=== PATIENT | male | born 1960 | race Caucasian/White ===

== ENCOUNTER 2017-12-01 17:55 | Emergency (ER) | payer OTHER, SELFPAY ==
[2017-12-01 17:57] VITALS: BP 131/74; PULSE 65; RESP 18; TEMP 36.7; O2SAT 95; BMI 24.5
--- NOTE | 2017-12-01 18:20 | US_ITS ---
STUDY: SCROTUM ULTRASOUND REASON FOR EXAM: Male, 57 years old. RT TESTICLE PAIN TECHNIQUE: Ultrasound evaluation of the scrotum was performed with color Doppler and static wagner-scale imaging. COMPARISON: None. FINDINGS: RIGHT TESTICLE INTRATESTICULAR: There is a normal size of the right testicle. The right testicle measures 4.4 x 2.6 x 2.3 cm cm. There is a homogenous echotexture. There does appear 1 microcalcification of the testis without evidence of soft tissue mass. This has a benign appearance. There is normal arterial and normal venous vascularity. There is no demonstrated right testicular mass or cyst. EXTRATESTICULAR: The epididymis is normal in size. The epididymis head measures 1.4 x 0.8 x 0.7 cm. There is normal vascularity of the epididymis. There is no demonstrated epididymal cystic structure. There is there is a small hydrocele. There are echoes seen within the fluid collection. Potentially there may be spermatocele also in this location.. There is no demonstrated varicocele. There is no demonstrated extratesticular mass or cyst. LEFT TESTICLE INTRATESTICULAR: There is a normal size of the left testicle. The left testicle measures 4.3 x 3.1 x 2.1 cm. There is a homogenous echotexture. There is normal arterial and normal venous vascularity. There is no demonstrated left testicular mass or cyst. EXTRATESTICULAR: The epididymis is normal in size. The epididymis head measures 1.4 x 0.6 x 0.9 cm cm. There is normal vascularity of the epididymis. There is no demonstrated epididymal cystic structure. There is a small hydrocele. There are prominent extratesticular veins consistent with a varicocele. There is no demonstrated extratesticular mass or cyst. US/Testicular with Arterial Flow IMPRESSION: Bilateral hydroceles. On the right there appears echogenicity associated with the hydrocele, perhaps an underlying spermatocele also coexistents. No evidence of testicular torsion. Small left varicocele. See above. Electronically Signed: Rachel Wallace MD at 19:44 EDT Tel , Service support ,
--- NOTE | 2017-12-01 18:40 | ED.VISSUMM ---
- ER Visit Summary Date of Service: 12/01/17 Chief Complaint: Testicular pain History of Present Illness: The patient is a 57 M presents to the emergency department with gradual onset right testicular pain. The patient states that starting yesterday, he began have some gradual increasing pain in his right testicle. He states it is worse when he moves around. Today, the pain was getting worse. He does admit to some mild pain with urination. He denies abdominal pain. He has had no nausea vomiting. He denies any trauma. Patient denies any recent sexual activity. He denies any penile discharge. He has no history of torsion. He has no history of prior surgery on his testicle. Physical Examination: Vital signs reviewed General: Well-nourished, well-developed Head: Normocephalic, atraumatic Eyes: Pupils equal and reactive, extraocular muscles intact Neck, supple, no lymphadenopathy Heart: Regular rate and rhythm Respiratory: No distress, clear bilaterally Abdomen: Soft, nontender, nondistended, no peritoneal signs Back: Nontender : Markedly tender palpation of the right testicle and cord. No torsion visible. Normal cremasteric. Extremities: Nontender, no edema, no cords Skin: Normal color no rash Neuro: Alert and oriented, no focal or lateralizing deficits Test Results: [] Emergency Department Course and Treatment: The patient did have rather significant tenderness to palpation of the right testicle. He was tender over the epididymis. There was no evidence of torsion. I did obtain a UA which is unremarkable. His ultrasound shows hydrocele, but no evidence of torsion or other dangerous process. I do have some concern he may be an early epididymitis even though there is no definitive evidence on his ultrasound. Given his pain, I do feel that the most prudent thing would be to treat him with oral antibiotics. The patient given his first dose of Levaquin here. I am going to given urology follow-up. I did counsellors him that if his symptoms worsen in any way over the next 24-48 hours he needs to return immediately to the emergency department. He is comfortable with this plan of care and will be discharged home. Treatment Plan: [] Disposition: Discharge Impression:. Right hydrocele This note was generated with [employer] dictation software. It may contain incorrect words, spelling, and punctuation that were not noted in review of the chart prior to signing ED Disposition - Plan for ED Patient: Disposition: Home or Assisted Living Chief Complaint: Male Pain/Injury Instructions: ED Epididymitis Prescriptions: Levofloxacin [Levaquin] 750 mg PO DAILY #7 tab Referrals: Song Holley MD [STAFF PHYSICIAN] -
--- NOTE | 2017-12-01 18:44 | ED.DCSUM_ITS ---
- ER Visit Summary Date of Service: 12/01/17 Chief Complaint: Testicular pain History of Present Illness: The patient is a 57 M presents to the emergency department with gradual onset right testicular pain. The patient states that starting yesterday, he began have some gradual increasing pain in his right testicle. He states it is worse when he moves around. Today, the pain was getting worse. He does admit to some mild pain with urination. He denies abdominal pain. He has had no nausea vomiting. He denies any trauma. Patient denies any recent sexual activity. He denies any penile discharge. He has no history of torsion. He has no history of prior surgery on his testicle. Physical Examination: Vital signs reviewed General: Well-nourished, well-developed Head: Normocephalic, atraumatic Eyes: Pupils equal and reactive, extraocular muscles intact Neck, supple, no lymphadenopathy Heart: Regular rate and rhythm Respiratory: No distress, clear bilaterally Abdomen: Soft, nontender, nondistended, no peritoneal signs Back: Nontender : Markedly tender palpation of the right testicle and cord. No torsion visible. Normal cremasteric. Extremities: Nontender, no edema, no cords Skin: Normal color no rash Neuro: Alert and oriented, no focal or lateralizing deficits Test Results: [] Emergency Department Course and Treatment: The patient did have rather significant tenderness to palpation of the right testicle. He was tender over the epididymis. There was no evidence of torsion. I did obtain a UA which is unremarkable. His ultrasound shows hydrocele, but no evidence of torsion or other dangerous process. I do have some concern he may be an early epididymitis even though there is no definitive evidence on his ultrasound. Given his pain, I do feel that the most prudent thing would be to treat him with oral antibiotics. The patient given his first dose of Levaquin here. I am going to given urology follow-up. I did benefits counselor him that if his symptoms worsen in any way over the next 24-48 hours he needs to return immediately to the emergency department. He is comfortable with this plan of care and will be discharged home. Treatment Plan: [] Disposition: Discharge Impression:. Right hydrocele This note was generated with [employer] dictation software. It may contain incorrect words, spelling, and punctuation that were not noted in review of the chart prior to signing ED Disposition - Plan for ED Patient: Disposition: Home or Assisted Living Chief Complaint: Male Pain/Injury Instructions: ED Epididymitis Prescriptions: Levofloxacin [Levaquin] 750 mg PO DAILY #7 tab Referrals: Song Holley MD [STAFF PHYSICIAN] -
[2017-12-01] MEDS: Acetaminophen 500 MG Tablet 1000 MG PO (18:45)
[2017-12-01 18:51] LABS: Bacteria 0 SEEN /hpf (None Seen); Mucous, Urine 0 SEEN /hpf (<or=2+); Red Blood Cells-Urine 0 SEEN /hpf (0-5)
[2017-12-01 19:07] LABS: Color, Urine Yellow (Yellow); Glucose, Dipstick Normal (Normal); Ketone-Dipstick 5 mg/dl (Negative); Leukocyte Esterase-Dipstick Negative /ul (Negative); Nitrite-Dipstick Negative (Negative); Occult Blood-Urine Negative /ul (Negative); Protein-Dipstick Negative (Negative); Specific Gravity, Urine 1.015 (1.002-1.030); Urine Bilirubin Dipstick Negative (Negative); Urine Clarity Clear (Clear); Urine Urobilinogen Normal (Normal)
[2017-12-01 19:21] LABS: Squamous Epithelial Cells - UA 0-5 SEEN /hpf (0-5)
[2017-12-01 19:24] LABS: White Blood Cells 0-5 SEEN /hpf (0-5)
[2017-12-01] MEDS: levoFLOXacin 750 MG Tablet PO (20:30)
[2017-12-01] MEDS: HYDROcodone Bitartrate/Apap 5/325 Tablet PO (20:30)
[2017-12-01 20:32] VITALS: PULSE 68; RESP 14; O2SAT 98
== END 2017-12-01 20:33 | disposition home or self-care (01) ==
LOC: ED 19:19
PROVIDERS: Emergency Provider Emergency Medicine; Family Provider Family Medicine; PCP Family Medicine
DX: N43.3 Hydrocele, unspecified (principal); K21.9 Gastro-esophageal reflux disease without esophagitis; Z72.0 Tobacco use; Z79.899 Other long term (current) drug therapy
CPT/HCPCS: 76870; 81001; 93976; 99283

== ENCOUNTER → 2017-12-26 15:50 | Outpatient (CLI) | payer OTHER, SELFPAY ==
[2017-12-26 17:45] LABS: PSA,Total - Annual Screen 4.68 ng/mL (0.00-4.00)
== END ==
PROVIDERS: Family Provider Family Medicine; PCP Family Medicine; Visit Provider Urology
DX: Z12.5 Encounter for screening for malignant neoplasm of prostate (principal)
CPT/HCPCS: 36415; 84153; G0103

== ENCOUNTER → 2018-02-07 08:00 | Outpatient (CLI) | payer OTHER, SELFPAY ==
[2018-02-07 17:55] LABS: PSA,Total- Diagnostic 5.69 ng/mL (0.0-4.0)
== END ==
PROVIDERS: Family Provider Family Medicine; PCP Family Medicine; Visit Provider Urology
DX: R97.20 Elevated prostate specific antigen [PSA] (principal)
CPT/HCPCS: 36415; 84153

== ENCOUNTER → 2018-03-02 15:53 | Outpatient (CLI) | payer OTHER, SELFPAY ==
[2018-03-02 17:29] LABS: Hematocrit 44.8 % (40-54); Hemoglobin 15.8 g/dl (13.0-16.5); Mean Corp Hgb Conc 35.3 g/gl (32-36); Mean Corpuscular Hgb 30.7 pg (27.0-32.0); Mean Corpuscular Volume 87.2 fL (80-94); Mean Platelet Vol. 11.4 fl (6.2-12.0); Platelet Count 213 K/mm3 (150-450); RBC Distribution Width CV 13.2 % (11.6-14.6); RBC Distribution Width SD 41.9 fl (35.1-43.9); Red Blood Count 5.14 M/mm3 (4.6-6.2); White Blood Count 7.1 K/mm3 (4.4-11.0)
[2018-03-02 17:30] LABS: Scan Indicated on CBC? Y/N NO
[2018-03-02 18:25] LABS: Anion Gap 6 (5-15); BUN 14 mg/dL (7-18); Calcium,Total 8.6 mg/dL (8.5-10.1); Chloride 106 mmol/L (98-107); Creatinine, Serum 1.17 mg/dL (0.70-1.30); EST Glomerular Filtration Rate 69 mL/min (>60); Est Glom Filt Rate - Afr Amer 83 mL/min (>60); Glucose 84 mg/dL (74-106); Potassium 4.1 mmol/L (3.5-5.1); Sodium Level 141 mmol/L (136-145)
== END ==
PROVIDERS: Family Provider Family Medicine; PCP Family Medicine; Visit Provider Urology
DX: Z01.818 Encounter for other preprocedural examination (principal); I51.9 Heart disease, unspecified
CPT/HCPCS: 36415; 80048; 85027

== ENCOUNTER → 2018-03-09 17:28 | Outpatient (CLI) | payer OTHER, SELFPAY ==
--- NOTE | 2018-03-09 08:55 | PROSBIL_PTH ---
PATIENT: KRISHAN JOHNSON Sr. LOC: [facility] U#:[id number] AGE/SX: 64/M ROOM: RE03/09/[address]: Dr. Song Holley MD : 1960 BED: DIS: SPEC #: [id number] RECD: 03/09/18 15:34 STATUS: KRISTY ANUJA #: [id number] OLIVIER: 03/09/18 08:[address]: Song Holley DEPT: SURGICAL PATHOLOGY RECD BY: Florentino Davison ENTERED: 03/12/18 07:49 SP TYPE: PROST BX THOR DR: Dr. Ernesto Faust MD [facility] Tissues: A - PROSTATE RIGHT B - PROSTATE RIGHT C - PROSTATE RIGHT D - PROSTATE LEFT E - PROSTATE LEFT F - PROSTATE LEFT Procedures: PROSTATE BX HEADER OPERATION: Transrectal ultrasound guided prostate biopsy PRE-OP DIAGNOSIS: Elevated prostate TISSUE SUBMITTED: A-Right base, B-Right mid, C-Right apex, D-Left base, E-Left mid, F-Left apex MICROSCOPIC DIAGNOSIS A. Right prostate, base, core biopsy: Prostatic tissue, negative for malignancy. B. Right prostate, mid, core biopsy: Prostatic tissue, negative for malignancy. C. Right prostate, apex, core biopsy: Prostatic tissue, negative for malignancy. D. Left prostate, base, core biopsy: Prostatic tissue, negative for malignancy. E. Left prostate, mid, core biopsy: Prostatic tissue, negative for malignancy. F. Left prostate, apex, core biopsy: Prostatic tissue, negative for malignancy. NANCY:sarah 03/13/18 MICROSCOPIC DESCRIPTION Slides are reviewed. GROSS DESCRIPTION A - Received is one container designated prostate, right base. The specimen consists of two elongated fragments of light shelley-white soft tissue each measuring 0.8 and 1.4 cm in length and 0.1 cm in diameter. The specimen is totally submitted in one cassette. B - Received is one container designated prostate, right mid. The specimen consists of two elongated fragments of light shelley-white soft tissue each measuring 0.7 and 1.8 cm in length and 0.1 cm in diameter. The specimen is totally submitted in one cassette. C - Received is one container designated prostate, right apex. The specimen consists of two elongated fragments of light shelley-white soft tissue each measuring 1.5 cm in length and 0.1 cm in diameter. The specimen is totally submitted in one cassette. D - Received is one container designated prostate, left base. The specimen consists of two elongated fragments of light shelley-white soft tissue each measuring 0.5 cm in length and 0.1 cm in diameter. The specimen is totally submitted in one cassette. E - Received is one container designated prostate, left mid. The specimen consists of three elongated fragments of light shelley-white soft tissue each measuring 0.5 to 1.3 cm in length and 0.1 cm in diameter. The specimen is totally submitted in one cassette. F - Received is one container designated prostate, left apex. The specimen consists of three elongated fragments of light shelley-white soft tissue each measuring 1 to 1.5 cm in length and 0.1 cm in diameter. The specimen is totally submitted in one cassette. / SJ:sp 03/12/18 TC:5 CPT: 82050 x6
== END ==
PROVIDERS: Family Provider Family Medicine; PCP Family Medicine; Visit Provider Urology
DX: R97.20 Elevated prostate specific antigen [PSA] (principal)
CPT/HCPCS: 88305; G0416

== ENCOUNTER → 2018-04-21 07:36 | Outpatient (CLI) | payer OTHER, SELFPAY ==
--- NOTE | 2018-04-21 07:48 | MRI_ITS ---
STUDY: MRI BRAIN WITH AND WITHOUT CONTRAST (ATTENTION INTERNAL AUDITORY CANALS - I.A.C.'s) REASON FOR EXAM: Male, 57 years old. tinnitus bilaterally x 6 mons. TECHNIQUE: Standardized multiplanar fat and water weighted pulse sequences were obtained. 9 ml of Gadavist contrast material was administered intravenously for the contrast portion of the examination. COMPARISON: None. FINDINGS: Normal bilateral temporal bones. Normal bilateral internal auditory canals. There is no demonstrated intracanalicular or cisternal vestibular schwannoma (acoustic neuroma). There is no enhancement of the bilateral VIIth or VIIIth cranial nerves. Normal bilateral cochlea, vestibules and semicircular canals. Normal size of the ventricles and extra-axial spaces for the patient's age. Normal white matter tracts of the supratentorial brain. Normal bilateral basal ganglia. Normal thalami. Normal flow voids within the major intracranial circulation suggesting patency by spin echo criteria. Normal venous enhancement. There is no enhancing intra-axial or extra-axial abnormality. There is no extra-axial fluid accumulation. Normal sella turcica, pituitary gland, infundibular stalk, optic chiasm and hypothalamus. Normal tectal plate and pineal gland. Normal midbrain, isaac and medulla. Normal cerebellum. Normal basal cisterns. No demonstrated orbital abnormality, within the constraints of a routine brain study. Normal visualized paranasal sinuses. Normal calvarium and skull base. Normal visualized soft tissue structures. Normal visualized upper cervical spine. MRI/Brain W/WO Contrast IMPRESSION: Unremarkable unenhanced and enhanced MRI of the bilateral internal auditory canals (I.A.C's). Electronically Signed: Ayana Samano MD at 9:09 EDT Tel , Service support ,
== END ==
PROVIDERS: Family Provider Family Medicine; PCP Family Medicine; Visit Provider Otolaryngology Otolaryngology/Facial Plastic Surgery
DX: R27.0 Ataxia, unspecified (principal)
CPT/HCPCS: 70553; A9585

== ENCOUNTER 2018-08-06 10:37 | Emergency (ER) | payer OTHER, SELFPAY ==
[2018-08-06] VITALS (7 sets, daily range): BP systolic 106–146; BP diastolic 59–82; PULSE 52–70; RESP 13–19; TEMP 36.4; O2SAT 96–100; BMI 27.5
--- NOTE | 2018-08-06 11:02 | EKG12_ITS ---
Test Reason : CHEST PAIN Blood Pressure : / mmHG Vent. Rate : 063 BPM Atrial Rate : 063 BPM P-R Int : 174 ms QRS Dur : 106 ms QT Int : 386 ms P-R-T Axes : 043 086 044 degrees QTc Int : 395 ms Normal sinus rhythm Normal ECG Confirmed by MYCHAL DOUGLAS, JAY ([id number]), deputy editor in chief MARKEL RAY ([id number]) on 08/16/2018 3:16:59 PM Referred By: KALEY Confirmed By:JAY HORTA MD
--- NOTE | 2018-08-06 11:10 | RAD_ITS ---
STUDY: X-RAY CHEST REASON FOR EXAM: Male, 57 years old. One month history of back pain and shoulder pain. TECHNIQUE: Single AP portable view of the chest. COMPARISON: Comparison is made with prior study dated September 18, 2016. FINDINGS: EKG electrodes are seen. The lungs are clear and expanded. There is no demonstrated pleural abnormality. Normal size heart. Normal mediastinum and abundio. Normal visualized pulmonary arteries. Normal visualized aortic arch and descending thoracic aorta. Normal visualized thoracic spine. Normal visualized ribs, clavicles, and shoulders. There is no demonstrated abnormality of the visualized soft tissue structures of the upper abdomen. RAD/Chest 1 View (Portable) IMPRESSION: Normal x-ray examination of the chest. Electronically Signed: Francesco Washington MD at 11:39 EST Tel [phone], Service support ,
[2018-08-06 11:18] LABS: Absolute Lymphocyte Count 2.83 X10^3/ul (0.83-4.51); Absolute Neutrophil Count 6.3 X10^3/uL (2.0-7.7); Basophil# 0.04 X10^3/uL; Basophil% 0.4 % (0-1); Eosinophil# 0.21 X10^3/uL; Eosinophils% 2.1 % (0-5); Hematocrit 43.8 % (40-54); Hemoglobin 15.2 g/dl (13.0-16.5); Lymphocyte # 2.83 X10^3/ul (4.0); Lymphocyte % 28.1 % (19-41); Mean Corp Hgb Conc 34.7 g/gl (32-36); Mean Corpuscular Hgb 29.9 pg (27.0-32.0); Mean Corpuscular Volume 86.2 fL (80-94); Mean Platelet Vol. 10.2 fl (6.2-12.0); Monocyte# 0.67 X10^3/uL; Monocyte% 6.6 % (0-10); Neutrophil # 6.27 X10^3/uL (2.7-7.7); Neutrophil % 62.2 % (47-70); Platelet Count 249 K/mm3 (150-450); RBC Distribution Width CV 12.8 % (11.6-14.6); RBC Distribution Width SD 39.5 fl (35.1-43.9); Red Blood Count 5.08 M/mm3 (4.6-6.2); White Blood Count 10.1 K/mm3 (4.4-11.0)
[2018-08-06 11:19] LABS: POSITIVE COUNT NO; POSITIVE DIFFERENTIAL NO; POSITIVE MORPHOLOGY NO
[2018-08-06 11:29] LABS: Anion Gap 10 (5-15); BUN 14 mg/dL (7-18); BUN/Creat Ratio 12.8 RATIO (10-20); Chloride 107 mmol/L (98-107); Creatinine, Serum 1.09 mg/dL (0.70-1.30); EST Glomerular Filtration Rate 74 mL/min (>60); Est Glom Filt Rate - Afr Amer 90 mL/min (>60); Estimated Creatinine Clearance 81.56 ml/min; Glucose 117 mg/dL (74-106); Potassium 3.8 mmol/L (3.5-5.1); Sodium Level 142 mmol/L (136-145)
[2018-08-06] MEDS: 0.9% Normal Saline 1,000 ML 150 ML IV (11:36)
[2018-08-06] MEDS: Aspirin 81 MG TAB.CHEW 324 MG PO (11:43)
--- NOTE | 2018-08-06 14:57 | ED.VISSUMM ---
- ER Visit Summary Date of Service: 08/06/18 Chief Complaint: Mid chest dull sensation while driving. History of Present Illness: The patient is a 57 M who apparently has history of coronary disease. He has no stents. Last stress test was 3 years ago and normal. He states he had bilateral anterior chest dullness that lasted approximately 1 hour while driving his vehicle. There was no radiation or associated symptoms. He states the pain he experienced when he had a cardiac cath was different. He denies hematemesis, melena hematochezia. He denies leg pain, swelling discoloration. He denies history of PE or DVT nor does he have any risk factors. He is a former smoker. He reports chronic low back pain and 1 month of right scapular pain that is worse with movement and palpation. Physical Examination: Blood pressures is elevated 133/70. HEENT exam is unremarkable. Heart is regular without murmur, gallop or rub. S1 and S2 are normal. Lungs are clear to auscultation with good movement of air bilaterally. Abdomen is soft nontender bowel sounds present normal. There is no palpable pulsatile mass. There is no abdominal bruit. There is no CVA tenderness noted. There is no asymmetry, swelling, discoloration, leg vein distention, palpable cords or tenderness along the distribution of the deep venous system. Neuro exam is nonfocal Test Results: EKG #1 reveals a sinus bradycardia with prolonged QT interval. There is a left axis. QRS duration is slightly prolonged. EKG was performed at 1108. First troponin second troponin less than 0.015. Portable chest x-ray was unremarkable. CBC was unremarkable. Basic metabolic panel reveals slight elevation of glucose of 117. Emergency Department Course and Treatment: Patient is low risk with a heart score of 2. Since EKG normal troponins normal will discharge home to follow-up with primary care physician Dr. Ernesto Galindo Treatment Plan: Outpatient follow-up Disposition: Discharged home in stable condition Impression: Atypical chest pain This note was generated with [employer] dictation software. It may contain incorrect words, spelling, and punctuation that were not noted in review of the chart prior to signing ED Disposition - Plan for ED Patient: Disposition: Home or Assisted Living Chief Complaint: Chest Pain Instructions: ED Chest Pain Atypical Unkn Cause Referrals: Ernesto Faust MD [Primary Care Provider] - 3-5 Days
== END 2018-08-06 15:38 | disposition home or self-care (01) ==
PROVIDERS: Emergency Provider Emergency Medicine; Family Provider Family Medicine; PCP Family Medicine
DX: R07.89 Other chest pain (principal); I25.10 Atherosclerotic heart disease of native coronary artery without angina pectoris; Z87.891 Personal history of nicotine dependence
CPT/HCPCS: 71045; 80048; 84484; 85025; 93005; 96360; 96361; 99285; J7030; A4216

== ENCOUNTER 2018-10-02 09:34 | Observation (INO) | payer OTHER, SELFPAY ==
[2018-08-06 10:38] VITALS: BMI 27.5
[2018-10-02] VITALS (12 sets, daily range): BP systolic 103–141; BP diastolic 72–94; PULSE 74–120; RESP 16–24; TEMP 36.8–37.3; O2SAT 95–96; BMI 28.5; BMI 27.0; BMI 27.6
--- NOTE | 2018-10-02 09:43 | EKG12_ITS ---
Test Reason : CP Blood Pressure : / mmHG Vent. Rate : 084 BPM Atrial Rate : 084 BPM P-R Int : 162 ms QRS Dur : 096 ms QT Int : 340 ms P-R-T Axes : 057 092 043 degrees QTc Int : 401 ms Normal sinus rhythm with sinus arrhythmia Rightward axis Borderline ECG Confirmed by MYCHAL DOUGLAS, JAY ([id number]), acquisitions editor MARKEL RAY ([id number]) on 10/03/2018 1:37:02 PM Referred By: WHITNEY Confirmed By:JAY HORTA MD
--- NOTE | 2018-10-02 09:51 | ED.VISSUMM ---
- ER Visit Summary Date of Service: 10/02/18 Chief Complaint: Chest pain associated with diaphoresis, dyspnea and nausea History of Present Illness: The patient is a 58 M who was a former smoker presents with chest tightness heaviness that radiated to his jaw associated with nausea, dyspnea and diaphoresis. This occurred while hooking a trailer to a hitch. 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 He denies history of PE or DVT. He does have history of acid reflux. He states this pain is different. He presented because 1 hour prior to presentation he became more short of breath. His pain has diminished but is still present. Pain is presently moderate. He has no known history of coronary disease. He denies symptoms of claudication. He does report less hair on his legs and toes. He has reported similar symptoms 15 years ago and had a cardiac cath at [facility]. He does not know or recall specifics. He denies fever, chills night sweats. He denies weight gain or weight loss. He denies ocular, visual or auditory symptoms. He denies vomiting, diarrhea, black or maroon stool. He denies urologic symptoms. He denies myalgias arthralgias. He denies pain radiating through to his back. He denies headache, paresthesia, anesthesia or motor weakness. He is on no anticoagulant and there is no history of bleeding problems. He denies history of hives or angioedema. Physical Examination: Patient appears in no obvious distress. Vital signs noted and remarkable for slight elevation blood pressure 134/94. Head is atraumatic normocephalic. Pupils are equal round reactive. Extraocular muscles are intact. TMs are pearly white with landmarks noted. Nares patent with no drainage. Posterior pharynx without erythema or exudate. Uvula is midline. There is no dysphonia or dysphasia. Trachea is midline. There is no stridor with auscultation of the neck. Heart is regular without murmur, gallop or rub. S1 and S2 are normal. Lungs are clear to auscultation with good movement of air bilaterally. Abdomen soft nontender with no palpable pulsatile mass. There is no abdominal bruit. DP and PT pulses are palpable. He does have absent of hair distal right and left leg and minimal hair on his toes. Neuro exam is nonfocal. Test Results: EKG #1 reveals a sinus rhythm with respiratory variation. [place] is to the right. [place] interval, QRS duration and QT interval are normal. EKG #2 was obtained. Presume patient had a vagal response after first nitro. He became diaphoretic, pale and bradycardic. ST segments on monitor changed significantly. EKG #2 reveals a sinus rhythm rate of 97 with motion artifact. EKG is essentially unchanged from first with the exception of axis. Portal chest x-ray reveals mild chronic changes. First troponin is normal. Hemoglobin is 18.5 with hematocrit of 54.8. Electric panel is unremarkable. Emergency Department Course and Treatment: Workup for chest pain to evaluate cardiac versus pulmonary versus GI. Patient did receive aspirin in route. He received nitroglycerin which resulted in bradycardia, diaphoresis and pallor. Unfortunately unable to obtain blood pressure. Treatment Plan: Tylenol for headache. Imodium for reported diarrhea. Page hospitalist for further testing Disposition: PCU Impression: 1. Exertional chest pain 2. History of tobacco use 3. Vagal response to nitroglycerin This note was generated with [employer] dictation software. It may contain incorrect words, spelling, and punctuation that were not noted in review of the chart prior to signing ED Disposition - Plan for ED Patient: Chief Complaint: Chest Pain Referrals: Ernesto Faust MD [Primary Care Provider] -
[2018-10-02 09:52] LABS: Absolute Lymphocyte Count 0.77 X10^3/ul (0.83-4.51); Absolute Neutrophil Count 12.5 X10^3/uL (2.0-7.7); Basophil# 0.01 X10^3/uL; Basophil% 0.1 % (0-1); Eosinophil# 0.07 X10^3/uL; Eosinophils% 0.5 % (0-5); Hematocrit 54.8 % (40-54); Lymphocyte # 0.77 X10^3/ul (4.0); Lymphocyte % 5.5 % (19-41); Mean Corp Hgb Conc 33.8 g/gl (32-36); Mean Corpuscular Hgb 29.9 pg (27.0-32.0); Mean Corpuscular Volume 88.5 fL (80-94); Mean Platelet Vol. 10.7 fl (6.2-12.0); Monocyte# 0.48 X10^3/uL; Monocyte% 3.5 % (0-10); Neutrophil # 12.52 X10^3/uL (2.7-7.7); Platelet Count 199 K/mm3 (150-450); RBC Distribution Width CV 13.1 % (11.6-14.6); RBC Distribution Width SD 42.2 fl (35.1-43.9); Red Blood Count 6.19 M/mm3 (4.6-6.2); White Blood Count 13.9 K/mm3 (4.4-11.0)
[2018-10-02] MEDS: Ondansetron 4 MG/2 ML Vial IV ×2 (09:55→14:44)
--- NOTE | 2018-10-02 09:55 | ED.DCSUM_ITS ---
- ER Visit Summary Date of Service: 10/02/18 Chief Complaint: Chest pain associated with diaphoresis, dyspnea and nausea History of Present Illness: The patient is a 58 M who was a former smoker presents with chest tightness heaviness that radiated to his jaw associated with nausea, dyspnea and diaphoresis. This occurred while hooking a trailer to a hitch. 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 He denies history of PE or DVT. He does have history of acid reflux. He states this pain is different. He presented because 1 hour prior to presentation he became more short of breath. His pain has diminished but is still present. Pain is presently moderate. He has no known history of coronary disease. He denies symptoms of claudication. He does report less hair on his legs and toes. He has reported similar symptoms 15 years ago and had a cardiac cath at [facility]. He does not know or recall specifics. He denies fever, chills night sweats. He denies weight gain or weight loss. He denies ocular, visual or auditory symptoms. He denies vomiting, diarrhea, black or maroon stool. He denies urologic symptoms. He denies myalgias arthralgias. He denies pain radiating through to his back. He denies headache, paresthesia, anesthesia or motor weakness. He is on no anticoagulant and there is no history of bleeding problems. He denies history of hives or angioedema. Physical Examination: Patient appears in no obvious distress. Vital signs noted and remarkable for slight elevation blood pressure 134/94. Head is atraumatic normocephalic. Pupils are equal round reactive. Extraocular muscles are intact. TMs are pearly white with landmarks noted. Nares patent with no drainage. Posterior pharynx without erythema or exudate. Uvula is midline. There is no dysphonia or dysphasia. Trachea is midline. There is no stridor with auscultation of the neck. Heart is regular without murmur, gallop or rub. S1 and S2 are normal. Lungs are clear to auscultation with good movement of air bilaterally. Abdomen soft nontender with no palpable pulsatile mass. There is no abdominal bruit. DP and PT pulses are palpable. He does have absent of hair distal right and left leg and minimal hair on his toes. Neuro exam is nonfocal. Test Results: EKG #1 reveals a sinus rhythm with respiratory variation. [place] is to the right. [place] interval, QRS duration and QT interval are normal. EKG #2 was obtained. Presume patient had a vagal response after first nitro. He became diaphoretic, pale and bradycardic. ST segments on monitor changed significantly. EKG #2 reveals a sinus rhythm rate of 97 with motion artifact. EKG is essentially unchanged from first with the exception of axis. Portal chest x-ray reveals mild chronic changes. First troponin is normal. Hemoglobin is 18.5 with hematocrit of 54.8. Electric panel is unremarkable. Emergency Department Course and Treatment: Workup for chest pain to evaluate cardiac versus pulmonary versus GI. Patient did receive aspirin in route. He r eceived nitroglycerin which resulted in bradycardia, diaphoresis and pallor. Unfortunately unable to obtain blood pressure. Treatment Plan: Tylenol for headache. Imodium for reported diarrhea. Page hospitalist for further testing Disposition: PCU Impression: 1. Exertional chest pain 2. History of tobacco use 3. Vagal response to nitroglycerin This note was generated with [employer] dictation software. It may contain incorrect words, spelling, and punctuation that were not noted in review of the chart prior to signing ED Disposition - Plan for ED Patient: Chief Complaint: Chest Pain Referrals: Ernesto Faust MD [Primary Care Provider] -
--- NOTE | 2018-10-02 10:01 | ED.RN ---
GIVEN NITRO 0.4MG X1 SL. PT SUDDENLY STS I'M NOT FEELING WELL WITH NAUSEA. HR DROPPED FROM 120 TO 57 BMP. IVF WIDE OPEN. [address] OLSON AT BEDSIDE. PT RESTLESS AND VOMITING. GIVEN ZOFRAN FOR VOMITING. HR THEN ELEVATED BACK UP TO LOW 100'S AFTER SEVERAL SECONDS. SECOND EKG OBTAINED. NO NEW CHANGES. PT NOW STS IS FEELING BETTER.
[2018-10-02 10:02] LABS: Hemoglobin 18.5 g/dl (13.0-16.5); POSITIVE COUNT NO; POSITIVE DIFFERENTIAL NO; POSITIVE MORPHOLOGY NO
[2018-10-02 10:07] LABS: Anion Gap 9 (5-15); BUN 19 mg/dL (7-18); BUN/Creat Ratio 16.1 RATIO (10-20); Calcium,Total 9.4 mg/dL (8.5-10.1); Chloride 108 mmol/L (98-107); Creatinine, Serum 1.18 mg/dL (0.70-1.30); EST Glomerular Filtration Rate 68 mL/min (>60); Est Glom Filt Rate - Afr Amer 82 mL/min (>60); Estimated Creatinine Clearance 74.45 ml/min; Glucose 96 mg/dL (74-106); Potassium 3.9 mmol/L (3.5-5.1); Sodium Level 141 mmol/L (136-145)
--- NOTE | 2018-10-02 10:50 | RAD_ITS ---
STUDY: X-RAY CHEST REASON FOR EXAM: Male, 58 years old. Chest pain. Coronary artery disease. TECHNIQUE: Single AP portable view of the chest. COMPARISON: Comparison is made with prior study August 06, 2018. FINDINGS: EKG electrodes are seen. Mild elevation of the right hemidiaphragm. Scattered calcified granulomas. No acute abnormality is seen. There is no demonstrated pleural abnormality. Normal size heart. Normal mediastinum and abundio. Normal visualized pulmonary arteries. Normal visualized aortic arch and descending thoracic aorta. There are degenerative changes of the visualized thoracic spine. Normal visualized ribs, clavicles, and shoulders. There is no demonstrated abnormality of the visualized soft tissue structures of the upper abdomen. RAD/Chest 1 View (Portable) IMPRESSION: No acute abnormality is seen. Electronically Signed: Francesco Washington MD at 11:08 EST Tel [phone], Service support ,
[2018-10-02] MEDS: Acetaminophen 325 MG Tablet 650 MG PO (10:53)
[2018-10-02] MEDS: Loperamide 2 MG Capsule 4 MG PO (10:54)
[2018-10-02 11:01] LABS: D-Dimer Quantitative (DVT/PE) 0.31 FEU/ug/m (0.27-0.49)
--- NOTE | 2018-10-02 11:17 | EKG12_ITS ---
Test Reason : Blood Pressure : / mmHG Vent. Rate : 097 BPM Atrial Rate : 097 BPM P-R Int : 152 ms QRS Dur : 090 ms QT Int : 336 ms P-R-T Axes : 056 073 048 degrees QTc Int : 426 ms Normal sinus rhythm Normal ECG Confirmed by MYCHAL DOUGLAS, JAY ([id number]), supervising editor trailer MARKEL RAY ([id number]) on 10/03/2018 1:37:19 PM Referred By: Confirmed By:JAY HORTA MD
--- NOTE | 2018-10-02 11:26 | EKG12_ITS ---
Test Reason : CP Blood Pressure : / mmHG Vent. Rate : 072 BPM Atrial Rate : 072 BPM P-R Int : 170 ms QRS Dur : 092 ms QT Int : 356 ms P-R-T Axes : 052 090 062 degrees QTc Int : 389 ms Normal sinus rhythm with sinus arrhythmia Rightward axis Early repolarization Borderline ECG Confirmed by MYCHAL DOUGLAS, JAY ([id number]), art editor MARKEL RAY ([id number]) on 10/05/2018 2:42:47 PM Referred By: DEREK Confirmed By:JAY HORTA MD
--- NOTE | 2018-10-02 11:48 | PCM.HP.STD ---
Problem List (1) Chest pain Status: Acute Qualifiers: Chest pain type: unspecified Qualified Code(s): R07.9 - Chest pain, unspecified History of Present Illness Date of Admission: 10/02/18 Chief Complaint: chest pain The patient is a 58 year old M who was in his normal state of health but experienced chest pain today. 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 Patient was requiring a lot of physical effort in regards to doing this where she had chest pain that was across his chest and up into his neck. With that, he was diaphoretic and nauseated. Additionally, despite the cold, he felt hot and flushed. Patient states that he has had chest pain, but less severe in the past and has undergone left heart catheterization. Patient was told that he had a lesion in the back of his heart but was not amenable to stent and that was in 2009. Patient had these had some other episodes but far less severe in the interim. In the emergency room, patient received nitroglycerin and then had what seem like a vagal episode. Did not receive any additional nitroglycerin. Currently, he is chest pain-free. [] Past Medical History Medical History: Medical History (Last Updated 10/02/18 @ 11:50 by Zane Larson DO) GERD (gastroesophageal reflux disease) K21.9 Allergies morphine Adverse Reaction (Verified 10/02/18 10:09) Other phenobarbital Adverse Reaction (Verified 10/02/18 10:09) Other made me go crazy Home Medications: Ambulatory Orders Medication Instructions Recorded Cholecalciferol (Vitamin D3) 2,000 unit PO QHS 08/24/17 [Vitamin D3] Rabeprazole Sodium [Aciphex] 20 mg PO DAILY 08/24/17 Vitamin B Complex 1 each PO DAILY 08/24/17 Surgical History: cholecystectomy, - - Tenotomy Psychiatric History: No pertinent psych hx Lives: Spouse/ Significant Other Smoking Status: Current every day smoker Tobacco Use: Vapor Alcohol: Rare Drugs: None - *Family History Maternal History Items: Heart Disease - Has a pacemaker Review of Systems Constitutional: Reports: Malaise. Denies: Anorexia, Chills, Fever Eyes: Denies: Blurred vision, Double vision HEENT: Denies: Head Aches, Sinus Congestion, Sinus Drainage Cardiovascular: Reports: Chest Pain. Denies: Edema Respiratory: Denies: Cough, Shortness of breath at rest, Sputum production Gastrointestinal: Reports: Nausea. Denies: Abdominal Pain, Vomiting Genitourinary: Denies: Dysuria Musculoskeletal: Denies: Joint Pain, Joint Tenderness Skin: Denies: Rash, Wounds Neurological: Denies: Numbness, Tingling, Focal weakness Psychiatric: Denies: Anxiety, Depression Endocrine: Denies: Change in Body Habitus, Heat/ Cold Intolerance Hematologic/ Lymphatic: Reports: Easy Bruising, Easy Bleeding, - - States that he gets blood blisters on his arms when he hit them on objects.. Denies: Hx of blood clot Comment: A 10 point review of systems were negative except as mentioned in the history of present illness and the other review of systems. VTE Information - Inpt Only VTE Present on Admission: No VTE Pharm Prophylaxis ordered?: Yes Patient Problems: Active and Suspected Problems Chest pain (Acute) - Physical Exam General: Alert, Cooperative, No apparent distress HEENT: Atraumatic, Normocephalic Oral: Moist Mucosa, No Gingival or Mucosal Lesions/ Ulcerations Neck: No Nodes, Thyroid Normal Size and Texture Lungs: Clear to auscultation, Normal air movement, No rhonchi, No wheeze Cardiovascular: Regular rate, Regular Rhythm, Normal S1, Normal S2, No murmurs Abdomen: Bowel Sounds Present, Soft, Non Tender, Non-Distended, No Hepato-splenomegaly Extremities: No edema, No Calf Tenderness Skin: No rashes, No breakdown Musculoskeletal: No Tenderness to Palpation of Joints or Extremities, - - Positive reproducible chest tenderness, but different quality than what he had experienced earlier Psych/Mental Status: Normal Affect, Appropriate Vital Signs Temp Pulse Resp BP Pulse Ox 36.8 C 80 16 110/72 95 10/02/18 09:35 10/02/18 10:54 10/02/18 10:54 10/02/18 10:54 10/02/18 10:54 Oxygen Flow Rate (L/min) 2 Oxygen Delivery Method Nasal Cannula Weight: 92.986 kg Body Mass Index (BMI) 28.5 Laboratory Tests Past 24 Hrs 10/02/18 10/02/18 10/02/18 09:40 09:40 09:40 WBC 13.9 H RBC 6.19 Hgb 18.5 H* Hct 54.8 H MCV 88.5 MCH 29.9 MCHC 33.8 RDW 13.1 RDW Differential 42.2 Plt Count 199 MPV 10.7 Immature Gran % (Auto) 0.400 Neut % (Auto) 90.0 H Lymph % (Auto) 5.5 L [place] % (Auto) 3.5 Eos % (Auto) 0.5 Baso % (Auto) 0.1 Absolute Neuts (auto) 12.5 H Absolute Lymphs (auto) 0.77 L Total Counted Not Reportable Diff Path Review May foll D-Dimer Quant (PE/DVT) 0.31 Sodium 141 Potassium 3.9 Chloride 108 H Carbon Dioxide 24.0 Anion Gap 9 BUN 19 H Creatinine 1.18 Estim Creat Clear Calc 74.45 Est GFR (MDRD) Af Amer 82 Est GFR (MDRD) Non-Af 68 BUN/Creatinine Ratio 16.1 Glucose 96 Calcium 9.4 Troponin I < 0.015 Clinical Impression(s) from Imaging Studies Chest X-Ray 10/02/18 10:50 IMPRESSION: No acute abnormality is seen. Electronically Signed: Francesco Washington MD at 11:08 EST Tel [phone], Service support , EKG reviewed and showed normal sinus rhythm with no acute changes. Assessment/Plan All Active Problems Chest pain (Acute) 1. Chest pain MIGUEL 1, Heart Score 4 ASA Cycle troponins Stress test 2. Nicotine abuse stopped smoking cigarettes 1 year ago and currently vapes advised that the risks of vaping have not been clear identified given its relative recency 3. DVT proph: LMWH. DW patient's significant other at bedside, with his permission. Code Visit OBSV E&M: 71148 Initial observation care L2
--- NOTE | 2018-10-02 11:52 | HP.PCM_ITS ---
Problem List (1) Chest pain Status: Acute Qualifiers: Chest pain type: unspecified Qualified Code(s): R07.9 - Chest pain, unspecified History of Present Illness Date of Admission: 10/02/18 Chief Complaint: chest pain The patient is a 58 year old M who was in his normal state of health but experienced chest pain today. 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 Patient was requiring a lot of physical effort in regards to doing this where she had chest pain that was across his chest and up into his neck. With that, he was diaphoretic and nauseated. Additionally, despite the cold, he felt hot and flushed. Patient states that he has had chest pain, but less severe in the past and has undergone left heart catheterization. Patient was told that he had a lesion in the back of his heart but was not amenable to stent and that was in 2009. Patient had these had some other episodes but far less severe in the interim. In the emergency room, patient received nitroglycerin and then had what seem like a vagal episode. Did not receive any additional nitroglycerin. Currently, he is chest pain-free. [] Past Medical History Medical History: Medical History (Last Updated 10/02/18 @ 11:50 by Zane Larson DO) GERD (gastroesophageal reflux disease) K21.9 Allergies morphine Adverse Reaction (Verified 10/02/18 10:09) Other phenobarbital Adverse Reaction (Verified 10/02/18 10:09) Other made me go crazy Home Medications: Ambulatory Orders Medication Instructions Recorded Cholecalciferol (Vitamin D3) 2,000 unit PO QHS 08/24/17 [Vitamin D3] Rabeprazole Sodium [Aciphex] 20 mg PO DAILY 08/24/17 Vitamin B Complex 1 each PO DAILY 08/24/17 Surgical History: cholecystectomy, - - Tenotomy Psychiatric History: No pertinent psych hx Lives: Spouse/ Significant Other Smoking Status: Current every day smoker Tobacco Use: Vapor Alcohol: Rare Drugs: None - *Family History Maternal History Items: Heart Disease - Has a pacemaker Review of Systems Constitutional: Reports: Malaise. Denies: Anorexia, Chills, Fever Eyes: Denies: Blurred vision, Double vision HEENT: Denies: Head Aches, Sinus Congestion, Sinus Drainage Cardiovascular: Reports: Chest Pain. Denies: Edema Respiratory: Denies: Cough, Shortness of breath at rest, Sputum production Gastrointestinal: Reports: Nausea. Denies: Abdominal Pain, Vomiting Genitourinary: Denies: Dysuria Musculoskeletal: Denies: Joint Pain, Joint Tenderness Skin: Denies: Rash, Wounds Neurological: Denies: Numbness, Tingling, Focal weakness Psychiatric: Denies: Anxiety, Depression Endocrine: Denies: Change in Body Habitus, Heat/ Cold Intolerance Hematologic/ Lymphatic: Reports: Easy Bruising, Easy Bleeding, - - States that he gets blood blisters on his arms when he hit them on objects.. Denies: Hx of blood clot Comment: A 10 point review of systems were negative except as mentioned in the history of present illness and the other review of systems. VTE Information - Inpt Only VTE Present on Admission: No VTE Pharm Prophylaxis ordered?: Yes Patient Problems: Active and Suspected Problems Chest pain (Acute) - Physical Exam General: Alert, Cooperative, No apparent distress HEENT: Atraumatic, Normocephalic Oral: Moist Mucosa, No Gingival or Mucosal Lesions/ Ulcerations Neck: No Nodes, Thyroid Normal Size and Texture Lungs: Clear to auscultation, Normal air movement, No rhonchi, No wheeze Cardiovascular: Regular rate, Regular Rhythm, Normal S1, Normal S2, No murmurs Abdomen: Bowel Sounds Present, Soft, Non Tender, Non-Distended, No Hepato- splenomegaly Extremities: No edema, No Calf Tenderness Skin: No rashes, No breakdown Musculoskeletal: No Tenderness to Palpation of Joints or Extremities, - - Positive reproducible chest tenderness, but different quality than what he had experienced earlier Psych/Mental Status: Normal Affect, Appropriate Vital Signs Temp Pulse Resp BP Pulse Ox 36.8 C 80 16 110/72 95 10/02/18 09:35 10/02/18 10:54 10/02/18 10:54 10/02/18 10:54 10/02/18 10:54 Oxygen Flow Rate (L/min) 2 Oxygen Delivery Method Nasal Cannula Weight: 92.986 kg Body Mass Index (BMI) 28.5 Laboratory Tests Past 24 Hrs 10/02/18 10/02/18 10/02/18 09:40 09:40 09:40 WBC 13.9 H RBC 6.19 Hgb 18.5 H* Hct 54.8 H MCV 88.5 MCH 29.9 MCHC 33.8 RDW 13.1 RDW Differential 42.2 Plt Count 199 MPV 10.7 Immature Gran % (Auto) 0.400 Neut % (Auto) 90.0 H Lymph % (Auto) 5.5 L [place] % (Auto) 3.5 Eos % (Auto) 0.5 Baso % (Auto) 0.1 Absolute Neuts (auto) 12.5 H Absolute Lymphs (auto) 0.77 L Total Counted Not Reportable Diff Path Review May foll D-Dimer Quant (PE/DVT) 0.31 Sodium 141 Potassium 3.9 Chloride 108 H Carbon Dioxide 24.0 Anion Gap 9 BUN 19 H Creatinine 1.18 Estim Creat Clear Calc 74.45 Est GFR (MDRD) Af Amer 82 Est GFR (MDRD) Non-Af 68 BUN/Creatinine Ratio 16.1 Glucose 96 Calcium 9.4 Troponin I < 0.015 Clinical Impression(s) from Imaging Studies Chest X-Ray 10/02/18 10:50 IMPRESSION: No acute abnormality is seen. Electronically Signed: Francesco Washington MD at 11:08 EST Tel [phone], Service support , EKG reviewed and showed normal sinus rhythm with no acute changes. Assessment/Plan All Active Problems Chest pain (Acute) 1. Chest pain MIGUEL 1, Heart Score 4 ASA Cycle troponins Stress test 2. Nicotine abuse stopped smoking cigarettes 1 year ago and currently vapes advised that the risks of vaping have not been clear identified given its relative recency 3. DVT proph: LMWH. DW patient's significant other at bedside, with his permission. Code Visit OBSV E&M: 78194 Initial observation care L2
[2018-10-02] MEDS: oxyCODONE 5 MG Tablet PO (12:13)
[2018-10-02] MEDS: 0.9% NaCl Peripheral Flush Adult/Peds IV ×4 (14:44→21:58)
[2018-10-02] MEDS: Pantoprazole Sodium 20 MG Tablet PO (17:29)
[2018-10-02] MEDS: proMETHazine 25 MG/ML Syringe 6.25 MG IV (18:12)
--- NOTE | 2018-10-02 18:20 | RAD_ITS ---
STUDY: X-RAY - ABDOMEN/PELVIS REASON FOR EXAM: Male, 58 years old. Abdominal pain TECHNIQUE: Two AP supine views of the abdomen and pelvis. COMPARISON: 11/25/2016 FINDINGS: Normal visualized lung bases. There is an unremarkable bowel gas pattern. There is no demonstrated free abdominal air. The visualized liver, spleen and kidneys are grossly normal in size and morphology. Normal soft tissue structures. Normal visualized osseous structures. Abdominal clips. RAD/Abdomen Single View IMPRESSION: Normal bowel gas pattern. Electronically Signed: Jarret Cristina MD at 5:26 EST Tel , Service support ,
[2018-10-03 03:00] VITALS: PULSE 89
[2018-10-03 03:45] VITALS: BP 124/76; PULSE 86; RESP 16; TEMP 37.1; O2SAT 97
[2018-10-03 03:51] VITALS: O2SAT 97
[2018-10-03 04:59] LABS: Absolute Lymphocyte Count 0.97 X10^3/ul (0.83-4.51); Basophil# 0.01 X10^3/uL; Basophil% 0.1 % (0-1); Eosinophil# 0.03 X10^3/uL; Eosinophils% 0.4 % (0-5); Hematocrit 49.7 % (40-54); Hemoglobin 16.6 g/dl (13.0-16.5); Lymphocyte # 0.97 X10^3/ul (4.0); Mean Corp Hgb Conc 33.4 g/gl (32-36); Mean Corpuscular Hgb 29.3 pg (27.0-32.0); Mean Corpuscular Volume 87.7 fL (80-94); Mean Platelet Vol. 10.5 fl (6.2-12.0); Monocyte# 0.45 X10^3/uL; Neutrophil % 80.4 % (47-70); Platelet Count 171 K/mm3 (150-450); RBC Distribution Width CV 13.5 % (11.6-14.6); Red Blood Count 5.67 M/mm3 (4.6-6.2); White Blood Count 7.5 K/mm3 (4.4-11.0)
[2018-10-03 05:06] LABS: POSITIVE COUNT NO; POSITIVE DIFFERENTIAL NO; POSITIVE MORPHOLOGY NO
[2018-10-03 05:23] LABS: Anion Gap 9 (5-15); BUN 19 mg/dL (7-18); BUN/Creat Ratio 18.8 RATIO (10-20); Calcium,Total 8.4 mg/dL (8.5-10.1); Chloride 108 mmol/L (98-107); Cholesterol 112 mg/dL (200); Creatinine, Serum 1.01 mg/dL (0.70-1.30); EST Glomerular Filtration Rate 81 mL/min (>60); Est Glom Filt Rate - Afr Amer 98 mL/min (>60); Estimated Creatinine Clearance 86.98 ml/min; Glucose 97 mg/dL (74-106); High Density Lipoprotein 40 mg/dL; Potassium 4.1 mmol/L (3.5-5.1); Sodium Level 139 mmol/L (136-145); Triglycerides 72 mg/dL; Very Low Density Lipoprotein 14 mg/dL (5-40)
[2018-10-03 05:26] LABS: International Normalized Ratio 1.1; Prothrombin Time (Protime)PT. 14.4 SECONDS (11.7-14.9)
[2018-10-03 05:27] LABS: Partial Thromboplast Time 29.2 Seconds (24.1-36.2)
--- NOTE | 2018-10-03 05:55 | EKG12_ITS ---
Test Reason : AM EKG Blood Pressure : / mmHG Vent. Rate : 078 BPM Atrial Rate : 078 BPM P-R Int : 164 ms QRS Dur : 100 ms QT Int : 356 ms P-R-T Axes : 054 092 050 degrees QTc Int : 405 ms Normal sinus rhythm Rightward axis Borderline ECG Confirmed by MYCHAL DOUGLAS, JAY ([id number]), editor house organ MARKEL RAY ([id number]) on 10/05/2018 2:40:27 PM Referred By: TERESA Confirmed By:JAY HORTA MD
[2018-10-03 07:16] VITALS: PULSE 79
[2018-10-03 10:48] VITALS: BP 134/83; PULSE 75; RESP 16; TEMP 37; O2SAT 97
[2018-10-03 11:06] VITALS: PULSE 69
--- NOTE | 2018-10-03 11:27 | DCINST_ITS ---
- Discharge Diagnoses Current Active Problems: Current Active and Chronic Problems (Last Updated 10/02/18 @ 11:50 by Zane Larson DO) Chest pain (Acute) You will use the following diet at home:: No restrictions - bland, advance as tolerated Your food should be the consistency of: Regular Discharge Activity: Return to Normal Activity Instructions: ED Chest Pain NonCardiac Allergies/Adverse Reactions: Allergies morphine Adverse Reaction (Verified 10/02/18 10:09) Other phenobarbital Adverse Reaction (Verified 10/02/18 10:09) Other made me go crazy Medications to take at Discharge Cholecalciferol (Vitamin D3) [Vitamin D3] 2,000 unit PO QHS 08/24/17 Vitamin B Complex 1 each PO DAILY 08/24/17 Ondansetron HCl [Zofran] 8 mg PO TID PRN #20 tablet 10/03/18 Rabeprazole Sodium [Aciphex] 20 mg PO BID #0 10/03/18 The following prescriptions were given: Ondansetron HCl [Zofran] 8 mg PO TID PRN #20 tablet PRN Reason: Nausea Primary Care Physician: Ernesto Faust MD [Primary Care Provider] - Within 2 Weeks Test Results: Test results from this visit will be discussed in further detail at your follow- up appointment, if applicable. Please Follow Up With: gastroenterology - if recurrent chest pain and reflux When: 4-6 weeks Proposed Discharge Date: 10/03/18
--- NOTE | 2018-10-03 11:27 | PCM.DC.SUM ---
Discharge Date and Diagnosis - Problem List Patient Problems: Active and Suspected Problems (Last Updated 10/02/18 @ 11:50 by Zane Larson DO) Chest pain (Acute) Date of Admission: 10/02/18 Date of Discharge: 10/03/18 - Primary Discharge Diagnosis Active and Suspected Problems (Last Updated 10/02/18 @ 11:50 by Zane Larson DO) Chest pain (Acute) Hospital Course and Treatment Imaging Results: 10/03/18 05:55 Nuclear Stress Test - Treadmil [NM] Routine Clinical Impression(s) from Imaging Studies Chest X-Ray 10/02/18 10:50 IMPRESSION: No acute abnormality is seen. Electronically Signed: Francesco Washington MD at 11:08 EST Tel [phone], Service support , KUB X-Ray 10/02/18 18:20 IMPRESSION: Normal bowel gas pattern. Electronically Signed: Jarret Cristina MD at 5:26 EST Tel , Service support , Operations: None Procedures: Stress test Summary of Care Provided: The patient is a 58 year old M presents with chest pain while putting a trailer onto his truck. He stated that he felt flushed with this episode. Patient presented to the emergency room and was evaluated. Workup was unremarkable, including troponin series, EKG stress test. After the patient was admitted, patient did have some abdominal pain. Patient states that his reflux is worse. 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 I advised patient to increase his AcipHex to twice daily for 2 weeks and then to resume daily thereafter. 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 It is possible patient may be having a viral syndrome as well that may be contributing to some of the symptoms and patient will receive a prescription for Zofran for nausea. [] Patient Problems: Active and Suspected Problems (Last Updated 10/02/18 @ 11:50 by Zane Larson DO) Chest pain (Acute) - Physical Exam General: Alert, Cooperative, No apparent distress HEENT: Atraumatic, Normocephalic Abdomen: Bowel Sounds Present, Soft, Non Tender, Non-Distended Vital Signs Temp Pulse Resp BP Pulse Ox 37.0 C 69 16 134/83 H 97 10/03/18 10:48 10/03/18 11:06 10/03/18 10:48 10/03/18 10:48 10/03/18 10:48 Oxygen Flow Rate (L/min) 2 Oxygen Delivery Method Room Air Weight: 90.038 kg Body Mass Index (BMI) 27.6 Intake and Output for Last 24 Hours 10/01/18 10/02/18 10/03/18 23:59 23:59 23:59 Intake Total 820 / 820 500 / 500 Output Total 800 / 800 Balance 500 / 500 Laboratory Tests Past 24 Hrs 10/02/18 10/02/18 10/03/18 12:15 15:15 04:48 WBC 7.5 RBC 5.67 Hgb 16.6 H Hct 49.7 MCV 87.7 MCH 29.3 MCHC 33.4 RDW 13.5 RDW Differential 43.0 Plt Count 171 MPV 10.5 Immature Gran % (Auto) 0.100 Neut % (Auto) 80.4 H Lymph % (Auto) 13.0 L [place] % (Auto) 6.0 Eos % (Auto) 0.4 Baso % (Auto) 0.1 Absolute Neuts (auto) 6.0 Absolute Lymphs (auto) 0.97 Total Counted Not Reportable PT INR APTT Sodium Potassium Chloride Carbon Dioxide Anion Gap BUN Creatinine Estim Creat Clear Calc Est GFR (MDRD) Af Amer Est GFR (MDRD) Non-Af BUN/Creatinine Ratio Glucose Calcium Troponin I < 0.015 < 0.015 Triglycerides Cholesterol LDL Cholesterol VLDL Cholesterol HDL Cholesterol 10/03/18 10/03/18 04:48 04:48 WBC RBC Hgb Hct MCV MCH MCHC RDW RDW Differential Plt Count MPV Immature Gran % (Auto) Neut % (Auto) Lymph % (Auto) [place] % (Auto) Eos % (Auto) Baso % (Auto) Absolute Neuts (auto) Absolute Lymphs (auto) Total Counted PT 14.4 INR 1.1 APTT 29.2 Sodium 139 Potassium 4.1 Chloride 108 H Carbon Dioxide 22.0 Anion Gap 9 BUN 19 H Creatinine 1.01 Estim Creat Clear Calc 86.98 Est GFR (MDRD) Af Amer 98 Est GFR (MDRD) Non-Af 81 BUN/Creatinine Ratio 18.8 Glucose 97 Calcium 8.4 L Troponin I Triglycerides 72 Cholesterol 112 LDL Cholesterol 58 VLDL Cholesterol 14 HDL Cholesterol 40 Discharge Diet: - - bland, advance as tolerated. Discharge Activity: Return to Normal Activity Home Medications: Medications to take at Discharge Cholecalciferol (Vitamin D3) [Vitamin D3] 2,000 unit PO QHS 08/24/17 Vitamin B Complex 1 each PO DAILY 08/24/17 Ondansetron HCl [Zofran] 8 mg PO TID PRN #20 tablet 10/03/18 Rabeprazole Sodium [Aciphex] 20 mg PO BID #0 10/03/18 Following Prescrptions Were Given to Patient: Ondansetron HCl [Zofran] 8 mg PO TID PRN #20 tablet PRN Reason: Nausea Primary Care Physician: Ernesto aFust MD [Primary Care Provider] - Within 2 Weeks Please Follow Up With: gastroenterology - if recurrent chest pain and reflux When: 4-6 weeks Patient Instructions: ED Chest Pain NonCardiac Disposition: Home Minutes spent on discharge:: 28 Patient Condition:: Good Medical Necessity - Tobacco Use Smoking Status: Current every day smoker Tobacco Use: Vapor Meaningful Use Info Meaningful Use Diagnoses (Choose all that apply): None applicable Code Visit OBSV E&M: 66189 Observation care discharge
--- NOTE | 2018-10-03 11:30 | DS.PCM_ITS ---
Discharge Date and Diagnosis - Problem List Patient Problems: Active and Suspected Problems (Last Updated 10/02/18 @ 11:50 by Zane Larson DO) Chest pain (Acute) Date of Admission: 10/02/18 Date of Discharge: 10/03/18 - Primary Discharge Diagnosis Active and Suspected Problems (Last Updated 10/02/18 @ 11:50 by Zane Larson DO) Chest pain (Acute) Hospital Course and Treatment Imaging Results: 10/03/18 05:55 Nuclear Stress Test - Treadmil [NM] Routine Clinical Impression(s) from Imaging Studies Chest X-Ray 10/02/18 10:50 IMPRESSION: No acute abnormality is seen. Electronically Signed: Francesco Washington MD at 11:08 EST Tel [phone], Service support , KUB X-Ray 10/02/18 18:20 IMPRESSION: Normal bowel gas pattern. Electronically Signed: Jarret Cristina MD at 5:26 EST Tel , Service support , Operations: None Procedures: Stress test Summary of Care Provided: The patient is a 58 year old M presents with chest pain while putting a trailer onto his truck. He stated that he felt flushed with this episode. Patient presented to the emergency room and was evaluated. Workup was unremarkable, including troponin series, EKG stress test. After the patient was admitted, patient did have some abdominal pain. Patient states that his reflux is worse. 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 I advised patient to increase his AcipHex to twice daily for 2 weeks and then to resume daily thereafter. 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 It is possible patient may be having a viral syndrome as well that may be contributing to some of the symptoms and patient will receive a prescription for Zofran for nausea. [] Patient Problems: Active and Suspected Problems (Last Updated 10/02/18 @ 11:50 by Zane Larson DO) Chest pain (Acute) - Physical Exam General: Alert, Cooperative, No apparent distress HEENT: Atraumatic, Normocephalic Abdomen: Bowel Sounds Present, Soft, Non Tender, Non-Distended Vital Signs Temp Pulse Resp BP Pulse Ox 37.0 C 69 16 134/83 H 97 10/03/18 10:48 10/03/18 11:06 10/03/18 10:48 10/03/18 10:48 10/03/18 10:48 Oxygen Flow Rate (L/min) 2 Oxygen Delivery Method Room Air Weight: 90.038 kg Body Mass Index (BMI) 27.6 Intake and Output for Last 24 Hours 10/01/18 10/02/18 10/03/18 23:59 23:59 23:59 Intake Total 820 / 820 500 / 500 Output Total 800 / 800 Balance 500 / 500 Laboratory Tests Past 24 Hrs 10/02/18 10/02/18 10/03/18 12:15 15:15 04:48 WBC 7.5 RBC 5.67 Hgb 16.6 H Hct 49.7 MCV 87.7 MCH 29.3 MCHC 33.4 RDW 13.5 RDW Differential 43.0 Plt Count 171 MPV 10.5 Immature Gran % (Auto) 0.100 Neut % (Auto) 80.4 H Lymph % (Auto) 13.0 L [place]on % (Auto) 6.0 Eos % (Auto) 0.4 Baso % (Auto) 0.1 Absolute Neuts (auto) 6.0 Absolute Lymphs (auto) 0.97 Total Counted Not Reportable PT INR APTT Sodium Potassium Chloride Carbon Dioxide Anion Gap BUN Creatinine Estim Creat Clear Calc Est GFR (MDRD) Af Amer Est GFR (MDRD) Non-Af BUN/Creatinine Ratio Glucose Calcium Troponin I < 0.015 < 0.015 Triglycerides Cholesterol LDL Cholesterol VLDL Cholesterol HDL Cholesterol 10/03/18 10/03/18 04:48 04:48 WBC RBC Hgb Hct MCV MCH MCHC RDW RDW Differential Plt Count MPV Immature Gran % (Auto) Neut % (Auto) Lymph % (Auto) [place]on % (Auto) Eos % (Auto) Baso % (Auto) Absolute Neuts (auto) Absolute Lymphs (auto) Total Counted PT 14.4 INR 1.1 APTT 29.2 Sodium 139 Potassium 4.1 Chloride 108 H Carbon Dioxide 22.0 Anion Gap 9 BUN 19 H Creatinine 1.01 Estim Creat Clear Calc 86.98 Est GFR (MDRD) Af Amer 98 Est GFR (MDRD) Non-Af 81 BUN/Creatinine Ratio 18.8 Glucose 97 Calcium 8.4 L Troponin I Triglycerides 72 Cholesterol 112 LDL Cholesterol 58 VLDL Cholesterol 14 HDL Cholesterol 40 Discharge Diet: - - bland, advance as tolerated. Discharge Activity: Return to Normal Activity Home Medications: Medications to take at Discharge Cholecalciferol (Vitamin D3) [Vitamin D3] 2,000 unit PO QHS 08/24/17 Vitamin B Complex 1 each PO DAILY 08/24/17 Ondansetron HCl [Zofran] 8 mg PO TID PRN #20 tablet 10/03/18 Rabeprazole Sodium [Aciphex] 20 mg PO BID #0 10/03/18 Following Prescrptions Were Given to Patient: Ondansetron HCl [Zofran] 8 mg PO TID PRN #20 tablet PRN Reason: Nausea Primary Care Physician: Ernesto Faust MD [Primary Care Provider] - Within 2 Weeks Please Follow Up With: gastroenterology - if recurrent chest pain and reflux When: 4-6 weeks Patient Instructions: ED Chest Pain NonCardiac Disposition: Home Minutes spent on discharge:: 28 Patient Condition:: Good Medical Necessity - Tobacco Use Smoking Status: Current every day smoker Tobacco Use: Vapor Meaningful Use Info Meaningful Use Diagnoses (Choose all that apply): None applicable Code Visit OBSV E&M: 91922 Observation care discharge
--- NOTE | 2018-10-03 12:05 | STRESSREP ---
Stress Test Report Exercise myocardial perfusion stress test. 58-year-old man with a history of chest pain. Medications: Aspirin Protonix. Stress protocol: Resting EKG demonstrates normal sinus rhythm with a rate of 71 bpm normal intervals noted resting blood pressure 120/82 mmHg. The patient exercised according to regular Conrado protocol for total duration of 6 minutes the maximum heart rate attained was 150 bpm which was 91% of maximum predicted heart rate the maximum workload was 7 metabolic equivalents. At rest there were no ST or T wave changes noted suggest ischemia at peak exercise upsloping ST changes only were noted with normally the criteria for ischemia. The resting blood pressure 120/82 with a peak blood pressure of 160/62. Rate pressure product was 24,000. Myocardial perfusion protocol. 12.0 mCi of technetium 99m sestamibi was injected at rest. The patient exercised according to regular Conrado protocol for total duration of 6 minutes the maximum heart rate attained was 91% of maximum predicted heart rate and a workload of 7 metabolic equivalents at peak exercise 34.5 mCi of technetium 99m sestamibi was injected stress images were obtained stress and rest images were reconstructed and compared in the short axis vertical and horizontal long axis. Gated images were also obtained Perfusion SPECT analysis: Review of the stress images demonstrate normal uptake of tracer noted in all areas of the myocardium. The resting images similarly demonstrate normal uptake of tracer noted in all areas of the myocardium. No areas of reversibility are noted suggest ischemia no previous infarct is noted. Gated SPECT analysis: The gated ejection fraction is noted to be 72%. Conclusion: Normal exercise myocardial perfusion stress test at a moderate workload. Preserved ejection fraction
[2018-10-03 14:26] LABS: Pathologist Review Reviewed
--- OUTSIDE RECORDS SUMMARY | 2018-12-04 13:29 | XMS RPT_ITS ---
:1960 Author Organization OHIP Support Name Relationship Address Phone YANCI JEFF Unavailable [address] + [place] [address] D S Unavailable [address] + [address] [place] [address] D S Unavailable [address] + [address] [place] [address] YANCI JEFF Unavailable [address] + [place] [address] D S Unavailable [address] + [address] [place] [address] D S Unavailable [address] + [address] [place] [address] D S Unavailable [address] + [address] [place] [address] D S Unavailable [address] + [address] [place] [address] D S Unavailable [address] + [address] [place] [address] LORIE LEON Unavailable Unavailable + [place] [address] D S Unavailable [address] + [address] [place] [address] LORIE LEON Unavailable Unavailable + [place] [address] D S Unavailable [address] + [address] [place] [address] LORIE LEON Unavailable Unavailable + [place] [address] D S Unavailable [address] + [address] [place] [address] D S Unavailable [address] + [address] [place] [address] D S Unavailable [address] + [address] [place] [address] GERBOBY THORNTONIN Unavailable Unavailable + [place] [address] D S Unavailable [address] + [address] [place] [address] GERBOBY THORNTONIN Unavailable . + [place] [address] Care Team Providers Name Role Phone [facility] Primary [facility] Unavailable Jopperi, Zane Admitting Unavailable Jopperi Zane Attending Unavailable Jopperi, Zane Admitting Unavailable Josandieri, Zane Attending Unavailable [facility] [place] [facility] Unavailable Jopperi, Zane Consulting Unavailable Jopperi, Zane Admitting Unavailable Jonadja Zane Attending Unavailable [facility] [place] Primary Care Unavailable Jopperi, Zane Consulting Unavailable [facility] Primary Care Unavailable Huy Gutierrez Attending Unavailable Michel Cheatham Attending Unavailable Michel Cheatham Referring Unavailable [facility] [place] Primary [facility] Unavailable Duane Jiang Attending Unavailable LeydiSong Referring Unavailable Leydi, Song Gonzalez Attending Unavailable [facility] Primary Care Unavailable Leydi, Song Gonzalez Referring Unavailable Leydi, Song Gonzalez Attending Unavailable [facility] [place] Primary Care Unavailable Leydi, Song Gonzalez Referring Unavailable Leydi, Song Gonzalez Attending Unavailable Leydi, Song Gonzalez Referring Unavailable [facility] [place] Primary Care Unavailable [facility] [place] Primary Care Unavailable Abdias Grubbs Attending Unavailable Nehemias Horta Attending Unavailable Sylvain Parker Referring Unavailable LeydiSong Attending Unavailable [facility] Primary Care Unavailable Leydi, Song Gonzalez Referring Unavailable PROBLEMS PROBLEMS DATE TYPE CONDITION / CODE ATTENDING STATUS SOURCE 08/24/2018 Unknown R07.89 - Other chest Nehemias Horta Active [place] pain / R07.89(ICD-10) [facility] 08/24/2018 Unknown I25.10 - Nehemias Horta Active [place] 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 / I25.10(ICD-10) 06/12/2018 Unknown R27.0 - Ataxia, [place], Michel Active [place] unspecified / Community R27.0(ICD-10) Hospital Repository 03/22/2018 Unknown R00.1 - Bradycardia, Apolinar, Duane Active [place] unspecified / Community R00.1(ICD-10) Hospital Repository PROCEDURES PROCEDURES No Procedure Records FoundRESULTS RESULTS 12 LEAD ELECTROCARDIOGRAM Observed: 10/03/2018 Status: F Source: [place] 1:37 PM [facility] HOSPITAL REPOSITORY [facility] Cardiovascular Services [address] [place] [address] 12 Lead EKG 10/02/18 0934 MR#: [id number] Acct: [id number] Name: KRISHAN LEON Sr. Rep #: [id number] : 1960 58 From: Nehemias Horta MD Attending Dr: Zane Larson DO Status: DIS ISABELLA Ordering Dr: Huy Gutierrez MD Date: 10/02/18 Location: [facility] Sex: M C Admitted: 10/02/18 Test Reason : CP Blood Pressure : / mmHG Vent. Rate : 084 BPM Atrial Rate : 084 BPM P-R Int : 162 ms QRS Dur : 096 ms QT Int : 340 ms P-R-T Axes : 057 092 043 degrees QTc Int : 401 ms Normal sinus rhythm with sinus arrhythmia Rightward axis Borderline ECG Confirmed by MYCHAL DOUGLAS, NEHEMIAS ([id number]), lawn and garden technician MARKEL RAY ([id number]) on 10/03/2018 1:37:02 PM Referred By: WHITNEY Confirmed By:NEHEMIAS HORTA MD 10/03/18 1337 Date Nehemias Horta MD CC: Zane Larson DO; Ernesto Faust MD; Huy Gutierrez MD Signed 12 LEAD ELECTROCARDIOGRAM Observed: 10/03/2018 Status: F Source: [place] 1:37 PM [facility] HOSPITAL REPOSITORY [facility] Cardiovascular Services [address] [place] [address] 12 Lead EKG 10/02/18 0957 MR#: [id number] Acct: [id number] Name: KRISHAN LEON Sr. Rep #: [id number] : 1960 58 From: Nehemias Horta MD Attending Dr: Zane Larson DO Status: DIS ISABELLA Ordering Dr: Zane Larson DO Date: 10/02/18 Location: [facility] Sex: M C Admitted: 10/02/18 Test Reason : Blood Pressure : / mmHG Vent. Rate : 097 BPM Atrial Rate : 097 BPM P-R Int : 152 ms QRS Dur : 090 ms QT Int : 336 ms P-R-T Axes : 056 073 048 degrees QTc Int : 426 ms Normal sinus rhythm Normal ECG Confirmed by MYCHAL DOUGLAS, NEHEMIAS ([id number]), lawn and garden technician MARKEL RAY ([id number]) on 10/03/2018 1:37:19 PM Referred By: Confirmed By:NEHEMIAS HORTA MD 10/03/18 1337 Date Nehemias Horta MD CC: Zane Larson DO; Ernesto Faust MD Signed STRESS REPORT Observed: 10/03/2018 Status: F Source: [place] 12:11 PM [facility] REPOSITORY [facility] Cardiovascular Services [address] [place] [address] MR#: [id number] Acct: [id number] Name: KRISHAN LEON Sr. Rep #: [id number] : 1960 58 From: Duane Jiang MD Primary Care: Ernesto Faust MD Status: ADM ISABELLA Ordering Dr: Sex: M C Stress Test Report Exercise myocardial perfusion stress test. 58-year-old man with a history of chest pain. Medications: Aspirin Protonix. Stress protocol: Resting EKG demonstrates normal sinus rhythm with a rate of 71 bpm normal intervals noted resting blood pressure 120/82 mmHg. The patient exercised according to regular Conrado protocol for total duration of 6 minutes the maximum heart rate attained was 150 bpm which was 91% of maximum predicted heart rate the maximum workload was 7 metabolic equivalents. At rest there were no ST or T wave changes noted suggest ischemia at peak exercise upsloping ST changes only were noted with normally the criteria for ischemia. The resting blood pressure 120/82 with a peak blood pressure of 160/62. Rate pressure product was 24,000. Myocardial perfusion protocol. 12.0 mCi of technetium 99m sestamibi was injected at rest. The patient exercised according to regular Conrado protocol for total duration of 6 minutes the maximum heart rate attained was 91% of maximum predicted heart rate and a workload of 7 metabolic equivalents at peak exercise 34.5 mCi of technetium 99m sestamibi was injected stress images were obtained stress and rest images were reconstructed and compared in the short axis vertical and horizontal long axis. Gated images were also obtained Perfusion SPECT analysis: Review of the stress images demonstrate normal uptake of tracer noted in all areas of the myocardium. The resting images similarly demonstrate normal uptake of tracer noted in all areas of the myocardium. No areas of reversibility are noted suggest ischemia no previous infarct is noted. Gated SPECT analysis: The gated ejection fraction is noted to be 72%. Conclusion: Normal exercise myocardial perfusion stress test at a moderate workload. Preserved ejection fraction 10/03/18 1211 <Electronically signed by Duane Jiang MD> Date Duane Jiang MD CC: Zane Larson DO; Ernesto Faust MD Date Dictated: 10/03/181204 Date Transcribed: 10/03/181204 Eastern Philosophy Professor: [place] Signed DISCHARGE SUMMARY Observed: 10/03/2018 Status: F Source: [place] 11:30 AM [facility] REPOSITORY [facility] Medical Records Department [address] [place] [address] Discharge Summary 10/03/18 1127 MR#: [id number] Acct: [id number] Name: KRISHAN LEON Sr. Rep #: [id number] : 1960 58 From: Zane Larson DO PCP: Ernesto Faust MD Status: ADM ISABELLA Y Location: [place] [address] Discharge Date and Diagnosis - Problem List Patient Problems: Active and Suspected Problems (Last Updated 10/02/18 @ 11:50 by Zane Larson DO) Chest pain (Acute) Date of Admission: 10/02/18 Date of Discharge: 10/03/18 - Primary Discharge Diagnosis Active and Suspected Problems (Last Updated 10/02/18 @ 11:50 by Zane Larson DO) Chest pain (Acute) Hospital Course and Treatment Imaging Results: 10/03/18 05:55 Nuclear Stress Test - Treadmil [NM] Routine Clinical Impression(s) from Imaging Studies Chest X-Ray 10/02/18 10:50 IMPRESSION: No acute abnormality is seen. Electronically Signed: Francesco Washington MD at 11:08 EST Tel [phone], Service support , KUB X-Ray 10/02/18 18:20 IMPRESSION: Normal bowel gas pattern. Electronically Signed: Jarret Cristina MD at 5:26 EST Tel , Service support , Operations: None Procedures: Stress test Summary of Care Provided: The patient is a 58 year old M presents with chest pain while putting a trailer onto his truck. He stated that he felt flushed with this episode. Patient presented to the emergency room and was evaluated. Workup was unremarkable, including troponin series, EKG stress test. After the patient was admitted, patient did have some abdominal pain. Patient states that his reflux is worse. 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 I advised patient to increase his AcipHex to twice daily for 2 weeks and then to resume daily thereafter. Advised him to follow-up with his com writer if he continues to have recurrent symptoms in regards to chest pain or reflux. It is possible patient may be having a viral syndrome as well that may be contributing to some of the symptoms and patient will receive a prescription for Zofran for nausea. [] Patient Problems: Active and Suspected Problems (Last Updated 10/02/18 @ 11:50 by Zane Larson DO) Chest pain (Acute) - Physical Exam General: Alert, Cooperative, No apparent distress HEENT: Atraumatic, Normocephalic Abdomen: Bowel Sounds Present, Soft, Non Tender, Non-Distended Vital Signs Temp Pulse Resp BP Pulse Ox 37.0 C 69 16 134/83 H 97 10/03/18 10:48 10/03/18 11:06 10/03/18 10:48 10/03/18 10:48 10/03/18 10:48 Oxygen Flow Rate (L/min) 2 Oxygen Delivery Method Room Air Weight: 90.038 kg Body Mass Index (BMI) 27.6 Intake and Output for Last 24 Hours Intake Total 820 / 820 500 / 500 Output Total 800 / 800 Balance 500 / 500 Laboratory Tests Past 24 Hrs WBC 7.5 RBC 5.67 WBC RBC Hgb Hct MCV MCH MCHC RDW RDW Differential Plt Count MPV Immature Gran % (Auto) Neut % (Auto) Discharge Diet: - - bland, advance as tolerated. Discharge Activity: Return to Normal Activity Home Medications: Medications to take at Discharge Cholecalciferol (Vitamin D3) [Vitamin D3] 2,000 unit PO QHS 08/24/17 Vitamin B Complex 1 each PO DAILY 08/24/17 Ondansetron HCl [Zofran] 8 mg PO TID PRN #20 tablet 10/03/18 Rabeprazole Sodium [Aciphex] 20 mg PO BID #0 10/03/18 Following Prescrptions Were Given to Patient: Ondansetron HCl [Zofran] 8 mg PO TID PRN #20 tablet PRN Reason: Nausea Primary Care Physician: Ernesto Faust MD [Primary Care Provider] - Within 2 Weeks Please Follow Up With: gastroenterology - if recurrent chest pain and reflux When: 4-6 weeks Patient Instructions: ED Chest Pain NonCardiac Disposition: Home Minutes spent on discharge:: 28 Patient Condition:: Good Medical Necessity - Tobacco Use Smoking Status: Current every day smoker Tobacco Use: Vapor Meaningful Use Info Meaningful Use Diagnoses (Choose all that apply): None applicable Code Visit OBSV E AND M: 45382 Observation care discharge 10/03/18 1130 <Electronically signed by Zane Larson DO> Date Zane Larson DO Cosigner Signature (if applicable): Date CC: Zane Larson DO; Ernesto Faust MD Signed DISCHARGE INSTRUCTION Observed: 10/03/2018 Status: F Source: [place] 11:27 AM [facility] REPOSITORY [facility] Medical Records Department [address] [place] [address] Instructions for Home/Discharge Instructions 10/03/18 1125 MR#: [id number] Acct: [id number] Name: KRISHAN LEON Sr. Rep #: [id number] : 1960 58 From: Zane Larson DO PCP: Ernesto Faust MD Status: ADM ISABELLA - Discharge Diagnoses Current Active Problems: Current Active and Chronic Problems (Last Updated 10/02/18 @ 11:50 by Zane Larson DO) Chest pain (Acute) You will use the following diet at home:: No restrictions - bland, advance as tolerated Your food should be the consistency of: Regular Discharge Activity: Return to Normal Activity Instructions: ED Chest Pain NonCardiac Allergies/Adverse Reactions: Allergies morphine Adverse Reaction (Verified 10/02/18 10:09) Other phenobarbital Adverse Reaction (Verified 10/02/18 10:09) Other made me go crazy Medications to take at Discharge Cholecalciferol (Vitamin D3) [Vitamin D3] 2,000 unit PO QHS 08/24/17 Vitamin B Complex 1 each PO DAILY 08/24/17 Ondansetron HCl [Zofran] 8 mg PO TID PRN #20 tablet 10/03/18 Rabeprazole Sodium [Aciphex] 20 mg PO BID #0 10/03/18 The following prescriptions were given: Ondansetron HCl [Zofran] 8 mg PO TID PRN #20 tablet PRN Reason: Nausea Primary Care Physician: Ernesto Faust MD [Primary Care Provider] - Within 2 Weeks Test Results: Test results from this visit will be discussed in further detail at your follow-up appointment, if applicable. Please Follow Up With: gastroenterology - if recurrent chest pain and reflux When: 4-6 weeks Proposed Discharge Date: 10/03/18 10/03/18 1127 <Electronically signed by Zane Larson DO> Date Zane Larson DO CC: Ernesto Faust MD Signed CBC W/DIFF, AUTOMATED Collected: 10/03/2018 Status: F Source: [place] 4:48 AM [facility] REPOSITORY TYPE CODE TESTS RESULT OUT OF RANGE REFERENCE UNITS LAB L100.1000 4.4-11.0 K/mm3 Normal WBC 7.5 LAB L100.1200 4.6-6.2 M/mm3 Normal RBC 5.67 LAB L100.1300 13.0-16.5 g/dl High HGB 16.6 LAB L100.1400 40-54 % Normal HCT 49.7 LAB L100.1500 80-94 fL Normal MCV 87.7 LAB L100.1600 27.0-32.0 pg Normal MCH 29.3 LAB L100.1700 32-36 g/gl Normal MCHC 33.4 LAB L100.1810 11.6-14.6 % Normal RDW CV 13.5 LAB L100.1820 35.1-43.9 fl Normal RDW SD 43.0 LAB L100.1900 150-450 K/mm3 Normal PLT 171 LAB L100.2000 6.2-12.0 fl Normal MPV 10.5 LAB L100.2100 47-70 % High NEUT% 80.4 LAB L100.2200 19-41 % Low LY% 13.0 LAB L100.2300 0-10 % Normal MONO% 6.0 LAB L100.2400 0-5 % Normal EO% 0.4 LAB L100.2500 0-1 % Normal BASO% 0.1 LAB L100.2550 0.0-0.9 % Normal IM GRAN % 0.100 Result Comment: IG% - Immature Granulocytes (promyelocytes, myelocytes and metamyelocytes) > 1% indicates that a LEFT SHIFT is Present. LAB L100.2620 2.0-7.7 X10 3/uL Normal Absolute Neut 6.0 LAB L100.2720 0.83-4.51 X10 3/ul Normal Absolute Lymph 0.97 Performed By: #### L100.0100 #### [facility] [place], [address] BASIC METABOLIC Collected: 10/03/2018 Status: F Source: [place] PROFILE ([facility]) 4:48 AM [facility] REPOSITORY TYPE CODE TESTS RESULT OUT OF RANGE REFERENCE UNITS LAB L501.0100 74-106 mg/dL Normal GLU 97 Result Comment: Please note revised GLUCOSE reference range effective 2017. LAB L501.1000 7-18 mg/dL High BUN 19 LAB L501.1100 0.70-1.30 mg/dL Normal CREAT,SERUM 1.01 Result Comment: The validity of the calculated GFR AND GFRAA in patients over 70 years has not been determined. Clinical correlation is essential. LAB L501.1110 >60 mL/min Normal EST GFR 81 Result Comment: Non- GFR Calc LAB L501.1115 >60 mL/min Normal EST GFR - AA 98 Result Comment: GFR Calc LAB L501.1255 ml/min Normal Estimated CRCL 86.98 LAB L501.1300 10-20 RATIO Normal BUN/CRE 18.8 LAB L501.2200 8.5-10 mg/dL Low .1 CA 8.4 LAB L501.5300 136-14 mmol/L Normal 5 NA 139 LAB L501.5600 3.5-5. mmol/L Normal 1 K 4.1 LAB L501.5900 98-107 mmol/L High CL 108 LAB L501.6100 21.0-3 mmol/L Normal 2.0 CO2 22.0 LAB L501.6200 5-15 Normal GAP 9 Performed By: #### L500.2500, L500.4100, L300.3900, L300.4310 #### [facility] [address] [place], [address] LIPID PROFILE Collected: 10/03/2018 Status: F Source: [place] 4:48 AM [facility] REPOSITORY TYPE CODE TESTS RESULT OUT OF RANGE REFERENCE UNITS LAB L501.4900 200 mg/dL Normal CHOL 112 Result Comment: <200 mg/dL Desirable 200-240 mg/dL Borderline >240 mg/dL High Risk LAB L501.5000 mg/dL Normal TRIG 72 Result Comment: The drugs N-Acetylcysteine and Metamizole may falsely depress this assay. Serum Triglycerides Reference Interval Normal <150 mg/dL Borderline high 150 - 199 mg/dL High 200 - 499 mg/dL Very High > or = 500 mg/dL LAB L501.6400 mg/dL Normal HDL 40 Result Comment: The drugs N-Acetylcysteine and Metamizole may falsely depress this assay. Reference Range HDL <40 mg/dL Low HDL Cholesterol HDL >or= 60 mg/dL High HDL Cholesterol LAB L501.6500 0-130 mg/dL Normal LDL 58 LAB L501.6600 5-40 mg/dL Normal VLDL 14 Performed By: #### L500.2500, L500.4100, L300.3900, L300.4310 #### [facility] [address] [place], [address] PROTHROMBIN TIME W/INR Collected: 10/03/2018 Status: F Source: [place] 4:48 AM [facility] REPOSITORY TYPE CODE TESTS RESULT OUT OF RANGE REFERENCE UNITS LAB L300.4150 11.7-14.9 SECONDS Normal PROTIME 14.4 LAB L300.4200 Normal INR 1.1 Performed By: #### L500.2500, L500.4100, L300.3900, L300.4310 #### [facility] [address] [facility] [place], [address] PARTIAL THROMBOPLAST Collected: 10/03/2018 Status: F Source: [place] TIME 4:48 AM [facility] REPOSITORY TYPE CODE TESTS RESULT OUT OF RANGE REFERENCE UNITS LAB L300.4310 24.1-36.2 Seconds Normal PTT 29.2 Performed By: #### L500.2500, L500.4100, L300.3900, L300.4310 #### [facility] [address] [place], [address] ABDOMEN SINGLE VIEW Observed: 10/02/2018 Status: F Source: [place] 6:02 PM [facility] REPOSITORY [facility] Imaging Services [address] [place] [address] Abdomen Single View MR#: [id number] Acct: [id number] Name: KRISHAN LEON Sr. Rep #: [id number] : 1960 M 58 From: Jarret Cristina MD PCP: Ernesto Faust MD Status: ADM ISABELLA Study: Abdomen Single View Date of Exam: 10/02/18 Exam# [id number] Ordering Dr: Zane Larson DO STUDY: X-RAY - ABDOMEN/PELVIS REASON FOR EXAM: Male, 58 years old. Abdominal pain TECHNIQUE: Two AP supine views of the abdomen and pelvis. COMPARISON: 11/25/2016 FINDINGS: Normal visualized lung bases. There is an unremarkable bowel gas pattern. There is no demonstrated free abdominal air. The visualized liver, spleen and kidneys are grossly normal in size and morphology. Normal soft tissue structures. Normal visualized osseous structures. Abdominal clips. RAD/Abdomen Single View IMPRESSION: Normal bowel gas pattern. Electronically Signed: Jarret Cristina MD at 5:26 EST Tel , Service support , CC: Zane Larson DO; Ernesto Faust MD Eastern Philosophy Professor: Signed TROPONIN-I Collected: 10/02/2018 Status: F Source: [place] 3:15 PM [facility] REPOSITORY Order Comment: 'TROP' Serial specimen #1, #2 or #3: 3 TYPE CODE TESTS RESULT OUT OF RANGE REFERENCE UNITS LAB L501.4010 <0.045 ng/mL Normal < 0.015 TROPONIN-I Result Comment: TROPONIN-I EXPECTED VALUES <0.045 Negative 0.045 - 0.590 Consistent with Cardiac Damage > OR = 0.600 Critical Value Not every elevated troponin is indicative of WI. These values should be used with clinical judgement in examining the patient's clinical picture for diagnosis. To establish a diagnosis of WI versus myocardial injury, there must be a demonstrated rise and/or fall in the troponin values, in addition to ischemic symptoms, EKG changes, new regional wall motion abnormality, and/or angiographical evidence. PLEASE NOTE: REFERENCE RANGES EDITED 18 Performed By: #### L501.4010 #### [facility] [address] [place], [address] TROPONIN-I Collected: 10/02/2018 Status: F Source: [place] 12:15 PM [facility] REPOSITORY Order Comment: 'TROP' Serial specimen #1, #2 or #3: 2 TYPE CODE TESTS RESULT OUT OF RANGE REFERENCE UNITS LAB L501.4010 <0.045 ng/mL Normal < 0.015 TROPONIN-I Result Comment: TROPONIN-I EXPECTED VALUES <0.045 Negative 0.045 - 0.590 Consistent with Cardiac Damage > OR = 0.600 Critical Value Not every elevated troponin is indicative of WI. These values should be used with clinical judgement in examining the patient's clinical picture for diagnosis. To establish a diagnosis of WI versus myocardial injury, there must be a demonstrated rise and/or fall in the troponin values, in addition to ischemic symptoms, EKG changes, new regional wall motion abnormality, and/or angiographical evidence. PLEASE NOTE: REFERENCE RANGES EDITED 18 Performed By: #### L501.4010 #### [facility] [address] [facility] [place], [address] HISTORY AND PHYSICAL Observed: 10/02/2018 Status: F Source: [place] EXAM 11:56 AM [facility] REPOSITORY [facility] Medical Records Department [address] [facility] [place] [address] History and Physical 10/02/18 1148 MR#: [id number] Acct: [id number] Name: KRISHAN LEON Sr. Rep #: [id number] : 1960 58 From: Zane Larson DO PCP: Ernesto Faust MD Status: ADM ISABELLA Y Location: [place] [address] Problem List (1) Chest pain Status: Acute Qualifiers: Chest pain type: unspecified Qualified Code(s): R07.9 - Chest pain, unspecified History of Present Illness Date of Admission: 10/02/18 Chief Complaint: chest pain The patient is a 58 year old M who was in his normal state of health but experienced chest pain today. 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 Patient was requiring a lot of physical effort in regards to doing this where she had chest pain that was across his chest and up into his neck. With that, he was diaphoretic and nauseated. Additionally, despite the cold, he felt hot and flushed. Patient states that he has had chest pain, but less severe in the past and has undergone left heart catheterization. Patient was told that he had a lesion in the back of his heart but was not amenable to stent and that was in 2009. Patient had these had some other episodes but far less severe in the interim. In the emergency room, patient received nitroglycerin and then had what seem like a vagal episode. Did not receive any additional nitroglycerin. Currently, he is chest pain-free. [] Past Medical History Medical History: Medical History (Last Updated 10/02/18 @ 11:50 by Zane Larson DO) GERD (gastroesophageal reflux disease) K21.9 Allergies morphine Adverse Reaction (Verified 10/02/18 10:09) Other phenobarbital Adverse Reaction (Verified 10/02/18 10:09) Other made me go crazy Home Medications: Ambulatory Orders Medication Instructions Recorded Surgical History: cholecystectomy, - - Tenotomy Psychiatric History: No pertinent psych hx Lives: Spouse/ Significant Other Smoking Status: Current every day smoker Tobacco Use: Vapor Alcohol: Rare Drugs: None - *Family History Maternal History Items: Heart Disease - Has a pacemaker Review of Systems Constitutional: Reports: Malaise. Denies: Anorexia, Chills, Fever Eyes: Denies: Blurred vision, Double vision HEENT: Denies: Head Aches, Sinus Congestion, Sinus Drainage Cardiovascular: Reports: Chest Pain. Denies: Edema Respiratory: Denies: Cough, Shortness of breath at rest, Sputum production Gastrointestinal: Reports: Nausea. Denies: Abdominal Pain, Vomiting Genitourinary: Denies: Dysuria Musculoskeletal: Denies: Joint Pain, Joint Tenderness Skin: Denies: Rash, Wounds Neurological: Denies: Numbness, Tingling, Focal weakness Psychiatric: Denies: Anxiety, Depression Endocrine: Denies: Change in Body Habitus, Heat/ Cold Intolerance Hematologic/ Lymphatic: Reports: Easy Bruising, Easy Bleeding, - - States that he gets blood blisters on his arms when he hit them on objects.. Denies: Hx of blood clot Comment: A 10 point review of systems were negative except as mentioned in the history of present illness and the other review of systems. VTE Information - Inpt Only VTE Present on Admission: No VTE Pharm Prophylaxis ordered?: Yes Patient Problems: Active and Suspected Problems Chest pain (Acute) - Physical Exam General: Alert, Cooperative, No apparent distress HEENT: Atraumatic, Normocephalic Oral: Moist Mucosa, No Gingival or Mucosal Lesions/ Ulcerations Neck: No Nodes, Thyroid Normal Size and Texture Lungs: Clear to auscultation, Normal air movement, No rhonchi, No wheeze Cardiovascular: Regular rate, Regular Rhythm, Normal S1, Normal S2, No murmurs Abdomen: Bowel Sounds Present, Soft, Non Tender, Non-Distended, No Hepato-splenomegaly Extremities: No edema, No Calf Tenderness Skin: No rashes, No breakdown Musculoskeletal: No Tenderness to Palpation of Joints or Extremities, - - Positive reproducible chest tenderness, but different quality than what he had experienced earlier Psych/Mental Status: Normal Affect, Appropriate Vital Signs Temp Pulse Resp BP Pulse Ox 36.8 C 80 16 110/72 95 10/02/18 09:35 10/02/18 10:54 10/02/18 10:54 10/02/18 10:54 10/02/18 10:54 Oxygen Flow Rate (L/min) 2 Oxygen Delivery Method Nasal Cannula Weight: 92.986 kg Body Mass Index (BMI) 28.5 Laboratory Tests Past 24 Hrs WBC 13.9 H Clinical Impression(s) from Imaging Studies Chest X-Ray 10/02/18 10:50 IMPRESSION: No acute abnormality is seen. Electronically Signed: Francesco Washington MD at 11:08 EST Tel [phone], Service support , EKG reviewed and showed normal sinus rhythm with no acute changes. Assessment/Plan All Active Problems Chest pain (Acute) 1. Chest pain MIGUEL 1, Heart Score 4 ASA Cycle troponins Stress test 2. Nicotine abuse stopped smoking cigarettes 1 year ago and currently vapes advised that the risks of vaping have not been clear identified given its relative recency 3. DVT proph: LMWH. DW patient's significant other at bedside, with his permission. Code Visit OBSV E AND M: [id number] Initial observation care L2 10/02/18 1156 <Electronically signed by Zane Jopperi DO> Date Zane Larson Cosigner Signature: Date (if applicable) CC: Zane Larson DO; Ernesto Faust MD Signed EMERGENCY DEPARTMENT Observed: 10/02/2018 Status: F Source: [place] SUMMARY 10:25 AM [facility] RE[facility]IT[facility] Medical Records Department [address] [place] [address] Emergency Department Summary 10/02/18 0951 MR#: [id number] Acct: [id number] Name: KRISHAN LEON Sr. Rep #: [id number] : 1960 58 From: Huy Gutierrez MD PCP: Ernesto Faust MD Status: PRE ER - ER Visit Summary Date of Service: 10/02/18 Chief Complaint: Chest pain associated with diaphoresis, dyspnea and nausea History of Present Illness: The patient is a 58 M who was a former smoker presents with chest tightness heaviness that radiated to his jaw associated with nausea, dyspnea and diaphoresis. This occurred while hooking a trailer to a hitch. 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 He denies history of PE or DVT. He does have history of acid reflux. He states this pain is different. He presented because 1 hour prior to presentation he became more short of breath. His pain has diminished but is still present. Pain is presently moderate. He has no known history of coronary disease. He denies symptoms of claudication. He does report less hair on his legs and toes. He has reported similar symptoms 15 years ago and had a cardiac cath at [facility]. He does not know or recall specifics. He denies fever, chills night sweats. He denies weight gain or weight loss. He denies ocular, visual or auditory symptoms. He denies vomiting, diarrhea, black or maroon stool. He denies urologic symptoms. He denies myalgias arthralgias. He denies pain radiating through to his back. He denies headache, paresthesia, anesthesia or motor weakness. He is on no anticoagulant and there is no history of bleeding problems. He denies history of hives or angioedema. Physical Examination: Patient appears in no obvious distress. Vital signs noted and remarkable for slight elevation blood pressure 134/94. Head is atraumatic normocephalic. Pupils are equal round reactive. Extraocular muscles are intact. TMs are pearly white with landmarks noted. Nares patent with no drainage. Posterior pharynx without erythema or exudate. Uvula is midline. There is no dysphonia or dysphasia. Trachea is midline. There is no stridor with auscultation of the neck. Heart is regular without murmur, gallop or rub. S1 and S2 are normal. Lungs are clear to auscultation with good movement of air bilaterally. Abdomen soft nontender with no palpable pulsatile mass. There is no abdominal bruit. DP and PT pulses are palpable. He does have absent of hair distal right and left leg and minimal hair on his toes. Neuro exam is nonfocal. Test Results: EKG #1 reveals a sinus rhythm with respiratory variation. [place] is to the right. [place] interval, QRS duration and QT interval are normal. EKG #2 was obtained. Presume patient had a vagal response after first nitro. He became diaphoretic, pale and bradycardic. ST segments on monitor changed significantly. EKG #2 reveals a sinus rhythm rate of 97 with motion artifact. EKG is essentially unchanged from first with the exception of axis. Portal chest x-ray reveals mild chronic changes. First troponin is normal. Hemoglobin is 18.5 with hematocrit of 54.8. Electric panel is unremarkable. Emergency Department Course and Treatment: Workup for chest pain to evaluate cardiac versus pulmonary versus GI. Patient did receive aspirin in route. He received nitroglycerin which resulted in bradycardia, diaphoresis and pallor. Unfortunately unable to obtain blood pressure. Treatment Plan: Tylenol for headache. Imodium for reported diarrhea. Page hospitalist for further testing Disposition: PCU Impression: 1. Exertional chest pain 2. History of tobacco use 3. Vagal response to nitroglycerin This note was generated with LiveRSVP dictation software. It may contain incorrect words, spelling, and punctuation that were not noted in review of the chart prior to signing ED Disposition - Plan for ED Patient: Chief Complaint: Chest Pain Referrals: Ernesto Faust MD [Primary Care Provider] - What to do if you have Problems For any increased pain, shortness of breath, bleeding, nausea or vomiting, chest pain, or any unexpected problems, contact your Primary Care Provider. Call [facility] ([phone]) or report to the closest Emergency Room. Call 911 if necessary. 10/02/18 1025 <Electronically signed by Huy Gutierrez MD> Date Huy Gutierrez MD Cosigner Signature (If Indicated): Date CC: Ernesto Faust MD CHEST 1 VIEW Observed: 10/02/2018 Status: F Source: [facility] (PORTABLE) 9:44 AM [facility]POSIT[facility] Imaging Services [address] [place] [address] Chest 1 View (Portable) MR#: [id number] Acct: [id number] Name: KRISHAN LEON Sr. Rep #: [id number] : 1960 M 58 From: Francesco Washington MD PCP: Ernesto Faust MD Status: ADM ISABELLA Study: Chest 1 View (Portable) Date of Exam: 10/02/18 Exam# [id number] Ordering Dr: Huy Gutierrez MD STUDY: X-RAY CHEST REASON FOR EXAM: Male, 58 years old. Chest pain. Coronary artery disease. TECHNIQUE: Single AP portable view of the chest. COMPARISON: Comparison is made with prior study August 06, 2018. FINDINGS: EKG electrodes are seen. Mild elevation of the right hemidiaphragm. Scattered calcified granulomas. No acute abnormality is seen. There is no demonstrated pleural abnormality. Normal size heart. Normal mediastinum and abundio. Normal visualized pulmonary arteries. Normal visualized aortic arch and descending thoracic aorta. There are degenerative changes of the visualized thoracic spine. Normal visualized ribs, clavicles, and shoulders. There is no demonstrated abnormality of the visualized soft tissue structures of the upper abdomen. RAD/Chest 1 View (Portable) IMPRESSION: No acute abnormality is seen. Electronically Signed: Francesco Washington MD at 11:08 EST Tel [phone], Service support , CC: Ernesto Faust MD; Huy Gutierrez MD [employer] Professor: Signed CBC W/DIFF, AUTOMATED Collected: 10/02/2018 Status: C Source: [place] 9:40 AM [facility] REPOSIT[facility] TYPE CODE TESTS RESULT OUT OF RANGE REFERENCE UNITS LAB L100.1000 4.4-11.0 K/mm3 High WBC 13.9 LAB L100.1200 4.6-6.2 M/mm3 Normal RBC 6.19 LAB L100.1300 13.0-16.5 g/dl High alert HGB 18.5 Result Comment: CRITICAL VALUE VERIFIED. CALLED TO JESSICA GIORDANO 10/02/18 1002 Margoth Conway. RESULTS READ BACK BY SAME . LAB L100.1400 40-54 % High HCT 54.8 LAB L100.1500 80-94 fL Normal MCV 88.5 LAB L100.1600 27.0-32.0 pg Normal MCH 29.9 LAB L100.1700 32-36 g/gl Normal MCHC 33.8 LAB L100.1810 11.6-14.6 % Normal RDW CV 13.1 LAB L100.1820 35.1-43.9 fl Normal RDW SD 42.2 LAB L100.1900 150-450 K/mm3 Normal PLT 199 LAB L100.2000 6.2-12.0 fl Normal MPV 10.7 LAB L100.2100 47-70 % High NEUT% 90.0 LAB L100.2200 19-41 % Low LY% 5.5 LAB L100.2300 0-10 % Normal MONO% 3.5 LAB L100.2400 0-5 % Normal EO% 0.5 LAB L100.2500 0-1 % Normal BASO% 0.1 LAB L100.2550 0.0-0.9 % Normal IM GRAN % 0.400 Result Comment: IG% - Immature Granulocytes (promyelocytes, myelocytes and metamyelocytes) > 1% indicates that a LEFT SHIFT is Present. LAB L100.2620 2.0-7.7 X10 3/uL High Absolute Neut 12.5 LAB L100.2720 0.83-4.51 X10 3/ul Low Absolute Lymph 0.77 LAB L100.9900 Normal PATH REV Reviewed Result Comment: Neutrophilic leukocytosis. Increased hemoglobin level. Clinical correlation necessary. Michel Christianson D.O. 10/03/18 AMENDED REPORT 10/03/18 1425 PATH REV previously reported as: Jessica salinas Performed By: #### L100.0100 #### [facility] [address] [place], [place], [address] BASIC METABOLIC Collected: 10/02/2018 Status: F Source: [place] PROFILE (BMP) 9:40 AM [facility] REPOS[facility] TYPE CODE TESTS RESULT OUT OF RANGE REFERENCE UNITS LAB L501.0100 74-106 mg/dL Normal GLU 96 Result Comment: Please note revised GLUCOSE reference range effective 2017. LAB L501.1000 7-18 mg/dL High BUN 19 LAB L501.1100 0.70-1.30 mg/dL Normal CREAT,SERUM 1.18 Result Comment: The validity of the calculated GFR AND GFRAA in patients over 70 years has not been determined. Clinical correlation is essential. LAB L501.1110 >60 mL/min Normal EST GFR 68 Result Comment: Non- GFR Calc LAB L501.1115 >60 mL/min Normal EST GFR - AA 82 Result Comment: GFR Calc LAB L501.1255 ml/min Normal Estimated CRCL 74.45 LAB L501.1300 10-20 RATIO Normal BUN/CRE 16.1 LAB L501.2200 8.5-10 mg/dL Normal .1 CA 9.4 LAB L501.5300 136-14 mmol/L Normal 5 NA 141 LAB L501.5600 3.5-5. mmol/L Normal 1 K 3.9 LAB L501.5900 98-107 mmol/L High CL 108 LAB L501.6100 21.0-3 mmol/L Normal 2.0 CO2 24.0 LAB L501.6200 5-15 Normal GAP 9 Performed By: #### L500.2500, L501.4010 #### [facility] [address] [place], [address] TROPONIN-I Collected: 10/02/2018 Status: F Source: [place] 9:40 AM [facility] REPOS[facility] TYPE CODE TESTS RESULT OUT OF RANGE REFERENCE UNITS LAB L501.4010 <0.045 ng/mL Normal < 0.015 TROPONIN-I Result Comment: TROPONIN-I EXPECTED VALUES <0.045 Negative 0.045 - 0.590 Consistent with Cardiac Damage > OR = 0.600 Critical Value Not every elevated troponin is indicative of WI. These values should be used with clinical judgement in examining the patient's clinical picture for diagnosis. To establish a diagnosis of WI versus myocardial injury, there must be a demonstrated rise and/or fall in the troponin values, in addition to ischemic symptoms, EKG changes, new regional wall motion abnormality, and/or angiographical evidence. PLEASE NOTE: REFERENCE RANGES EDITED 18 Performed By: #### L500.2500, L501.4010 #### [facility] [address] [place], [address] D-DIMER QUANTITATIVE Collected: 10/02/2018 Status: F Source: [place] (DVT/PE) 9:40 AM [facility] REPOS[facility] TYPE CODE TESTS RESULT OUT OF RANGE REFERENCE UNITS LAB L300.8000 0.27-0.49 FEU/ug/m Normal D-DIMER 0.31 QUANT Result Comment: NORMAL D-Dimer level (<0.50) indicates no DVT or PE. Performed By: #### L300.8000 #### [facility] [address] [place], [address] 12 LEAD ELECTROCARDIOGRAM Observed: 08/16/2018 Status: F Source: [place] 3:17 PM [facility] REPOSITORY [facility] Cardiovascular Services [address] [place] [address] 12 Lead EKG 08/06/18 1050 MR#: [id number] Acct: [id number] Name: KRISHAN LEON Sr. Rep #: [id number] : 1960 57 From: Nehemias Horta MD Attending Dr: Status: DEP ER Ordering Dr: Huy Gutierrez MD Date: 08/06/18 Location: ED Sex: M C Admitted: Test Reason : CHEST PAIN Blood Pressure : / mmHG Vent. Rate : 063 BPM Atrial Rate : 063 BPM P-R Int : 174 ms QRS Dur : 106 ms QT Int : 386 ms P-R-T Axes : 043 086 044 degrees QTc Int : 395 ms Normal sinus rhythm Normal ECG Confirmed by MYCHAL DOUGLAS, NEHEMIAS ([id number]), lawn and garden technician MARKEL RAY ([id number]) on 08/16/2018 3:16:59 PM Referred By: Confirmed By:NEHEMIAS HORTA MD 08/16/18 1517 Date Nehemias Horta MD CC: Ernesto Faust MD; Huy Gutierrez MD Signed EMERGENCY DEPARTMENT Observed: 08/06/2018 Status: F Source: [place] SUMMARY 3:05 PM [facility] REPOSIT[facility] Medical Records Department [address] [place] [address] Emergency Department Summary 08/06/18 1457 MR#: [id number] Acct: [id number] Name: KRISHAN LEON Sr. Rep #: [id number] : 1960 57 From: Huy Gutierrez MD PCP: Ernesto Faust MD Status: REG ER - ER Visit Summary Date of Service: 08/06/18 Chief Complaint: Mid chest dull sensation while driving. History of Present Illness: The patient is a 57 M who apparently has history of coronary disease. He has no stents. Last stress test was 3 years ago and normal. He states he had bilateral anterior chest dullness that lasted approximately 1 hour while driving his vehicle. There was no radiation or associated symptoms. He states the pain he experienced when he had a cardiac cath was different. He denies hematemesis, melena hematochezia. He denies leg pain, swelling discoloration. He denies history of PE or DVT nor does he have any risk factors. He is a former smoker. He reports chronic low back pain and 1 month of right scapular pain that is worse with movement and palpation. Physical Examination: Blood pressures is elevated 133/70. HEENT exam is unremarkable. Heart is regular without murmur, gallop or rub. S1 and S2 are normal. Lungs are clear to auscultation with good movement of air bilaterally. Abdomen is soft nontender bowel sounds present normal. There is no palpable pulsatile mass. There is no abdominal bruit. There is no CVA tenderness noted. There is no asymmetry, swelling, discoloration, leg vein distention, palpable cords or tenderness along the distribution of the deep venous system. Neuro exam is nonfocal Test Results: EKG #1 reveals a sinus bradycardia with prolonged QT interval. There is a left axis. QRS duration is slightly prolonged. EKG was performed at 1108. First troponin second troponin less than 0.015. Portable chest x-ray was unremarkable. CBC was unremarkable. Basic metabolic panel reveals slight elevation of glucose of 117. Emergency Department Course and Treatment: Patient is low risk with a heart score of 2. Since EKG normal troponins normal will discharge home to follow- up with primary care physician Dr. Ernesto Galindo Treatment Plan: Outpatient follow-up Disposition: Discharged home in stable condition Impression: Atypical chest pain This note was generated with LiveRSVP dictation software. It may contain incorrect words, spelling, and punctuation that were not noted in review of the chart prior to signing ED Disposition - Plan for ED Patient: Disposition: Home or Assisted Living Chief Complaint: Chest Pain Instructions: ED Chest Pain Atypical Unkn Cause Referrals: Ernesto Faust MD [Primary Care Provider] - 3-5 Days What to do if you have Problems For any increased pain, shortness of breath, bleeding, nausea or vomiting, chest pain, or any unexpected problems, contact your Primary Care Provider. Call [facility] ([phone]) or report to the closest Emergency Room. Call 911 if necessary. 08/06/18 2729 <Electronically signed by Huy Gutierrez MD> Date Huy Gutierrez MD Cosigner Signature (If Indicated): Date CC: Ernesto Faust MD TROPONIN-I Collected: 08/06/2018 Status: F Source: [place] 2:05 PM [facility] REPOSIT[facility] Order Comment: 'TROP' Serial specimen #1, #2 or #3: 2 TYPE CODE TESTS RESULT OUT OF RANGE REFERENCE UNITS LAB L501.4010 <0.045 ng/mL Normal < 0.015 TROPONIN-I Result Comment: TROPONIN-I EXPECTED VALUES <0.045 Negative 0.045 - 0.590 Consistent with Cardiac Damage > OR = 0.600 Critical Value Not every elevated troponin is indicative of WI. These values should be used with clinical judgement in examining the patient's clinical picture for diagnosis. To establish a diagnosis of WI versus myocardial injury, there must be a demonstrated rise and/or fall in the troponin values, in addition to ischemic symptoms, EKG changes, new regional wall motion abnormality, and/or angiographical evidence. PLEASE NOTE: REFERENCE RANGES EDITED 18 Performed By: #### L501.4010 #### [facility] [address] [place], [address] CHEST 1 VIEW Observed: 08/06/2018 Status: F Source: [place] (PORTABLE) 11:03 AM [facility] REPOSIT[facility] Imaging Services [address] [place] [address] Chest 1 View (Portable) MR#: [id number] Acct: [id number] Name: ALEXKRISHAN Sr. Rep #: [id number] : 1960 M 57 From: Francesco Washington MD PCP: Ernesto Faust MD Status: REG ER Study: Chest 1 View (Portable) Date of Exam: 08/06/18 Exam# [id number] Ordering Dr: Huy Gutierrez MD STUDY: X-RAY CHEST REASON FOR EXAM: Male, 57 years old. One month history of back pain and shoulder pain. TECHNIQUE: Single AP portable view of the chest. COMPARISON: Comparison is made with prior study dated September 18, 2016. FINDINGS: EKG electrodes are seen. The lungs are clear and expanded. There is no demonstrated pleural abnormality. Normal size heart. Normal mediastinum and abundio. Normal visualized pulmonary arteries. Normal visualized aortic arch and descending thoracic aorta. Normal visualized thoracic spine. Normal visualized ribs, clavicles, and shoulders. There is no demonstrated abnormality of the visualized soft tissue structures of the upper abdomen. RAD/Chest 1 View (Portable) IMPRESSION: Normal x-ray examination of the chest. Electronically Signed: Francesco Washington MD at 11:39 EST Tel [phone], Service support , CC: Ernesto Faust MD; Huy Gutierrez MD [employer] Professor: Signed CBC W/DIFF, AUTOMATED Collected: 08/06/2018 Status: F Source: [place] 10:40 AM [facility] REPOSIT[facility] TYPE CODE TESTS RESULT OUT OF RANGE REFERENCE UNITS LAB L100.1000 4.4-11.0 K/mm3 Normal WBC 10.1 LAB L100.1200 4.6-6.2 M/mm3 Normal RBC 5.08 LAB L100.1300 13.0-16.5 g/dl Normal HGB 15.2 LAB L100.1400 40-54 % Normal HCT 43.8 LAB L100.1500 80-94 fL Normal MCV 86.2 LAB L100.1600 27.0-32.0 pg Normal MCH 29.9 LAB L100.1700 32-36 g/gl Normal MCHC 34.7 LAB L100.1810 11.6-14.6 % Normal RDW CV 12.8 LAB L100.1820 35.1-43.9 fl Normal RDW SD 39.5 LAB L100.1900 150-450 K/mm3 Normal PLT 249 LAB L100.2000 6.2-12.0 fl Normal MPV 10.2 LAB L100.2100 47-70 % Normal NEUT% 62.2 LAB L100.2200 19-41 % Normal LY% 28.1 LAB L100.2300 0-10 % Normal MONO% 6.6 LAB L100.2400 0-5 % Normal EO% 2.1 LAB L100.2500 0-1 % Normal BASO% 0.4 LAB L100.2550 0.0-0.9 % Normal IM GRAN % 0.600 Result Comment: IG% - Immature Granulocytes (promyelocytes, myelocytes and metamyelocytes) > 1% indicates that a LEFT SHIFT is Present. LAB L100.2620 2.0-7.7 X10 3/uL Normal Absolute Neut 6.3 LAB L100.2720 0.83-4.51 X10 3/ul Normal Absolute Lymph 2.83 Performed By: #### L100.0100 #### [facility] [address] [place], [address] BASIC METABOLIC Collected: 08/06/2018 Status: F Source: [place] PROFILE ([facility]) 10:40 AM [facility] TYPE CODE TESTS RESULT OUT OF RANGE REFERENCE UNITS LAB L501.0100 74-106 mg/dL High GLU 117 Result Comment: Fasting Glucose result from 100 to 125 mg/dL suggests IMPAIRED HOMEOSTASIS per A.D.A. criteria. Please note revised GLUCOSE reference range effective 2017. LAB L501.1000 7-18 mg/dL Normal BUN 14 LAB L501.1100 0.70-1.30 mg/dL Normal CREAT,SERUM 1.09 Result Comment: The validity of the calculated GFR AND GFRAA in patients over 70 years has not been determined. Clinical correlation is essential. LAB L501.1110 >60 mL/min Normal EST GFR 74 Result Comment: Non- GFR Calc LAB L501.1115 >60 mL/min Normal EST GFR - AA 90 Result Comment: GFR Calc LAB L501.1255 ml/min Normal Estimated CRCL 81.56 LAB L501.1300 10-20 RATIO Normal BUN/CRE 12.8 LAB L501.2200 8.5-10 mg/dL Normal .1 CA 9.0 LAB L501.5300 136-14 mmol/L Normal 5 NA 142 LAB L501.5600 3.5-5. mmol/L Normal 1 K 3.8 LAB L501.5900 98-107 mmol/L Normal CL 107 LAB L501.6100 21.0-3 mmol/L Normal 2.0 CO2 25.0 LAB L501.6200 5-15 Normal GAP 10 Performed By: #### L500.2500, L501.4010 #### [facility] [address] [place], [address] TROPONIN-I Collected: 08/06/2018 Status: F Source: [place] 10:40 AM [facility] REPOSIT[facility] TYPE CODE TESTS RESULT OUT OF RANGE REFERENCE UNITS LAB L501.4010 <0.045 ng/mL Normal < 0.015 TROPONIN-I Result Comment: TROPONIN-I EXPECTED VALUES <0.045 Negative 0.045 - 0.590 Consistent with Cardiac Damage > OR = 0.600 Critical Value Not every elevated troponin is indicative of WI. These values should be used with clinical judgement in examining the patient's clinical picture for diagnosis. To establish a diagnosis of WI versus myocardial injury, there must be a demonstrated rise and/or fall in the troponin values, in addition to ischemic symptoms, EKG changes, new regional wall motion abnormality, and/or angiographical evidence. PLEASE NOTE: REFERENCE RANGES EDITED 18 Performed By: #### L500.2500, L501.4010 #### [facility] [address] [facility] [place], [address] BRAIN W/WO CONTRAST Observed: 04/21/2018 Status: F Source: [place] 7:48 AM [facility] REPOSIT[facility] Imaging Services [address] [place], [place] [address] [address] Brain W/WO Contrast MR#: [id number] Acct: [id number] Name: KRISHAN LEON Rep #: [id number] : 1960 M 57 From: Ayana Samano PCP: Ernesto Faust MD Status: REG CLI Study: Brain W/WO Contrast Date of Exam: 04/21/18 Exam# [id number] Ordering Dr: Michel Cheatham MD STUDY: MRI BRAIN WITH AND WITHOUT CONTRAST (ATTENTION INTERNAL AUDITORY CANALS - I.A.C.'s) REASON FOR EXAM: Male, 57 years old. tinnitus bilaterally x 6 mons. TECHNIQUE: Standardized multiplanar fat and water weighted pulse sequences were obtained. 9 ml of Gadavist contrast material was administered intravenously for the contrast portion of the examination. COMPARISON: None. FINDINGS: Normal bilateral temporal bones. Normal bilateral internal auditory canals. There is no demonstrated intracanalicular or cisternal vestibular schwannoma (acoustic neuroma). There is no enhancement of the bilateral VIIth or VIIIth cranial nerves. Normal bilateral cochlea, vestibules and semicircular canals. Normal size of the ventricles and extra-axial spaces for the patient's age. Normal white matter tracts of the supratentorial brain. Normal bilateral basal ganglia. Normal thalami. Normal flow voids within the major intracranial circulation suggesting patency by spin echo criteria. Normal venous enhancement. There is no enhancing intra-axial or extra-axial abnormality. There is no extra-axial fluid accumulation. Normal sella turcica, pituitary gland, infundibular stalk, optic chiasm and hypothalamus. Normal tectal plate and pineal gland. Normal midbrain, isaac and medulla. Normal cerebellum. Normal basal cisterns. No demonstrated orbital abnormality, within the constraints of a routine brain study. Normal visualized paranasal sinuses. Normal calvarium and skull base. Normal visualized soft tissue structures. Normal visualized upper cervical spine. MRI/Brain W/WO Contrast IMPRESSION: Unremarkable unenhanced and enhanced MRI of the bilateral internal auditory canals (I.A.C's). Electronically Signed: Ayana Samano MD at 9:09 EDT Tel , Service support , CC: Michel Cheatham MD; Ernesto Faust MD Eastern Philosophy Professor: Signed ED NOTE Observed: 03/18/2018 Status: COMPLETED Source: [place] 9:25 PM [facility] [place] REPOSITORY HNO ID: [id number] Author: Shena SchaeferRn) JESSICA Engel Service: Emergency Medicine Author Type: Registered Nurse Type: ED Notes Filed: 03/18/2018 10:00 PM Note Text: Patient informed: the name of medication, why we are giving it, possible side effects, what they may expect to feel, and was offered a chance to ask questions, prior to the administration of levaquin. ED PROV NOTE Observed: 03/18/2018 Status: COMPLETED Source: [place] 8:45 PM [facility] REPOSITORY O ID: [id number] Author: Margoth Hunt DO Service: Emergency Medicine Author Type: Physician Type: ED Provider Notes Filed: 03/18/2018 9:47 PM Note Text: ED Provider Note Patient Name: Krishan Leon SERVICE DATE: 03/18/18 History Patient presents with: Testicular Pain Krishan Leon is a 57 year old male with history of multiple chronic medical problems who presents with Testicular Pain. Patient took OTC medications prior to arrival. - Symptoms began 1 days prior to arrival. - Severity: moderate - Timing: constant - Quality: sore - Testicular Pain is exacerbated by movement palpation. - Testicular Pain is not exacerbated by rest. - Symptoms are associated with right groin pain. - Symptoms are not associated with chills, fever, rash and vomiting. - Improved by nothing. - Not improved by rest. Patient had prostate biopsy by Dr. Holley on March 09, has been doing ok until yesterday he started having right testicular pain and swelling and pain up into his right groin. He has some dysuria. No hematuria. No pain with bowel movements. No trouble having bowel movements. PAST MEDICAL HISTORY Diagnosis Date - Judge's esophagus - CAD (coronary artery disease) - Mixed hyperlipidemia Hyperlipidemia - Unspecified essential hypertension Essential hypertension PAST SURGICAL HISTORY Procedure Laterality Date - COLONOSCOP W/ OR W/O BRSH SPEC 11/24/2016 Colonoscopy - EGD W/O OR W/BRUSH/WASH 11/24/2016 EGD - PAST SURGICAL HISTORY OF eye muscle surgery age 4 and 2001 - PAST SURGICAL HISTORY OF lumps removed left arm - PROSTATE BIOPSY HX 03/09/2018 - REMOVAL GALLBLADDER 2005 Cholecystectomy FAMILY HISTORY Problem Relation Age of Onset - Lipids Father - Lipids Brother - Heart Maternal Grandmother CAD - Heart Maternal Grandfather CAD - Heart Maternal Uncle CAD Social History Social History Main Topics - Smoking status: Former Smoker Packs/day: 0.50 Types: Cigarettes Quit date: 01/09/2018 - Smokeless tobacco: Never Used Comment: Trying to quit - down to half a pack from 3-4 packs - Alcohol use No - Drug use: No - Sexual activity: Not on file ALLERGIES Allergen Reactions - Morphine drops my heart rate - Phenobarbital Mental Status Change Review of Systems Constitutional: Negative for chills and fever. Respiratory: Negative for shortness of breath. Cardiovascular: Negative for chest pain. Gastrointestinal: Positive for abdominal pain. Negative for diarrhea, nausea and vomiting. Genitourinary: Positive for dysuria, scrotal swelling and testicular pain. Negative for discharge, flank pain, genital sores, hematuria, penile pain and penile swelling. Musculoskeletal: Negative for back pain. Skin: Negative for rash and wound. Allergic/Immunologic: Negative for immunocompromised state. Neurological: Negative for weakness and numbness. Psychiatric/Behavioral: Negative for agitation and confusion. Physical Exam BP 125/78 Pulse 70 Temp (Src) 98.6 (Temporal Artery) Resp 16 Ht 5' 11 (1.80m) Wt 175 lb (79.4kg) SpO2 97% BMI 24.42 kg/(m2). Physical Exam Constitutional: He is oriented to person, place, and time. He appears well-developed and well-nourished. No distress. HENT: Head: Normocephalic and atraumatic. Eyes: Conjunctivae are normal. Neck: No JVD present. Cardiovascular: Normal rate, regular rhythm and intact distal pulses. Pulmonary/Chest: Effort normal and breath sounds normal. No stridor. No respiratory distress. Abdominal: Soft. Normal appearance and bowel sounds are normal. He exhibits no distension. There is tenderness in the suprapubic area. There is no rigidity, no rebound, no guarding, no CVA tenderness, no tenderness at McBurney's point and negative Morgan's sign. No hernia. Hernia confirmed negative in the right inguinal area and confirmed negative in the left inguinal area. Genitourinary: Penis normal. Right testis shows swelling and tenderness. Left testis shows no swelling and no tenderness. Cremasteric reflex is not absent on the left side. Circumcised. No penile erythema. No discharge found. Genitourinary Comments: Framing Inspector present. Hard to see if right testicle is elevating on examining for cremasteric reflex - ? Absent reflex? He is exquisitely tender palpating the right testicle and the right inguinal canal. Neurological: He is alert and oriented to person, place, and time. Skin: Skin is warm and dry. Capillary refill takes less than 2 seconds. No rash noted. No pallor. Psychiatric: He has a normal mood and affect. His behavior is normal. Nursing note and vitals reviewed. Diagnostic Testing ED Labs Ordered and Reviewed - No data to display Procedures Medical Decision Making MDM Labs ordered. + hematuria without evidence for urinary infection. I discussed with the patient my concerns and need for transferring for an ultrasound to rule out torsion. He also is at risk for epididymitis with his recent procedure, but need to rule out torsion first. Patient is refusing transfer and wants to go home and will go tomorrow to have one done. I discussed risks of not having the ultrasound/further testing and he still wants to go home and not have the ultrasound tonight. I will go ahead and put him on antibiotics to cover for epididymitis with his recent procedure and symptoms. Instructed to immediately return to the ED for new/worsening symptoms. Instructed to follow up with urologist. Patient signed out AMA. He ambulated out of the ED without difficulty. ED Course / Clinical Impression Clinical Impressions as of Mar 18 2045 Right testicular pain Plan The patient was Patient left against medical advice. Condition at time of disposition: stable SIGNATURE: Margoth Hunt, DO Margoth Hunt, 03/18/187 ED NOTE Observed: 03/18/2018 Status: COMPLETED Source: [place] 8:40 PM [facility] REPOSITORY HNO ID: [id number] Author: Shena Johansen) Toro RN Service: Emergency Medicine Author Type: Registered Nurse Type: ED Notes Filed: 03/18/2018 8:54 PM Note Text: Scrotal exam per Dr Henny grant/ ti nurse as call or contact centre team leader. ED NOTE Observed: 03/18/2018 Status: COMPLETED Source: [place] 8:36 PM [facility] REPOSITORY HNO ID: [id number] Author: Shena Johansen) Toro RN Service: Emergency Medicine Author Type: Registered Nurse Type: ED Notes Filed: 03/18/2018 8:36 PM Note Text: Clean catch urine specimen obtained and sent. Cloudy, melanie urine. ED NOTE Observed: 03/18/2018 Status: COMPLETED Source: [place] 8:28 PM [facility] RE[facility] HNO ID: [id number] Author: Nichol SchaeferRn) JESSICA Goins Service: Emergency Medicine Author Type: Registered Nurse Type: ED Notes Filed: 03/18/2018 8:29 PM Note Text: Dr. Holley, urologist in [place] ED NOTE Observed: 03/18/2018 Status: COMPLETED Source: [place] 8:27 PM [facility] REPOSITORY HNO ID: [id number] Author: Nichol SchaeferRn) JESSICA Goins Service: Emergency Medicine Author Type: Registered Nurse Type: ED Notes Filed: 03/18/2018 8:28 PM Note Text: Prostate biopsy 10 days ago. c/o swelling, pain in right testicle x 2 days. PROSTATE BIOPSY Observed: 03/09/2018 Status: F Source: [facility] 8:55 AM [facility] REPOSITORY Patient: KRISHAN LEON : 1960 (57/M) Acct Num: [id number] Phys: Leydi DOUGLAS,Segundo Unit Num: [id number] Loc: [facility]SPEC Specimen: [id number] Received: 03/09/18 - 1534 Spec Type: PROST BX TISSUES TISSUES: A. PROSTATE RIGHT B. PROSTATE RIGHT C. PROSTATE RIGHT D. PROSTATE LEFT E. PROSTATE LEFT F. PROSTATE LEFT GROSS DESCRIPTION A - Received is one container designated prostate, right base. The specimen consists of two elongated fragments of light shelley-white soft tissue each measuring 0.8 and 1.4 cm in length and 0.1 cm in diameter. The specimen is totally submitted in one cassette. B - Received is one container designated prostate, right mid. The specimen consists of two elongated fragments of light shelley-white soft tissue each measuring 0.7 and 1.8 cm in length and 0.1 cm in diameter. The specimen is totally submitted in one cassette. C - Received is one container designated prostate, right apex. The specimen consists of two elongated fragments of light shelley-white soft tissue each measuring 1.5 cm in length and 0.1 cm in diameter. The specimen is totally submitted in one cassette. D - Received is one container designated prostate, left base. The specimen consists of two elongated fragments of light shelley-white soft tissue each measuring 0.5 cm in length and 0.1 cm in diameter. The specimen is totally submitted in one cassette. E - Received is one container designated prostate, left mid. The specimen consists of three elongated fragments of light shelley-white soft tissue each measuring 0.5 to 1.3 cm in length and 0.1 cm in diameter. The specimen is totally submitted in one cassette. F - Received is one container designated prostate, left apex. The specimen consists of three elongated fragments of light shelley-white soft tissue each measuring 1 to 1.5 cm in length and 0.1 cm in diameter. The specimen is totally submitted in one cassette. / NANCY:sarah 03/12/18 TC:5 CPT: 33220 x6 HEADER OPERATION: Transrectal ultrasound guided prostate biopsy PRE-OP DIAGNOSIS: Elevated prostate TISSUE SUBMITTED: A-Right base, B-Right mid, C-Right apex, D-Left base, E-Left mid, F-Left apex MICROSCOPIC DESCRIPTION Slides are reviewed. MICROSCOPIC DIAGNOSIS A. Right prostate, base, core biopsy: Prostatic tissue, negative for malignancy. B. Right prostate, mid, core biopsy: Prostatic tissue, negative for malignancy. C. Right prostate, apex, core biopsy: Prostatic tissue, negative for malignancy. D. Left prostate, base, core biopsy: Prostatic tissue, negative for malignancy. E. Left prostate, mid, core biopsy: Prostatic tissue, negative for malignancy. F. Left prostate, apex, core biopsy: Prostatic tissue, negative for malignancy. SJ:sarah 03/13/18 PSA RESULTS Date Time Test Result Flag (u) Normal Range 12/26/17 1607 PSA,TOT SCREEN 4.68 H 0.00-4.00 ng/mL This test was performed using the TPSA assay method for the [employer] chemistry system. Values obtained with different assay methods cannot be used interchangably. When changing PSA assays in the course of monitoring a patient, additional sequential testing should be carried out to confirm baseline values. Date Time Test Result Flag (u) Normal Range 02/07/18 1710 PSA, DIAGNOSTIC 5.69 H 0.0-4.0 ng/mL This test was performed using the TPSA assay method for the [employer] chemistry system. Values obtained with different assay methods cannot be used interchangably. When changing PSA assays in the course of monitoring a patient, additional sequential testing should be carried out to confirm baseline values. Signed Jeferson Echols 03/13/18 <signature on file> Performed By: #### PPROSBIL #### [facility] [address] [place], [place], [address] CBC-COMPLETE BLOOD CNT Collected: 03/02/2018 Status: F Source: [place] NO DIFF 4:06 PM [facility] REPOSITORY TYPE CODE TESTS RESULT OUT OF RANGE REFERENCE UNITS LAB L100.1000 4.4-11.0 K/mm3 Normal WBC 7.1 LAB L100.1200 4.6-6.2 M/mm3 Normal RBC 5.14 LAB L100.1300 13.0-16.5 g/dl Normal HGB 15.8 LAB L100.1400 40-54 % Normal HCT 44.8 LAB L100.1500 80-94 fL Normal MCV 87.2 LAB L100.1600 27.0-32.0 pg Normal MCH 30.7 LAB L100.1700 32-36 g/gl Normal MCHC 35.3 LAB L100.1810 11.6-14.6 % Normal RDW CV 13.2 LAB L100.1820 35.1-43.9 fl Normal RDW SD 41.9 LAB L100.1900 150-450 K/mm3 Normal PLT 213 LAB L100.2000 6.2-12.0 fl Normal MPV 11.4 Performed By: #### L100.0500 #### [facility] [address] [place], [address] BASIC METABOLIC Collected: 03/02/2018 Status: F Source: [place] PROFILE (BMP) 4:06 PM [facility] REPOSITORY TYPE CODE TESTS RESULT OUT OF RANGE REFERENCE UNITS LAB L501.0100 74-106 mg/dL Normal GLU 84 Result Comment: Please note revised GLUCOSE reference range effective 2017. LAB L501.1000 7-18 mg/dL Normal BUN 14 LAB L501.1100 0.70-1.30 mg/dL Normal CREAT,SERUM 1.17 Result Comment: The validity of the calculated GFR AND GFRAA in patients over 70 years has not been determined. Clinical correlation is essential. LAB L501.1110 >60 mL/min Normal EST GFR 69 Result Comment: Non- GFR Calc LAB L501.1115 >60 mL/min Normal EST GFR - AA 83 Result Comment: GFR Calc LAB L501.1300 10-20 RATIO Normal BUN/CRE 12.0 LAB L501.2200 8.5-10.1 mg/dL CA Normal 8.6 LAB L501.5300 136-145 mmol/L NA Normal 141 LAB L501.5600 3.5-5.1 mmol/L K Normal 4.1 Result Comment: Moderate Hemolysis, Result may be falsely increased. LAB L501.5900 98-107 mmol/L Normal CL 106 LAB L501.6100 21.0-32.0 mmol/L Normal CO2 29.0 LAB L501.6200 5-15 Normal 6 GAP Performed By: #### L500.2500 #### [facility] [address], [address] PSA,TOTAL- DIAGNOSTIC Collected: 02/07/2018 Status: F Source: [place] 5:10 PM [facility] REPOSITORY TYPE CODE TESTS RESULT OUT OF REFERENCE UNITS RANGE LAB L501.9940 0.0-4.0 ng/mL PSA, High DIAGNOSTIC 5.69 Result Comment: This test was performed using the TPSA assay method for the [employer] chemistry system. Values obtained with different assay methods cannot be used interchangably. When changing PSA assays in the course of monitoring a patient, additional sequential testing should be carried out to confirm baseline values. Performed By: #### L501.9940 #### [facility] [address] [place], [address] PSA,TOTAL - ANNUAL Collected: 12/26/2017 Status: F Source: [place] SCREEN 4:07 PM [facility] REPOSITORY TYPE CODE TESTS RESULT OUT OF REFERENCE UNITS RANGE LAB L501.9910 0.00-4.00 ng/mL High PSA,TOT 4.68 SCREEN Result Comment: This test was performed using the TPSA assay method for the [employer] chemistry system. Values obtained with different assay methods cannot be used interchangably. When changing PSA assays in the course of monitoring a patient, additional sequential testing should be carried out to confirm baseline values. Performed By: #### L501.9910 #### [facility] [address] [place], [address] EMERGENCY DEPARTMENT Observed: 12/01/2017 Status: F Source: [place] SUMMARY 11:11 PM [facility] REPOSITORY [facility] Medical Records Department [address] [place] [address] Emergency Department Summary 12/01/17 1840 MR#: [id number] Acct: [id number] Name: KRISHAN LEON Rep #: [id number] : 1960 57 From: Abdias Grubbs MD PCP: Ernesto Faust Status: DEP ER - ER Visit Summary Date of Service: 12/01/17 Chief Complaint: Testicular pain History of Present Illness: The patient is a 57 M presents to the emergency department with gradual onset right testicular pain. The patient states that starting yesterday, he began have some gradual increasing pain in his right testicle. He states it is worse when he moves around. Today, the pain was getting worse. He does admit to some mild pain with urination. He denies abdominal pain. He has had no nausea vomiting. He denies any trauma. Patient denies any recent sexual activity. He denies any penile discharge. He has no history of torsion. He has no history of prior surgery on his testicle. Physical Examination: Vital signs reviewed General: Well-nourished, well-developed Head: Normocephalic, atraumatic Eyes: Pupils equal and reactive, extraocular muscles intact Neck, supple, no lymphadenopathy Heart: Regular rate and rhythm Respiratory: No distress, clear bilaterally Abdomen: Soft, nontender, nondistended, no peritoneal signs Back: Nontender : Markedly tender palpation of the right testicle and cord. No torsion visible. Normal cremasteric. Extremities: Nontender, no edema, no cords Skin: Normal color no rash Neuro: Alert and oriented, no focal or lateralizing deficits Test Results: [] Emergency Department Course and Treatment: The patient did have rather significant tenderness to palpation of the right testicle. He was tender over the epididymis. There was no evidence of torsion. I did obtain a UA which is unremarkable. His ultrasound shows hydrocele, but no evidence of torsion or other dangerous process. I do have some concern he may be an early epididymitis even though there is no definitive evidence on his ultrasound. Given his pain, I do feel that the most prudent thing would be to treat him with oral antibiotics. The patient given his first dose of Levaquin here. I am going to given urology follow-up. I did scholarship counselor him that if his symptoms worsen in any way over the next 24- 48 hours he needs to return immediately to the emergency department. He is comfortable with this plan of care and will be discharged home. Treatment Plan: [] Disposition: Discharge Impression:. Right hydrocele This note was generated with Live[employer] dictation software. It may contain incorrect words, spelling, and punctuation that were not noted in review of the chart prior to signing ED Disposition - Plan for ED Patient: Disposition: Home or Assisted Living Chief Complaint: Male Pain/Injury Instructions: ED Epididymitis Prescriptions: Levofloxacin [Levaquin] 750 mg PO DAILY #7 tab Referrals: Song Holley MD [STAFF PHYSICIAN] - What to do if you have Problems For any increased pain, shortness of breath, bleeding, nausea or vomiting, chest pain, or any unexpected problems, contact your Primary Care Provider. Call [facility] ([phone]) or report to the closest Emergency Room. Call 911 if necessary. 12/01/17 2311 <Electronically signed by Abdias Grubbs MD> Date Abdias Grubbs MD Cosigner Signature (If Indicated): Date CC: Ernesto Faust URINALYSIS, COMPLETE Collected: 12/01/2017 Status: F Source: [place] 6:45 PM [facility] REPOSITORY Order Comment: Order Date: 12/01/17 How was Urine Obtained? CONTAINER MAKER TO SPECIFY TYPE CODE TESTS RESULT OUT OF RANGE REFERENCE UNITS LAB L400.3000 Yellow COLOR Normal Yellow LAB L400.3050 Clear Normal CLARITY Clear LAB L400.3200 Normal mg/dl Normal GLUCOSE, UR Normal LAB L400.3300 Negative mg/dL Normal BILIRUBIN URINE Negative LAB L400.3400 Negative mg/dl High 5 KETONE UR LAB L400.3465 1.002-1.030 Normal SP.GR. DIPSTX 1.015 LAB L400.3550 5.0 - 8.0 pH UR Normal 6.0 LAB L400.3600 Negative mg/dl PROT Normal DIPSTX Negative LAB L400.3700 Normal mg/dl Normal UROBILI Normal LAB L400.3750 Negative Normal NITRITE UR Negative LAB L400.3780 Negative /ul Normal OCCULT BLOOD-UR Negative LAB L400.3800 Negative /ul LEUK Normal ESTERASE Negative LAB L400.4050 0-5 /hpf WBC Normal 0-5 SEEN LAB L400.4100 0-5 /hpf 0 Normal RBC-UA SEEN LAB L400.4150 0-5 /hpf SQUAM Normal EPI 0-5 SEEN LAB L400.4300 None Seen /hpf 0 Normal BACTERIA SEEN LAB L400.4350 <or=2+ /hpf 0 Normal MUCUS, URINE SEEN Performed By: #### L400.0001 #### [facility] [address] [place], [address] TESTICULAR WITH Observed: 12/01/2017 Status: F Source: [place] ARTERIAL FLOW 6:21 PM [facility] REPOSITORY [facility] Imaging Services [address] [place] [address] Testicular with Arterial Flow MR#: [id number] Acct: [id number] Name: KRISHAN LEON Rep #: [id number] : 1960 M 57 From: Rachel Wallace MD PCP: Ernesto Faust Status: REG ER Study: Testicular with Arterial Flow Date of Exam: 12/01/17 Exam# [id number] Ordering Dr: Abdias Grubbs MD STUDY: SCROTUM ULTRASOUND REASON FOR EXAM: Male, 57 years old. RT TESTICLE PAIN TECHNIQUE: Ultrasound evaluation of the scrotum was performed with color Doppler and static wagner-scale imaging. COMPARISON: None. FINDINGS: RIGHT TESTICLE INTRATESTICULAR: There is a normal size of the right testicle. The right testicle measures 4.4 x 2.6 x 2.3 cm cm. There is a homogenous echotexture. There does appear 1 microcalcification of the testis without evidence of soft tissue mass. This has a benign appearance. There is normal arterial and normal venous vascularity. There is no demonstrated right testicular mass or cyst. EXTRATESTICULAR: The epididymis is normal in size. The epididymis head measures 1.4 x 0.8 x 0.7 cm. There is normal vascularity of the epididymis. There is no demonstrated epididymal cystic structure. There is there is a small hydrocele. There are echoes seen within the fluid collection. Potentially there may be spermatocele also in this location.. There is no demonstrated varicocele. There is no demonstrated extratesticular mass or cyst. LEFT TESTICLE INTRATESTICULAR: There is a normal size of the left testicle. The left testicle measures 4.3 x 3.1 x 2.1 cm. There is a homogenous echotexture. There is normal arterial and normal venous vascularity. There is no demonstrated left testicular mass or cyst. EXTRATESTICULAR: The epididymis is normal in size. The epididymis head measures 1.4 x 0.6 x 0.9 cm cm. There is normal vascularity of the epididymis. There is no demonstrated epididymal cystic structure. There is a small hydrocele. There are prominent extratesticular veins consistent with a varicocele. There is no demonstrated extratesticular mass or cyst. US/Testicular with Arterial Flow IMPRESSION: Bilateral hydroceles. On the right there appears echogenicity associated with the hydrocele, perhaps an underlying spermatocele also coexistents. No evidence of testicular torsion. Small left varicocele. See above. Electronically Signed: Rachel Wallace MD at 19:44 EDT Tel , Service support , CC: Abdias Grubbs MD; Ernesto Faust Eastern Philosophy Professor: Signed ALLERGIES ALLERGIES DATE TYPE / CODE NAME / CODE REACTION SEVERITY SOURCE 10/02/2018 Drug phenobarbita Other Unknown [facility] Allergy/4160 l/[id number] [facility] 65679(SNOMED (RXNORM) Repository CT) 10/02/2018 Drug morphine/F00 Other Unknown [facility] Allergy/4160 1000576([facility] 92290(SNOMED RM) Repository CT) ENCOUNTERS ENCOUNTERS ADMIT/DISCHARGE ACCOUNT ADMITTING ENCOUNTER LOCATION SOURCE NUMBER CLASS 10/02/2018/ [id number] [facility] [place] [facility] 2 [facility] ing:PCURoom: Repository [id number]: 1 10/02/2018 [id number] [facility] [place] [facility] [place] Repository 10/02/2018 [id number] [facility] [place] [facility] [place] Repository 08/06/2018/ [id number] [facility] [place] 8 0 [facility] ing:ED Repository 08/06/2018 [id number] Ambulatory B[facility]Building:[facility] [place] 9 [facility] Repository 04/21/2018 [id number] [facility] [place] 8 [facility] ing:MRI Repository 03/09/2018 [id number] [facility] [place] 1 [facility] ing:LABSPEC Repository 03/02/2018 [id number] Ambulatory BMSBuilding:[place] 7 [facility] Repository 03/02/2018 [id number] [place] [facility] ing:LAB.FUTUR Repository E 02/07/2018 [id number] Ambulatory [place] 5 [facility] ing:LAB.FUTUR Repository E 12/26/2017 [id number] [place] 5 [facility] ing:LAB Repository 12/01/2017/ [id number] Emergency [place] 8 1 [facility] ing:ED Repository PAYERS PAYERS ENCOUNTER GUARANTOR PAYER SUBSCRIBER SOURCE 10/02/2018 KRISHAN LEON Primary KRISHAN LEON [place] [address] Insurance:[facility] Sr.: [facility] [id number] [id number] Hospital [address]Pwy: (567) Number: Repository [phone] () [id number] Date:8181-62-20AW [address], [place] [address]NF: 10/02/2018 Secondary NOT GIVENUNK [place] Insurance:SELF PAY [facility] Number: Effective Repository Date:2018-10-02 10/02/2018 KRISHAN Lupe LEON Primary KRISHAN LEON [place] [address] Insurance:[facility] [id number] [id number] Hospital [address]Gzw: (567) Number: Repository [phone] () [id number] Date:0142-17-13NL [address] [place] [address]DC: 10/02/2018 Secondary NOT GIVENUNK [place] Insurance:SELF PAY [facility] Number: Effective Repository Date:2018-10-02 10/02/2018 [facility]AN Lupe [facility] Lupe LEON [place] [address] Insurance:[facility] [id number] [id number] Hospital [address]Swc: (567) Number: Repository [phone] () [id number] Date:5586-25-56LI [id number] [place] [address]LE: 10/02/2018 Secondary NOT GIVENUNK [place] Insurance:SELF PAY [facility] Number: Effective Repository Date:2018-10-02 08/06/2018 KRISHAN Lupe [facility] Primary KRISHAN Lupe LEON [place] [address] Insurance:[facility].: [facility] [address]Pyokon [id number] Hospital [address]Eum: [phone]) Number: Repository [phone] () [id number] Date:1753-16-94AJ [address], [place] [address]WL: 08/06/2018 Secondary NOT GIVENUNK [place] Insurance:SELF PAY [facility] Number: Effective Repository Date:2018-08-06 08/06/2018 KRISHAN LEON Primary KRISHAN LEON [place] [address] Insurance:[facility] Sr.: [facility] [address]Namzay [id number] Hospital [address]Rmj: [phone]) Number: Repository [phone] () [id number] Date:3085-04-79GY [address], [place] [address]RW: 08/06/2018 Secondary NOT GIVENUNK [place] Insurance:SELF PAY [facility] Number: Effective Repository Date:2018-08-06 04/21/2018 KRISHAN LEON Primary KRISHAN LEON [place] [address] Insurance:[facility] [id number] Hospital [address]Uey: (567) Number: Repository [phone] ) [id number] Date:1789-91-88WY [address] [place], [place] [address]WP: 04/21/2018 Secondary NOT GIVENUNK [place] Insurance:SELF PAY [facility] Number: Effective Repository Date:2018-04-04 03/09/2018 KRISHAN A Primary KRISHAN Dominguezoster [id number] Insurance:MEDICAL GERWIGDOB: [address]01-21[facility] [address]Jfa: Number: Repository [id number] () Date:9625-59-59VX [address] [place] [address]AB: 03/09/2018 Secondary NOT GIVENUNK [place] Insurance:SELF PAY [facility] Number: Effective Repository Date:2018-03-09 03/02/2018 KRISHAN A Primary KRISHAN Andrade [place] [id number] Insurance:MEDICAL GERWIGDOB: [place] [address]-01-21[facility] [address]Xxg: Number: Repository [id number] () Date:5831-96-44JC [address] [address]UC: 03/02/2018 Secondary NOT GIVENUNK [place] Insurance:SELF PAY [facility] Number: Effective Repository Date:2018-03-02 03/02/2018 KRISHAN A Primary KRISHAN Andrade [place] [id number] Insurance:MEDICAL GERWIGDOB: [facility] [id number] [address]Ubx: Number: Repository [id number] () Date:6249-96-41AP [address] [address]UZ: 03/02/2018 Secondary NOT GIVENUNK [place] Insurance:SELF PAY [facility] Number: Effective Repository Date:2018-02-27 02/07/2018 KRISHAN A Primary KRISHAN Andrade [place] [id number] Insurance:MEDICAL GERWIGDOB: [facility] [id number] [facility] [address]Uif: (567) Number: Repository [phone] () [id number] Date:7807-84-12DR [address] [address]LG: 02/07/2018 Secondary NOT GIVENUNK [place] Insurance:SELF PAY [facility] Number: Effective Repository Date:2017-12-28 12/26/2017 KRISHAN A Primary KRISHAN Andrade [place] [id number] Insurance:MEDICAL GERWIGDOB: [facility] [id number] [address]Hzs: Number: Repository [id number] () Date:7630-99-56YN [address] [address]TI: 12/26/2017 Secondary NOT GIVENUNK [place] Insurance:SELF PAY [facility] Number: Effective Repository Date:2017-12-26 12/01/2017 KRISHAN A Primary KRISHAN A [place] [id number] Insurance:MEDICAL GERWIGDOB: [facility] 1721-08-11[facility] [address]Fal: Number: Repository [id number] (HP) Date:6487-73-45HR [address], [place] [address]QX: 12/01/2017 Secondary NOT GIVENUNK [place] Insurance:SELF PAY [facility] Number: Effective Repository Date:2017-12-01
== END 2018-10-03 11:26 | disposition home or self-care (01) ==
LOC: ED 10:37 → PCU 11:06
PROVIDERS: Emergency Provider Emergency Medicine; Family Provider Family Medicine; PCP Family Medicine
DX: R07.89 Other chest pain (principal); K21.9 Gastro-esophageal reflux disease without esophagitis; F17.290 Nicotine dependence, other tobacco product, uncomplicated
CPT/HCPCS: 36415; 71045; 74018; 78452; 80048; 80061; 84484; 85025; 85379; 85610; 85730; 93005; 93017; 96374; 96375; 96376; 99218; 99284; A9500; J7030; A4216; G0378; J2405

== ENCOUNTER 2018-11-23 05:33 | Day surgery (SDC) | payer OTHER, SELFPAY ==
[2018-10-15 14:13] VITALS: BMI 27.6
[2018-11-23] VITALS (8 sets, daily range): BP systolic 109–153; BP diastolic 74–102; PULSE 55–68; RESP 16; TEMP 36.3–36.6; O2SAT 92–100; BMI 27.6
--- NOTE | 2018-11-23 06:30 | IMM_PTH ---
PATIENT: KRISHAN JOHNSON SrCortney LOC: EN U#:[id number] AGE/SX: 58/M ROOM: RE11/23/[address]: Dr. Mitchell Austin MD : 1960 BED: DIS: 11/23/2018 SPEC #: [id number] RECD: 11/23/18 15:17 STATUS: KRISTY ANUJA #: [id number] OLIVIER: 11/23/18 06:[address]: Mitchell Austin DEPT: IMMUNOHISTOCHEMISTRY RECD BY: Val Szymanski ENTERED: 11/23/18 15:17 SP TYPE: IMMUNO OTHR DR: Dr. Ernesto Faust MD Tissues: A - Stomach, NOS Procedures: H Pylori (initial) P53 (initial) BROOKS-2 (add) KI-67 (add) PHYSICIAN & INSTITUTION [place] [id number] SPECIMEN INFORMATION: Tissue Source: A - Antral biopsy, B - Distal esophagus biopsy Clinical Info: GERD Specimen Number: #[id number] A & B CPT code: 05860 x2, 23996 x2 METHODOLOGY: Deparaffinized sections of prefer/formalin-fixed tissue or PAP/DQ stained slides are incubated with monoclonal/polyclonal antibodies/oligonucleotide probes. Localization is made via biotin free immunoperoxidase method. Appropriate controls are performed and reacted as expected. Results on target cell population are indicated in the following table: RESULTS: ANTIBODY / CLONE RESULT Block A H Pylori (polyclonal) negative Block B P53 (DO-7) positive Ki-67 (30-9) positive BROOKS-2 (SP21) positive These tests were developed and their performance characteristics determined by [facility]. They may not have been cleared or approved by the [place]. Food and Drug Administration. The FDA has determined that such clearance or approval is not necessary. INTERPRETATION: A. Antral biopsy: Negative for Helicobacter pylori organisms. B. Distal esophagus, biopsy: Consistent with focal area suspicious for low grade dysplasia. AM:kun 11/27/18
--- NOTE | 2018-11-23 06:30 | EGD_PTH ---
PATIENT: KRISHAN JOHNSON Cortney LOC: EN U#:[id number] AGE/SX: 58/M ROOM: RE11/23/[address]: Dr. Mitchell Austin MD : 1960 BED: DIS: 11/23/2018 SPEC #: [id number] RECD: 11/23/18 13:29 STATUS: KRISTY ANUJA #: [id number] OLIVIER: 11/23/18 06:[address]: Mitchell Austin DEPT: SURGICAL PATHOLOGY RECD BY: Abdias Arredondo ENTERED: 11/23/18 14:05 SP TYPE: EGD BIOPSY OT DR: Dr. Ernesto Faust MD Tissues: A - Gastric mucous membrane B - Esophageal mucous membrane Procedures: Special Stain Group II Surgery Specimen Level IV Alcian Blue/PAS (control) HEADER OPERATION: EGD (MOD) PRE-OP DIAGNOSIS: GERD TISSUE SUBMITTED: A - Antral biopsy for histo and H. pylori, B - Distal esophagus biopsy MICROSCOPIC DIAGNOSIS A. Gastric antrum, biopsy: Minimal chronic gastritis with focal acute gastritis. See comment. B. Distal esophagus, biopsy: Focal changes of reflux. Gastroesophageal junctional mucosa with mild chronic inflammation. Intestinal metaplasia with focal area indefinite for low grade dysplasia. See comment. AM:kun 11/26/18 COMMENT A. The results of immunohistochemistry for Helicobacter pylori will be reported separately ([id number]). B. Immunohistochemistry supports the diagnosis. Alcian blue/PAS stain with matched highlights intestinal metaplasia. Case has been reviewed in consultation with Dr. Echols who concurs with the above diagnosis. IDC:[email or web address] MICROSCOPIC DESCRIPTION Slides are reviewed. GROSS DESCRIPTION A - Received in fixative is one container labeled with the patient's name and designated antral biopsy. The specimen consists of one irregular fragment of light shelley soft tissue that measures 0.3 x 0.3 x 0.1 cm. The specimen is totally submitted in one cassette. B - Received in fixative is one container labeled with the patient's name and designated distal esophagus biopsy. The specimen consists of multiple irregular fragments of light shelley soft tissue that in aggregate measure 1.5 x 0.5 x 0.1 cm. The specimen is totally submitted in one cassette. / NANCY:kun 11/23/18 TC:2 CPT: 62149 x2, 61948
--- NOTE | 2018-11-23 06:48 | OP.ENDO_ITS ---
11/23/2018 Ernesto Faust Re : Upper GI endoscopy procedure for Bernard Chiangr Govind This procedure was performed on Friday, November 23, 2018. My impressions and recommendations are as follows: Impressions : - Esophageal mucosal changes consistent with short-segment Judge's esophagus. Biopsied. - Small hiatal hernia. - Erythematous mucosa in the antrum. Biopsied. - Normal examined duodenum. Recommendations : - Discharge patient to home. - Resume previous diet. - Continue present medications. - Return to my office in 1 week. We will discuss surgical reflux procedures My findings are described in the full procedure note, which is enclosed. If I can be of further assistance, please feel free to contact me at Doctor phone number(s): Work: . Sincerely, Mitchell Austin MD 11/23/2018 6:48:37 AM This report has been signed electronically.
== END 2018-11-23 08:10 | disposition home or self-care (01) ==
LOC: EN 05:34 → AC 05:35
PROVIDERS: Family Provider Family Medicine; PCP Family Medicine; Referring Provider Surgery; Visit Provider Surgery
PROC: (CPT 43239; principal; 2018-11-23 06:25)
DX: K22.710 Barrett's esophagus with low grade dysplasia (principal); K44.9 Diaphragmatic hernia without obstruction or gangrene; K29.00 Acute gastritis without bleeding; K29.50 Unspecified chronic gastritis without bleeding; K21.9 Gastro-esophageal reflux disease without esophagitis; E66.3 Overweight; Z68.27 Body mass index [BMI] 27.0-27.9, adult; Z79.899 Other long term (current) drug therapy; Z87.891 Personal history of nicotine dependence
CPT/HCPCS: 43239; 88305; 88313; 88341; 88342; 99152; 99153; J7120

== ENCOUNTER 2019-01-28 16:03 | Inpatient (IN) | payer OTHER, SELFPAY ==
[2018-11-30 11:10] VITALS: BMI 27.6
[2019-01-28] VITALS (9 sets, daily range): BP systolic 119–148; BP diastolic 59–90; PULSE 54–71; RESP 10–24; TEMP 36.5–36.8; O2SAT 95–98; BMI 29.0; BMI 28.4; BMI 28.5
--- NOTE | 2019-01-28 16:22 | EKG12_ITS ---
Test Reason : CHEST OTHER Blood Pressure : / mmHG Vent. Rate : 061 BPM Atrial Rate : 061 BPM P-R Int : 176 ms QRS Dur : 104 ms QT Int : 410 ms P-R-T Axes : 036 071 063 degrees QTc Int : 412 ms Normal sinus rhythm Low voltage QRS (Limb Leads) Confirmed by MYCHAL DOUGLAS, JAY ([id number]), magazine editor TAVO MORALES ([id number]) on 01/31/2019 1:18:52 PM Referred By: ARABELLA Confirmed By:JAY HORTA MD
--- NOTE | 2019-01-28 16:28 | ED.VISSUMM ---
- ER Visit Summary Date of Service: 01/28/19 Chief Complaint: Chest wall pain History of Present Illness: The patient is a 58 M is changing the blades on a lawnmower city was really working hard to pull them off and he thinks he strained muscles in his chest wall. Said it hurts now with movement of his arms. Currently symptom-free. Says been intermittent for the last week. No shortness of breath. Does not break a sweat. No nausea. Has had prior cardiac work-up she had negative cardiac caths several years ago done at [facility]. He did negative normal nuclear stress test here in September. There is some family history of bypass surgery and grandparents. He quit smoking. Denies any history of DVT or PE. No recent travel surgery or immobilization. No calf pain or swelling. Pain is not pleuritic. He has no hemoptysis. He denies any shortness of breath. He also has had recent exertional chest pain with walking up steps. That is resolved with laying down. And resting. Physical Examination: Middle-aged male no acute distress. Initial blood pressure 136/77. Pulse ox 95% on room air no signs of hypoxia. HEENT exam unremarkable. Neck nontender no lymphadenopathy. Lungs clear to auscultation bilaterally. Heart regular rate and rhythm no murmur. Chest wall is no signs of trauma or reproducible tenderness. Abdomen is soft and nontender. Normal bowel sounds no peritoneal signs. Extremities moves all 4. Calves are nontender without edema or cords. Equal symmetrical radial pulses were normal 5 out of 5 boarder steam strength. Back exam nontender. Neurologically is awake alert with no focal motor deficits. Test Results: Portal chest x-ray 1 view shows no acute abnormality read both by myself and the radiologist. EKG sinus rhythm rate is 61 read as normal by the machine but appears to have Wellens syndrome with changes in V1 V2 and V3 from a prior EKG from September of this year. CBC normal hemoglobin of 15 chemistries normal normal creatinine troponin slightly elevated at 0.077. Emergency Department Course and Treatment: Concern is a patient is having exertional chest pain with walking up steps. It is not reproducible on his chest wall. EKG is concerning and also a abnormal troponin. I think he needs admitted and further evaluation possibly heart cath. Most recent nuclear stress medicine may have been a false negative.. Treatment Plan: I already spoke to the hospitalist Dr. Aleksandra Wang who will admit the patient. She wants me to talk to Dr. Jiang of cardiology also. Disposition: PCU admission Impression: Chest pain uncertain etiology Abnormal troponin with Wellen syndrome on EKG This note was generated with [employer] dictation software. It may contain incorrect words, spelling, and punctuation that were not noted in review of the chart prior to signing ED Disposition - Plan for ED Patient: Disposition: Home or Assisted Living Instructions: ED Strain Chest Wall Referrals: Ernesto Faust MD [Primary Care Provider] - 3-5 Days if not improving Additional Instructions: Ice to chest wall. Tylenol Motrin for pain. Follow-up with not improving.
--- NOTE | 2019-01-28 16:30 | RAD_ITS ---
STUDY: X-RAY CHEST REASON FOR EXAM: Male, 58 years old. Chest pain. TECHNIQUE: Single AP portable view of the chest. COMPARISON: 10/02/2018. FINDINGS: The lungs are clear and expanded. There is no demonstrated pleural abnormality. Normal size heart. Normal mediastinum and abundio. Normal visualized pulmonary arteries. Normal visualized aortic arch and descending thoracic aorta. Normal visualized thoracic spine. Normal visualized ribs, clavicles, and shoulders. There is no demonstrated abnormality of the visualized soft tissue structures of the upper abdomen. RAD/Chest 1 View (Portable) IMPRESSION: Normal x-ray examination of the chest. Electronically Signed: Alban Davis MD at 16:47 EDT , Service support ,
--- NOTE | 2019-01-28 16:31 | ED.DCSUM_ITS ---
- ER Visit Summary Date of Service: 01/28/19 Chief Complaint: Chest wall pain History of Present Illness: The patient is a 58 M is changing the blades on a lawnmower city was really working hard to pull them off and he thinks he strained muscles in his chest wall. Said it hurts now with movement of his arm s. Currently symptom-free. Says been intermittent for the last week. No shortness of breath. Does not break a sweat. No nausea. Has had prior cardiac work-up she had negative cardiac caths several years ago done at [facility]. He did negative normal nuclear stress test here in September. There is some family history of bypass surgery and grandparents. He quit smoking. Denies any history of DVT or PE. No recent travel surgery or immobilization. No calf pain or swelling. Pain is not pleuritic. He has no hemoptysis. He denies any shortness of breath. He also has had recent exertional chest pain with walking up steps. That is resolved with laying down. And resting. Physical Examination: Middle-aged male no acute distress. Initial blood pressure 136/77. Pulse ox 95% on room air no signs of hypoxia. HEENT exam unremarkable. Neck nontender no lymphadenopathy. Lungs clear to auscultation bilaterally. Heart regular rate and rhythm no murmur. Chest wall is no signs of trauma or reproducible tenderness. Abdomen is soft and nontender. Normal bowel sounds no peritoneal signs. Extremities moves all 4. Calves are nontender without edema or cords. 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 Back exam nontender. Neurologically is awake alert with no focal motor deficits. Test Results: Portal chest x-ray 1 view shows no acute abnormality read both by myself and the radiologist. EKG sinus rhythm rate is 61 read as normal by the machine but appears to have Wellens syndrome with changes in V1 V2 and V3 from a prior EKG from September of this year. CBC normal hemoglobin of 15 chemistries normal normal creatinine troponin slightly elevated at 0.077. Emergency Department Course and Treatment: Concern is a patient is having exertional chest pain with walking up steps. It is not reproducible on his chest wall. EKG is concerning and also a abnormal troponin. I think he needs admitted and further evaluation possibly heart cath. Most recent nuclear stress medicine may have been a false negative.. Treatment Plan: I already spoke to the hospitalist Dr. Aleksandra Wang who will admit the patient. She wants me to talk to Dr. Jiang of cardiology also. Disposition: PCU admission Impression: Chest pain uncertain etiology Abnormal troponin with Wellen syndrome on EKG This note was generated with [employer] dictation software. It may contain incorrect words, spelling, and punctuation that were not noted in review of the chart prior to signing ED Disposition - Plan for ED Patient: Disposition: Home or Assisted Living Instructions: ED Strain Chest Wall Referrals: Ernesto Faust MD [Primary Care Provider] - 3-5 Days if not improving Additional Instructions: Ice to chest wall. Tylenol Motrin for pain. Follow-up with not improving.
[2019-01-28 17:27] LABS: Hematocrit 45.8 % (40-54); Hemoglobin 15.8 g/dl (13.0-16.5); Mean Corp Hgb Conc 34.5 g/gl (32-36); Mean Platelet Vol. 10.4 fl (6.2-12.0); Platelet Count 227 K/mm3 (150-450); Red Blood Count 5.45 M/mm3 (4.6-6.2); White Blood Count 8.3 K/mm3 (4.4-11.0)
[2019-01-28 17:30] LABS: Scan Indicated on CBC? Y/N NO
--- NOTE | 2019-01-28 17:40 | PCM.HP.STD ---
Problem List (1) Chest pain Status: Acute Qualifiers: (2) CAD (coronary artery disease) Status: Chronic (3) Hiatal hernia Status: Chronic (4) Nicotine abuse Status: Chronic (5) Gastritis Status: Chronic Qualifiers: (6) GERD with esophagitis Status: Chronic (7) Barretts esophagus Status: Chronic Qualifiers: History of Present Illness Date of Admission: 01/28/19 Chief Complaint: chest pain The patient is a 58 year old M with pmhx of nonobstructive CAD, hiatal hernia, barretts esophagus, nicotine abuse. who presented to the ER with chest pain. He has intermittent chest pain for the past week described as burning pain across the whole chest. 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 It continues to occur with exertion and is better at rest sitting or laying down. No SOB. It is associated with some sweating, no nausea or vomiting. He was recently here in September 2018 and had a negative stress. He had a heart cath in 2009 and states that he has nonobstructive coronary disease, no interventions. EKG now shows Wellens sign. Troponin is pending. He smoked wince the age of [age] 2-3 pack per day until 1.5 yrs ago, however he continues to Vape, states no COPD. Mother had a hx of CAD. 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 [] Past Medical History Past Medical History (Chronic Problems): Chronic Problems (Last Reviewed 11/30/18 @ 14:55 by Andreina Meeks) CAD (coronary artery disease) (Chronic) Hiatal hernia (Chronic) Nicotine abuse (Chronic) Gastritis (Chronic) GERD with esophagitis (Chronic) Barretts esophagus (Chronic) Medical History: Medical History (Last Reviewed 11/30/18 @ 14:55 by Andreina Meeks) Gastritis (Acute) K29.70 GERD with esophagitis (Acute) K21.0 Barretts esophagus (Acute) K22.70 GERD (gastroesophageal reflux disease) K21.9 Allergies morphine Adverse Reaction (Verified 11/30/18 14:55) Other phenobarbital Adverse Reaction (Verified 11/30/18 14:55) Other made me go crazy Home Medications: Ambulatory Orders Medication Instructions Recorded Cholecalciferol (Vitamin D3) 2,000 unit PO QHS 08/24/17 [Vitamin D3] Vitamin B Complex 1 ea PO DAILY 08/24/17 Rabeprazole Sodium [Aciphex] 20 mg PO BID #0 10/03/18 Surgical History: Surgical History (Last Reviewed 11/30/18 @ 14:55 by Andreina Meeks) S/P laparoscopic cholecystectomy Z90.49 Status post total bilateral knee replacement Z96.653 Surgical History: cholecystectomy, - - [place] Psychiatric History: No pertinent psych hx Lives: Spouse/ Significant Other Smoking Status: Current every day smoker Tobacco Use: Non-smoker Alcohol: None Drugs: None - *Family History Maternal History Items: Heart Disease - Has a pacemaker Paternal History Items: Cancer - prostate Review of Systems Constitutional: Denies: Chills, Fever, Weight Change HEENT: Denies: Head Aches, Sinus Congestion, Sinus Drainage Cardiovascular: Reports: Chest Pain. Denies: Heaviness, Light Headedness, Orthopnea, Palpitations Respiratory: Denies: Cough, Shortness of Breath, Shortness of breath at rest, Sputum production Gastrointestinal: Denies: Abdominal Pain, Nausea, Vomiting Genitourinary: Denies: Dysuria Musculoskeletal: Denies: Joint Pain, Joint Tenderness Skin: Denies: Rash, Wounds Neurological: Denies: Numbness, Tingling, Focal weakness Psychiatric: Denies: Anxiety, Depression, Homicidal Ideations, Suicidal Ideations Hematologic/ Lymphatic: Denies: Easy Bruising, Easy Bleeding VTE Information - Inpt Only VTE Present on Admission: No VTE Mechan Device Prophylaxis: None VTE Pharm Prophylaxis ordered?: Yes - Physical Exam General: Alert, Oriented x3, Cooperative HEENT: Atraumatic, PERRLA, EOMI, Normocephalic Neck: Supple, No JVD, Negative Carotid Bruits Lungs: Clear to auscultation, Diminished Cardiovascular: Regular rate, No murmurs Abdomen: Bowel Sounds Present, Soft, Non Tender Extremities: No edema, Capillary Refill Less than 3 Seconds Skin: No rashes, No breakdown Musculoskeletal: No Tenderness to Palpation of Joints or Extremities Neurological: Cranial nerves II-XII grossly intact Psych/Mental Status: Normal Affect, Appropriate, Alert and oriented to time, place, person, mood and affect Vital Signs Temp Pulse Resp BP Pulse Ox 97.7 F L 71 16 136/77 H 95 01/28/19 16:04 01/28/19 16:04 01/28/19 16:04 01/28/19 16:04 01/28/19 16:04 Oxygen Delivery Method Room Air Weight: 208 lb 5.389 oz Body Mass Index (BMI) 29.0 Laboratory Tests Past 24 Hrs 01/28/19 01/28/19 17:14 17:14 WBC 8.3 RBC 5.45 Hgb 15.8 Hct 45.8 MCV 84.0 MCH 29.0 MCHC 34.5 RDW 13.0 RDW Differential 40.0 Plt Count 227 MPV 10.4 Sodium Pending Potassium Pending Chloride Pending Carbon Dioxide Pending Anion Gap Pending BUN Pending Creatinine Pending Est GFR (MDRD) Af Amer Pending Est GFR (MDRD) Non-Af Pending BUN/Creatinine Ratio Pending Glucose Pending Calcium Pending Troponin I Pending Assessment/Plan All Active Problems (Last Reviewed 11/30/18 @ 14:55 by Andreina Meeks) Chest pain (Acute) 1. Unstable Angina - hx nonobstructive CAD per cath 2009. EKG with Wellens sign. Trop slightly elevated. Recent negative stress. Cycle enzymes. Serial EKGs. Tele. Cardiology consult. No nitroglycerin - pt resports severe hypotension. Start aspirin. Check FLP, mag, tsh. Also heavy smoking hx, and + family hx (mother CAD). -despite hx of above he does not take asa/statin/bb/rosalinda etc. Obtain records of old cath if possible. 2. Nicotine abuse -was 2-3 ppd smoker. Now continues to Vape. Advise cessation. Patch if desired. 3. Hiatal hernia/GERD/Barretts esophagus - continue PPI - plans for hiatal hernia surgery in 2 months time. Likely to confound his symptoms. DVT ppx: lovenox This patient was seen by Colten Cardoza PA-C under the supervision of Dr. Wang.
[2019-01-28 17:49] LABS: Anion Gap 7 (5-15); BUN 14 mg/dL (7-18); BUN/Creat Ratio 13.1 RATIO (10-20); Calcium,Total 8.6 mg/dL (8.5-10.1); Chloride 111 mmol/L (98-107); Creatinine, Serum 1.07 mg/dL (0.70-1.30); EST Glomerular Filtration Rate 76 mL/min (>60); Est Glom Filt Rate - Afr Amer 92 mL/min (>60); Glucose 122 mg/dL (74-106); Potassium 3.9 mmol/L (3.5-5.1); Sodium Level 141 mmol/L (136-145)
--- NOTE | 2019-01-28 17:54 | NURSING ---
PCU CP WHITE
--- NOTE | 2019-01-28 18:50 | EKG12_ITS ---
Test Reason : POST PCI Blood Pressure : / mmHG Vent. Rate : 059 BPM Atrial Rate : 059 BPM P-R Int : 172 ms QRS Dur : 104 ms QT Int : 404 ms P-R-T Axes : 048 080 073 degrees QTc Int : 399 ms Sinus bradycardia Nonspecific T-Wave Abnormality Confirmed by MYCHAL DOUGLAS, JAY ([id number]), senior technical editor TAVO MORALES ([id number]) on 01/31/2019 1:39:15 PM Referred By: ANGEL Confirmed By:JAY HORTA MD
[2019-01-28 20:06] LABS: Prothrombin Time (Protime)PT. 12.6 SECONDS (11.7-14.9)
[2019-01-28 20:07] LABS: Partial Thromboplast Time 30.9 Seconds (24.1-36.2)
[2019-01-28] MEDS: 0.9% Normal Saline 1,000 ML 100 ML IV (20:08)
[2019-01-28] MEDS: Clopidogrel Bisulfate 300 MG Tablet PO (20:12)
[2019-01-28] MEDS: Enoxaparin 100 MG/ML Syringe 90 MG SC (20:13)
[2019-01-28 20:16] LABS: Magnesium 2.4 mg/dL (1.6-2.6)
[2019-01-28] MEDS: Pantoprazole Sodium 40 MG Tablet PO (23:06)
[2019-01-28] MEDS: Atorvastatin Calcium 80 MG Tablet PO (23:06)
[2019-01-28] MEDS: Aspirin 325 MG Tablet PO (23:07)
[2019-01-28] MEDS: LORazepam 0.5 MG Tablet PO (23:07)
[2019-01-29] VITALS (45 sets, daily range): BP systolic 105–148; BP diastolic 59–91; PULSE 52–76; RESP 11–21; TEMP 36.6–36.9; O2SAT 93–99
[2019-01-29 05:40] LABS: Hematocrit 44.6 % (40-54); Hemoglobin 15.5 g/dl (13.0-16.5); International Normalized Ratio 1.1; Mean Corp Hgb Conc 34.8 g/gl (32-36); Mean Corpuscular Hgb 29.3 pg (27.0-32.0); Mean Corpuscular Volume 84.3 fL (80-94); Mean Platelet Vol. 10.5 fl (6.2-12.0); Platelet Count 217 K/mm3 (150-450); Prothrombin Time (Protime)PT. 13.5 SECONDS (11.7-14.9); RBC Distribution Width CV 13.1 % (11.6-14.6); RBC Distribution Width SD 40.3 fl (35.1-43.9); Red Blood Count 5.29 M/mm3 (4.6-6.2); White Blood Count 7.1 K/mm3 (4.4-11.0)
[2019-01-29 05:42] LABS: Scan Indicated on CBC? Y/N NO
[2019-01-29 05:49] LABS: ALB/GLOB Ratio 1.1 RATIO (0.9-2.4); AST(SGOT) 20 U/L (15-37); Alanine Aminotransfer ALT/SGPT 28 U/L (16-61); Albumin, Serum 3.3 g/dL (3.2-5.0); Alkaline Phosphatase 64 U/L (45-117); Anion Gap 6 (5-15); BUN 13 mg/dL (7-18); BUN/Creat Ratio 12.3 RATIO (10-20); Calcium,Total 8.3 mg/dL (8.5-10.1); Chloride 112 mmol/L (98-107); Cholesterol 140 mg/dL (200); Creatinine, Serum 1.06 mg/dL (0.70-1.30); EST Glomerular Filtration Rate 77 mL/min (>60); Est Glom Filt Rate - Afr Amer 93 mL/min (>60); Estimated Creatinine Clearance 82.88 ml/min; Glucose 92 mg/dL (74-106); High Density Lipoprotein 27 mg/dL; Protein, Total 6.3 g/dL (6.4-8.2); Sodium Level 143 mmol/L (136-145); Triglycerides 203 mg/dL; Very Low Density Lipoprotein 41 mg/dL (5-40)
--- NOTE | 2019-01-29 05:55 | EKG12_ITS ---
Test Reason : AM EKG Blood Pressure : / mmHG Vent. Rate : 057 BPM Atrial Rate : 057 BPM P-R Int : 176 ms QRS Dur : 106 ms QT Int : 406 ms P-R-T Axes : 046 084 070 degrees QTc Int : 395 ms Sinus bradycardia Confirmed by MYCHAL DOUGLAS, JAY ([id number]), writer editor TAVO MORALES ([id number]) on 01/31/2019 1:34:24 PM Referred By: DR NUNEZ Confirmed By:JAY HORTA MD
[2019-01-29] MEDS: 0.9% Normal Saline 1,000 ML 100 ML IV (06:01)
[2019-01-29 06:19] LABS: Bacteria 0 SEEN /hpf (None Seen); Mucous, Urine 0 SEEN /hpf (<or=2+); Red Blood Cells-Urine 0 SEEN /hpf (0-5); Squamous Epithelial Cells - UA 0 SEEN /hpf (0-5); White Blood Cells 0 SEEN /hpf (0-5)
[2019-01-29 06:56] LABS: Color, Urine Yellow (Yellow); Glucose, Dipstick Normal (Normal); Ketone-Dipstick Negative (Negative); Leukocyte Esterase-Dipstick Negative /ul (Negative); Nitrite-Dipstick Negative (Negative); Occult Blood-Urine Negative /ul (Negative); Protein-Dipstick Negative (Negative); Specific Gravity, Urine 1.015 (1.002-1.030); Urine Bilirubin Dipstick Negative (Negative); Urine Clarity Clear (Clear); Urine Urobilinogen Normal (Normal)
[2019-01-29] MEDS: Pantoprazole Sodium 40 MG Tablet PO ×2 (07:04→21:09)
[2019-01-29] MEDS: Aspirin E.C. 81 MG Tablet PO ×2 (07:04→07:05)
--- NOTE | 2019-01-29 07:08 | PCM.CONS.C ---
Reason for Consult Date of Consultation: 01/29/19 Reason for Consultation: Chest pain History of Present Illness: The patient is a 58 year old M with no previous cardiac history who presented to the emergency room yesterday with a couple of weeks with of chest discomfort which he describes as a pressure-like sensation and burning sensation. It appears to be worse with activity and better with rest. He had undergone a stress test in September of this year which did not demonstrate any evidence of ischemia. He however says that he has been having this chest pain more often was concerned about it came to the emergency room was evaluated and felt that it was cardiac in etiology and cardiology was consulted. He has had some stress issues within his family. He denies any dizziness or diaphoresis no near syncope or syncope. [] Past Medical History Allergies/Adverse Reactions: Allergies morphine Adverse Reaction (Verified 01/28/19 18:54) I flat lined because they pushed it too fast nitroglycerin Adverse Reaction (Verified 01/28/19 18:54) severe hypotension phenobarbital Adverse Reaction (Verified 01/28/19 18:53) made me go crazy made me go crazy Home Medications: Ambulatory Orders Medication Instructions Recorded Cholecalciferol (Vitamin D3) 2,000 unit PO QHS 08/24/17 [Vitamin D3] Aspirin [Aspirin, Baby] 81 mg PO DAILY@0800 01/28/19 Rabeprazole Sodium [Aciphex] 20 mg PO QHS 01/28/19 Past Medical History (Chronic Problems): Chronic Problems (Last Reviewed 11/30/18 @ 14:55 by Andreina Meeks) CAD (coronary artery disease) (Chronic) Hiatal hernia (Chronic) Nicotine abuse (Chronic) Gastritis (Chronic) GERD with esophagitis (Chronic) Barretts esophagus (Chronic) Surgical History: cholecystectomy, - - Tenotomy Psychiatric History: No pertinent psych hx - *Family History Maternal History Items: Heart Disease - Has a pacemaker Paternal History Items: Cancer - prostate Lives: Spouse/ Significant Other Smoking Status: Current every day smoker Tobacco Use: Vapor Alcohol: None Drugs: None Review of Systems - Review of Systems General: Denies: Fever, Night Sweats, Fatigue HEENT: Denies: Vision Change Cardiovascular: Reports: Chest Discomfort, Chest Discomfort at Rest, Chest Discomfort with Exertion, Chest Pressure. Denies: Shortness of Breath, Orthopnea, PND, Peripheral Edema, Palpitations, Lightheadedness, Dizziness, Near Syncope, Syncope Respiratory: Denies: Cough, Sputum Production, Hemoptysis Gastrointestinal: Denies: Hematemesis, Hematochezia, Melena Genitourinary: Denies: Dysuria, Hematuria Muscoloskeletal: Denies: Myalgias Skin: Denies: Rash Neurological: Denies: Dizziness Psychiatric: Denies: Anxiety Endocrine: Denies: Unexplained Weight Loss Subjectve: Pleasant man rather anxious Objective: Vital Signs Temp Pulse Resp BP Pulse Ox 98.1 F 62 18 127/82 H 95 01/29/19 06:10 01/29/19 06:10 01/29/19 06:10 01/29/19 06:10 01/29/19 06:10 Oxygen Delivery Method Room Air Weight: 204 lb Body Mass Index (BMI) 28.4 Intake and Output for Last 24 Hours 01/27/19 01/28/19 01/29/19 23:59 23:59 23:59 Intake Total 794 / 794 666 / 666 Balance 794 / 794 666 / 666 General: Awake, Alert, Oriented x 3 HEENT: PERRL, EOMI, Sclera Non Icteric Neck: Supple, Good ROM, No Lymph Node Enlargement Lungs: Clear to auscultation Cardiovascular: Regular Rhythm, Normal S1, Normal S2, No Murmurs, No Rubs, No Gallops Vascular: No Carotid Bruits, Normal Femoral Pulses, Normal Radial Pulses, Normal Dorsalis Pedal Pulse, Normal Posterior Tibial Pulses Abdomen: Bowel Sounds Present, Soft, Non Tender, No HSM, No Organomegaly Extremities: No Cyanosis, No Clubbing, No edema Musculoskeletal: No Erythema Skin: No Rashes Lymphatic: No Lymph Node Enlargement Neurological: No Focal Motor or Sensory Deficit Psych/Mental Status: Appropriate 01/28/19 17:14: WBC 8.3, RBC 5.45, Hgb 15.8, Hct 45.8, MCV 84.0, MCH 29.0, MCHC 34.5, RDW 13.0, RDW Differential 40.0, Plt Count 227, MPV 10.4 01/28/19 17:14: Sodium 141, Potassium 3.9, Chloride 111 H, Carbon Dioxide 23.0, Anion Gap 7, BUN 14, Creatinine 1.07, Est GFR (MDRD) Af Amer 92, Est GFR (MDRD) Non-Af 76, BUN/Creatinine Ratio 13.1, Glucose 122 H, Calcium 8.6, Troponin I 0.077 H 01/28/19 19:30: Magnesium 2.4, Troponin I 0.059 H 01/28/19 19:30: PT 12.6, INR 1.0, APTT 30.9 01/29/19 00:25: Troponin I 0.044 01/29/19 05:00: WBC 7.1, RBC 5.29, Hgb 15.5, Hct 44.6, MCV 84.3, MCH 29.3, MCHC 34.8, RDW 13.1, RDW Differential 40.3, Plt Count 217, MPV 10.5 01/29/19 05:00: Sodium 143, Potassium 4.0, Chloride 112 H, Carbon Dioxide 25.0, Anion Gap 6, BUN 13, Creatinine 1.06, Est GFR (MDRD) Af Amer 93, Est GFR (MDRD) Non-Af 77, BUN/Creatinine Ratio 12.3, Glucose 92, Calcium 8.3 L, Total Bilirubin 0.60, Triglycerides 203 H, Cholesterol 140, LDL Cholesterol 72, VLDL Cholesterol 41 H, HDL Cholesterol 27 L 01/29/19 05:00: PT 13.5, INR 1.1, APTT 36.0 01/29/19 06:00: Urine Color Yellow, Urine Clarity Clear, Urine pH 6.0, Ur Specific [place] 1.015, Urine Protein Negative, Urine Glucose (UA) Normal, Urine Ketones Negative, Urine Occult Blood Negative, Urine Nitrite Negative, Urine Bilirubin Negative, Urine Urobilinogen Normal, Ur Leukocyte Esterase Negative, Urine RBC 0 SEEN, Urine WBC 0 SEEN Rhythm: EKG:Sinus bradycardia with t wave inversion ECHO: Stress Test: Cardiac Cath: PCI: CT Surgery: Holter monitor: EPS: PPM: CXR: Chest CT Scan: Assessment/Plan 1. Chest pain Above discomfort is compatible with new onset unstable angina. My recommendation at this time after discussing with the ER physician yesterday was to administer clopidogrel 300 mg Aspirin 81 mg a day High intensity statin based on his low HDL Will recommend cardiac catheterization this morning. The risk benefits and alternatives have been explained to him he understands and agrees to proceed. Depending on the findings further recommendations will be made. Thank you for allowing me to participate in the care of your patient. Please don't hesitate to call if any issues arise Addendum. Cardiac catheterization demonstrated the following: Short left main coronary artery with no high-grade stenosis. Proximal left anterior descending artery with eccentric 90% stenosis, mid 70% stenosis and mid to distal 60% stenosis. Left circumflex artery with mild disease. Dominant small right coronary artery with proximal 50% stenosis. Preserved left ventricular ejection fraction. Based on the above angiographic findings the patient will be considered for angioplasty.
--- NOTE | 2019-01-29 07:13 | CON.PCM_ITS ---
Reason for Consult Date of Consultation: 01/29/19 Reason for Consultation: Chest pain History of Present Illness: The patient is a 58 year old M with no previous cardiac history who presented to the emergency room yesterday with a couple of weeks with of chest discomfort which he describes as a pressure-like sensation and burning sensation. It appears to be worse with activity and better with rest. He had undergone a stress test in September of this year which did not demonstrate any evidence of ischemia. He however says that he has been having this chest pain more often was concerned about it came to the emergency room was evaluated and felt that it was cardiac in etiology and cardiology was consulted. He has had some stress issues within his family. He denies any dizziness or diaphoresis no near syncope or syncope. [] Past Medical History Allergies/Adverse Reactions: Allergies morphine Adverse Reaction (Verified 01/28/19 18:54) I flat lined because they pushed it too fast nitroglycerin Adverse Reaction (Verified 01/28/19 18:54) severe hypotension phenobarbital Adverse Reaction (Verified 01/28/19 18:53) made me go crazy made me go crazy Home Medications: Ambulatory Orders Medication Instructions Recorded Cholecalciferol (Vitamin D3) 2,000 unit PO QHS 08/24/17 [Vitamin D3] Aspirin [Aspirin, Baby] 81 mg PO DAILY@0800 01/28/19 Rabeprazole Sodium [Aciphex] 20 mg PO QHS 01/28/19 Past Medical History (Chronic Problems): Chronic Problems (Last Reviewed 11/30/18 @ 14:55 by Andreina Meeks) CAD (coronary artery disease) (Chronic) Hiatal hernia (Chronic) Nicotine abuse (Chronic) Gastritis (Chronic) GERD with esophagitis (Chronic) Barretts esophagus (Chronic) Surgical History: cholecystectomy, - - Tenotomy Psychiatric History: No pertinent psych hx - *Family History Maternal History Items: Heart Disease - Has a pacemaker Paternal History Items: Cancer - prostate Lives: Spouse/ Significant Other Smoking Status: Current every day smoker Tobacco Use: Vapor Alcohol: None Drugs: None Review of Systems - Review of Systems General: Denies: Fever, Night Sweats, Fatigue HEENT: Denies: Vision Change Cardiovascular: Reports: Chest Discomfort, Chest Discomfort at Rest, Chest Discomfort with Exertion, Chest Pressure. Denies: Shortness of Breath, Orthopnea, PND, Peripheral Edema, Palpitations, Lightheadedness, Dizziness, Near Syncope, Syncope Respiratory: Denies: Cough, Sputum Production, Hemoptysis Gastrointestinal: Denies: Hematemesis, Hematochezia, Melena Genitourinary: Denies: Dysuria, Hematuria Muscoloskeletal: Denies: Myalgias Skin: Denies: Rash Neurological: Denies: Dizziness Psychiatric: Denies: Anxiety Endocrine: Denies: Unexplained Weight Loss Subjectve: Pleasant man rather anxious Objective: Vital Signs Temp Pulse Resp BP Pulse Ox 98.1 F 62 18 127/82 H 95 01/29/19 06:10 01/29/19 06:10 01/29/19 06:10 01/29/19 06:10 01/29/19 06:10 Oxygen Delivery Method Room Air Weight: 204 lb Body Mass Index (BMI) 28.4 Intake and Output for Last 24 Hours 01/27/19 01/28/19 01/29/19 23:59 23:59 23:59 Intake Total 794 / 794 666 / 666 Balance 794 / 794 666 / 666 General: Awake, Alert, Oriented x 3 HEENT: PERRL, EOMI, Sclera Non Icteric Neck: Supple, Good ROM, No Lymph Node Enlargement Lungs: Clear to auscultation Cardiovascular: Regular Rhythm, Normal S1, Normal S2, No Murmurs, No Rubs, No Gallops Vascular: No Carotid Bruits, Normal Femoral Pulses, Normal Radial Pulses, Normal Dorsalis Pedal Pulse, Normal Posterior Tibial Pulses Abdomen: Bowel Sounds Present, Soft, Non Tender, No HSM, No Organomegaly Extremities: No Cyanosis, No Clubbing, No edema Musculoskeletal: No Erythema Skin: No Rashes Lymphatic: No Lymph Node Enlargement Neurological: No Focal Motor or Sensory Deficit Psych/Mental Status: Appropriate 01/28/19 17:14: WBC 8.3, RBC 5.45, Hgb 15.8, Hct 45.8, MCV 84.0, MCH 29.0, MCHC 34.5, RDW 13.0, RDW Differential 40.0, Plt Count 227, MPV 10.4 01/28/19 17:14: Sodium 141, Potassium 3.9, Chloride 111 H, Carbon Dioxide 23.0, Anion Gap 7, BUN 14, Creatinine 1.07, Est GFR (MDRD) Af Amer 92, Est GFR (MDRD) Non-Af 76, BUN/Creatinine Ratio 13.1, Glucose 122 H, Calcium 8.6, Troponin I 0.077 H 01/28/19 19:30: Magnesium 2.4, Troponin I 0.059 H 01/28/19 19:30: PT 12.6, INR 1.0, APTT 30.9 01/29/19 00:25: Troponin I 0.044 01/29/19 05:00: WBC 7.1, RBC 5.29, Hgb 15.5, Hct 44.6, MCV 84.3, MCH 29.3, MCHC 34.8, RDW 13.1, RDW Differential 40.3, Plt Count 217, MPV 10.5 01/29/19 05:00: Sodium 143, Potassium 4.0, Chloride 112 H, Carbon Dioxide 25.0, Anion Gap 6, BUN 13, Creatinine 1.06, Est GFR (MDRD) Af Amer 93, Est GFR (MDRD) Non-Af 77, BUN/Creatinine Ratio 12.3, Glucose 92, Calcium 8.3 L, Total Bilirubin 0.60, Triglycerides 203 H, Cholesterol 140, LDL Cholesterol 72, VLDL Cholesterol 41 H, HDL Cholesterol 27 L 01/29/19 05:00: PT 13.5, INR 1.1, APTT 36.0 01/29/19 06:00: Urine Color Yellow, Urine Clarity Clear, Urine pH 6.0, Ur Specific [place] 1.015, Urine Protein Negative, Urine Glucose (UA) Normal, Urine Ketones Negative, Urine Occult Blood Negative, Urine Nitrite Negative, Urine Bilirubin Negative, Urine Urobilinogen Normal, Ur Leukocyte Esterase Negative, Urine RBC 0 SEEN, Urine WBC 0 SEEN Rhythm: EKG:Sinus bradycardia with t wave inversion ECHO: Stress Test: Cardiac Cath: PCI: CT Surgery: Holter monitor: EPS: PPM: CXR: Chest CT Scan: Assessment/Plan 1. Chest pain * Above discomfort is compatible with new onset unstable angina. My recommendation at this time after discussing with the ER physician yesterday was to administer clopidogrel 300 mg * Aspirin 81 mg a day * High intensity statin based on his low HDL * Will recommend cardiac catheterization this morning. The risk benefits and alternatives have been explained to him he understands and agrees to proceed. Depending on the findings further recommendations will be made. * * Thank you for allowing me to participate in the care of your patient. Please don't hesitate to call if any issues arise * * Addendum. Cardiac catheterization demonstrated the following: Short left main coronary artery with no high-grade stenosis. Proximal left anterior descending artery with eccentric 90% stenosis, mid 70% stenosis and mid to distal 60% stenosis. Left circumflex artery with mild disease. Dominant small right coronary artery with proximal 50% stenosis. Preserved left ventricular ejection fraction. Based on the above angiographic findings the patient will be considered for angioplasty.
--- NOTE | 2019-01-29 08:18 | CL.D_ITS ---
Patient Name: KRISHAN JOHNSON Study Date: 01/29/2019 Performing: Duane Jiang MD Ht: 70.86 inches 180 cm : 1960 Wt: 205.03 lbs 93 kg Age: 58 Gender: male BSA: 2.13 PROCEDURE(S) PERFORMED [id number] W OR WO PTCA, SINGLE CORONARY ARTERY [id number] W OR WO PTCA, EACH ADD'L ARTERY, SAME MAJOR CLINICAL PROFILE AND INDICATIONS Indications: Worsening Angina Heart Failure: None Stress/Imaging Stress/Image Study Performed: No CAD Presentations: Unstable angina. CONCLUSIONS Severe proximal left anterior descending artery stenosis, moderately severe mid left anterior descend ing artery stenosis and moderate distal left anterior descending artery stenosis. Moderate proximal right coronary artery stenosis noted. RECOMMENDATIONS Referred for immediate PCI DESCRIPTION OF PROCEDURE The patient arrived to the procedure lab. The risks and benefits of the procedure as well as a full d escription of our services here and current unavailability of surgical backup were fully explained to the patient and/or their significant other prior to the catheterization. The Timeout was completed, verifying the correct patient and procedure. The patient's procedural site was prepped and draped in the usual fashion. Local anesthetic was given subcutaneously to right groin region with Lidocaine 2%. Using a modified Seldinger technique, arterial access was obtained via the right femoral artery, a 5 Fr sheath was inserted. Left Coronary Artery selective angiography was performed in multiple views u sing a 5 Fr. JL4 catheter. Right Coronary Artery selective angiography was then performed in multiple views using a 5 Fr. 3DRC (Mariano) catheter. Left Ventriculography was performed in KHAN projection using a 5 Fr. Pigtail catheter. LV to AO pullback pressures were then recorded. CORONARY ANGIOGRAPHY DOMINANCE: Right Dominant LEFT HEART ASSESSMENT Left Ventricular Ejection Fraction: by LV Gram 55 % Normal Left Ventricular systolic function LEFT MAIN: Angiographically normal LEFT ANTERIOR DESCENDING ARTERY: PROX LAD: Eccentric 90% stenosis MID LAD: 70 % Stenosis DISTAL LAD: 50 % Stenosis CIRCUMFLEX ARTERY: Mild luminal irregularities less than 30% RIGHT CORONARY ARTERY: Proximal 50% stenosis COMPLICATIONS PROCEDURE MEDICATIONS Versed 1 mg IV Versed 1 mg IV Versed 1 mg IV Versed 1 mg IV Fentanyl 25 mcg IV Oxygen: 2 L/min via nasal cannula Baby Aspirin (81mg) 1 Tabs PO @ 01/29/2019 07:37:43 Heparin 6000 unit(s) IV 01/29/2019 08:05:26 Nitro 200 mcg IC 01/29/2019 08:15:16 Plavix 75 mg PO 01/29/2019 07:37:48 SUMMARY OF HEMODYNAMIC DATA Time AIR REST ECG 07:35:51 AO 130/85 (105) SA 07:52:51 LV 123/2, 9 07:58:51 LV 122/3, 8 07:58:57 LV 124/-5, 15 07:59:44 LVp 127/-7, 18 07:59:47 AOp 133/73 (99) 07:59:53 Signed By Duane Jiang MD On 01/29/2019 08:17:17 Duane Jiang MD
--- NOTE | 2019-01-29 08:43 | CASEMGMT ---
According to the [facility] website, the following are in-network tertiary facilities: [facility], [facility], [facility], [facility], [facility], [facility], [facility], [employer] [facility], [facility], and . August LOPEZ CM
--- NOTE | 2019-01-29 09:04 | CL.I_ITS ---
Patient Name: KRISHAN JOHNSON Study Date: 01/29/2019 Performing: Jarvis Vega MD Ht: 70.87 inches 180 cm : 1960 Wt: 205.03 lbs 93 kg Age: 58 Gender: male BSA: 2.13 PROCEDURE(S) PERFORMED [id number] W OR WO PTCA, SINGLE CORONARY ARTERY CLINICAL PROFILE AND CO-MORBIDITIES Indications: Worsening Angina, ACS > 24 hrs, New Onset Angina <= 2 months, Worsening Angina, Susp ected CAD Heart Failure: None Stress/Imaging Stress/Image Study Performed: No Stress/Image Study Performed: No Angina Classification Anginal Classification w/in 2 Weeks: CCS III CAD Presentations: Unstable angina. Unstable angina. Non-STEMI. Symptom onset Date/Time: 9 Time Not Available Comorbidities/Risk Factors: Current/Recent Smoker (< 1year) Hypertension Dyslipidemia Family History of Premature CAD CONCLUSIONS Successful PTCA/EDGARDO proximal LAD with a 2.5 x 32 Promus Synergy, post dilated in proximal 1/2 witha 2 .75 x 8 NC Balloon; 85%-->0%, no dissection. Successful PTCA/EDGARDO mid LAD with a 2.5 x 32 Promus Synergy; 75%-->0%, no dissection. RECOMMENDATIONS Highly recommend quitting all tobacco products Follow up with primary whiskey regauger Risk factor modification ASA Indefinitley Plavix for at least 12 months Routine post interventional care Refer for Outpatient Cardiac Rehab Manual sheath removal per protocol Follow up with Dr. Vega Stress test in 2 weeks to eval proximal RCA. If negative will proceed with cardiac rehab. Manual sheath removal. DESCRIPTION OF PROCEDURE The patient arrived to the procedure lab. The risks and benefits of the procedure as well as a full d escription of our services here and current unavailability of surgical backup were fully explained to the patient and/or their significant other prior to the catheterization. The Timeout was completed, verifying the correct patient and procedure. The patient's procedural site was prepped and draped in the usual fashion. Local anesthetic was given subcutaneously to right groin region with Lidocaine 2% Using a modified Seldinger technique,arterial access was obtained via the right femoral artery, a 5Fr sheath was inserted. Left Coronary Artery selective angiography was performed in multiple views usin g a 5 Fr. JL4 catheter. Right Coronary Artery selective angiography was then performed in multiple vi ews using a 5 Fr. 3DRC (Mariano) catheter. Left Ventriculography was performed in KHAN projection usi ng a 5 Fr. Pigtail catheter. LV to AO pullback pressures were then recorded.The images were reviewed and options discussed. A decision was then made to proceed with an Intervention, IVUS o r other adjunct procedure. Arterial sheath was exchanged for a 6 Fr Sheath. EBU 3.75 Guide catheter was inserted and engaged into the LCA. BMW Guide wire was advanced to the LAD. 2x12 Emerge Balloon catheter was inserted. Bal loon catheter was advanced across lesion in the LAD, proximal. PTCA balloon inflated at 8 atms for 13 secs. Balloon catheter was repositioned to additional lesion in the LAD, mid. PTCA balloon inflated at 6 atms for 8 secs. PTCA balloon inflated at 6 atms for 8 secs. PTCA balloon inflated at 8 atms for 6 secs. Angiogram performed post balloon dilatation. BMW Guide wire was inserted as a mesha wire Jose de wire was advanced to the Circumflex. 2.5x32 Synergy Drug Eluting stent was inserted. Drug Eluting stent was advanced across the lesion in the LAD, mid. Angiogram performed post stent deployment. 2.5x 32 Synergy Drug Eluting stent was inserted. Drug Eluting stent was advanced across the lesion in the LAD, proximal. Angiogram performed post stent deployment. 2.75x8 NC Emerge Balloon catheter was inserted. Balloon catheter was inserted post stent. Balloon catheter was advanced across lesion in the LAD, proximal. Angiogram performed post balloon dilatation. The arterial sheath was sutured in place and capped INTERVENTION INFORMATION LESION SITE: LAD (Proximal) Lesion Complexity: High/C, lesion at bifurcation: No, thrombus present: No, lesion length: 32 mm, cul prit lesion: Yes Pre Stenosis: 85 % Pre intervention MIGUEL flow: 3 PROCEDURE: Drug Eluting Stent with pre and post dilatation Post Stenosis: 0 % Post intervention MIGUEL flow: 3 Lesion Devices: [place] .014 BMW [place] Straight 190cm Medtronic 6 Fr EBU3.75 100cm Guide Catheter Hernandez Sci EMERGE MR 2.00x12 BALLOON Hernandez Sci Synergy MR EDGARDO 2.50x32 Hernandez Sci NC EMERGE MR 2.75x08 BALLOON LESION SITE: LAD (Mid) Lesion Complexity: High/C, lesion at bifurcation: No, thrombus present: No, lesion length: 32 mm, cul prit lesion: No Pre Stenosis: 75 % Pre intervention MIGUEL flow: 3 PROCEDURE: Drug Eluting Stent with pre dilatation. Post Stenosis: 0 % Post intervention MIGUEL flow: 3 Lesion Devices: [place] .014 BMW [place] Straight 190cm Medtronic 6 Fr EBU3.75 100cm Guide Catheter Hernandez Sci EMERGE MR 2.00x12 BALLOON Hernandez Sci Synergy MR EDGARDO 2.50x32 COMPLICATIONS No Complications PROCEDURE MEDICATIONS Versed 1 mg IV Versed 1 mg IV Versed 1 mg IV Versed 1 mg IV Fentanyl 25 mcg IV Versed 1 mg IV Oxygen: 2 L/min via nasal cannula Baby Aspirin (81mg) 1 Tabs PO @ 01/29/2019 07:37:43 Heparin 6000 unit(s) IV 01/29/2019 08:05:26 Nitro 200 mcg IC 01/29/2019 08:15:16 Nitro 200 mcg IC 01/29/2019 08:15:16 Plavix 75 mg PO 01/29/2019 07:37:48 SUMMARY OF HEMODYNAMIC DATA Time AIR REST ECG 07:35:51 AO 130/85 (105) SA 07:52:51 LV 123/2, 9 07:58:51 LV 122/3, 8 07:58:57 LV 124/-5, 15 07:59:44 LVp 127/-7, 18 07:59:47 AOp 133/73 (99) 07:59:53 Signed By Jarvis Vega MD On 01/29/2019 09:04:07 Jarvis Vega MD
[2019-01-29] MEDS: 0.9% Normal Saline 1,000 ML 150 ML IV (09:15)
[2019-01-29] MEDS: Clopidogrel Bisulfate 75 MG Tablet PO (09:15)
--- NOTE | 2019-01-29 09:31 | EKG12_ITS ---
Test Reason : CP ADMIT Blood Pressure : / mmHG Vent. Rate : 049 BPM Atrial Rate : 049 BPM P-R Int : 160 ms QRS Dur : 104 ms QT Int : 432 ms P-R-T Axes : 042 078 071 degrees QTc Int : 390 ms Sinus bradycardia Nonspecific T-Wave Abnormality Confirmed by MYCHAL DOUGLAS, JAY ([id number]), editor map TAVO MORALES ([id number]) on 01/31/2019 1:35:03 PM Referred By: DR NUNEZ Confirmed By:JAY HORTA MD
[2019-01-29] MEDS: Losartan Potassium 25 MG Tablet PO (10:17)
[2019-01-29] MEDS: Acetaminophen 325 MG Tablet 650 MG PO (10:17)
[2019-01-29] MEDS: diazePAM 5 MG Tablet PO ×2 (10:17→21:09)
--- NOTE | 2019-01-29 10:43 | CRPHASE1 ---
Patient Communication PHII Cardiac Rehab Discussed with Patient:: Yes Guide to Cardiac Rehab Given to Patient:: Yes Cardiac Rehab Facility Choice List Given to Patient:: Yes Choice Program [facility] CR PHII:: Communication Given to CR, Refer to [facility] Ophthalmic Assistant:: Jarvis Vega Phase II Cardiac Rehab:: Yes Sessions:: 36 sessions - 3 days/wk, 12 weeks Risk Factors/Lifestyle Smoking Status: Current every day smoker Hx Hypertension: No Hx Diabetes Mellitus Type 1: No Hx Diabetes Mellitus Type 2: No Hx Metabolic Disorders: No Hx Dyslipidemia: Yes Hx Obesity: No Height: 5 ft 11 in - BMI 28.5 Stress: Home/Family Risk Factor for Sedentary Lifestyle: Moderate Risk Laboratory Values: Cardiac Rehab Phase I Labs Triglycerides 203 mg/dL (-199) H 01/29/19 05:00 Cholesterol 140 mg/dL (200) 01/29/19 05:00 LDL Cholesterol 72 mg/dL (0-130) 01/29/19 05:00 HDL Cholesterol 27 mg/dL (40-) L 01/29/19 05:00 Phase I Education Given On:: [place], Nutrition, Antiplatelet medication, Smoking cessation Issues Affecting Care:: None Knowledge of Condition:: Yes Learning Preferences: Verbal, Written - [facility] Hospital Course Presenting Symptoms:: CHEST PRESSURE Medical/Surgical History CT:: No CAD:: Yes COPD:: No Diabetes:: No Hypertension:: No Dyslipidemia:: Yes GERD:: Yes Discharge/Home/Social Eval Discharge Disposition: Home Marital Status: Single Cardiac Rehabilitation Info Cardiac Rehabilitation Program Information: Cardiac Rehabilitation is important for patients like you who are recovering from a heart problem. Cardiac rehabilitation programs are recognized as integral to the continued care of the patient with coronary heart disease. The cardiac rehabilitation program is designed to optimize a patient's physical, psychological, and social functioning. Health health care social worker work in cardiac rehabilitation programs and assist you with getting the treatments you need to get stronger and healthier - like exercise, healthy eating habits, and medications. Cardiac rehabilitation has been show to help people with heart problems live longer and have better life enjoyment than people who do not go to cardiac rehabilitation. Please contact the Cardiac Rehabilitation Program at [facility] at in two weeks if you have not heard from them.
--- NOTE | 2019-01-29 10:47 | CRPH1.INST_ITS ---
General Education CAD and cardiac anatomy and function:: Patient communicates acknowledgment, Family communicates acknowledgment Explanation of diagnoses and procedures:: Patient communicates acknowledgment, Family communicates acknowledgment Sign/Symptoms of GA:: Patient communicates acknowledgment, Family communicates acknowledgment Antiplatelet therapy: Patient communicates acknowledgment, Family communicates acknowledgment Proper use of NTG-SL: Not instructed Emergency procedures and activation of EMS: Patient communicates acknowledgment, Family communicates acknowledgment Compliance of all prescribed medications: Patient communicates acknowledgment, Family communicates acknowledgment - [facility] Smoking Patient Nicotine/Smoking Risk Factors Are:: Cigarettes Recommendations Include:: Smoking cessation strategies/Smoking packet, Second- hand smoke recommendation, Participation in a smoking cessation program, Previous smoker; encourage continued cessation Nicotine/Smoking Response Code:: Patient communicates acknowledgment, Family communicates acknowledgment Dyslipidemia Patient Dyslipidemia Risk Factors Are:: Total Cholesterol, Triglycerides, HDL, LDL Recommendations Include:: Lipid profile provided, Reviewed NCEP/ATP guidelines, Therapeutic Lifestyle Change dietary guidelines Dyslipidemia Response Code:: Patient communicates acknowledgment, Family communicates acknowledgment Overweight/Obesity Patient Overweight/Obesity Risk Factors Are:: Overweight = 26-29 Recommendations Include:: Weight loss of 5-10%, Reduced calorie diet, Exercise 5-7 times/week Overweight/Obesity:: Patient communicates acknowledgment, Family communicates acknowledgment Hypertension Patient Hypertension Risk Factors Are:: No documented hx of HTN Heart Disease Heart Disease Response Code:: Patient communicates acknowledgment, Family co mmunicates acknowledgment Diabetes Patient Diabetes Risk Factors Are:: No documented hx of diabetes Metabolic Syndrome Recommendations Include:: Does not meet criteria Sedentary Patient Sedentary Risk Factors Are:: Lack of regular exercise Recommendations Include:: Aerobic exercise 5-7 times/week for 20-30 minutes continuously, Benefits of regular exercise, Discussed home walking program, Monitored Outpatient Cardiac Rehab Sedentary Response Code:: Patient communicates acknowledgment, Family communicates acknowledgment Stress Recommendations Include:: Identification of stressors, and assessment of coping skills, Stress management techniques Stress Response Code:: Patient communicates acknowledgment, Family communicates acknowledgment
[2019-01-29 11:20] LABS: ACT Activated Clotting Time 131 sec (74-137)
[2019-01-29] MEDS: Morphine 2 MG/ML Syringe IV (12:10)
[2019-01-29] MEDS: Ondansetron 4 MG/2 ML Vial IV ×2 (12:10→20:08)
[2019-01-29 12:31] LABS: ACT Activated Clotting Time 191 sec (74-137)
--- NOTE | 2019-01-29 15:28 | PN_ITS ---
Subjective: Patient underwent successful stenting this morning of the proximal and mid LAD. Did have some issues with hemostasis afterwards, however he does have control of the bleeding now, he has no more chest pain, no shortness of breath, no palpitations, no lightheadedness or dizziness, no nausea or vomiting. He is resting comfortably in bed no acute distress. - Physical Exam General: Alert, Oriented x3, Cooperative HEENT: Atraumatic, PERRLA, EOMI, Normocephalic Neck: Supple, No JVD, Negative Carotid Bruits Lungs: Clear to auscultation, Normal air movement Cardiovascular: Regular rate, No murmurs Abdomen: Bowel Sounds Present, Soft, Non Tender Extremities: No edema, Capillary Refill Less than 3 Seconds Skin: No rashes, No breakdown Musculoskeletal: No Tenderness to Palpation of Joints or Extremities Neurological: Cranial nerves II-XII grossly intact Psych/Mental Status: Normal Affect, Appropriate, Alert and oriented to time, place, person, mood and affect Vital Signs Temp Pulse Resp BP Pulse Ox 98 F 57 L 16 136/81 H 98 01/29/19 12:30 01/29/19 14:30 01/29/19 14:30 01/29/19 14:30 01/29/19 14:30 Oxygen Delivery Method Room Air Weight: 204 lb Body Mass Index (BMI) 28.4 Intake and Output for Last 24 Hours 01/27/19 01/28/19 01/29/19 23:59 23:59 23:59 Intake Total 794 / 794 1216 / 1216 Output Total 600 / 600 Balance 794 / 794 616 / 616 Laboratory Tests Past 24 Hrs 01/28/19 01/28/19 01/28/19 17:14 17:14 19:30 WBC 8.3 RBC 5.45 Hgb 15.8 Hct 45.8 MCV 84.0 MCH 29.0 MCHC 34.5 RDW 13.0 RDW Differential 40.0 Plt Count 227 MPV 10.4 PT INR APTT Activated Clotting Time Sodium 141 Potassium 3.9 Chloride 111 H Carbon Dioxide 23.0 Anion Gap 7 BUN 14 Creatinine 1.07 Estim Creat Clear Calc 82.10 Est GFR (MDRD) Af Amer 92 Est GFR (MDRD) Non-Af 76 BUN/Creatinine Ratio 13.1 Glucose 122 H Calcium 8.6 Magnesium 2.4 Total Bilirubin AST ALT Alkaline Phosphatase Troponin I 0.077 H 0.059 H Total Protein Albumin Globulin Albumin/Globulin Ratio Triglycerides Cholesterol LDL Cholesterol VLDL Cholesterol HDL Cholesterol Urine Color Urine Clarity Urine pH Ur Specific [place] Urine Protein Urine Glucose (UA) Urine Ketones Urine Occult Blood Urine Nitrite Urine Bilirubin Urine Urobilinogen Ur Leukocyte Esterase Urine RBC Urine WBC Ur Squamous Epith Cells Urine Bacteria Urine Mucus 01/28/19 01/29/19 01/29/19 19:30 00:25 05:00 WBC 7.1 RBC 5.29 Hgb 15.5 Hct 44.6 MCV 84.3 MCH 29.3 MCHC 34.8 RDW 13.1 RDW Differential 40.3 Plt Count 217 MPV 10.5 PT 12.6 INR 1.0 APTT 30.9 Activated Clotting Time Sodium Potassium Chloride Carbon Dioxide Anion Gap BUN Creatinine Estim Creat Clear Calc Est GFR (MDRD) Af Amer Est GFR (MDRD) Non-Af BUN/Creatinine Ratio Glucose Calcium Magnesium Total Bilirubin AST ALT Alkaline Phosphatase Troponin I 0.044 Total Protein Albumin Globulin Albumin/Globulin Ratio Triglycerides Cholesterol LDL Cholesterol VLDL Cholesterol HDL Cholesterol Urine Color Urine Clarity Urine pH Ur Specific [place] Urine Protein Urine Glucose (UA) Urine Ketones Urine Occult Blood Urine Nitrite Urine Bilirubin Urine Urobilinogen Ur Leukocyte Esterase Urine RBC Urine WBC Ur Squamous Epith Cells Urine Bacteria Urine Mucus 01/29/19 01/29/19 01/29/19 05:00 05:00 06:00 WBC RBC Hgb Hct MCV MCH MCHC RDW RDW Differential Plt Count MPV PT 13.5 INR 1.1 APTT 36.0 Activated Clotting Time Sodium 143 Potassium 4.0 Chloride 112 H Carbon Dioxide 25.0 Anion Gap 6 BUN 13 Creatinine 1.06 Estim Creat Clear Calc 82.88 Est GFR (MDRD) Af Amer 93 Est GFR (MDRD) Non-Af 77 BUN/Creatinine Ratio 12.3 Glucose 92 Calcium 8.3 L Magnesium Total Bilirubin 0.60 AST 20 ALT 28 Alkaline Phosphatase 64 Troponin I Total Protein 6.3 L Albumin 3.3 Globulin 3.0 Albumin/Globulin Ratio 1.1 Triglycerides 203 H Cholesterol 140 LDL Cholesterol 72 VLDL Cholesterol 41 H HDL Cholesterol 27 L Urine Color Yellow Urine Clarity Clear Urine pH 6.0 Ur Specific [place] 1.015 Urine Protein Negative Urine Glucose (UA) Normal Urine Ketones Negative Urine Occult Blood Negative Urine Nitrite Negative Urine Bilirubin Negative Urine Urobilinogen Normal Ur Leukocyte Esterase Negative Urine RBC 0 SEEN Urine WBC 0 SEEN Ur Squamous Epith Cells 0 SEEN Urine Bacteria 0 SEEN Urine Mucus 0 SEEN 01/29/19 01/29/19 08:39 10:46 WBC RBC Hgb Hct MCV MCH MCHC RDW RDW Differential Plt Count MPV PT INR APTT Activated Clotting Time 191 H 131 Sodium Potassium Chloride Carbon Dioxide Anion Gap BUN Creatinine Estim Creat Clear Calc Est GFR (MDRD) Af Amer Est GFR (MDRD) Non-Af BUN/Creatinine Ratio Glucose Calcium Magnesium Total Bilirubin AST ALT Alkaline Phosphatase Troponin I Total Protein Albumin Globulin Albumin/Globulin Ratio Triglycerides Cholesterol LDL Cholesterol VLDL Cholesterol HDL Cholesterol Urine Color Urine Clarity Urine pH Ur Specific [place] Urine Protein Urine Glucose (UA) Urine Ketones Urine Occult Blood Urine Nitrite Urine Bilirubin Urine Urobilinogen Ur Leukocyte Esterase Urine RBC Urine WBC Ur Squamous Epith Cells Urine Bacteria Urine Mucus Medical Necessity - Tobacco Use Smoking Status: Current every day smoker Tobacco Use: Vapor Assessment/Plan All Active Problems (Last Reviewed 11/30/18 @ 14:55 by Andreina Meeks) Chest pain (Acute) 1. CAD, chest pain, status post 2 stents to the LAD, proximal and mid-continue aspirin, statin, losartan, metoprolol 2. Nicotine abuse -was 2-3 ppd smoker. Now continues to Vape. Advise cessation. Patch if desired. 3. Hiatal hernia/GERD/Barretts esophagus - continue PPI - plans for hiatal hernia surgery in 2 months time. Likely to confound his symptoms. DVT ppx: Held for bleeding. This patient was seen by Colten Cardoza PA-C under the supervision of Dr. Wang.
[2019-01-29] MEDS: HYDROcodone Bitartrate/Apap 5/325 Tablet PO (16:00)
[2019-01-29] MEDS: 0.9% NaCl Peripheral Flush Adult/Peds IV (20:08)
[2019-01-29] MEDS: Atorvastatin Calcium 80 MG Tablet PO (21:09)
[2019-01-29] MEDS: Metoprolol Tartrate 25 MG Tablet PO (21:09)
[2019-01-30] VITALS (13 sets, daily range): BP systolic 86–136; BP diastolic 48–77; PULSE 49–60; RESP 15–20; TEMP 36.6–37.1; O2SAT 95–99
[2019-01-30 04:40] LABS: Hematocrit 42.7 % (40-54); Hemoglobin 14.6 g/dl (13.0-16.5); Mean Corp Hgb Conc 34.2 g/gl (32-36); Mean Corpuscular Hgb 29.3 pg (27.0-32.0); Mean Corpuscular Volume 85.6 fL (80-94); Mean Platelet Vol. 10.4 fl (6.2-12.0); Platelet Count 197 K/mm3 (150-450); RBC Distribution Width CV 13.1 % (11.6-14.6); RBC Distribution Width SD 40.1 fl (35.1-43.9); Red Blood Count 4.99 M/mm3 (4.6-6.2); White Blood Count 7.3 K/mm3 (4.4-11.0)
[2019-01-30 04:43] LABS: Scan Indicated on CBC? Y/N NO
[2019-01-30 04:52] LABS: Anion Gap 5 (5-15); BUN 11 mg/dL (7-18); BUN/Creat Ratio 11.7 RATIO (10-20); Calcium,Total 8.5 mg/dL (8.5-10.1); Chloride 112 mmol/L (98-107); Creatinine, Serum 0.94 mg/dL (0.70-1.30); EST Glomerular Filtration Rate 88 mL/min (>60); Est Glom Filt Rate - Afr Amer 107 mL/min (>60); Estimated Creatinine Clearance 93.46 ml/min; Glucose 83 mg/dL (74-106); Potassium 3.9 mmol/L (3.5-5.1); Sodium Level 143 mmol/L (136-145)
--- NOTE | 2019-01-30 07:21 | PCM.DC.SUM ---
Discharge Date and Diagnosis Date of Admission: 01/28/19 Date of Discharge: 01/30/19 - Primary Discharge Diagnosis (1) Unstable Angina with EKG Changes, Indeterminate cardiac enzyme w/ Proximal LAD w/ angiographically significant stenosis, CAD (2) Hypertension (3) Hyperlipidemia (4) Tobacco use (5) GERD w/ Hx Judge's esophagus with history of hiatal hernia - Secondary Discharge Diagnosis Chronic Problems (Last Reviewed 11/30/18 @ 14:55 by Andreina Meeks) CAD (coronary artery disease) (Chronic) Hiatal hernia (Chronic) Nicotine abuse (Chronic) Gastritis (Chronic) GERD with esophagitis (Chronic) Barretts esophagus (Chronic) Hospital Course and Treatment Imaging Results: 01/30/19 08:17 Echo Complete [ECHO] Routine Dr. Jiang Cardiology Operations: None Procedures: 2-D Echocardiogram, Cardiac catheterization, EKG Summary of Care Provided: The patient is a 58 y/o M w/ PMHx: Heavy Prior Tobacco use history, GERD w/ Hx Judge's esophagus with history of hiatal hernia, Reported 2010 Cardiac catheterization with coronary disease with no PCI needs who presented to the [facility] ED on 01/28/19 w/ history of onset midsternal chest discomfort described as burning and dull with radiation radiation across bilateral chest regions, radiated 10/10 when occuring with no associated dyspnea, nausea or emesis but noted diaphoresis primarily when exerting himself with improvement with rest x 1 week. Work-up in the ED included T 97.7, heart rate 71, BP 136/77, respiratory rate 16, 95% on room air, CBC with W BC 8.3, hemoglobin 15.8, platelet 227 without any shift performed, BMP with chloride 111, glucose 122, troponin 0.077-->0.059-->0.044, EKG changed from prior 09/2018 with Wellen's with V1-V3 biphasic T waves, CXR w/ no acute cardiopulmonary findings. Admitted to the PCU initially, placed on a monitored bed, serial cardiac enzymes and EKGs obtained. Given plavix and ASA load 01/28/19, therapeutic lovenox x 1. 01/29/19 Cardiac catheterization w/ short left main coronary artery with no high-grade stenosis, proximal left anterior descending artery with eccentric 90% stenosis, mid 70% stenosis and mid to distal 60% stenosis, left circumflex artery with mild disease, dominant small right coronary artery with proximal 50% stenosis, preserved left ventricular ejection fraction w/ successful PTCA/EDGARDO proximal LAD and mid LAD. Transitioned following to ICU for close monitoring following PCI. Continued medical therapy with aspirin, high-dose statin (FLP w/ TG 203, T Chol 140, VLDL 41, HDL 27), BB, ARB, Plavix. Patient did have post-catheterization bleeding but hemostasis achieved with pressure. ECHO was obtained and results pending upon discharge with cardiology noting that they would review these in the office upon patient's follow-up. DAY OF DISCHARGE PROGRESS NOTE: Subjective: Patient without acute event overnight per self and nursing report. Patient has been up and walking and states he has had no further chest discomfort and eager for discharge. Discussed again importance of medication compliance upon discharge. Patient denies fever, chills, nausea, emesis, abdominal pain, chest pain or dyspnea. Patient agreeable to discharge to home. Patient will be discharged with follow-up with primary care physician within 3-5 days in addition to Cardiology per their discretion. Objective: T 97.8, heart rate 60, BP 133/72, respiratory rate 15, 96% on room air. Physical Examination: General: awake, alert, oriented x 3 and cooperative, seated upright in the ICU bed, NAD. Skin: normal color, turgor, no icterus, cyanosis, R groin w/ no bleeding, dressing dry. HEENT: AT/NC, EOMI, PERRLA, MMM. Lungs: CTA bilaterally, moderate effort, mild decrease BL bases, no rales, ronchi or wheezing; Heart: Regular rate and rhythm; no gallop, rub audible. Abdomen: soft, NTTP, ND, normal BS. Extremities: no cyanosis, clubbing, or edema, R groin w/ no bleeding, dressing dry. Neurological: patient awake, alert, oriented x 3; cognitive function appears intact upon questioning,; pupils equally reactive to light and accomodation; cranial nerves II-XII grossly normal, moving all 4 extremities, strength appropriate. Psychiatric: affect appears normal, no acute evidence of depressive or anxiety feelings. Assessment and Plan: Please see hospital summary above. - Physical Exam Vital Signs Temp Pulse Resp BP Pulse Ox 97.8 F 60 15 133/72 H 96 01/30/19 04:00 01/30/19 07:00 01/30/19 07:00 01/30/19 07:00 01/30/19 07:00 Oxygen Delivery Method Room Air Weight: 206 lb 5.643 oz Body Mass Index (BMI) 28.4 Intake and Output for Last 24 Hours 01/28/19 01/29/19 01/30/19 23:59 23:59 23:59 Intake Total 794 / 794 2166 / 2166 250 / 250 Output Total 1800 / 1800 Balance 794 / 794 366 / 366 250 / 250 Laboratory Tests Past 24 Hrs 01/29/19 01/29/19 01/30/19 08:39 10:46 04:20 WBC 7.3 RBC 4.99 Hgb 14.6 Hct 42.7 MCV 85.6 MCH 29.3 MCHC 34.2 RDW 13.1 RDW Differential 40.1 Plt Count 197 MPV 10.4 Activated Clotting Time 191 H 131 Sodium Potassium Chloride Carbon Dioxide Anion Gap BUN Creatinine Estim Creat Clear Calc Est GFR (MDRD) Af Amer Est GFR (MDRD) Non-Af BUN/Creatinine Ratio Glucose Calcium 01/30/19 04:20 WBC RBC Hgb Hct MCV MCH MCHC RDW RDW Differential Plt Count MPV Activated Clotting Time Sodium 143 Potassium 3.9 Chloride 112 H Carbon Dioxide 26.0 Anion Gap 5 BUN 11 Creatinine 0.94 Estim Creat Clear Calc 93.46 Est GFR (MDRD) Af Amer 107 Est GFR (MDRD) Non-Af 88 BUN/Creatinine Ratio 11.7 Glucose 83 Calcium 8.5 Discharge Activity: - - See activity parameters per additional instructions. Call your doctor if your incision/area has: Continuous Slow Oozing, Sudden Increased Bleeding, Increased Pain/ Swelling, Increased Redness, Foul Smelling Discharge, Swelling at the incision site Call your doctor if you observe: Fever of 101 or Higher, Inability to urinate, Inability to have a bowel movement, Shortness of breath, Dizziness, Fainting spells, Chest pain, Uncontrolled pain Home Medications: Medications to take at Discharge Cholecalciferol (Vitamin D3) [Vitamin D3] 2,000 unit PO QHS 08/24/17 Aspirin [Aspirin, Baby] 81 mg PO DAILY@0800 01/28/19 Rabeprazole Sodium [Aciphex] 20 mg PO QHS 01/28/19 Atorvastatin Calcium [Lipitor] 80 mg PO QHS #30 tablet 01/30/19 Clopidogrel Bisulfate [Plavix] 75 mg PO DAILY #30 tablet 01/30/19 Losartan Potassium [Cozaar] 25 mg PO DAILY #30 tablet 01/30/19 Metoprolol Tartrate [Lopressor (beta alfonso)] 25 mg PO BID #60 tablet 01/30/19 Nicotine [Nicoderm Cq] 21 mg TRANSDERM. DAILY #14 patch 01/30/19 Following Prescrptions Were Given to Patient: Atorvastatin Calcium [Lipitor] 80 mg PO QHS #30 tablet Clopidogrel Bisulfate [Plavix] 75 mg PO DAILY #30 tablet Losartan Potassium [Cozaar] 25 mg PO DAILY #30 tablet Nicotine [Nicoderm Cq] 21 mg TRANSDERM. DAILY #14 patch Metoprolol Tartrate [Lopressor (beta alfonso)] 25 mg PO BID #60 tablet Primary Care Physician: Ernesto Faust MD [Primary Care Provider] - 3-5 Days if not improving Please follow up with your Primary Care Physician in: Follow-up within 3-5 days. Please Follow Up With: Duane Jiang MD When: Cardiology office will call you to set up follow-up visit. Patient Instructions: Tips for Quitting Smoking (Cardiovascular), Eating Heart-Healthy Food: Using the DASH Plan, Why Do You Smoke?, Planning to Quit Smoking, Getting Support for Quitting Smoking, Understanding Coronary Artery Disease (CAD), ED Strain Chest Wall, ED Hypertension New Begin Tx Disposition: Home Minutes spent on discharge:: 35 Patient Condition:: Fair Medical Necessity - Tobacco Use Smoking Status: Current every day smoker Tobacco Use: Vapor Meaningful Use Info Meaningful Use Diagnoses (Choose all that apply): None applicable Code Visit Inpatient E&M: 91281 Disch Hosp
--- NOTE | 2019-01-30 07:22 | DCINST_ITS ---
- Discharge Diagnoses Current Active Problems: Current Active and Chronic Problems (Last Reviewed 11/30/18 @ 14:55 by Andreina Meeks) (1) Unstable Angina with EKG Changes, Indeterminate cardiac enzyme w/ Proximal LAD w/ angiographically significant stenosis, CAD (2) Hypertension (3) Hyperlipidemia (4) Tobacco use (5) GERD w/ Hx Judge's esophagus with history of hiatal hernia You will use the following diet at home:: Cardiac Your food should be the consistency of: Regular Your liquids should be the consistency of: Regular/Thin Discharge Activity: - - See activity parameters per additional instructions. Call your doctor if your incision/area has: Continuous Slow Oozing, Sudden Increased Bleeding, Increased Pain/ Swelling, Increased Redness, Foul Smelling Discharge, Swelling at the incision site Call your doctor if you observe: Fever of 101 or Higher, Inability to urinate, Inability to have a bowel movement, Shortness of breath, Dizziness, Fainting spells, Chest pain, Uncontrolled pain Instructions: ED Strain Chest Wall, Understanding Coronary Artery Disease (CAD), ED Hypertension New Begin Tx, Eating Heart-Healthy Food: Using the DASH Plan, Tips for Quitting Smoking (Cardiovascular), Why Do You Smoke?, Planning to Quit Smoking, Getting Support for Quitting Smoking Additional Instructions: CARDIOLOGY PCI CATH INSTRUCTIONS. Lifting: Must be less than 5 lbs for 5 days, No restrictions after 14 days. Shower: Yes. Climb stairs: Yes. Bathing in tub or submerged water: No, until cleared per Cardiology at follow-up (call office if any concerns [phone] and may leave voicemail if after hours). Walkin minutes 3 times daily, increase as tolerated. Driving: Resume in 7 days. Sexual activity: Resume in 14 days. Regular activity: Resume 14 days. ADDITIONAL INSTRUCTIONS: Given recent blood pressure medication initiation please have repeat basic metabolic panel at follow-up with your primary care. Allergies/Adverse Reactions: Allergies morphine Adverse Reaction (Verified 01/28/19 18:54) I flat lined because they pushed it too fast nitroglycerin Adverse Reaction (Verified 01/28/19 18:54) severe hypotension phenobarbital Adverse Reaction (Verified 01/28/19 18:53) made me go crazy made me go crazy Medications to take at Discharge Cholecalciferol (Vitamin D3) [Vitamin D3] 2,000 unit PO QHS 08/24/17 Aspirin [Aspirin, Baby] 81 mg PO DAILY@0800 01/28/19 Rabeprazole Sodium [Aciphex] 20 mg PO QHS 01/28/19 Atorvastatin Calcium [Lipitor] 80 mg PO QHS #30 tablet 01/30/19 Clopidogrel Bisulfate [Plavix] 75 mg PO DAILY #30 tablet 01/30/19 Losartan Potassium [Cozaar] 25 mg PO DAILY #30 tablet 01/30/19 Metoprolol Tartrate [Lopressor (beta alfonso)] 25 mg PO BID #60 tablet 01/30/19 Nicotine [Nicoderm Cq] 21 mg TRANSDERM. DAILY #14 patch 01/30/19 The following prescriptions were given: Atorvastatin Calcium [Lipitor] 80 mg PO QHS #30 tablet Clopidogrel Bisulfate [Plavix] 75 mg PO DAILY #30 tablet Losartan Potassium [Cozaar] 25 mg PO DAILY #30 tablet Nicotine [Nicoderm Cq] 21 mg TRANSDERM. DAILY #14 patch Metoprolol Tartrate [Lopressor (beta alfonso)] 25 mg PO BID #60 tablet Primary Care Physician: Ernesto Faust MD [Primary Care Provider] - 3-5 Days if not improving Please follow up with your Primary Care Physician in: Follow-up within 3-5 days. Test Results: Test results from this visit will be discussed in further detail at your follow- up appointment, if applicable. Please Follow Up With: Duane Jiang MD When: Cardiology office will call you to set up follow-up visit. Proposed Discharge Date: 01/30/19
--- NOTE | 2019-01-30 08:14 | PN.CARD_ITS ---
Subjectve: Patient seen and evaluated. Appears to be doing well this morning. No significant groin hematoma. Objective: Vital Signs Temp Pulse Resp BP Pulse Ox 98.7 F 57 L 20 H 107/77 99 01/30/19 08:00 01/30/19 08:00 01/30/19 08:00 01/30/19 08:00 01/30/19 08:00 Oxygen Delivery Method Room Air Weight: 206 lb 5.643 oz Body Mass Index (BMI) 28.4 Intake and Output for Last 24 Hours 01/28/19 01/29/19 01/30/19 23:59 23:59 23:59 Intake Total 794 / 794 2166 / 2166 250 / 250 Output Total 1800 / 1800 Balance 794 / 794 366 / 366 250 / 250 General: Awake, Alert, Oriented x 3 HEENT: PERRL, EOMI, Sclera Non Icteric Neck: Supple, Good ROM, No Lymph Node Enlargement Lungs: Clear to auscultation Cardiovascular: Regular Rhythm, Normal S1, Normal S2, No Murmurs, No Rubs, No Gallops Vascular: No Carotid Bruits, Normal Femoral Pulses, Normal Radial Pulses, Normal Dorsalis Pedal Pulse, Normal Posterior Tibial Pulses Abdomen: Bowel Sounds Present, Soft, Non Tender, No HSM, No Organomegaly Extremities: No Cyanosis, No Clubbing, No edema Neurological: No Focal Motor or Sensory Deficit 01/30/19 04:20: WBC 7.3, RBC 4.99, Hgb 14.6, Hct 42.7, MCV 85.6, MCH 29.3, MCHC 34.2, RDW 13.1, RDW Differential 40.1, Plt Count 197, MPV 10.4 01/30/19 04:20: Sodium 143, Potassium 3.9, Chloride 112 H, Carbon Dioxide 26.0, Anion Gap 5, BUN 11, Creatinine 0.94, Est GFR (MDRD) Af Amer 107, Est GFR (MDRD) Non-Af 88, BUN/Creatinine Ratio 11.7, Glucose 83, Calcium 8.5 Rhythm: EKG: ECHO: Stress Test: Cardiac Cath: PCI: CT Surgery: Holter monitor: EPS: PPM: CXR: Chest CT Scan: Medical Necessity - Tobacco Use Smoking Status: Current every day smoker Tobacco Use: Vapor Assessment/Plan 1. Chest pain * Cardiac catheterization demonstrated the following: Short left main coronary artery with no high-grade stenosis. Proximal left anterior descending artery with eccentric 90% stenosis, mid 70% stenosis and mid to distal 60% stenosis. Left circumflex artery with mild disease. Dominant small right coronary artery with proximal 50% stenosis. Preserved left ventricular ejection fraction. Based on the above angiographic findings the patient the above underwent angioplasty and stenting of the left anterior descending artery proximal and mid. Appears to be doing well and management would continue with medical therapy. Above discussed with patient, nurse, and hospitalist. Patient can be discharged for outpatient follow-up.
--- NOTE | 2019-01-30 08:17 | ECHOD_ITS ---
Reason For Study: CAD/ASHD Procedure This was a 2D Doppler, Color Flow transthoracic echocardiogram. Exam performed portable in patient room. Left Ventricle Normal LV size. Left ventricular systolic function is normal. The estimated ejection fraction is 70 %. No evidence for diastolic dysfunction. No regional wall motion abnormalities noted. Right Ventricle Normal RV size. Normal systolic function. Atria Normal left atrium. Normal right atrium. Mitral Valve Normal mitral valve. Tricuspid Valve Normal tricuspid valve. Aortic Valve Normal aortic valve. Trisinus/trileaflet aortic valve. Pulmonic Valve Normal pulmonic valve. Great Vessels Normal aortic root. The pulmonary artery is normal size. Normal inferior vena cava. Pericardium/Pleural No pericardial effusion. MMode/2D Measurements & Calculations LVIDd: 4.9 cm IVSd: 0.96 cm Ao root diam: 3.7 cm LVIDs: 3.1 cm LVPWd: 1.0 cm RVDd: 3.5 cm FS: 36.5 % LAV(MOD-bp): 48.1 ml LA A4 area: 15.5 cm2 LA dimension(2D): 3.6 cm LAV(MOD-bp) Indexed: 22.7 ml/m2 LAV(MOD-sp2): 46.4 ml LAV(MOD-sp4): 44.2 ml RA A4 area: 10.5 cm2 Time Measurements MV dec time: 0.26 sec Doppler Measurements & Calculations MV E max brendan: 78.8 cm/sec Lat Peak E' Brendan: 10.3 cm/sec Med Peak E' Brendan: 9.3 cm/sec MV A max brendan: 59.8 cm/sec E/E' lat: 7.6 E/E' med: 8.5 MV E/A: 1.3 Ao V2 max: 108.8 cm/sec LV V1 max: 94.8 cm/sec PA V2 max: 87.3 cm/sec Ao max P.7 mmHg LV V1 max P.6 mmHg Interpretation Summary Normal LV size. Left ventricular systolic function is normal. The estimated ejection fraction is 70 %. No evidence for diastolic dysfunction. Structurally normal valves. Ordering Physician: Duane Jiang Referring Physician: Ernesto Faust Performed By: Minnie Hill, AVELINOCS, RVT
--- NOTE | 2019-01-30 09:31 | EKG12_ITS ---
Test Reason : AM EKG Blood Pressure : / mmHG Vent. Rate : 050 BPM Atrial Rate : 050 BPM P-R Int : 188 ms QRS Dur : 102 ms QT Int : 416 ms P-R-T Axes : 041 077 063 degrees QTc Int : 379 ms Sinus bradycardia Otherwise normal ECG When compared with ECG of 29-JAN-2019 09:12, MANUAL COMPARISON REQUIRED, DATA IS UNCONFIRMED Confirmed by CLIVE HERCULES ([id number]), film editor supervisor MARKEL RAY ([id number]) on 02/06/2019 1:00:37 PM Referred By: MAYRA Confirmed By:JADA HERCULES
[2019-01-30] MEDS: Losartan Potassium 25 MG Tablet PO (10:22)
[2019-01-30] MEDS: Clopidogrel Bisulfate 75 MG Tablet PO (10:23)
[2019-01-30] MEDS: Metoprolol Tartrate 25 MG Tablet PO (10:25)
[2019-01-30] MEDS: Pantoprazole Sodium 40 MG Tablet PO (10:26)
--- NOTE | 2019-01-31 14:53 | CASEMGMT ---
JESSICA MELLO Discharge Follow-Up Phone Call. Elaine: Nina Strata: 3 Discharge Date: 01/30/19 Adm Dx: ACS, CAD Call to pt to inquire about how he has been doing since being discharged from the hospital. Pt states he is doing okay. Pt states he was able to get all of the prescriptions except that the Nicoderm patch was not covered by insurance and he stated, I'll just have to take care of that myself. He states he has no questions about the follow-up appts. Pt inquired about how long he should keep the dressing in place to post cath site. Pt informed dressing could be removed but to keep the area clean and dry. Reinforced with pt that he can shower, but that he is not to soak/immerse in water until cleared by cardiology. Pt voices understanding. He denies having any further questions. JESSICA MELLO thanked pt for choosing [facility]. Shannan SMITH RN, CM
== END 2019-01-30 11:30 | disposition home or self-care (01) | DRG 247 ==
LOC: ED 17:37 → PCU 18:21 → ICU 01-30 05:23
PROVIDERS: Emergency Medicine; Internal Medicine Cardiovascular Disease; Admitting Provider Family Medicine; Emergency Provider Emergency Medicine; Family Provider Family Medicine; PCP Family Medicine; Visit Provider Family Medicine
DX: I25.110 Atherosclerotic heart disease of native coronary artery with unstable angina pectoris (principal); I10 Essential (primary) hypertension; E78.5 Hyperlipidemia, unspecified; K22.70 Barrett's esophagus without dysplasia; K21.0 Gastro-esophageal reflux disease with esophagitis; F17.290 Nicotine dependence, other tobacco product, uncomplicated; K44.9 Diaphragmatic hernia without obstruction or gangrene
CPT/HCPCS: 36415; 71045; 80048; 80053; 80061; 81001; 83735; 84484; 85027; 85347; 85610; 85730; 92928; 93005; 93306; 93458; 99152; 99153; 99285; J7030; A4216; C1725; C1769; C1874; C1887; C9600; J2405; Q9967

== ENCOUNTER → 2019-02-05 | Outpatient (CLI) | payer OTHER, SELFPAY ==
[2019-02-05 12:55] VITALS: BMI 28.4
--- NOTE | 2019-02-05 15:52 | ADUL_ITS ---
Reason For Study: R/O pseudo Right Velocities Left Velocities Common Femoral Artery, mid = 116.2 cm./sec. Common Femoral Artery, mid = 57.5 cm./sec. RESET MERCHANDISER measures .82 x .93 cm. RESET MERCHANDISER measures .84 x .8 cm. CFV is compressible with normal venous flow CFV is compressible with normal venous flow patterns. patterns. Procedure The exam was diagnostic. Exam performed in department. Prelim called to Ute LOPEZ voicemail. Interpretation Summary Bilateral femoral arteries appear to be of normal diameter. Bilateral common femoral veins with normal flow patterns No evidence for pseudoaneurysm or fistula bilaterally Ordering Physician: Duane Jiang Performed By: Mark Diego RVT
== END | disposition home or self-care (01) ==
LOC: CVS 15:51
PROVIDERS: Family Provider Family Medicine; PCP Family Medicine; Referring Provider Internal Medicine Cardiovascular Disease; Visit Provider Internal Medicine Cardiovascular Disease
DX: S75.009A Unspecified injury of femoral artery, unspecified leg, initial encounter (principal); E78.1 Pure hyperglyceridemia; E78.6 Lipoprotein deficiency; F17.200 Nicotine dependence, unspecified, uncomplicated; I25.10 Atherosclerotic heart disease of native coronary artery without angina pectoris
CPT/HCPCS: 93926

== ENCOUNTER → 2019-05-08 | Outpatient (CLI) | payer OTHER, SELFPAY ==
[2019-02-05 12:55] VITALS: BMI 28.4
[2019-05-08 07:45] LABS: AST(SGOT) 28 U/L (15-37); Alanine Aminotransfer ALT/SGPT 35 U/L (16-61); Albumin, Serum 4.1 g/dL (3.2-5.0); Alkaline Phosphatase 79 U/L (45-117); Cholesterol 125 mg/dL (200); Globulin 3.4 g/dL (2.2-4.2); High Density Lipoprotein 35 mg/dL; Protein, Total 7.5 g/dL (6.4-8.2); Triglycerides 165 mg/dL; Very Low Density Lipoprotein 33 mg/dL (5-40)
== END | disposition home or self-care (01) ==
LOC: LAB 06:13
PROVIDERS: Family Provider Family Medicine; PCP Family Medicine; Referring Provider Internal Medicine Cardiovascular Disease; Visit Provider Internal Medicine Cardiovascular Disease
DX: E78.1 Pure hyperglyceridemia (principal); E78.6 Lipoprotein deficiency
CPT/HCPCS: 36415; 80061; 80076

== ENCOUNTER → 2019-06-03 | Outpatient (CLI) | payer OTHER, SELFPAY ==
[2019-05-24 12:04] VITALS: BMI 27.3
[2019-06-03 17:48] LABS: Vitamin D,25 Hydroxy 33.5 ng/mL (29.95-100.01)
[2019-06-03 17:55] LABS: Thyroid Stim Hormone (TSH) 3.08 uIU/mL (0.358-3.74)
== END | disposition home or self-care (01) ==
LOC: LAB.FUTURE 15:38
PROVIDERS: Family Provider Family Medicine; PCP Family Medicine; Visit Provider Family Medicine
DX: E55.9 Vitamin D deficiency, unspecified (principal); E78.5 Hyperlipidemia, unspecified
CPT/HCPCS: 36415; 82306; 84443

== ENCOUNTER → 2019-06-21 | Outpatient (CLI) | payer OTHER, SELFPAY ==
[2019-05-24 12:04] VITALS: BMI 27.3
[2019-06-21 17:30] LABS: Absolute Lymphocyte Count 2.57 X10^3/uL (0.83-4.51); Absolute Neutrophil Count 4.4 X10^3/uL (2.0-7.7); Basophil# 0.04 X10^3/uL; Basophil% 0.5 % (0-1); Eosinophil# 0.17 X10^3/uL; Eosinophils% 2.2 % (0-5); Hematocrit 45.7 % (40-54); Hemoglobin 15.3 g/dL (13.0-16.5); Lymphocyte # 2.57 X10^3/ul (4.0); Lymphocyte % 33.5 % (19-41); Mean Corp Hgb Conc 33.5 g/dL (32-36); Mean Corpuscular Hgb 29.5 pg (27.0-32.0); Mean Corpuscular Volume 88.1 fL (80-94); Mean Platelet Vol. 10.8 fl (6.2-12.0); Monocyte# 0.51 X10^3/uL; Monocyte% 6.6 % (0-10); NRBC Flagged by Analyzer 0 % (0-5); Neutrophil # 4.37 X10^3/uL (2.7-7.7); Neutrophil % 57.1 % (47-70); Platelet Count 223 K/mm3 (150-450); RBC Distribution Width CV 12.8 % (11.6-14.6); RBC Distribution Width SD 41.1 fl (35.1-43.9); Red Blood Count 5.19 M/mm3 (4.6-6.2); White Blood Count 7.7 K/mm3 (4.4-11.0)
[2019-06-21 18:11] LABS: Hemoglobin A1c 5.1 % (4.2-6.3)
[2019-06-21 18:12] LABS: ALB/GLOB Ratio 1.3 RATIO (0.9-2.4); AST(SGOT) 22 U/L (15-37); Alanine Aminotransfer ALT/SGPT 33 U/L (16-61); Alkaline Phosphatase 71 U/L (45-117); Anion Gap 6 (5-15); BUN 15 mg/dL (7-18); BUN/Creat Ratio 13.4 RATIO (10-20); Calcium,Total 8.8 mg/dL (8.5-10.1); Chloride 111 mmol/L (98-107); Creatinine, Serum 1.12 mg/dL (0.70-1.30); EST Glomerular Filtration Rate 72 mL/min (>60); Est Glom Filt Rate - Afr Amer 87 mL/min (>60); Glucose 99 mg/dL (74-106); Lipase 203 U/L (73-393); PSA,Total - Annual Screen 4.11 ng/mL (0.00-4.00); Potassium 4.2 mmol/L (3.5-5.1); Sodium Level 144 mmol/L (136-145); T4 Free Direct 1.02 ng/dL (0.76-1.46); Thyroid Stim Hormone (TSH) 1.69 uIU/mL (0.358-3.74)
[2019-06-21 18:13] LABS: Vitamin D,25 Hydroxy 26.6 ng/mL (29.95-100.01)
== END | disposition home or self-care (01) ==
PROVIDERS: Family Provider Family Medicine; PCP Family Medicine; Visit Provider Family Medicine
DX: K22.70 Barrett's esophagus without dysplasia (principal); E78.5 Hyperlipidemia, unspecified; E55.9 Vitamin D deficiency, unspecified; R11.0 Nausea; R97.20 Elevated prostate specific antigen [PSA]
CPT/HCPCS: 36415; 80053; 82306; 83036; 83690; 84153; 84439; 84443; 85025; G0103

== ENCOUNTER → 2019-10-08 | Outpatient (CLI) | payer OTHER, SELFPAY ==
[2019-09-30 15:00] VITALS: BMI 27.3
[2019-10-08 07:29] LABS: Absolute Lymphocyte Count 2.24 X10^3/uL (0.83-4.51); Absolute Neutrophil Count 3.2 X10^3/uL (2.0-7.7); Basophil# 0.04 X10^3/uL; Basophil% 0.6 % (0-1); Eosinophil# 0.18 X10^3/uL; Eosinophils% 2.9 % (0-5); Hemoglobin 15.7 g/dL (13.0-16.5); Lymphocyte # 2.24 X10^3/ul (4.0); Mean Corp Hgb Conc 33.4 g/dL (32-36); Mean Corpuscular Hgb 29.8 pg (27.0-32.0); Mean Corpuscular Volume 89.4 fL (80-94); Mean Platelet Vol. 10.5 fl (6.2-12.0); Monocyte# 0.55 X10^3/uL; Monocyte% 8.8 % (0-10); NRBC Flagged by Analyzer 0 % (0-5); Neutrophil # 3.19 X10^3/uL (2.7-7.7); Neutrophil % 51.2 % (47-70); Platelet Count 200 K/mm3 (150-450); RBC Distribution Width CV 11.9 % (11.6-14.6); Red Blood Count 5.26 M/mm3 (4.6-6.2); White Blood Count 6.2 K/mm3 (4.4-11.0)
[2019-10-08 08:09] LABS: AST(SGOT) 16 U/L (15-37); Alanine Aminotransfer ALT/SGPT 27 U/L (16-61); Albumin, Serum 3.7 g/dL (3.2-5.0); Alkaline Phosphatase 63 U/L (45-117); Anion Gap 7 (5-15); BUN 15 mg/dL (7-18); BUN/Creat Ratio 14.3 RATIO (10-20); Bilirubin, Direct 0.12 mg/dL (0.00-0.30); Calcium,Total 8.9 mg/dL (8.5-10.1); Chloride 112 mmol/L (98-107); Cholesterol 106 mg/dL (200); Creatinine, Serum 1.05 mg/dL (0.70-1.30); EST Glomerular Filtration Rate 77 mL/min (>60); Est Glom Filt Rate - Afr Amer 94 mL/min (>60); Globulin 3.1 g/dL (2.2-4.2); Glucose 86 mg/dL (74-106); High Density Lipoprotein 31 mg/dL; Potassium 4.2 mmol/L (3.5-5.1); Protein, Total 6.8 g/dL (6.4-8.2); Sodium Level 143 mmol/L (136-145); T4 Free Direct 1.03 ng/dL (0.76-1.46); Thyroid Stim Hormone (TSH) 2.92 uIU/mL (0.358-3.74); Triglycerides 132 mg/dL; Very Low Density Lipoprotein 26 mg/dL (5-40)
[2019-10-08 09:17] LABS: Vitamin D,25 Hydroxy 25.2 ng/mL (29.95-100.01)
== END | disposition home or self-care (01) ==
LOC: LAB.FUTURE 06:26 → LAB 06:28
PROVIDERS: PCP Family Medicine; Referring Provider Internal Medicine Cardiovascular Disease; Visit Provider Internal Medicine Cardiovascular Disease
DX: E78.1 Pure hyperglyceridemia (principal); E78.6 Lipoprotein deficiency; I25.10 Atherosclerotic heart disease of native coronary artery without angina pectoris; R53.83 Other fatigue; E78.5 Hyperlipidemia, unspecified; E55.9 Vitamin D deficiency, unspecified
CPT/HCPCS: 36415; 80048; 80061; 80076; 82306; 84439; 84443; 85025

== ENCOUNTER → 2020-06-04 | Outpatient (CLI) | payer OTHER, SELFPAY ==
[2019-09-30 15:00] VITALS: BMI 27.3
[2020-06-04 08:02] LABS: AST(SGOT) 20 U/L (15-37); Alanine Aminotransfer ALT/SGPT 30 U/L (16-61); Albumin, Serum 3.9 g/dL (3.2-5.0); Alkaline Phosphatase 81 U/L (45-117); Anion Gap 5 (5-15); BUN 14 mg/dL (7-18); BUN/Creat Ratio 12.5 RATIO (10-20); Bilirubin, Direct 0.16 mg/dL (0.00-0.30); Calcium,Total 9.6 mg/dL (8.5-10.1); Chloride 107 mmol/L (98-107); Cholesterol 126 mg/dL (200); Creatinine, Serum 1.12 mg/dL (0.70-1.30); EST Glomerular Filtration Rate 72 mL/min (>60); Est Glom Filt Rate - Afr Amer 87 mL/min (>60); Globulin 3.4 g/dL (2.2-4.2); Glucose 88 mg/dL (74-106); High Density Lipoprotein 30 mg/dL; Potassium 3.9 mmol/L (3.5-5.1); Protein, Total 7.3 g/dL (6.4-8.2); Sodium Level 140 mmol/L (136-145); Triglycerides 208 mg/dL; Very Low Density Lipoprotein 42 mg/dL (5-40)
[2020-06-04 08:34] LABS: Vitamin D,25 Hydroxy 38.2 ng/mL
== END | disposition home or self-care (01) ==
LOC: LAB 06:04
PROVIDERS: PCP Family Medicine; Referring Provider Internal Medicine Cardiovascular Disease; Visit Provider Internal Medicine Cardiovascular Disease
DX: E55.9 Vitamin D deficiency, unspecified (principal); I10 Essential (primary) hypertension; E78.00 Pure hypercholesterolemia, unspecified; E78.1 Pure hyperglyceridemia; E78.6 Lipoprotein deficiency; I25.10 Atherosclerotic heart disease of native coronary artery without angina pectoris
CPT/HCPCS: 36415; 80048; 80061; 80076; 82306

== ENCOUNTER → 2020-07-24 14:57 | Outpatient (CLI) | payer OTHER, SELFPAY ==
[2020-06-09 10:11] VITALS: BMI 29.0
[2020-07-24 17:16] LABS: Absolute Lymphocyte Count 2.57 X10^3/uL (0.83-4.51); Absolute Neutrophil Count 3.3 X10^3/uL (2.0-7.7); Basophil# 0.04 X10^3/uL; Basophil% 0.6 % (0-1); Eosinophil# 0.25 X10^3/uL; Eosinophils% 3.7 % (0-5); Hematocrit 45.3 % (40-54); Hemoglobin 15.1 g/dL (13.0-16.5); Lymphocyte # 2.57 X10^3/ul (4.0); Lymphocyte % 37.7 % (19-41); Mean Corp Hgb Conc 33.3 g/dL (32-36); Mean Corpuscular Hgb 29.5 pg (27.0-32.0); Mean Corpuscular Volume 88.6 fL (80-94); Mean Platelet Vol. 10.8 fl (6.2-12.0); Monocyte# 0.62 X10^3/uL; Monocyte% 9.1 % (0-10); NRBC Flagged by Analyzer 0 % (0-5); Neutrophil # 3.32 X10^3/uL (2.7-7.7); Neutrophil % 48.6 % (47-70); Platelet Count 252 K/mm3 (150-450); RBC Distribution Width CV 12.4 % (11.6-14.6); RBC Distribution Width SD 40.5 fl (35.1-43.9); Red Blood Count 5.11 M/mm3 (4.6-6.2); White Blood Count 6.8 K/mm3 (4.4-11.0)
[2020-07-24 17:43] LABS: PSA,Total- Diagnostic 5.03 ng/mL (0.0-4.0); T4 Free Direct 1.11 ng/dL (0.76-1.46); Thyroid Stim Hormone (TSH) 2.03 uIU/mL (0.358-3.74)
== END ==
PROVIDERS: PCP Family Medicine; Visit Provider Family Medicine
DX: I10 Essential (primary) hypertension (principal); R53.83 Other fatigue; R97.20 Elevated prostate specific antigen [PSA]
CPT/HCPCS: 36415; 84153; 84439; 84443; 85025

== ENCOUNTER 2020-10-20 08:32 | Emergency (ER) | payer OTHER, SELFPAY ==
[2020-10-01 06:41] VITALS: BMI 29.5
[2020-10-20 08:32] VITALS: BP 133/60; PULSE 66; RESP 18; TEMP 36.6; O2SAT 98; BMI 28.5
--- NOTE | 2020-10-20 09:08 | ED.VISSUMM ---
- ER Visit Summary Date of Service: 10/20/20 Chief Complaint: [Head injury and scalp laceration] History of Present Illness: The patient is a 60 M presents to the emergency department after sustaining a head injury when a piece of ice fell off of a semitruck and struck him on top of the head. No loss of consciousness. Patient complains of a headache. Patient is on Plavix for history of coronary artery disease. He denies any neck pain. He denies other injuries. He is up-to-date on tetanus. This is a workman comp injury. [] Physical Examination: [HEENT-PERRLA, EOMI. Cranial nerves II through XII grossly intact. TMs clear. Mucous membranes moist. No adenopathy. Patient has a 3.5 cm laceration to the left parietal scalp without any bony depressions noted. There is no active bleeding at this time. No C-spine tenderness on palpation. He has normal active range of motion is painless. Cardiovascular-regular rate and rhythm without murmur or ectopy Lungs-clear to auscultation, chest wall stable without crepitus or subcu emphysema Abdomen-normoactive bowel sounds, soft, nontender, no rebound or rigidity, no peritoneal signs. Extremities-intact ?4, normal range of motion, normal pulses, atraumatic] Test Results: [CT scan of the brain without contrast obtained was read by radiology as normal.] Emergency Department Course and Treatment: [Laceration repair-wound sterilely draped and prepped. Wound cleansed with Shur-Clens and irrigated with copious saline. Using 1% lidocaine total of 6 cc used anesthetize the area locally. Using 4-0 nylon a total of 3 single ruptured sutures placed with good wound edge approximation. Patient tolerate procedure well.] Treatment Plan: [Patient to follow-up with corporate care in 10 days for suture removal.] Disposition: [Discharged home in stable condition] Impression: [Closed head injury Scalp laceration 3.5 cm-simple repair] This note was generated with [employer] software. It may contain incorrect words, spelling, and punctuation that were not noted in review of the chart prior to signing ED Disposition - Plan for ED Patient: Referrals: Ernesto Faust MD [Primary Care Provider] -
--- NOTE | 2020-10-20 09:17 | CT_ITS ---
STUDY: CT BRAIN WITHOUT CONTRAST REASON FOR EXAM: Male, 60 years old. Trauma, struck by piece of ice at work, laceration to left parietal area, no LOC. Complains of headache, on blood thinners, hx hypertension. RADIATION DOSAGE (If Supplied By Facility): CTDIvol = ( 44.99 ) mGy, DLP = ( 796.11 ) mGycm TECHNIQUE: Transaxial CT imaging of the brain was performed without administration of intravenous contrast material. Individualized dose optimization techniques were used for this CT. COMPARISON: No relevant priors. FINDINGS: Normal soft tissue structures. Normal calvarium. Normal size ventricles and extra-axial spaces for the patient''s age. Normal white matter tracts of the cerebral hemispheres. Normal basal ganglia and thalami. Normal brainstem. Normal cerebellum. There is no intracranial hemorrhage. There are no findings of an acute ischemic infarction. Normal visualized paranasal sinuses. CT/Brain/Head without Contrast IMPRESSION: Normal unenhanced CT scan of the brain. Electronically Signed: Francesco Washington MD at 10:04 EST , Service support ,
--- NOTE | 2020-10-20 10:18 | ED.DEP ---
ED Disposition - Plan for ED Patient: Instructions: ED Laceration: All Closures, ED Head Injury (Adult) Referrals: Ernesto Faust MD [Primary Care Provider[facility], [place] [GROUP OF PHYSICIANS] - 10 Day for suture removal
[2020-10-20] MEDS: Acetaminophen 325 MG Tablet 650 MG PO (10:34)
[2020-10-20] MEDS: Lidocaine 1% (20 ml mdv) 20 ML Vial 8 ML INFILT (10:35)
== END 2020-10-20 10:39 | disposition home or self-care (01) ==
LOC: ED 09:35
PROVIDERS: Emergency Provider Emergency Medicine; PCP Family Medicine
DX: S01.01XA Laceration without foreign body of scalp, initial encounter (principal); K21.9 Gastro-esophageal reflux disease without esophagitis; I25.10 Atherosclerotic heart disease of native coronary artery without angina pectoris; F17.290 Nicotine dependence, other tobacco product, uncomplicated; W26.8XXA Contact with other sharp object(s), not elsewhere classified, initial encounter; Y93.89 Activity, other specified; Y92.89 Other specified places as the place of occurrence of the external cause; Y99.0 Civilian activity done for income or pay
CPT/HCPCS: 12002; 70450; 99283

== ENCOUNTER → 2020-10-23 12:36 | Outpatient (CLI) | payer OTHER, SELFPAY ==
[2020-10-01 06:41] VITALS: BMI 29.5
[2020-10-20 10:55] VITALS: BMI 28.5
--- NOTE | 2020-10-25 06:34 | PFT ---
INTRODUCTION: The patient is a 60-year-old male that presents for pulmonary function studies secondary to a diagnosis of nicotine dependency. Respiratory therapy reports good patient effort. Bronchodilators were used during testing. INTERPRETATION: Forced expiration spirometry demonstrates no evidence of a large airways obstructive ventilatory defect. There was no significant response to aerosolized bronchodilators. Spirograms are of good quality and plateau normally. Body plethysmography was performed and reveals lung volumes to be within normal limits. Diffusing capacity by single breath CO is also within normal limits. IMPRESSION: Grossly normal pulmonary function studies.
== END ==
PROVIDERS: PCP Family Medicine; Referring Provider Internal Medicine Critical Care Medicine; Visit Provider Internal Medicine Critical Care Medicine
DX: F17.211 Nicotine dependence, cigarettes, in remission (principal)
CPT/HCPCS: 94060; 94726; 94729

== ENCOUNTER → 2020-11-03 16:02 | Outpatient (CLI) | payer OTHER, SELFPAY ==
[2020-10-01 06:41] VITALS: BMI 29.5
[2020-10-20 10:55] VITALS: BMI 28.5
--- NOTE | 2020-11-03 16:04 | CT_ITS ---
STUDY: LOW DOSE CT LUNG CANCER SCREENING REASON FOR EXAM: Male, 60 years old. 90 pack-year history. 5 years ago. RADIATION DOSAGE (If Supplied By Facility): CTDIvol = ( 4.02 ) mGy, DLP = ( 129.38 ) mGycm TECHNIQUE: No contrast was administered. Low dose technique was utilized (average mAS-38 and kVp 120). 1.25 mm axial source images with a slice interval of 1.25-mm were reconstructed in lung windows. 2.5 mm axial source images with a slice interval of 2.5-mm were reconstructed in lung windows. 5.0 mm axial source images with a slice interval of 5.0-mm were reconstructed in soft tissue windows. Nodule measured using lung windows on PACS and/or independent workstation with automated measurement of minimum and maximum diameter. Nodule measurement reported as average diameter rounded to the nearest whole number. Growth is defined as an increase ins size of greater than 1.5 mm. COMPARISON: Chest, 01/28/2019. NODULES: Nodule #: 1 Density: Solid Lung location: Left lower lobe: Along the upper oblique fissure. Location in series: Series Number: 2 Image: 60 Size - D1 x D2 mm: 8 x 4 mm: 6 mm average diameter Margin: Irregular Shape: Triangular Calcification: Yes Fat: No Temporal comparison: None Total lung nodules (excluding granulomas): 0 Emphysema: There are minimal emphysematous changes of the lungs. Endobronchial lesion: None Aorta: Normal Coronary arteries: There are coronary artery calcifications. Heart: Normal Pulmonary artery: Normal Mediastinal nodes: There is a 1.3 x 0.7 x 1.0 cm precarinal lymph node. No other significant lymphadenopathy is seen. Other chest and abdominal findings: There are minimal degenerative changes of the thoracic spine. CT/Low Dose CT Lung Screening IMPRESSION: Lung-RADS category 1 - Continue annual screening with LDCT in 12 months. IMPORTANT NOTES FOR USE: ACR Lung-RADS Version 1.0 Assessment Categories Release Date: January 06, 2014 Category: Coded 0-4 bases on nodule(s) with highest degree of suspicion. Negative screen is defined as categories 1 and 2; a positive screen is defined as categories 3 and 4. Category 3 and 4A nodules that are unchanged on interval CT should be coded as category 2, and individuals returned to screening in 12 months. Category 4X: Category 3 or 4 nodules with additional imaging findings that increase the suspicion of lung cancer, such as spiculation, GGN that doubles in size in 1 year, enlarged lymph notes, etc. Category Modifiers: S (significant finding unrelated to lung cancer) and C (prior history of treated lung cancer) may be added to the 0-4 Lung-RADS Electronically Signed: Ruiz Michaels DO at 23:21 EST Tel [phone], Service support ,
== END ==
PROVIDERS: PCP Family Medicine; Referring Provider Internal Medicine Critical Care Medicine; Visit Provider Internal Medicine Critical Care Medicine
DX: F17.211 Nicotine dependence, cigarettes, in remission (principal); Z12.2 Encounter for screening for malignant neoplasm of respiratory organs
CPT/HCPCS: 71271

== ENCOUNTER → 2020-11-13 16:09 | Outpatient (CLI) | payer OTHER, SELFPAY ==
[2020-10-01 06:41] VITALS: BMI 29.5
== END ==
PROVIDERS: PCP Family Medicine; Visit Provider Internal Medicine Critical Care Medicine
DX: G47.33 Obstructive sleep apnea (adult) (pediatric) (principal)
CPT/HCPCS: 95806

== ENCOUNTER → 2021-01-22 07:16 | Outpatient (CLI) | payer OTHER, SELFPAY ==
[2020-12-18 14:08] VITALS: BMI 32.3
[2021-01-22 08:37] LABS: AST(SGOT) 18 U/L (15-37); Alanine Aminotransfer ALT/SGPT 28 U/L (16-61); Alkaline Phosphatase 83 U/L (45-117); Bilirubin, Direct 0.13 mg/dL (0.00-0.30); Cholesterol 114 mg/dL (200); Globulin 3.3 g/dL (2.2-4.2); High Density Lipoprotein 31 mg/dL; Protein, Total 7.3 g/dL (6.4-8.2); Triglycerides 179 mg/dL; Very Low Density Lipoprotein 36 mg/dL (5-40)
== END ==
PROVIDERS: PCP Family Medicine; Referring Provider Internal Medicine Cardiovascular Disease; Visit Provider Internal Medicine Cardiovascular Disease
DX: E78.00 Pure hypercholesterolemia, unspecified (principal); I25.10 Atherosclerotic heart disease of native coronary artery without angina pectoris; Z95.5 Presence of coronary angioplasty implant and graft
CPT/HCPCS: 36415; 80061; 80076

== ENCOUNTER → 2021-02-01 15:24 | Outpatient (CLI) | payer OTHER, SELFPAY ==
[2020-12-18 14:08] VITALS: BMI 32.3
[2021-02-01 18:56] LABS: Anion Gap 5 (5-15); BUN 13 mg/dL (7-18); BUN/Creat Ratio 12.5 RATIO (10-20); Calcium,Total 9.1 mg/dL (8.5-10.1); Chloride 110 mmol/L (98-107); Creatinine, Serum 1.04 mg/dL (0.70-1.30); EST Glomerular Filtration Rate 78 mL/min (>60); Est Glom Filt Rate - Afr Amer 94 mL/min (>60); Glucose 103 mg/dL (74-106); PSA,Total- Diagnostic 4.67 ng/mL (0.0-4.0); Potassium 3.8 mmol/L (3.5-5.1); Sodium Level 140 mmol/L (136-145); Thyroid Stim Hormone (TSH) 2.67 uIU/mL (0.358-3.74)
== END ==
PROVIDERS: PCP Family Medicine; Referring Provider Family Medicine; Visit Provider Family Medicine
DX: E55.9 Vitamin D deficiency, unspecified (principal); I10 Essential (primary) hypertension; R68.82 Decreased libido; R97.20 Elevated prostate specific antigen [PSA]
CPT/HCPCS: 36415; 80048; 82306; 84153; 84403; 84443

== ENCOUNTER → 2021-05-18 15:53 | Outpatient (CLI) | payer BC, SELFPAY ==
--- NOTE | 2021-05-18 15:56 | CT_ITS ---
STUDY: CT CHEST WITH CONTRAST REASON FOR EXAM: Male, 60 years old. follow up on mediastinal lymphadenopathy RADIATION DOSAGE (If Supplied By Facility): CTDIvol = ( 16.79 ) mGy, DLP = ( 567.61 ) mGycm TECHNIQUE: Transaxial imaging was performed following intravenous administration of IV 100mL Isovue-370. Multiplanar coronal and sagittal images were reformatted. Individualized dose optimization techniques were used for this CT. COMPARISON: 11/03/2020 FINDINGS: The lungs are normal. There is no demonstrated pleural abnormality. Normal heart and pericardium. 1.3 x 0.8 x 1.2 cm precarinal lymph node is unchanged compared to 11/03/2020 when measured in a similar fashion. Normal hilar regions. Normal enhanced pulmonary arteries. Normal aorta arch and descending thoracic aorta. There are multi-level degenerative changes of the thoracic spine. Unchanged small left liver hyperattenuating lesion, probably hemangioma. CT/Chest WITH Contrast IMPRESSION: Unchanged precarinal lymph node. No new abnormal finding. Electronically Signed: Nehemias Chino MD at 8:06 EDT Tel , Service support ,
[2021-05-18 16:11] LABS: CREATININE FINGERSTICK 1.1 mg/dL (0.70-1.30); EGFR FINGERSTICK > 60.0000 mL/min (>60)
== END ==
PROVIDERS: PCP Family Medicine; Referring Provider Nurse Practitioner Acute Care; Visit Provider Nurse Practitioner Acute Care
DX: R59.0 Localized enlarged lymph nodes (principal)
CPT/HCPCS: 71260; Q9967

== ENCOUNTER → 2021-06-18 08:06 | Outpatient (CLI) | payer BC, SELFPAY ==
[2021-06-18 09:48] LABS: AST(SGOT) 25 U/L (15-37); Alanine Aminotransfer ALT/SGPT 32 U/L (16-61); Albumin, Serum 3.7 g/dL (3.2-5.0); Alkaline Phosphatase 80 U/L (45-117); Bilirubin, Direct 0.16 mg/dL (0.00-0.30); Cholesterol 114 mg/dL (200); Globulin 3.2 g/dL (2.2-4.2); High Density Lipoprotein 37 mg/dL; Protein, Total 6.9 g/dL (6.4-8.2); Triglycerides 94 mg/dL; Very Low Density Lipoprotein 19 mg/dL (5-40)
== END ==
PROVIDERS: PCP Family Medicine; Referring Provider Internal Medicine Cardiovascular Disease; Visit Provider Internal Medicine Cardiovascular Disease
DX: E78.00 Pure hypercholesterolemia, unspecified (principal); E78.1 Pure hyperglyceridemia; E78.6 Lipoprotein deficiency
CPT/HCPCS: 36415; 80061; 80076

== ENCOUNTER → 2022-03-15 | Outpatient (CLI) | payer BC, SELFPAY ==
--- NOTE | 2022-03-15 15:20 | RAD_ITS ---
STUDY: X-RAY - PELVIS AND LEFT HIP REASON FOR EXAM: Male, 61 years old. HIP PAIN TECHNIQUE: XR Hip Unilateral with Pelvis when performed; 2-3 Views COMPARISON: None. FINDINGS: There is a non-specific bowel gas pattern. Normal visualized soft tissue structures. Normal bilateral iliac wings, sacroiliac joints and visualized sacrum. Normal bilateral superior and inferior pubic rami. Normal pubic symphysis. Normal bilateral ischial tuberosities. Normal visualized femoral head. Normal acetabulum. Normal hip joint. RAD/HIP, UNI W/ Pelvis 2-3 Views IMPRESSION: No acute findings. Electronically Signed: Ismael Barry MD at 17:23 EDT ,
--- NOTE | 2022-03-15 15:22 | RAD_ITS ---
STUDY: X-RAY - LUMBAR SPINE REASON FOR EXAM: Male, 61 years old. BACK PAIN TECHNIQUE: XR Spine Lumbar Min 4 Views COMPARISON: None FINDINGS: There is mild straightening of the normal lumbar lordosis. This can suggest back strain. There is no substantial scoliosis. There is a normal alignment of the vertebrae. There is multilevel endplate spondylosis of the lumbar vertebrae. There is multi-level degenerative disc disease with multi-level disc space narrowing. There are atherosclerotic vascular calcifications. The soft tissue structures are unremarkable. RAD/L/S Spine Min 4 Views IMPRESSION: Degenerative changes of the spine, as detailed above. There is mild straightening of the normal lumbar lordosis. This can suggest back strain. Electronically Signed: Ismael Barry MD at 17:23 EDT ,
== END | disposition home or self-care (01) ==
LOC: MTRAD 15:18
PROVIDERS: PCP Family Medicine; Referring Provider Family Medicine; Visit Provider Family Medicine
DX: M25.552 Pain in left hip (principal); M54.50 Low back pain, unspecified
CPT/HCPCS: 72110; 73502

== ENCOUNTER → 2022-03-28 | Outpatient (CLI) | payer BC, SELFPAY ==
--- NOTE | 2022-03-28 10:36 | STRESSREP ---
Stress Test Report Exercise myocardial perfusion stress test. 61-year-old man with a history of chest pain. Stress protocol: Resting EKG demonstrates sinus bradycardia with a rate of 50 bpm premature junctional complexes noted resting blood pressure is 122/76 mmHg. The patient exercised according to the regular Conrado protocol for a total duration of 8 minutes. Patient completed 2 minutes into stage III of the Conrado protocol. The maximum heart rate attained was 150 bpm which was 93% of max impacted heart rate the maximum workload was 10.1 metabolic equivalents. The patient maintained sinus rhythm throughout the recording. At rest nonspecific ST changes were noted and at peak exercise upsloping ST changes were noted less than 1 mm which did not meet the criteria for ischemia. No clinical angina was noted the test was terminated due to target heart rate being achieved. The peak blood pressure was 152/64 mmHg. Myocardial perfusion protocol. 14.7 mCi of technetium 99m sestamibi was injected. 0.4 mg of regadenoson was infused per usual protocol. At peak infusion 44.3 mCi of technetium 99m sestamibi was injected. Stress images were obtained stress and rest images were reconstructed and compared in the short axis vertical long and horizontal long axis. Gated images were also obtained. Perfusion SPECT analysis: Review of the stress images demonstrate normal uptake of tracer noted in all areas of the myocardium. The resting images similar demonstrate normal uptake of tracer noted in all areas of the myocardium. No areas of reversibility are noted suggest ischemia no previous infarct is noted. Gated SPECT analysis: The gated ejection fraction is 70%. Conclusion: Normal exercise myocardial perfusion stress test at a high workload. Preserved ejection fraction.
== END | disposition home or self-care (01) ==
PROVIDERS: PCP Family Medicine; Referring Provider Internal Medicine Cardiovascular Disease; Visit Provider Internal Medicine Cardiovascular Disease
DX: Z02.4 Encounter for examination for driving license (principal); I25.10 Atherosclerotic heart disease of native coronary artery without angina pectoris; Z95.5 Presence of coronary angioplasty implant and graft
CPT/HCPCS: 78452; 93017; A9500; A4216

== ENCOUNTER → 2022-05-11 | Outpatient (CLI) | payer BC, SELFPAY ==
--- NOTE | 2022-05-11 07:09 | US_ITS ---
STUDY: ABDOMINAL ULTRASOUND - RIGHT UPPER QUADRANT REASON FOR VISIT: Male, 61 years old LESION -LIVER- SEEN ON CT TECHNIQUE: Ultrasound evaluation of the right upper quadrant was performed with real-time and static wagner-scale imaging. TECHNICAL QUALITY: Adequate. COMPARISON: None. FINDINGS: Liver: The liver measures 15.9 cm. There is increased echogenicity consistent with fatty infiltration. The bile ducts are within normal limits. There is hepatic color flow. The direction of portal flow is hepatopetal. There is a 1.9 cm x 2.4 cm x 1.4 cm cyst in the left lobe. Gallbladder: The patient is status post cholecystectomy. Common Bile Duct (C.B.D.): The common bile duct measures 3.9 mm. Pancreas: Normal size of the head, body and tail of the pancreas. There is normal echogenicity of the pancreas. There is no demonstrated pancreatic mass or cyst. Right Kidney: Normal size of the right kidney. The right kidney measures 9.9 cm x 4.8 cm x 5.5 cm. Normal renal cortex. The right cortex measures 2.0 cm. There is no demonstrated renal mass or cyst. There is no right hydronephrosis. US/Abdomen Limited IMPRESSION: Fatty infiltration of the liver. 1.9 cm x 2.4 cm x 1.4 cm cyst in the left lobe. Electronically Signed: Francesco Washington MD at 9:12 EDT ,
[2022-05-11 08:15] LABS: ALB/GLOB Ratio 1.3 RATIO (0.9-2.4); AST(SGOT) 18 U/L (15-37); Alanine Aminotransfer ALT/SGPT 25 U/L (16-61); Albumin, Serum 3.9 g/dL (3.2-5.0); Alkaline Phosphatase 76 U/L (45-117); Anion Gap 4 (5-15); BUN 14 mg/dL (7-18); BUN/Creat Ratio 12.6 RATIO (10-20); Calcium,Total 9.2 mg/dL (8.5-10.1); Chloride 111 mmol/L (98-107); Cholesterol 149 mg/dL (200); Creatinine, Serum 1.11 mg/dL (0.70-1.30); EST Glomerular Filtration Rate 72 mL/min (>60); Est Glom Filt Rate - Afr Amer 87 mL/min (>60); Glucose 98 mg/dL (74-106); High Density Lipoprotein 33 mg/dL; PSA,Total - Annual Screen 4.29 ng/mL (0.00-4.00); Potassium 4.1 mmol/L (3.5-5.1); Protein, Total 6.9 g/dL (6.4-8.2); Sodium Level 141 mmol/L (136-145); Triglycerides 159 mg/dL; Very Low Density Lipoprotein 32 mg/dL (5-40)
[2022-05-11 09:38] LABS: Vitamin D,25 Hydroxy 25.8 ng/mL
== END | disposition home or self-care (01) ==
LOC: US 07:00
PROVIDERS: Internal Medicine Cardiovascular Disease; PCP Family Medicine; Referring Provider Family Medicine; Visit Provider Family Medicine
DX: K76.9 Liver disease, unspecified (principal); F17.211 Nicotine dependence, cigarettes, in remission; R40.0 Somnolence; I25.10 Atherosclerotic heart disease of native coronary artery without angina pectoris; Z95.5 Presence of coronary angioplasty implant and graft; F17.299 Nicotine dependence, other tobacco product, with unspecified nicotine-induced disorders; E78.6 Lipoprotein deficiency; E78.1 Pure hyperglyceridemia; R59.0 Localized enlarged lymph nodes; Z12.5 Encounter for screening for malignant neoplasm of prostate
CPT/HCPCS: 36415; 76705; 80053; 80061; 82306; 84153; G0103

== ENCOUNTER → 2022-05-13 | Outpatient (CLI) | payer BC, SELFPAY ==
--- NOTE | 2022-05-13 12:45 | CT_ITS ---
STUDY: LOW DOSE CT LUNG CANCER SCREENING REASON FOR EXAM: Male, 61 years old. H/o tobacco dependency RADIATION DOSAGE (If Supplied By Facility): CTDIvol = ( 2.01 ) mGy, DLP = ( 63.18 ) mGycm TECHNIQUE: No contrast was administered. Low dose technique was utilized (average mAS-38 and kVp 120). 1.25 mm axial source images with a slice interval of 1.25-mm were reconstructed in lung windows. 2.5 mm axial source images with a slice interval of 2.5-mm were reconstructed in lung windows. 5.0 mm axial source images with a slice interval of 5.0-mm were reconstructed in soft tissue windows. COMPARISON: Comparison is made with prior study to 05/18/2021. NODULES: No suspicious nodules are seen. Emphysema: Mild scarring at the lung apices. Endobronchial lesion: None Aorta: Unremarkable CORONARY ARTERIES: Coronary artery calcification is seen. Heart: Unremarkable Pulmonary artery: Unremarkable Mediastinal nodes: Stable small benign-appearing mediastinal lymph nodes. Other chest and abdominal findings: CT/Low Dose CT Lung Screening IMPRESSION: Lung-RADS category 2 - Continue annual screening with LDCT in 12 months. IMPORTANT NOTES FOR USE: ACR Lung-RADS Version 1.1 Assessment Categories Release Date: 2018 Category: Coded 0-4 bases on nodule(s) with highest degree of suspicion. Negative screen is defined as categories 1 and 2; a positive screen is defined as categories 3 and 4. Category 3 and 4A nodules that are unchanged on interval CT should be coded as category 2, and individuals returned to screening in 12 months. Category 4X: Category 3 or 4 nodules with additional imaging findings that increase the suspicion of lung cancer, such as spiculation, GGN that doubles in size in 1 year, enlarged lymph notes, etc. Category Modifiers: S (significant finding unrelated to lung cancer) Electronically Signed: Francesco Washington MD at 14:03 EDT ,
== END | disposition home or self-care (01) ==
LOC: CT 12:43
PROVIDERS: PCP Family Medicine; Referring Provider Internal Medicine Critical Care Medicine; Visit Provider Internal Medicine Critical Care Medicine
DX: Z87.891 Personal history of nicotine dependence (principal)
CPT/HCPCS: 71271

== ENCOUNTER → 2022-11-01 | Outpatient (CLI) | payer BC, SELFPAY ==
--- NOTE | 2022-11-01 15:58 | RAD_ITS ---
STUDY: X-RAY - RIGHT KNEE REASON FOR EXAM: Male, 62 years old. pain TECHNIQUE: 4 view(s) of the knee. COMPARISON: None. FINDINGS: Normal visualized distal femur. Normal visualized proximal tibia and fibula. Normal proximal tibiofibular articulation. Mildly narrowed medial femorotibial compartment. Normal lateral femorotibial compartment. Normal patellofemoral articulation. There is soft tissue calcification cephalad to the upper pole of the patella likely representing calcific tendinitis RAD/Knee 4 or More Views IMPRESSION: Degenerative change. No acute fracture or other significant bony pathology. Electronically Signed: Sylvain Joshua MD at 22:12 EST ,
--- NOTE | 2022-11-01 16:00 | RAD_ITS ---
STUDY: X-RAY - LEFT KNEE REASON FOR EXAM: Male, 62 years old. chronic knee pain TECHNIQUE: 4 view(s) of the knee. COMPARISON: None. FINDINGS: Normal visualized distal femur. Normal visualized proximal tibia and fibula. Normal proximal tibiofibular articulation. Narrowed medial femorotibial compartment. Normal lateral femorotibial compartment. Normal patellofemoral articulation. Mild chondrocalcinosis.. Soft tissue calcification cephalad to the upper pole of the patella possibly calcific tendinitis RAD/Knee 4 or More Views IMPRESSION: Degenerative change. No acute fracture or other significant bony pathology Electronically Signed: Sylvain Joshua MD at 22:13 EST Reading Location ID and State: [address] [place] [address] , Service support ,
== END | disposition home or self-care (01) ==
LOC: MTRAD 15:55
PROVIDERS: PCP Internal Medicine; Referring Provider Internal Medicine; Visit Provider Internal Medicine
DX: M25.561 Pain in right knee (principal); M25.562 Pain in left knee
CPT/HCPCS: 73564

== ENCOUNTER 2022-12-23 08:35 | Day surgery (SDC) | payer BC, SELFPAY ==
--- NOTE | 2022-12-23 08:54 | HP.PCM_ITS ---
History and Physical Date of Admission: 12/23/22 Visit Reasons:?Herina Chief Complaint: hernia Is patient in pain?: No Allergies metoprolol Adverse Reaction (Verified 11/15/22 15:03) dyspneamorphine Adverse Reaction (Verified 11/15/22 15:03) I flat lined because they pushed it too fastnitroglycerin Adverse Reaction (Verified 11/15/22 15:03) severe hypotensionphenobarbital Adverse Reaction (Verified 11/15/22 15:03) made me go crazy Medications cholecalciferol (vitamin D3) 50 mcg (2,000 unit) capsule 4,000 unit PO QHS supplement 08/24/17 [History Confirmed 11/15/22] aspirin 81 mg chewable tablet 81 mg PO DAILY@0800 heart health 01/28/19 [History Confirmed 11/15/22] cyanocobalamin (vitamin B-12) 2,500 mcg tablet 2,500 mcg PO DAILY 10/20/20 [History Confirmed 11/15/22] vitamin B complex 1 ea PO DAILY 10/20/20 [History Confirmed 11/15/22] clopidogrel 75 mg tablet 75 mg PO DAILY #90 tabs 03/03/22 [Rx Confirmed 11/15/22] losartan 25 mg tablet 25 mg PO DAILY #90 tabs 03/03/22 [Rx Confirmed 11/15/22] atorvastatin 40 mg tablet 40 mg PO .EVERY OTHER DAY 10/31/22 [History Confirmed 11/15/22] rabeprazole 20 mg tablet,delayed release 20 mg PO QHS gerd #90 tabs 10/31/22 [Rx Confirmed 11/15/22] PFSH Medical History?(Updated 10/31/22 @ 15:[address] 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 History of cardiac catheterization History of coronary artery stent placement (01/29/19) Hx of arthroscopy of left knee Hx of arthroscopy of right knee S/P laparoscopic cholecystectomy Family History? Mother Heart disease ?? ? PPMFather Cancer ?? ? Prostate Social History?(Updated 10/31/22 @ 15:[address] Della Velazquez MD) household members:? spouse current occupational status:? 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 Current every day smoker tobacco type: e-cigarettes Smokeless tobacco user:? other Electronic Cigarette Use:? with nicotine second hand exposure:? No alcohol intake:? current alcohol intake frequency: holidays/special occasions only substance use type:? does not use do you feel safe at home:? Yes HPI HPI HPI: 62-year-old gentleman is referred by Dr. Kiley Velazquez for surgical c onsultation regarding gastroesophageal reflux disease and a previous history of Judge's esophagus.? Written compromise surgical consult recommendations will return to her.? Her recent notes reflect the following The patient has a long history of GERD, gastritis, Judge's esophagus and a hiatal hernia.? He reports he has had problems with it for around 20 years.? He has been on the rabeprazole for at least 15 years.? He states it does help his symptoms and will notice if he doesn't take it.? He last had an EGD in [address] Fletcher.? He has never seen a interventional radiology technologist.? He did see Dr. Austin previously who recommended a hiatal hernia repair.? He reports he never had it done, but is still interested.? He would like to get re-established with him to discuss it further. Looking back through his medical records on March 08, 2021 patient had an office visit.? This recanted that Dr. Abdiaziz Casillas November 2016 and performed upper endoscopy demonstrating Judge's esophagus without dysplasia.? I had previously assisted him November 2018 with an upper endoscopy suggesting intestinal metaplasia with focal area of indefinite for low-grade dysplasia.? H. pylori was negative.? His history is notable that he has had a previous cholecystectomy. He does have a history of tobacco use.? He has had a history of coronary artery stenting and is on clopidogrel therapy. In addition to his other medications he is on low-dose aspirin therapy and clopidogrel and atorvastatin and losartan and rabeprazole (aciphex). There are records suggesting that on May 14, 2021 the patient had a combined upper and lower endoscopy by Dr. Rochelle Fletcher at the [facility] suggest May 11, 2022 he had a right upper quadrant ultrasound showing fatty infiltration of the liver and a 1.9 x 2.4 x 1.4 cm cyst in the left lobe of the liver On today's visit the patient is complaining mostly that he thinks his reflux symptoms are worsening.? He describes in particular that food is intermittently becoming stuck and he has to try to cough it out.? He states that there is no particular food per se that causes increased trouble.? The patient interestingly has not had a weight loss perhaps some weight gain.? He remains only on the Aciphex.? He complains of some pain in the epigastric area and a burning sensation.? No bright red blood per rectum or melena.? Although he has stopped cigarettes he now is vaping using nicotine. States his most recent upper and lower scope exam was done by Dr. Rochelle Fletcher on June 2021.? He states that he got COVID soon thereafter and did not seek follow-up.? He is unsure as to what was seen at that time. He does have coronary stents.? He is on anticoagulant in the form of clopidogrel.? 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 States he was told that he cleared that.? 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 He can go up a flight of stairs but gets mildly short of breath. When he walks straight line he sometimes complains that he has left posterior thigh tightness.? He states that he has absolutely no calf tightness. ROS General General: Yes fatigue; No weight change, appetite, colon cancer, breast cancer or weakness HEENT HEENT: Yes difficulty swallowing; No eye injury, eye surgery, swollen glands or hoarseness Endo Endocrine: No thyroid disease, diabetes mellitus, thyroid cancer, Hair loss, heat intolerance or cold intolerance Musc Musculoskeletal: Yes arthritis and rheumatoid arthritis; No back problems, gout or joint pain Cardio Cardiovascular: Yes heart disease, heart attack and heart stent; No murmur, pacemaker, atrial fibrillation, high blood pressure, palpitations, shortness of breat with exertion or chest pain Psych Psychiatric: No depression, anxiety or hearing voices Resp Respiratory: No shortness of breath, No sleep apnea, No cough, No COPD, No asthma, No emphysema and No wheezing Gastro Gastrointestinal: Yes abdominal pain, Yes nausea or vomiting, Yes diarrhea, No constipation, No blood in stool, Yes acid reflux, No hemorrhoids, No ulcers, No gallbladder problem and No black,tarry stools Patricio Hematologic: Yes blood thinners, No blood disorders, No bleeding, No anemia and No blood clots Neuro Neurologic: No system reviewed and no additional complaints, except as documented, No as per HPI, No abnormal gait, No abnormal hearing, No abnormal movements, No abnormal speech, No behavioral changes, No burning sensations, No confusion, No convulsions, No disequilibrium, No dizziness, No localized weakness, No frequent falls, No headache(s), No lack of coordination, No loss of vision, No memory loss, No numbness, No other visual disturbances, No radicular pain, No restless legs, No sensory deficit, No syncope, No tingling, No tremor(s), No weakness and No other Exam Const General: cooperative, comfortable and no acute distress Nutritional Appearance: obese [facility] Head: normal to inspection Eyes General: appearance normal, both eyes and all related structures Neck Neck: normal visual inspection Other: Carotids are 3+, no bruits Chest Other: Increased anterior posterior diameter Resp Effort & Inspection: normal respiratory effort Auscultation: clear to auscultation bilaterally Cardio Rate: regular rate Rhythm: regular rhythm GI Other: Soft, nontender, overweight, cannot detect any internal organs, bowel sounds present unremarkable Musc Cervical Spine: normal cervical lordosis Skin General: no rashes or lesions noted Neuro General: patient alert and patient awake Extrem General: no calf tenderness Psych Appearance: grossly normal Assessment and Plan Assessment and Plan (1) Hiatal hernia with GERD and esophagitis: ?Status:?Acute ?Plan: I do recommend to the patient a esophagogastroduodenoscopy with possible biopsy and if esophageal stricturing or Schatzki ring countered then I did describe to the patient hydrostatic dilatation.? We will have him hold his clopidogrel 2 days preprocedure.? He is aware of technique, benefit, risk, alternatives. Pending the outcomes of this investigation then can decide whether we want to pursue esophageal manometry ostensibly to see if the patient would be a candidate for surgical reflux procedure.? The patient is very much aware that we have discussed this in the past with him and he then did not pursue additional follow-up. He has had an opportunity to ask and have questions answered.? We will schedule procedure at his discretion.? I appreciate the opportunity of assisting with the surgical care. Copy: Dr. Kiley Austin M.D., F.A.C.S I have examined the patient and the H&P has been reviewed. There are no clinical changes since date of exam. Mitchell Austin M.D., F.A.C.S.
[2022-12-23] MEDS: Lactated Ringers 1,000 ML 15 ML IV (08:58)
[2022-12-23 08:59] VITALS: BP 141/77; PULSE 56; RESP 18; TEMP 36.6; O2SAT 98; BMI 30.2
--- NOTE | 2022-12-23 09:45 | EGD_PTH ---
PATIENT: KRISHAN JOHNSON Cortney LOC: EN U#:[id number] AGE/SX: 62/M ROOM: RE12/23/[address]: Dr. Mitchell Austin MD : 1960 BED: DIS: 12/23/2022 SPEC #: [id number] RECD: 12/23/22 11:51 STATUS: KRISTY REHubert #: [id number] OLIVIER: 12/23/22 09:[address]: Mitchell Austin DEPT: SURGICAL PATHOLOGY RECD BY: Minnie Foss ENTERED: 12/23/22 13:41 SP TYPE: EGD BIOPSY OT DR: Dr. Della Velazquez MD Tissues: A - Gastric mucous membrane B - Stomach, NOS C - Esophagus, NOS D - Esophagus, NOS Procedures: Special Stain Group II Surgery Specimen Level IV Alcian Blue/PAS (control) HEADER OPERATION: EGD, polypectomy and biopsy ([facility]) PRE-OP DIAGNOSIS: Hiatal hernia with GERD and esophagitis TISSUE SUBMITTED: A ? Antrum for H. pylori and path biopsy, B ? Greater curvature polyp biopsy C ? Distal esophagus biopsy, D ? Mid esophagus biopsy MICROSCOPIC DIAGNOSIS A. Gastric antrum, biopsy: Mild chronic inflammation. See comment. B. Gastric, greater curvature polyp, biopsy: Fundic gland polyp. C. Distal esophagus, biopsy: Gastroesophageal junctional mucosa with mild chronic inflammation. No evidence of goblet cell metaplasia. See comment. D. Mid esophagus, biopsy: No pathologic change. AM:kun 12/26/2022 COMMENT A. The results of immunohistochemistry for Helicobacter pylori will be reported separately ([id number]). C. Alcian blue/PAS stain with matched control supports the above diagnosis. MICROSCOPIC DESCRIPTION Slides are reviewed. GROSS DESCRIPTION A - Received in fixative is one container labeled with the patient's name and designated antrum biopsy. The specimen consists of one irregular fragment of light shelley soft tissue that measures 0.5 x 0.3 x 0.1 cm. The specimen is totally submitted in one cassette. B - Received in fixative is one container labeled with the patient's name and designated greater curvature polyp biopsy. The specimen consists of one irregular fragment of light shelley soft tissue that measures 0.5 x 0.3 x 0.1 cm. The specimen is totally submitted in one cassette. C - Received in fixative is one container labeled with the patient's name and designated distal esophagus biopsy. The specimen consists of multiple irregular fragments of light shelley soft tissue that in aggregate measure 2.0 x 0.5 x 0.1 cm. The specimen is totally submitted in one cassette. D - Received in fixative is one container labeled with the patient's name and designated mid esophagus biopsy. The specimen consists of one irregular fragment of light shelley soft tissue that measures 0.4 x 0.3 x 0.1 cm. The specimen is totally submitted in one cassette. / NANCY:kun 12/23/2022 TC:3 CPT: 11011 x4, 48130
--- NOTE | 2022-12-23 09:45 | IMM_PTH ---
PATIENT: KRISHAN JOHNSON Sr. LOC: EN U#:[id number] AGE/SX: 62/M ROOM: RE12/23/[address]: Dr. Mitchell Austin MD : 1960 BED: DIS: 12/23/2022 SPEC #: [id number] RECD: 12/23/22 14:23 STATUS: KRISTY REQ #: [id number] OLIVIER: 12/23/22 09:[address]: Mitchell Austin DEPT: IMMUNOHISTOCHEMISTRY RECD BY: Val Szymanski ENTERED: 12/23/22 14:25 SP TYPE: IMMUNO OTHR DR: Dr. Della Velazquez MD Tissues: A - Stomach, NOS Procedures: H Pylori (initial) [facility]YSICIAN [facility]STIT[facility] [address] [address] SPECIMEN INFORMATION: Tissue Source: A - Antrum Clinical Info: Hiatal hernia, GERD, esophagitis Specimen Number: [id number] CPT code: 65394 METHODOLOGY: Deparaffinized sections of prefer/formalin-fixed tissue or PAP/DQ stained slides are incubated with monoclonal/polyclonal antibodies/oligonucleotide probes. Localization is made via biotin free immunoperoxidase method. Appropriate controls are performed and reacted as expected. Results on target cell population are indicated in the following table: RESULTS: ANTIBODY / CLONE RESULT Block A H Pylori (polyclonal) negative These tests were developed and their performance characteristics determined by [facility]. They may not have been cleared or approved by the U.S. Food and Drug Administration. The FDA has determined that such clearance or approval is not necessary. The above immunohistochemical/dualISH markers are ordered and reviewed by the Pathologist. INTERPRETATION: A. Antrum, biopsy: Negative for Helicobacter pylori organisms. AM:kun 12/26/2022
--- NOTE | 2022-12-23 10:44 | OP.EGD_ITS ---
Patient Name: Bernard Leon Procedure Date: 12/23/2022 10:19 AM Date of : 1960 Age: 62 Procedure: Upper GI endoscopy Indications: Dysphagia Providers: Mitchell Austin MD Medicines: See the Anesthesia note for documentation of the administered medications Complications: No immediate complications. Procedure: Pre-Anesthesia Assessment: - Prior to the procedure, a History and Physical was performed, and patient medications and allergies were reviewed. The patient's tolerance of previous anesthesia was also reviewed. The risks and benefits of the procedure and the sedation options and risks were discussed with the patient. All questions were answered, and informed consent was obtained. Prior Anticoagulants: The patient has taken no previous anticoagulant or antiplatelet agents. ASA Grade Assessment: II - A patient with mild systemic disease. After reviewing the risks and benefits, the patient was deemed in satisfactory condition to undergo the procedure. After obtaining informed consent, the endoscope was passed under direct vision. Throughout the procedure, the patient's blood pressure, pulse, and oxygen saturations were monitored continuously. The Endoscope was introduced through the mouth, and advanced to the second part of duodenum. The upper GI endoscopy was accomplished without difficulty. The patient tolerated the procedure well. Scope In: 10:27:40 AM Scope Out: 10:37:48 AM Total Procedure Duration Time 0 hours 10 minutes 8 seconds Findings: Esophagitis with no bleeding was found 38 cm from the incisors. Biopsies were taken with a cold forceps for histology. The mid esophagus was normal. Biopsies were taken with a cold forceps for histology. A small hiatal hernia was present. A few sessile polyps with no bleeding and no stigmata of recent bleeding were found on the greater curvature of the stomach. The polyp was removed with a cold biopsy forceps. Resection and retrieval were complete. Diffuse mildly erythematous mucosa without bleeding was found in the gastric antrum. Biopsies were taken with a cold forceps for histology. The examined duodenum was normal. Impression: - Reflux and reflux esophagitis. Rule out Judge's esophagus. Biopsied. - Normal mid esophagus. Biopsied. - Small hiatal hernia. - A few gastric polyps. Resected and retrieved. - Erythematous mucosa in the antrum. Biopsied. - Normal examined duodenum. Recommendation: - Discharge patient to home. - Resume previous diet. - Continue present medications. - Telephone my office for pathology results in 1 week. I did not detect an source for the patient's esophageal dysphagia. Pathology pending. Procedure Code(s): --- Professional --- 06731, Esophagogastroduodenoscopy, flexible, transoral; with biopsy, single or multiple Diagnosis Code(s): --- Professional --- K21.0, Gastro-esophageal reflux disease with esophagitis K44.9, Diaphragmatic hernia without obstruction or gangrene K31.7, Polyp of stomach and duodenum K31.89, Other diseases of stomach and duodenum R13.10, Dysphagia, unspecified CPT copyright 2017 [employer]. All rights reserved. The codes documented in this report are preliminary and upon telephone operator receptionist review may be revised to meet current compliance requirements. Mitchell Austin MD 12/23/2022 10:44:14 AM This report has been signed electronically. Number of Addenda: 0 Note Initiated On: 12/23/2022 10:19 AM
--- NOTE | 2022-12-23 10:44 | OP.CCLET_ITS ---
12/23/2022 Della Velazquez Md Re : Upper GI endoscopy procedure for Bernard Leon Dear Caroline This procedure was performed on Friday, December 23, 2022. My impressions and recommendations are as follows: Impressions : - Reflux and reflux esophagitis. Rule out Judge's esophagus. Biopsied. - Normal mid esophagus. Biopsied. - Small hiatal hernia. - A few gastric polyps. Resected and retrieved. - Erythematous mucosa in the antrum. Biopsied. - Normal examined duodenum. Recommendations : - Discharge patient to home. - Resume previous diet. - Continue present medications. - Telephone my office for pathology results in 1 week. I did not detect an source for the patient's esophageal dysphagia. Pathology pending. My findings are described in the full procedure note, which is enclosed. If I can be of further assistance, please feel free to contact me at Doctor phone number(s): Work: . Sincerely, Mitchell Austin MD 12/23/2022 10:44:14 AM This report has been signed electronically.
[2022-12-23 10:45] VITALS: BP 112/70; BP 141/77; PULSE 55; RESP 16; TEMP 36.2; O2SAT 94
[2022-12-23 10:50] VITALS: BP 118/72; BP 141/77; PULSE 55; RESP 16; O2SAT 94
[2022-12-23 10:55] VITALS: BP 126/67; BP 141/77; PULSE 62; RESP 16; O2SAT 95
[2022-12-23 11:00] VITALS: BP 127/83; BP 141/77; PULSE 60; RESP 16; TEMP 36.7; O2SAT 95
[2022-12-23 11:11] VITALS: BP 141/77
== END 2022-12-23 11:27 | disposition home or self-care (01) ==
LOC: EN 08:36 → AC 08:38
PROVIDERS: PCP Internal Medicine; Referring Provider Internal Medicine; Visit Provider Surgery
PROC: 0DJ08ZZ Inspection of Upper Intestinal Tract, Via Natural or Artificial Opening Endoscopic (ICD-10-PCS; CPT 43235; principal; 2022-12-23 09:40)
DX: K29.50 Unspecified chronic gastritis without bleeding (principal); K44.9 Diaphragmatic hernia without obstruction or gangrene; Z95.5 Presence of coronary angioplasty implant and graft; K31.7 Polyp of stomach and duodenum; K21.00 Gastro-esophageal reflux disease with esophagitis, without bleeding; I25.10 Atherosclerotic heart disease of native coronary artery without angina pectoris; E78.00 Pure hypercholesterolemia, unspecified; Z87.19 Personal history of other diseases of the digestive system; F17.290 Nicotine dependence, other tobacco product, uncomplicated; I10 Essential (primary) hypertension; Z79.899 Other long term (current) drug therapy
CPT/HCPCS: 43239; 88305; 88313; 88342; J7120

== ENCOUNTER → 2023-06-07 | Outpatient (CLI) | payer BC, SELFPAY ==
--- NOTE | 2023-06-07 06:28 | CT_ITS ---
STUDY: LOW DOSE CT LUNG CANCER SCREENING REASON FOR EXAM: Male, 62 years old. 40 pack year smoking history quit 2017 RADIATION DOSAGE (If Supplied By Facility): CTDIvol = ( 4.02 ) mGy, DLP = ( 123.35 ) mGycm TECHNIQUE: No contrast was administered. Low dose technique was utilized (average mAS-38 and kVp 120). 1.25 mm axial source images with a slice interval of 1.25-mm were reconstructed in lung windows with coronal and sagittal reformats. COMPARISON: May 13, 2022, November 03, 2020 NODULES: No suspicious nodules. Parenchyma: Chronic bilateral apical scarring. Calcified granulomas in the left upper lobe and anterior superior segment left lower lobe. Endobronchial lesion: None Aorta: No aortic ectasia CORONARY ARTERIES: Coronary artery calcification Heart: No cardiomegaly or pericardial effusion. Coronary artery disease with multiple left anterior descending stent. Pulmonary artery: No main pulmonary arterial enlargement. Mediastinal nodes: Subcentimeter scattered mediastinal and bilateral hilar lymph nodes with calcified left hilar lymph nodes, not significantly changed from November 03, 2020. Other chest and abdominal findings: Unremarkable thyroid. Unremarkable esophagus. No hiatal hernia. Left hepatic cyst is unchanged. Splenic calcified sequela of prior granulomatous disease. Cholecystectomy. CT/Low Dose CT Lung Screening IMPRESSION: No suspicious pulmonary nodules. Pulmonary and splenic sequela of prior granulomatous disease. Lung-RADS category 2 - Continue annual screening with LDCT in 12 months. IMPORTANT NOTES FOR USE: ACR Lung-RADS Version 1.1 Assessment Categories Release Date: 2018 Category: Coded 0-4 bases on nodule(s) with highest degree of suspicion. Negative screen is defined as categories 1 and 2; a positive screen is defined as categories 3 and 4. Category 3 and 4A nodules that are unchanged on interval CT should be coded as category 2, and individuals returned to screening in 12 months. Category 4X: Category 3 or 4 nodules with additional imaging findings that increase the suspicion of lung cancer, such as spiculation, GGN that doubles in size in 1 year, enlarged lymph notes, etc. Category Modifiers: S (significant finding unrelated to lung cancer) Electronically Signed: Alber Ellison MD at 7:33 EDT ,
[2023-06-07 07:28] LABS: AST(SGOT) 19 U/L (15-37); Alanine Aminotransfer ALT/SGPT 35 U/L (16-61); Albumin, Serum 3.9 g/dL (3.2-5.0); Alkaline Phosphatase 83 U/L (45-117); Bilirubin, Direct 0.15 mg/dL (0.00-0.30); Cholesterol 109 mg/dL (200); Globulin 3.4 g/dL (2.2-4.2); High Density Lipoprotein 33 mg/dL; Protein, Total 7.3 g/dL (6.4-8.2); Triglycerides 160 mg/dL; Very Low Density Lipoprotein 32 mg/dL (5-40)
== END | disposition home or self-care (01) ==
LOC: CT 06:21
PROVIDERS: Nurse Practitioner Gerontology; PCP Internal Medicine; Referring Provider Nurse Practitioner Acute Care; Visit Provider Nurse Practitioner Acute Care
DX: E78.6 Lipoprotein deficiency (principal); E78.1 Pure hyperglyceridemia; I25.10 Atherosclerotic heart disease of native coronary artery without angina pectoris; Z87.891 Personal history of nicotine dependence
CPT/HCPCS: 36415; 71271; 80061; 80076

== ENCOUNTER → 2023-06-27 | Outpatient (CLI) | payer BC, SELFPAY ==
[2023-06-27 17:36] LABS: Absolute Lymphocyte Count 2.87 X10^3/uL (0.83-4.51); Absolute Neutrophil Count 3.5 X10^3/uL (2.0-7.7); Basophil# 0.06 X10^3/uL; Basophil% 0.8 % (0-1); Eosinophils% 4.2 % (0-5); Hematocrit 46.8 % (40-54); Hemoglobin 15.7 g/dL (13.0-16.5); Lymphocyte # 2.87 X10^3/ul (0.83-4.51); Lymphocyte % 39.8 % (19-41); Mean Corp Hgb Conc 33.5 g/dL (32-36); Mean Corpuscular Hgb 29.1 pg (27.0-32.0); Mean Corpuscular Volume 86.8 fL (80-94); Mean Platelet Vol. 10.7 fl (6.2-12.0); Monocyte# 0.46 X10^3/uL; Monocyte% 6.4 % (0-10); NRBC Flagged by Analyzer 0 % (0-5); Neutrophil # 3.52 X10^3/uL (2.7-7.7); Neutrophil % 48.7 % (47-70); Platelet Count 226 K/mm3 (150-450); RBC Distribution Width CV 12.5 % (11.6-14.6); RBC Distribution Width SD 39.5 fl (35.1-43.9); Red Blood Count 5.39 M/mm3 (4.6-6.2); White Blood Count 7.2 K/mm3 (4.4-11.0)
[2023-06-27 18:04] LABS: Vitamin B12 435 pg/mL (211-911); Vitamin D,25 Hydroxy 32.6 ng/mL
[2023-06-27 18:24] LABS: ALB/GLOB Ratio 1.2 RATIO (0.9-2.4); AST(SGOT) 22 U/L (15-37); Alanine Aminotransfer ALT/SGPT 37 U/L (16-61); Albumin, Serum 3.8 g/dL (3.2-5.0); Alkaline Phosphatase 82 U/L (45-117); Anion Gap 7 (5-15); BUN 13 mg/dL (7-18); BUN/Creat Ratio 13.2 RATIO (10-20); Calcium,Total 8.8 mg/dL (8.5-10.1); Chloride 111 mmol/L (98-107); Creatinine, Serum 0.98 mg/dL (0.70-1.30); EST Glomerular Filtration Rate 83 mL/min (>60); Est Glom Filt Rate - Afr Amer 100 mL/min (>60); Ferritin 203 ng/mL (26-388); Globulin 3.3 g/dL (2.2-4.2); Glucose 114 mg/dL (74-106); Iron 97 ug/dL (65-175); PSA,Total - Annual Screen 4.49 ng/mL (0.00-4.00); Potassium 3.6 mmol/L (3.5-5.1); Protein, Total 7.1 g/dL (6.4-8.2); Sodium Level 140 mmol/L (136-145)
== END | disposition home or self-care (01) ==
LOC: BFHLAB 15:20
PROVIDERS: PCP Nurse Practitioner Family; Visit Provider Nurse Practitioner Family
DX: R53.83 Other fatigue (principal); E55.9 Vitamin D deficiency, unspecified; E53.8 Deficiency of other specified B group vitamins; R97.20 Elevated prostate specific antigen [PSA]
CPT/HCPCS: 36415; 80053; 82306; 82607; 82728; 83540; 84153; 84443; 85025; G0103

== ENCOUNTER → 2023-07-21 | Outpatient (CLI) | payer BC, SELFPAY | END | disposition home or self-care (01) | LOC: SL 20:25 | PROVIDERS: PCP Nurse Practitioner Family; Referring Provider Internal Medicine Critical Care Medicine; Visit Provider Internal Medicine Critical Care Medicine | DX: G47.10 Hypersomnia, unspecified (principal) | CPT/HCPCS: 95810 ==

== ENCOUNTER → 2024-05-15 | Outpatient (CLI) | payer BC, SELFPAY ==
[2024-05-15 07:47] LABS: Vitamin D,25 Hydroxy 27.3 ng/mL
[2024-05-15 08:23] LABS: AST(SGOT) 23 U/L (15-37); Alanine Aminotransfer ALT/SGPT 33 U/L (16-61); Albumin, Serum 3.8 g/dL (3.2-5.0); Alkaline Phosphatase 74 U/L (45-117); Anion Gap 6 (5-15); BUN 13 mg/dL (7-18); BUN/Creat Ratio 11.9 RATIO (10-20); Bilirubin, Direct 0.12 mg/dL (0.00-0.30); Calcium,Total 9.2 mg/dL (8.5-10.1); Chloride 107 mmol/L (98-107); Cholesterol 140 mg/dL (200); Creatinine, Serum 1.09 mg/dL (0.70-1.30); EST Glomerular Filtration Rate 73 mL/min (>60); Est Glom Filt Rate - Afr Amer 88 mL/min (>60); Globulin 3.6 g/dL (2.2-4.2); Glucose 104 mg/dL (74-106); High Density Lipoprotein 31 mg/dL; Potassium 4.4 mmol/L (3.5-5.1); Protein, Total 7.4 g/dL (6.4-8.2); Sodium Level 139 mmol/L (136-145); T4 Free Direct 0.94 ng/dL (0.76-1.46); Triglycerides 249 mg/dL; Very Low Density Lipoprotein 50 mg/dL (5-40)
== END | disposition home or self-care (01) ==
PROVIDERS: Internal Medicine Cardiovascular Disease; PCP Nurse Practitioner Family; Referring Provider Nurse Practitioner Family; Visit Provider Nurse Practitioner Family
DX: Z12.5 Encounter for screening for malignant neoplasm of prostate (principal); R53.83 Other fatigue; E55.9 Vitamin D deficiency, unspecified; E78.2 Mixed hyperlipidemia; G47.10 Hypersomnia, unspecified; R40.0 Somnolence; I25.10 Atherosclerotic heart disease of native coronary artery without angina pectoris; E78.6 Lipoprotein deficiency; E78.1 Pure hyperglyceridemia
CPT/HCPCS: 36415; 80048; 80061; 80076; 82306; 84439; 84443

== ENCOUNTER → 2024-06-25 | Outpatient (CLI) | payer BC, SELFPAY ==
--- NOTE | 2024-06-25 13:43 | CT_ITS ---
HISTORY: Lung cancer screening -- and gt;20 pk yr hx;former smoker; asymptomatic. TECHNIQUE: Helically acquired images were obtained of the chest without contrast. A radiation dose optimization technique was used for this scan. 553 images. COMPARISON: 06/07/2023, 05/13/2022. FINDINGS: LARGE AIRWAYS: Patent. LUNGS: Very mild emphysema and chronic biapical scarring. Calcified granuloma along the left upper fissure again seen. No new suspicious pulmonary nodule. PLEURA: No pneumothorax or significant pleural effusion. HEART/PERICARDIUM: Heart within normal limits in size with coronary artery calcification. No pericardial effusion. VESSELS: Thoracic aorta nondilated. MEDIASTINUM/MAKSIM: Small calcified left hilar lymph nodes. UPPER ABDOMEN: Chronic left hepatic cyst. BONES: Mild degenerative change. CT/Low Dose CT Lung Screening IMPRESSION: Lung-RADS category 2: Continue annual screening with low dose CT. Electronically Signed: Deana Dodson MD at 15:15 EDT ,
== END | disposition home or self-care (01) ==
LOC: CT 13:42
PROVIDERS: PCP Nurse Practitioner Family; Referring Provider Nurse Practitioner Family; Visit Provider Nurse Practitioner Family
DX: Z12.2 Encounter for screening for malignant neoplasm of respiratory organs (principal); Z87.891 Personal history of nicotine dependence
CPT/HCPCS: 71271

== ENCOUNTER 2025-04-18 06:58 | Day surgery (SDC) | payer BC, SELFPAY ==
--- NOTE | 2025-04-15 16:39 | PAT.ANESEVAL ---
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 When Was Last Pacemaker Check QUESTION #4 FULL TEXT: You/Your Family Experience fever (hyperthermia) with Anesthesia Last Oral Intake Last Oral intake: Last Oral Intake NPO since Meds taken in AM with sips of water? Meds patient instructed to take am of surgery PONV PONV - communications marketing intern: PONV - communications marketing intern Female No 04/15/25 15:36 HX of Motion Sickness No 04/15/25 15:36 HX of N/V After Surgery No 04/15/25 15:36 Non-Smoker No 04/15/25 15:36 Duration of Surgery greater No 04/15/25 15:36 than 60 minutes Number of Risk Factors PONV Score Height & Weight Height & Weight: Anesthesia: Height & Weight Height 5 ft 11 in 03/25/25 14:56 Respiratory Assessment Respiratory Assessment - communications marketing intern: Respiratory Tract Infection Hx - communications marketing intern Hx Respiratory Tract Infection No 04/15/25 15:36 STOP Sleep Apnea STOP Sleep Apnea - communications marketing intern: STOP Sleep Apnea - communications marketing intern Hx Hypertension Yes: CONTROLLED WITH MED 04/15/25 15:36 Hx Sleep Apnea No 04/15/25 15:36 CPAP No 04/15/25 15:36 BIPAP Do you snore loudly (louder No 04/15/25 15:36 than talking or can be heard Do you often feel tired/ No 04/15/25 15:36 fatigued/ sleepy during daytime? Has anyone observed you stop No 04/15/25 15:36 breathing during sleep? STOP Results Negative 04/15/25 15:36 QUESTION #5 FULL TEXT : Do you snore loudly (louder than talking or can be heard through closed doors)? 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 Specify any problems Hx of Preganancy in last 3 N/A 04/15/25 15:36 Months Nurse Filling Out Transfusion VCHRISTIN 04/15/25 15:36 & Questions: Date: 04/15/25 04/15/25 15:36 Time: 15:37 04/15/25 15:36 Patient unable to answer at this time (ie. confused, unrespo /Reproduction History /Reproductive History - communications marketing intern: /Reproductive Hx- communications marketing intern Hx Now No 04/15/25 15:36 Gestational Age (in weeks): EDC: Hx Hx Para Hx Section SAB No 04/15/25 15:36 [facility] Medical History (Updated 04/15/25 @ 15:36 by Freda Hoffman) Anxiety Excessive bleeding Gastric reflux Vapes nicotine containing substance Former smoker History of edema Cardiology follow-up encounter History of tobacco use Encounter for screening for malignant neoplasm of lung Wears hearing aid History of steroid therapy Arthritis Hypertension Wears dentures Wears glasses Gout High cholesterol Easy bruising Back pain Difficulty swallowing Difficulty chewing History of hiatal hernia Smoker Shortness of breath on exertion History of pain when walking History of echocardiogram History of stress test History of heart attack Unspecified injury of head, initial encounter Laceration without foreign body of scalp, initial encounter 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 GERD with esophagitis Gastritis Barretts esophagus Atherosclerosis of coronary artery of [place] heart without angina pectoris Home Medications ?Medication ?Instructions ?Recorded ?Last Taken ?Type cholecalciferol (vitamin D3) 50 4,000 unit PO QHS supplement 08/24/17 Unknown History mcg (2,000 unit) capsule aspirin 81 mg chewable tablet 81 mg PO DAILY@0800 [facility] 01/28/19 04/12/25 History cyanocobalamin (vitamin B-12) 2,500 mcg PO DAILY 10/20/20 Unknown History 2,500 mcg tablet vitamin B complex 1 ea PO DAILY 10/20/20 Unknown History rabeprazole 20 mg tablet,delayed 20 mg PO QHS gerd #30 tabs 11/24/23 Unknown Rx release clopidogrel 75 mg tablet 75 mg PO DAILY #90 TABLETS 05/17/24 04/12/25 Rx losartan 25 mg tablet 25 mg PO DAILY #90 TABLETS 05/29/24 Unknown Rx ascorbic acid (vitamin C) 500 mg 1 g PO QDAY 07/05/24 Unknown History tablet atorvastatin 40 mg tablet 40 mg PO .EVERY OTHER DAY #45 tabs 11/25/24 Unknown Rx Allergy/AdvReac Type Severity Reaction Status Date / Time metoprolol AdvReac dyspnea Verified 04/15/25 15:26 morphine AdvReac I flat Verified 04/15/25 15:26 lined because they pushed it too fast nitroglycerin AdvReac severe Verified 04/15/25 15:26 hypotension phenobarbital AdvReac made me Verified 04/15/25 15:26 go crazy Family History Mother Heart disease PPM Father Cancer Prostate Surgical History (Updated 04/15/25 @ 15:36 by Freda Hoffman) History of esophagogastroduodenoscopy (EGD) History of cardiac catheterization Hx of arthroscopy of right knee Hx of arthroscopy of left knee History of coronary artery stent placement (01/29/19) S/P laparoscopic cholecystectomy Social History household members: spouse current occupational status: employed 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 Normal exercise myocardial perfusion stress test at a high workload. Preserved ejection fraction Consult pertinent findings: Cardiology note 07/05/2024. Had a previous cardiac cath which showed a proximal high-grade left anterior descending artery lesion as well as some mild left anterior descending arterial lesion. He had a 50% small right coronary artery lesion in the circumflex artery had mild disease. He underwent angioplasty and stenting of the proximal and mid left anterior descending artery successfully his echo had demonstrated preserved ejection fraction. Recommendation Anesthesia Recommendation Anesthesia recommendation: OPTIMIZED for anesthesia
[2025-04-18] VITALS (8 sets, daily range): BP systolic 108–138; BP diastolic 69–81; PULSE 56–76; RESP 16–18; TEMP 36.3–36.8; O2SAT 92–98; BMI 30.4
--- OUTSIDE RECORDS SUMMARY | 2025-04-18 07:01 | XMS RPT_ITS | CCD ---
Author Organization [facility]ini[facility] Care Team Providers Care Well Puller Head Name Role Phone Dr. Ernesto Faust Primary Care Provider Dr. Duane Jiang Attending Provider [phone] Duane Jiang Referring Provider 1([facility])-[phone] Duane Jiang Other Provider Dr. Ernesto Faust Primary Care Provider 1([facility])[phone] Dr. Ernesto Faust Referring Provider 1([facility])[phone] Della Velazquez Attending Provider Dr. Ernesto Faust Primary Care Provider 1([facility])[phone] Dr. Ernesto Faust Referring Provider 1([facility])[phone] Della Velazquez Attending Provider Dr. Della Velazquez Primary Care Provider Dr. Della Velazquez Referring Provider 1([facility])[phone] Dr. Mitchell Austin Attending Provider [phone] Mitchell Austin Other Provider 1([facility])[phone] Ernesto Faust Referring Provider Unavailable Dr. Conrado Fuller Attending Provider Dr. Della Velazquez Primary Care Provider Dr. Ernesto Faust Referring Provider Unavailable Dr. Conrado Fuller Attending Provider Dr. Della Velazquez Primary Care Provider Dr. Duane Jiang Attending Provider 1([facility])[phone] ABEL Cobb Primary Care Provider [phone] Govind DOUGLAS, Ernesto Schultz Primary Care Provider [phone] ERNESTO FAUST Primary Care Unavailable GREG CHAVEZ Referring Unavailable GREG CHAVEZ Attending Unavailable ERNESTO FAUST Primary Care Unavailable OLDER, SWETHA Referring Unavailable GOVIND, ERNESTO SCHULTZ Primary Care Unavailable GOVIND, ERNESTO SCHULTZ Primary Care Unavailable Jordyn MANUGRAPHER-C, Jennifer Primary Care Provider [phone] Jordyn MANUGRAPHER-C, Jennifer Referring Provider [phone] Nel DOUGLAS, Dr. Emmanuel Attending Provider [phone] Cholo Neumann Attending Unavailable Jordyn, Jennifer Referring Unavailable Jordyn, Jennifer Primary Care Unavailable Jordyn, Jennifer Primary Care Unavailable Duane Jiang Consulting Unavailable Jordyn, Jennifer Attending Unavailable Jordyn, Jennifer Referring Unavailable Elver MANUGRAPHERAletha Consulting Unavailable Iraj MANUGRAPHER, Sangeetha Referring Unavailable Jordyn, Jennifer Primary Care Unavailable Iraj MANUGRAPHER, Sangeetha Attending Unavailable Cholo Neumann Attending Unavailable Jordyn, Jennifer Primary Care Unavailable Jordyn, Jennifer Primary Care Unavailable Jordyn, Jennifer Attending Unavailable Jordyn, Jennifer Primary Care Unavailable Iraj MANUGRAPHER, Sangeetha Attending Unavailable Iraj MANUGRAPHER, Sangeetha Referring Unavailable Jordyn, Jennifer Referring Unavailable Jordyn, Jennifer Primary Care Unavailable Smith Chi NP Attending Unavailable JORDYN, JENNIFER Referring Unavailable GOVINDERNESTO Primary Care Unavailable Allergies Allergy Classification Reported Allergen(s) Allergy Type Date of Onset Reaction(s) Facility (10 sources) Metoprolol Drug Allergy 1 dyspnea [facility] (15 sources) Morphine; Translations: [MORPHINE] Drug Allergy 0 I flat lined because they pushed it too fast [facility] (10 sources) Nitroglycerin Drug Allergy 1 severe hypotension [facility] (15 sources) PHENobarbital; Translations: [PHENOBARBITAL] Drug Allergy 0 Mental Status Change [facility] Comment on above: made me go crazy (1 source) Metoprolol Drug Allergy 5 [facility] (1 source) Morphine Drug Allergy 5 [facility] (1 source) Nitroglycerin Drug Allergy 5 [facility] (1 source) PHENobarbital Drug Allergy 5 [facility] Medications Current Medications Medication Drug Class(es) Dates Sig (Normalized) Sig (Original) ascorbic acid 500 mg oral tablet (1 source) Vitamin C Start: 07-05-2024 take 1 g by mouth once daily Ascorbic Acid (Vitamin C) 500 mg tablet Active 1 g PO daily July 05, 2024 12:00am aspirin 81 mg chewable tablet (13 sources) Platelet Aggregation Inhibitor, Nonsteroidal Anti-inflammatory Drug Start: 01-28-2019 take 1 tablet by mouth once daily aspirin 81 mg chewable tablet Take 1 tablet by mouth once daily. 01/28/2019 Active atorvastatin 40 mg oral tablet (20 sources) HMG-CoA Reductase Inhibitor Start: 10-31-2022 End: 11-25-2024 take 1 tablet by mouth every other day Atorvastatin 40 mg tablet Active 40 mg PO .EVERY OTHER DAY 45 3 November 25, 2024 2:06pm Start: 03-19-2020 End: 10-31-2022 take 1 tablet by mouth once daily atorvastatin (LIPITOR) 40 mg tablet Take 40 mg by mouth once daily. 03/29/2021 Active Start: 03-04-2019 End: 03-19-2020 Atorvastatin 80 mg tablet Discontinued 40 mg PO .QOD May 24, 2019 2:05pm March 19, 2020 1:41pm Start: 03-04-2019 End: 03-19-2020 take 40 mg by mouth every other day Atorvastatin Discontinued 40 MG PO .QOD May 24, 2019 1:05pm March 19, 2020 12:41pm Start: 01-30-2019 End: 03-04-2019 take 1 tablet by mouth at bedtime Atorvastatin 80 mg tablet Discontinued 80 mg PO AT BEDTIME 90 3 February 20, 2019 4:49pm March 04, 2019 1:30pm atropine sulfate 0.025 mg / diphenoxylate hydrochloride 2.5 mg oral tablet (3 sources) Anticholinergic, Cholinergic Muscarinic Antagonist, Antidiarrheal Start: 04-28-2022 take 1 tablet by mouth every six hours as needed for diarrhea and diarrhea diphenoxylate-atropine (LOMOTIL) 2.5-0.025 mg per tablet Indications: Diarrhea, unspecified type Take 1 tablet by mouth four times daily as needed for up to 5 days. 20 tablet 04/28/2022 Active cholecalciferol 0.05 mg oral capsule (13 sources) Vitamin D Start: 08-24-2017 take 1 capsule by mouth once daily Cholecalciferol, Vitamin D3, 50 mcg (2,000 unit) cap Take 6,000 Units by mouth once daily. 08/24/2017 Active Start: 08-24-2017 take 2 capsules by m outh at bedtime Cholecalciferol (Vitamin D3) 2,000 UNIT capsule Active 4000 U PO AT BEDTIME August 24, 2017 1:00am supplement Start: 08-24-2017 take 4000 [IU] by mo uth at bedtime Cholecalciferol (Vitamin D3) Active 4000 UNIT PO AT BEDTIME August 24, 2017 12:00am clopidogrel 75 mg oral tablet (20 sources) P2Y12 Platelet Inhibitor Start: 01-30-2019 End: 05-17-2024 take 1 tablet by mouth once daily clopidogrel (PLAVIX) 75 mg tablet Take 75 mg by mouth once daily. 03/01/2021 Active losartan potassium 25 mg oral tablet (20 sources) Angiotensin 2 Receptor Arnav Start: 02-20-2019 End: 05-29-2024 take 1 tablet by mouth once daily losartan (COZAAR) 25 mg tablet Take 25 mg by mouth once daily. 03/01/2021 Active Start: 01-30-2019 End: 02-05-2019 take 1 tablet by mouth once daily Losartan 25 MG tablet Discontinued 25 mg PO DAILY 30 January 30, 2019 12:00am February 05, 2019 3:22pm magnesium sulfate 0.0277 meq/ml / potassium sulfate 0.0374 meq/ml / sodium sulfate 0.257 meq/ml oral solution (3 sources) Start: 05-14-2021 sodium sulfate-potassium sulfate-magnesium sulfate (SUPREP BOWEL PREP KIT) 17.5-3.13-1.6 gram oral liquid Refer to instructions given by your provider. 1 Kit 05/14/2021 Active RABEprazole sodium 20 mg delayed release oral tablet (20 sources) Proton Pump Inhibitor Start: 10-03-2018 End: 11-24-2023 take 1 tablet by mouth at bedtime Rabeprazole 20 mg tablet,delayed release (DR/EC) Active 20 mg PO AT BEDTIME 30 0 November 24, 2023 1:38pm Hiatal hernia with gastroesophageal reflux disease and esophagitis Diaphragmatic hernia without obstruction or gangrene Gastro-esophageal reflux disease with esophagitis, without bleeding gerd Start: 12-05-2016 End: 10-03-2018 take 1 tablet by mouth once daily RABEprazole (ACIPHEX) 20 mg tablet Take 1 tablet by mouth once daily. 30 tablet 4 12/05/2016 Active Vitamin B Complex (9 sources) Start: 10-20-2020 Vitamin B Comp shanice Active 1 EACH PO DAILY October 20, 2020 12:00am Start: 10-20-2020 Vitamin B Comp shanice Active 1 EACH PO DAILY October 20, 2020 1:00am Vitamin B Complex 1 EACH capsule (1 source) Start: 10-20-2020 Vitamin B Comp shanice 1 EACH capsule Active 1 NMA PO DAILY October 20, 2020 1:00am VITAMIN B COMPLEX ORAL (3 sources) Start: 08-24-2017 take 1 tablet by mouth once daily VITAMIN B COMPLEX ORAL Take 1 tablet by mouth once daily. 08/24/2017 Active Start: 08-24-2017 take 1 tablet by carolina th once daily VITAMIN B COMPLEX ORAL Take 1 tablet by mouth once daily. 0 08/24/2017 Active vitamin b12 2.5 mg oral tablet (10 sources) Vitamin B12 Start: 10-20-2020 take 1 tablet by mouth once daily Cyanocobalamin (Vitamin B-12) 2,500 MCG tablet Active 2500 ug PO DAILY October 20, 2020 1:00am Completed/Discontinued Medications Medication Drug Class(es) Dates Sig (Normalized) Sig (Original) metoprolol tartrate 25 mg oral tablet (20 sources) beta-Adrenergic Arnav Start: 01-30-2019 End: 02-20-2019 take 1 tablet by mouth twice daily Metoprolol Tartrate 25 mg tablet Discontinued 25 mg PO TWICE A DAY 180 February 05, 2019 3:22pm February 20, 2019 4:49pm 24 hr nicotine 0.875 mg/hr transdermal system (10 sources) Cholinergic Nicotinic Agonist Start: 01-30-2019 End: 02-05-2019 apply 21 mg transdermal route once daily Nicotine 21 MG patch Discontinued 21 mg TRANSDERM. DAILY 14 January 30, 2019 12:00am February 05, 2019 3:10pm Transition to 14 mg following. ondansetron 8 mg oral tablet (10 sources) Serotonin-3 Receptor Antagonist Start: 10-03-2018 End: 10-15-2018 take 1 tablet by mouth three times daily as needed for nausea Ondansetron Hcl 8 MG tablet Discontinued 8 mg PO THREE TIMES A DAY as needed for Nausea 20 0 October 03, 2018 12:24pm October 15, 2018 3:12pm Problems Active Problems Problem Classification Problem Date Documented Date Episodic/Chronic Abdominal hernia (10 sources) Gastroesophageal reflux disease with hiatal hernia; Translations: [Diaphragmatic hernia without obstruction or gangrene] 10-31-2022 Episodic Administrative/social admission (12 sources) Administrative reason for encounter; Translations: [Encounter for examination for driving license] 10-31-2022 Episodic Anxiety disorders (3 sources) Anxiety; Translations: [Anxiety disorder, unspecified] Onset: 04-07-2014 04-07-2014 Chronic Coma; stupor; and brain damage (10 sources) Daytime somnolence; Translations: [Somnolence] 07-02-2021 Episodic Coronary atherosclerosis and other heart disease (17 sources) Coronary atherosclerosis; Translations: [Atherosclerotic heart disease of [place] coronary artery without angina pectoris] Onset: 04-07-2014 10-31-2022 Chronic Disorders of lipid metabolism (9 sources) Mixed hyperlipidemia; Translations: [Mixed hyperlipidemia] Onset: 04-07-2014 Resolved: 10-18-2016 07-06-2023 Chronic Esophageal disorders (20 sources) Gastro-esophageal reflux disease with esophagitis; Translations: [Gastroesophageal reflux disease with esophagitis] Onset: 03-25-2025 06-21-2021 Chronic Gastritis and duodenitis (10 sources) Gastritis; Translations: [Gastritis, unspecified, without bleeding] 10-31-2022 Episodic Lymphadenitis (12 sources) Mediastinal lymphadenopathy; Translations: [Localized enlarged lymph nodes] 06-21-2021 Episodic Nutritional deficiencies (2 sources) Vitamin D deficiency, unspecified; Translations: [Unspecified vitamin D deficiency] 10-31-2022 Chronic Open wounds of head; neck; and trunk (10 sources) Scalp laceration; Translations: [Laceration without foreign body of scalp, initial encounter] 06-21-2021 Episodic Other injuries and conditions due to external causes (10 sources) Injury of head; Translations: [Unspecified injury of head, initial encounter] 06-21-2021 Episodic Other lower respiratory disease (10 sources) Dyspnea on exertion; Translations: [Other forms of dyspnea] 06-21-2021 Episodic Other non-traumatic joint disorders (5 sources) Pain in right knee; Translations: [Pain in joint, lower leg] Onset: 05-30-2023 10-31-2022 Episodic Other non-traumatic joint disorders (1 source) Pain in left hip; Translations: [Pain in joint, pelvic region and thigh] 12-06-2022 Episodic Other nutritional; endocrine; and metabolic disorders (10 sources) High density lipoprotein deficiency ; Translations: [Lipoprotein deficiency] 02-04-2019 Chronic Kimberly-; endo-; and myocarditis; cardiomyopathy (except that caused by tuberculosis or sexually transmitted disease) (1 source) Secondary aortitis; 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] 10-06-2023 Episodic Peripheral and visceral atherosclerosis (3 sources) Peripheral vascular disease, unspecified; Translations: [Peripheral vascular disease, unspecified] Onset: 04-07-2014 04-07-2014 Chronic Residual codes; unclassified (3 sources) Hypersomnia; Translations: [Hypersomnia, unspecified] 06-27-2023 Chronic Residual codes; unclassified (2 sources) Hypersomnia, unspecified; Translations: [Hypersomnia, unspecified] 06-27-2023 Chronic Residual codes; unclassified (2 sources) Immunization not carried out because of patient refusal; Translations: [Vaccination not carried out because of patient refusal] 10-31-2022 Episodic Residual codes; unclassified (3 sources) Other specified health status; Translations: [Tobacco use disorder] 10-31-2022 Episodic Rheumatoid arthritis and related disease (1 source) Rheumatoid arthritis; Translations: [Rheumatoid arthritis, unspecified] 10-09-2023 Chronic Spondylosis; intervertebral disc disorders; other back problems (1 source) Lumbago with sciatica, unspecified side; Translations: [Lumbago with sciatica, unspecified side] Onset: 04-11-2025 Episodic Substance-related disorders (18 sources) Nicotine dependence; Translations: [Nicotine dependence, unspecified, uncomplicated] 07-02-2021 Chronic Past or Other Problems Problem Classification Problem Date Documented Da te Episodic/Chronic Coronary atherosclerosis and other heart disease (1 source) Presence of coronary angioplasty implant and graft; Translations: [Percutaneous transluminal coronary angioplasty status] Onset: 01-29-2019 07-06-2023 Episodic Malaise and fatigue (13 sources) Fatigue; Translations: [Other fatigue] Onset: 10-18-2016 06-21-2021 Episodic Nonspecific chest pain (13 sources) Chest pain; Translations: [Chest pain, unspecified] Onset: 04-07-2014 02-04-2019 Episodic Other non-traumatic joint disorders (3 sources) Joint pain; Translations: [Pain in joint, other specified sites] Onset: 07-20-2005 07-20-2005 Episodic Other screening for suspected conditions (not mental disorders or infectious disease) (10 sources) Elevated prostate specific antigen [PSA]; Translations: [Elevated prostate specific antigen [PSA]] Onset: 11-24-2016 10-31-2022 Episodic Residual codes; unclassified (3 sources) Tobacco user; Translations: [Tobacco use] Onset: 10-18-2016 10-18-2016 Episodic Residual codes; unclassified (3 sources) Noncompliance with medication regimen; Translations: [Noncompliance with medication regimen] Onset: 10-18-2016 10-18-2016 Episodic Screening and history of mental health and substance abuse codes (2 sources) Tobacco use and exposure - finding; Translations: [Personal history of nicotine dependence] Onset: 07-02-2024 06-25-2024 Episodic Results Test Name Value Interpretation Reference Range Facility Surgery Visit Reporton 03-25 Surgery Visit Report [facility] [address] [place] [address]. [address] [place] [address] OFFICE VISIT Date of Service: 03/25/25 MR#: [id number] Acct: [id number] Name: KRISHAN LEON Sr. Rep #: [id number] : 1960 Provider: Dr. Cholo thurston MD Age/Sex: 64/M Location: [facility] Status: Signed Intake Vital Signs 07/05/24 14:28 03/25/25 14:56 Height 5 ft 11 in 5 ft 11 in Weight: 215 lb 226 lb BMI 29.9 31.5 BP 120/73 118/67 Blood Pressure Location Lt brachial Rt brachial Position Sitting Sitting Respiration 16 17 Pulse 59 L 65 Pulse Source NIBP Monitor Pulse Oximetry (%) 95 Oxygen Delivery Method room air Intake Visit Reasons: BARRETTS/GERD Chief Complaint: barretts/gerd Is patient in pain?: No Allergies metoprolol Adverse Reaction (Verified 03/25/25 14:58) dyspnea morphine Adverse Reaction (Verified 03/25/25 14:58) I flat lined because they pushed it too fast nitroglycerin Adverse Reaction (Verified 03/25/25 14:58) severe hypotension phenobarbital Adverse Reaction (Verified 03/25/25 14:58) made me go crazy Medications ???Medication ???Instructions ???Recorded ???Confirmed ???Type cholecalciferol (vitamin D3) 50 4,000 unit PO QHS supplement 08/2403/25/25 History mcg (2,000 unit) capsule aspirin 81 mg chewable tablet 81 mg PO DAILY@0800 heart health 0 01/28/19 03/25/25 History cyanocobalamin (vitamin B-12) 2,500 mcg PO DAILY 10/20/20 History 2,500 mcg tablet vitamin B complex 1 ea PO DAILY 10/20/20 03/25/25 Hi story rabeprazole 20 mg tablet,delayed 20 mg PO QHS gerd #30 tabs 4 03/25/25 Rx release clopidogrel 75 mg tablet 75 mg PO DAILY #90 TABLETS 4 03/25/25 Rx losartan 25 mg tablet 25 mg PO DAILY #90 TABLETS 4 03/25/25 Rx ascorbic acid (vitamin C) 500 mg 1 g PO QDAY 07/05/24 03/25/25 Hist ory tablet atorvastatin 40 mg tablet 40 mg PO .EVERY OTHER DAY #45 tabs 11/25/24 03/25/25 Rx PFSH Medical History (Updated 03/25/25 @ 15:[address] 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 GERD with esophagitis Gastritis Atherosclerosis of coronary artery of [place] heart without angina pectoris Surgical History History of cardiac catheterization Hx of arthroscopy of right knee Hx of arthroscopy of left knee History of coronary artery stent placement (01/29/19) S/P laparoscopic cholecystectomy Family History Mother Heart disease PPM Father Cancer Prostate Social History household members: spouse current occupational status: employed 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 His last EGD was 3 years ago and he is here for surveillance EGD. He reports that he is also having some difficulty swallowing. ROS General General: Yes weight change; No appetite, fatigue, colon cancer, breast cancer or weakness HEENT HEENT: Yes difficulty swallowing and swollen glands; No eye injury, eye surgery or hoarseness Endo Endocrine: No thyroid disease, diabetes mellitus, thyroid cancer, Hair loss, heat intolerance or cold intolerance Musc Musculoskeletal: Yes arthritis and rheumatoid arthritis; No back problems, gout or joint pain Cardio Cardiovascular: Yes heart disease, heart attack and heart stent; No murmur, pacemaker, atrial fibrillation, high blood pressure, palpitations, shortness of breath with exertion or chest pain Psych Psychiatric: No depression, anxiety or hearing voices Resp Respiratory: No shortness of breath, No sleep apnea, No cough, No COPD, No asthma, No emphysema and No wheezing Gastro Gastrointestinal: No abdominal pain, No n (more content not included)... Normal [facility] Cardiology Visit Reporton Cardiology Visit Report [facility] [address] [place] [address] OFFICE VISIT Date of Service: 07/05/24 MR#: [id number] Acct: [id number] Name: KRISHAN LEON . Rep #: [id number] : 1960 Provider: ABEL wilson Age/Sex: 63/M Location: [facility] Status: Signed HPI [facility] History of Present Illness Details: This is a 63-year-old man who presents to the office today for a cardiovascular follow-up visit. He presented to the emergency room on 01/29/2019 with chest discomfort which was anginal in nature. He underwent a cardiac catheterization which demonstrated a proximal high-grade left anterior descending artery lesion as well as some mid left anterior descending artery lesion. He had a 50% small right coronary artery lesion in the circumflex artery had mild disease. He underwent angioplasty and stenting of the proximal and mid left anterior descending artery successfully. His echocardiogram had demonstrated preserved ejection fraction. He denies chest, arm, jaw, or neck discomfort. He denies palpitations. He denies bilateral lower extremity edema. He denies claudication. He denies shortness of breath with activity, shortness of breath at rest, orthopnea, or PND. He denies chronic cough. He denies significant, sudden weight gain. He states occasional dizziness. He denies lightheadedness, near-syncope, or syncope. He denies blood in urine, blood in stool, or epistaxis. He denies fever with chills. He denies myalgia. He states fatigue that has ongoing since 2019. His exercise level has remained stable. 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: No Accompanied by: Self Is patient in pain?: No Allergies metoprolol Adverse Reaction (Verified 07/05/24 14:45) dyspnea morphine Adverse Reaction (Verified 07/05/24 14:45) I flat lined because they pushed it too fast nitroglycerin Adverse Reaction (Verified 07/05/24 14:45) severe hypotension phenobarbital Adverse Reaction (Verified 07/05/24 14:45) made me go crazy Medications ???Medication ???Instructions ???Recorded ???Confirmed ???Type cholecalciferol (vitamin D3) 50 4,000 unit PO QHS supplement 08/24/17 07/05/24 History mcg (2,000 unit) capsule aspirin 81 mg chewable tablet 81 mg PO DAILY@0800 heart health 01/28/19 07/05/24 History cyanocobalamin (vitamin B-12) 2,500 mcg PO DAILY 10/20/20 07/05/24 History 2,500 mcg tablet vitamin B complex 1 ea PO DAILY 10/20/20 07/05/24 History atorvastatin 40 mg tablet 40 mg PO .EVERY OTHER DAY #45 tabs 11/24/23 07/05/24 Rx rabeprazole 20 mg tablet,delayed 20 mg PO QHS gerd #30 tabs 11/24/23 07/05/24 Rx release clopidogrel 75 mg tablet 75 mg PO DAILY #90 TABLETS 05/17/24 07/05/24 Rx losartan 25 mg tablet 25 mg PO DAILY #90 TABLETS 05/29/24 07/05/24 Rx ascorbic acid (vitamin C) 500 mg 1 g PO QDAY 07/05/24 07/05/24 History tablet Have you fallen in the past year?: No PFSH Medical History 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 Arthritis Atherosclerosis of coronary artery of [place] heart without angina pectoris Back pain Barretts esophagus Difficulty chewing Difficulty swallowing Easy bruising Encounter for screening for malignant neoplasm of lung Gastritis GERD with esophagitis Gout High cholesterol History of echocardiogram History of heart attack History of hiatal hernia History of pain when walking History of steroid therapy History of stress test History of tobacco use Hypertension Laceration without foreign body of scalp, initial encounter Shortness of breath on exertion Smoker Unspecified injury of head, initial encounter Wears dentures Wears glasses Wears hearing aid Surgical History History of cardiac catheterization History of coronary artery stent placement (01/29/19) Hx of arthroscopy of left knee Hx of arthroscopy of right knee S/P laparoscopic cholecystectomy Family History Mother Heart disease PPM Father Cancer Prostate Social History household members: spouse current occupational status: employed 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 Normal [facility] Low Dose CT Lung Screeningon 06-25-[address] Lung Screening [facility] Imaging Services [address] [place] [address] Lung Screening MR#: [id number] Acct: [id number] Name: KRISHAN LEON . Rep #: [id number] : 1960 M 63 From: Deana marie MD PCP: ABEL Rodríguez Status: REG CLI Study: Low Dose CT Lung Screening Date of Exam: 06/25 Exam# [id number] Ordering Dr: Sangeetha Galo NP, NP [id number] HISTORY: Lung cancer screening -- and gt;20 pk yr hx;former smoker; asymptomatic. TECHNIQUE: Helically acquired images were obtained of the chest without contrast. A radiation dose optimization technique was used for this scan. 553 images. COMPARISON: 06/07/2023, 05/13/2022. FINDINGS: LARGE AIRWAYS: Patent. LUNGS: Very mild emphysema and chronic biapical scarring. Calcified granuloma along the left upper fissure again seen. No new suspicious pulmonary nodule. PLEURA: No pneumothorax or significant pleural effusion. HEART/PERICARDIUM: Heart within normal limits in size with coronary artery calcification. No pericardial effusion. VESSELS: Thoracic aorta nondilated. MEDIASTINUM/MAKSIM: Small calcified left hilar lymph nodes. UPPER ABDOMEN: Chronic left hepatic cyst. BONES: Mild degenerative change. CT/Low Dose CT Lung Screening IMPRESSION: Lung-RADS category 2: Continue annual screening with low dose CT. Electronically Signed: Deana Dodson MD at 15:15 EDT , CC: ABEL Cobb; MANUGRAPHER-C Sangeetha Galo Teacher Assistant: Signed Normal [facility] Oncology Visit Reporton 06-11 Oncology Visit Report [facility] [place] [address] OFFICE VISIT Date of Service: 06/25/24 1309 MR#: [id number] Acct: [id number] Name: KRISHAN LEON . Rep #: [id number] : 1960 From: Sangeetha Galo NP MANUGRAPHER -C Age/Sex: 63/M Location: [facility] Status: Signed HPI HPI Reviewed eligibility criteria: 63 year old M with a 70-80 pack year smoking history (2.5-3 ppd x 30 years). Smoking Status: Former smoker (quit 2017) Decision Making Engaged in shared decision making visit utilizing a visual aid. Discussed the risks and benefits of lung cancer screening including the total radiation exposure, false positive rate, over diagnosis and potential need for follow-up diagnostic testing all associated with low-dose chest CT. Comorbidities RA, hyperlipidemia, CAD ROS Const Denies anorexia, Denies fatigue, Denies headache(s), Denies poor appetite and Denies weight loss ENT Denies headache(s) Card Denies chest pain, Reports dyspnea on exertion (steps, running) and Denies palpitations Resp Denies cough, Reports dyspnea on exertion (steps, running), Denies hemoptysis and Denies wheezing GI Reports system reviewed and no additional complaints, except as documented Reports system reviewed and no additional complaints, except as documented Musc Reports system reviewed and no additional complaints, except as documented Skin/Breast Reports system reviewed and no additional complaints, except as documented Neuro Yes system reviewed and no additional complaints, except as documented and No headache(s) Psych Reports system reviewed and no additional complaints, except as documented Endo Reports system reviewed and no additional complaints, except as documented, Denies fatigue and Denies palpitations Patricio/Lymph Reports system reviewed and no additional complaints, except as documented Aller/Immun Denies wheezing Exam Const General: not in acute distress Orientation: alert and oriented x3 HENMT Head: normocephalic and atraumatic Neck Neck: trachea midline, supple and no lymphadenopathy noted Resp Effort Inspection: normal respiratory effort and symmetric chest movement Auscultation: Bilateral: Clear to Auscultation Cardio Rate: regular rate Rhythm: regular rhythm Heart Sounds: S1 normal and S2 normal Psych Affect: normal affect Speech and Movement: speech and movement normal Results Results June 25, [address] Lung Screening COMPARISON: 06/07/2023, 05/13/2022. FINDINGS: LARGE AIRWAYS: Patent. LUNGS: Very mild emphysema and chronic biapical scarring. Calcified granuloma along the left upper fissure again seen. No new suspicious pulmonary nodule. PLEURA: No pneumothorax or significant pleural effusion. HEART/PERICARDIUM: Heart within normal limits in size with coronary artery calcification. No pericardial effusion. VESSELS: Thoracic aorta nondilated. MEDIASTINUM/MAKSIM: Small calcified left hilar lymph nodes. UPPER ABDOMEN: Chronic left hepatic cyst. BONES: Mild degenerative change. IMPRESSION: Lung-RADS category 2: Continue annual screening with low dose CT. Intake Vital Signs 10/06/23 08:41 06/25/24 13:17 Height 5 ft 11 in 5 ft 11 in Weight: 217 lb 221 lb 7 oz BMI 30.2 30.9 BP 127/68 H 112/69 Blood Pressure Location Lt brachial Lt brachial Position Sitting Sitting Respiration 18 18 Pulse 63 54 L Pulse Source Monitor Monitor Temp 97.3 F L 97.9 F Temp Source Temporal Pulse Oximetry (%) 95 96 Oxygen Delivery Method room air room air Intake Visit Reasons: lung cancer screening Is patient in pain?: No Allergies metoprolol Adverse Reaction (Verified 06/25/24 13:16) dyspnea morphine Adverse Reaction (Verified 06/25/24 13:16) I flat lined because they pushed it too fast nitroglycerin Adverse Reaction (Verified 06/25/24 13:16) severe hypotension phenobarbital Adverse Reaction (Verified 06/25/24 13:16) made me go crazy Medications ???Medication ???Instructions ???Recorded ???Confirmed ???Type cholecalciferol (vitamin D3) 50 4,000 unit PO QHS supplement 08/24/17 06/25/24 History mcg (2,000 unit) capsule aspirin 81 mg chewable tablet 81 mg PO DAILY@0800 heart health 01/28/19 06/25/24 History cyanocobalamin (vitamin B-12) 2,500 mcg PO DAILY 10/20/20 06/25/24 History 2,500 mcg tablet vitamin B complex 1 ea PO DAILY 10/20/20 06/25/24 History atorvastatin 40 mg tablet 40 mg PO .EVERY OTHER DAY #45 tabs 11/24/23 06/25/24 Rx rabeprazole 20 mg tablet,delayed 20 mg PO QHS gerd #30 tabs 11/24/23 06/25/24 Rx release clopidogrel 75 mg tablet 75 mg PO DAILY #90 TABLETS 05/17/24 06/25/24 Rx losartan 25 mg tablet 25 mg PO DAILY #90 TABLETS 05/29/24 06/25/24 Rx PFSH Medical History (Updated 06/25/24 @ 13:31 by Sangeetha (more content not included)... Normal [facility] Basic Metabolic Profile (BMP )on 05-15-2024 BUN/CRE 11.9 RATIO Normal - [facility] Comment on above: Order Comment: PT CO EVAN BACK FOR PSA ANNUAL SCREEN-MEDITECH WAS FLAGGING IT TOO SOON TO BE DONE ANGEL-LIVER,LIPID BMP NOBLE-[facility] ORDER FOR ANGEL OTHER TESTS-JORDYN Performed By: #### L 500.3400, L500.2500, L500.4100, L501.9520, L506.1000, L506.0400 #### [facility] [address] [place], [place], [phone] CA,Total 9.2 mg/dL Normal 8.5-10.1 [facility] Comment on above: Order Comment: PT CO EVAN BACK FOR PSA ANNUAL SCREEN-MEDITECH WAS FLAGGING IT TOO SOON TO BE DONE ANGEL-LIVER,LIPID BMP NOBLE-DUP ORDER FOR ANGEL OTHER TESTS-JORDYN Performed By: #### L 500.3400, L500.2500, L500.4100, L501.9520, L506.1000, L506.0400 #### [facility] [address] [place], [address] Chloride [Moles/Vol] 107 mmol/L Normal 98-107 [facility] Comment on above: Order Comment: PT CO EVAN BACK FOR PSA ANNUAL SCREEN-MEDITECH WAS FLAGGING IT TOO SOON TO BE DONE ANGEL-LIVER,LIPID BMP NOBLE-DUP ORDER FOR ANGEL OTHER TESTS-JORDYN Performed By: #### L 500.3400, L500.2500, L500.4100, L501.9520, L506.1000, L506.0400 #### [facility] [address] [place], [address] CO2 [Moles/Vol] 26.0 mmol/L Normal 21.0-32.0 [facility] Comment on above: Order Comment: PT CO EVAN BACK FOR PSA ANNUAL SCREEN-MEDITECH WAS FLAGGING IT TOO SOON TO BE DONE ANGEL-LIVER,LIPID BMP NOBLE-DUP ORDER FOR ANGEL OTHER TESTS-JORDYN Performed By: #### L 500.3400, L500.2500, L500.4100, L501.9520, L506.1000, L506.0400 #### [facility] [address] [place], [address] (397) Creatinine [Mass/Vol] 1.09 mg/dL Normal 0.70-1.30 [facility] Comment on above: Order Comment: PT CO EVAN BACK FOR PSA ANNUAL SCREEN-MEDITECH WAS FLAGGING IT TOO SOON TO BE DONE ANGEL-LIVER,LIPID BMP NOBLE-DUP ORDER FOR ANGEL OTHER TESTS-JORDYN Result Comment: The validity of the calculated GFR GFRAA in patients over 70 years has not been determined. Clinical correlation is essential. Performed By: #### L 500.3400, L500.2500, L500.4100, L501.9520, L506.1000, L506.0400 #### [facility] [address] [place], [place], [phone] (506) EST GFR - AA 88 mL/min Normal >60 [facility] Comment on above: Order Comment: PT CO EVAN BACK FOR PSA ANNUAL SCREEN-MEDITECH WAS FLAGGING IT TOO SOON TO BE DONE ANGEL-LIVER,LIPID BMP NOBLE-DUP ORDER FOR ANGEL OTHER TESTS-JORDYN Result Comment: Afri can Liberian GFR Calc Performed By: #### L 500.3400, L500.2500, L500.4100, L501.9520, L506.1000, L506.0400 #### [facility] [address] [place], [address] GAP 6 Normal 5-15 [facility] Comment on above: Order Comment: PT CO EVAN BACK FOR PSA ANNUAL SCREEN-MEDITECH WAS FLAGGING IT TOO SOON TO BE DONE ANGEL-LIVER,LIPID BMP NOBLE-DUP ORDER FOR ANGEL OTHER TESTS-JORDYN Performed By: #### L 500.3400, L500.2500, L500.4100, L501.9520, L506.1000, L506.0400 #### [facility] [address] [place], [address] GFR/1.73 sq M.predicted among non-blacks MDRD (S/P/Bld) [Vol rate/Area] 73 mL/min/{1.73_m2} Normal >60 [facility] Comment on above: Order Comment: PT CO EVAN BACK FOR PSA ANNUAL SCREEN-MEDITECH WAS FLAGGING IT TOO SOON TO BE DONE ANGEL-LIVER,LIPID BMP NOBLE-DUP ORDER FOR ANGEL OTHER TESTS-JORDYN Result Comment: Non- GFR Calc Performed By: #### L 500.3400, L500.2500, L500.4100, L501.9520, L506.1000, L506.0400 #### [facility] [address] [place], [address] Glucose [Mass/Vol] 104 mg/dL Normal 74-106 [facility] Comment on above: Order Comment: PT CO EVAN BACK FOR PSA ANNUAL SCREEN-MEDITECH WAS FLAGGING IT TOO SOON TO BE DONE ANGEL-LIVER,LIPID BMP NOBLE-DUP ORDER FOR ANGEL OTHER TESTS-JORDYN Result Comment: Fast ing Glucose result from 100 to 125 mg/dL suggests IMPAIRED HOMEOSTASIS per A.D.A. criteria. Performed By: #### L 500.3400, L500.2500, L500.4100, L501.9520, L506.1000, L506.0400 #### [facility] [address] [place], [address] Potassium [Moles/Vol] 4.4 mmol/L Normal 3.5-5.1 [facility] Comment on above: Order Comment: PT CO EVAN BACK FOR PSA ANNUAL SCREEN-MEDITECH WAS FLAGGING IT TOO SOON TO BE DONE ANGEL-LIVER,LIPID BMP NOBLE-DUP ORDER FOR ANGEL OTHER TESTS-JORDYN Performed By: #### L 500.3400, L500.2500, L500.4100, L501.9520, L506.1000, L506.0400 #### [facility] [address] [place], [address] Sodium [Moles/Vol] 139 mmol/L Normal 136-145 [facility] Comment on above: Order Comment: PT CO EVAN BACK FOR PSA ANNUAL SCREEN-MEDITECH WAS FLAGGING IT TOO SOON TO BE DONE ANGEL-LIVER,LIPID BMP NOBLE-DUP ORDER FOR ANGEL OTHER TESTS-JORDYN Performed By: #### L 500.3400, L500.2500, L500.4100, L501.9520, L506.1000, L506.0400 #### [facility] [address] [place], [address] Urea nitrogen [Mass/Vol] 13 mg/dL Normal 7-18 [facility] Comment on above: Order Comment: PT CO EVAN BACK FOR PSA ANNUAL SCREEN-MEDITECH WAS FLAGGING IT TOO SOON TO BE DONE ANGEL-LIVER,LIPID BMP NOBLE-DUP ORDER FOR ANGEL OTHER TESTS-JORDYN Performed By: #### L 500.3400, L500.2500, L500.4100, L501.9520, L506.1000, L506.0400 #### [facility] [address] [place], [address] Lipid Profileon 05-15-2024 Cholesterol [Mass/Vol] 140 mg/dL Normal 200 [facility] Comment on above: Order Comment: PT CO EVAN BACK FOR PSA ANNUAL SCREEN-MEDITECH WAS FLAGGING IT TOO SOON TO BE DONE ANGEL-LIVER,LIPID BMP NOBLE-DUP ORDER FOR ANGEL OTHER TESTS-JORDYN Result Comment: <200 mg/dL Desirable 200-240 mg/dL Borderline >240 mg/dL High Risk Performed By: #### L 500.3400, L500.2500, L500.4100, L501.9520, L506.1000, L506.0400 #### [facility] [address] [place], [address] Cholesterol in HDL [Mass/Vol] 31 mg/dL Low [facility] Comment on above: Order Comment: PT CO EVAN BACK FOR PSA ANNUAL SCREEN-MEDITECH WAS FLAGGING IT TOO SOON TO BE DONE ANGEL-LIVER,LIPID BMP NOBLE-DUP ORDER FOR ANGEL OTHER TESTS-JORDYN Result Comment: The drugs N-Acetylcysteine and Metamizole may falsely depress this assay. Reference Range HDL <40 mg/dL Low HDL Cholesterol HDL >or= 60 mg/dL High HDL Cholesterol Performed By: #### L 500.3400, L500.2500, L500.4100, L501.9520, L506.1000, L506.0400 #### [facility] [address] [place], [address] Cholesterol in LDL [Mass/Vol] 59 mg/dL Normal 0-130 [facility] Comment on above: Order Comment: PT CO EVAN BACK FOR PSA ANNUAL SCREEN-MEDITECH WAS FLAGGING IT TOO SOON TO BE DONE ANGEL-LIVER,LIPID BMP NOBLE-DUP ORDER FOR ANGEL OTHER TESTS-JORDYN Performed By: #### L 500.3400, L500.2500, L500.4100, L501.9520, L506.1000, L506.0400 #### [facility] [address] [place], [address] Cholesterol in VLDL [Mass/Vol] 50 mg/dL High 5-40 [facility] Comment on above: Order Comment: PT CO EVAN BACK FOR PSA ANNUAL SCREEN-MEDITECH WAS FLAGGING IT TOO SOON TO BE DONE ANGEL-LIVER,LIPID BMP NOBLE-DUP ORDER FOR ANGEL OTHER TESTS-JORDYN Performed By: #### L 500.3400, L500.2500, L500.4100, L501.9520, L506.1000, L506.0400 #### [facility] [address] [place], [place], [phone] Triglyceride [Mass/Vol] 249 mg/dL High [facility] Comment on above: Order Comment: PT CO EVAN BACK FOR PSA ANNUAL SCREEN-MEDITECH WAS FLAGGING IT TOO SOON TO BE DONE ANGEL-LIVER,LIPID BMP NOBLE-DUP ORDER FOR ANGEL OTHER TESTS-JORDYN Result Comment: The drugs N-Acetylcysteine and Metamizole may falsely depress this assay. Serum Triglycerides Reference Interval Normal <150 mg/dL Borderline high 150 - 199 mg/dL High 200 - 499 mg/dL Very High > or = 500 mg/dL Performed By: #### L 500.3400, L500.2500, L500.4100, L501.9520, L506.1000, L506.0400 #### [facility] [address] [place], [place], [phone] Liver Profileon 05-15-2024 Albumin [Mass/Vol] 3.8 g/dL Normal 3.2-5.0 [facility] Comment on above: Order Comment: PT CO EVAN BACK FOR PSA ANNUAL SCREEN-MEDITECH WAS FLAGGING IT TOO SOON TO BE DONE ANGEL-LIVER,LIPID BMP NOBLE-DUP ORDER FOR ANGEL OTHER TESTS-JORDYN Performed By: #### L 500.3400, L500.2500, L500.4100, L501.9520, L506.1000, L506.0400 #### [facility] [address] [place], [address] ALK P 74 U/L Normal 45-117 [facility] Comment on above: Order Comment: PT CO EVAN BACK FOR PSA ANNUAL SCREEN-MEDITECH WAS FLAGGING IT TOO SOON TO BE DONE ANGEL-LIVER,LIPID BMP NOBLE-DUP ORDER FOR ANGEL OTHER TESTS-JORDNY Performed By: #### L 500.3400, L500.2500, L500.4100, L501.9520, L506.1000, L506.0400 #### [facility] [address] [place], [address] ALT [Catalytic activity/Vol] 33 U/L Normal 16-61 [facility] Comment on above: Order Comment: PT CO EVAN BACK FOR PSA ANNUAL SCREEN-MEDITECH WAS FLAGGING IT TOO SOON TO BE DONE ANGEL-LIVER,LIPID BMP NOBLE-DUP ORDER FOR ANGEL OTHER TESTS-JORDYN Performed By: #### L 500.3400, L500.2500, L500.4100, L501.9520, L506.1000, L506.0400 #### [facility] [address] [place], [address] AST [Catalytic activity/Vol] 23 U/L Normal 15-37 [facility] Comment on above: Order Comment: PT CO EVAN BACK FOR PSA ANNUAL SCREEN-MEDITECH WAS FLAGGING IT TOO SOON TO BE DONE ANGEL-LIVER,LIPID BMP NOBLE-DUP ORDER FOR ANGEL OTHER TESTS-JORDYN Performed By: #### L 500.3400, L500.2500, L500.4100, L501.9520, L506.1000, L506.0400 #### [facility] [address] [place], [address] Bilirubin [Mass/Vol] 0.50 mg/dL Normal 0.20-1.00 [facility] Comment on above: Order Comment: PT CO EVAN BACK FOR PSA ANNUAL SCREEN-MEDITECH WAS FLAGGING IT TOO SOON TO BE DONE ANGEL-LIVER,LIPID BMP NOBLE-DUP ORDER FOR ANGEL OTHER TESTS-JORDYN Result Comment: For patients on eltrombopag therapy, use of Dimension [place] TBIL is not recommended. Performed By: #### L 500.3400, L500.2500, L500.4100, L501.9520, L506.1000, L506.0400 #### [facility] [address] [place], [address] Bilirubin.direct [Mass/Vol] 0.12 mg/dL Normal 0.00-0.30 [facility] Comment on above: Order Comment: PT CO EVAN BACK FOR PSA ANNUAL SCREEN-MEDITECH WAS FLAGGING IT TOO SOON TO BE DONE ANGEL-LIVER,LIPID BMP NOBLE-DUP ORDER FOR ANGEL OTHER TESTS-JORDYN Performed By: #### L 500.3400, L500.2500, L500.4100, L501.9520, L506.1000, L506.0400 #### [facility] [address] [place], [place], [phone] (959) Globulin (S) [Mass/Vol] 3.6 g/dL Normal 2.2-4.2 [facility] Comment on above: Order Comment: PT CO EVAN BACK FOR PSA ANNUAL SCREEN-MEDITECH WAS FLAGGING IT TOO SOON TO BE DONE ANGEL-LIVER,LIPID BMP NOBLE-DUP ORDER FOR ANGEL OTHER TESTS-JORDYN Performed By: #### L 500.3400, L500.2500, L500.4100, L501.9520, L506.1000, L506.0400 #### [facility] [address] [place], [place], [phone] ([phone]) T PROT 7.4 g/dL Normal 6.4-8.2 [facility] Comment on above: Order Comment: PT CO EVAN BACK FOR PSA ANNUAL SCREEN-MEDITECH WAS FLAGGING IT TOO SOON TO BE DONE ANGEL-LIVER,LIPID BMP NOBLE-DUP ORDER FOR ANGEL OTHER TESTS-JORDYN Performed By: #### L 500.3400, L500.2500, L500.4100, L501.9520, L506.1000, L506.0400 #### [facility] [address] [place], [place], [phone] ([phone]) T4 Free Directon 05-15-2024 T4 FREE DIRECT 0.94 ng/dL Normal 0.76-1.46 [facility] Comment on above: Order Comment: PT CO EVAN BACK FOR PSA ANNUAL SCREEN-MEDITECH WAS FLAGGING IT TOO SOON TO BE DONE ANGEL-LIVER,LIPID BMP NOBLE-DUP ORDER FOR ANGEL OTHER TESTS-JORDYN Performed By: #### L 500.3400, L500.2500, L500.4100, L501.9520, L506.1000, L506.0400 #### [facility] [address] [place], [address] Thyroid Stim Hormone (TSH)on 05-15-2024 TSH 4.690 uIU/mL High 0.358-3.740 [facility] Comment on above: Order Comment: PT CO EVAN BACK FOR PSA ANNUAL SCREEN-MEDITECH WAS FLAGGING IT TOO SOON TO BE DONE ANGEL-LIVER,LIPID BMP NOBLE-DUP ORDER FOR ANGEL OTHER TESTS-JORDYN Performed By: #### L 500.3400, L500.2500, L500.4100, L501.9520, L506.1000, L506.0400 #### [facility] [address] [place], [place], [phone] Vitamin D,25 Hydroxyon 05-15 Vitamin D 25-OH 27.3 ng/mL Normal [facility] Comment on above: Order Comment: PT CO EVAN BACK FOR PSA ANNUAL SCREEN-MEDITECH WAS FLAGGING IT TOO SOON TO BE DONE ANGEL-LIVER,LIPID BMP NOBLE-DUP ORDER FOR ANGEL OTHER TESTS-JORDYN Result Comment: Carmela min D 25(OH) Status Range Deficiency <20 ng/mL (50nmol/L) Insufficiency 20 - 30 ng/mL (50 - 75 nmol/L) Sufficiency 30 - 100 ng/mL (75 - 250 nmol/L) Toxicity >100 ng/mL (>250 nmol/L) Performed By: #### L 500.3400, L500.2500, L500.4100, L501.9520, L506.1000, L506.0400 #### [facility] [address] [place], [place], [id number] CNOVon 01-23-2024 CNOV Office Visit (UROLWS ) -------- KRISHAN LEON ([id number]) 1960 M Date Time Provider Department 01/23/24 3:00 PM GREG CHAVEZ During your visit today, we recorded the following information about you: Blood pressure Weight 108/62 98.9 kg Gurpreet Britton MA 01/23/2024 6:00 PM Signed [facility] PSA results Greg Chavez PA-C 01/23/2024 6:00 PM Signed [facility] NEW PATIENT CLINIC NOTE SERVICE DATE: 01/23/2024 SERVICE TIME: 3:23 PM NAME: Krishan Leon CHIEF COMPLAINT: Elevated PSA HISTORY OF PRESENT ILLNESS: Krishan Leon is a 63 year old male presenting as an New Patient for Elevated PSA The patient reports he has a strong family history of CaP Father and Brothers Reviewed his PSA done a [facility] Lab below, discussed getting IsoPSA to see if prostate biopsy is indicated. LUTS: None LABS: No results found for: TESTOST No results found for: TESTFREE No results found for: PSA Hematocrit (%) Date Value 04/28/2022 53.4 03/18/2018 43.6 02/05/2010 51.0 No results found for: PSA Creatinine Date Value Ref Range Status 04/28/2022 1.12 0.73 - 1.22 mg/dL Final 03/18/2018 1.14 0.67 - 1.17 mg/dL Final 02/05/2010 0.88 0.70 - 1.40 mg/dL Final MEDICATIONS: losartan (COZAAR) 25 mg tablet Take 1 tablet by mouth once daily. clopidogrel (PLAVIX) 75 mg tablet Take 1 tablet by mouth once daily. aspirin 81 mg chewable tablet Take 1 tablet by mouth once daily. atorvastatin (LIPITOR) 40 mg tablet Take 40 mg by mouth once daily. losartan (COZAAR) 25 mg tablet Take 25 mg by mouth once daily. clopidogrel (PLAVIX) 75 mg tablet Take 75 mg by mouth once daily. Cholecalciferol, Vitamin D3, 50 mcg (2,000 unit) cap Take 6,000 Units by mouth once daily. VITAMIN B COMPLEX ORAL Take 1 tablet by mouth once daily. RABEprazole (ACIPHEX) 20 mg tablet Take 1 tablet by mouth once daily. diphenoxylate-atropine (LOMOTIL) 2.5-0.025 mg per tablet Take 1 tablet by mouth four times daily as needed for up to 5 days. sodium sulfate-potassium sulfate-magnesium sulfate (SUPREP BOWEL PREP KIT) 17.5-3.13-1.6 gram oral liquid Refer to instructions given by your provider. (Patient not taking: Reported on 05/30/2023) PAST MEDICAL HISTORY: PAST MEDICAL HISTORY Diagnosis Date Arthritis Judge's esophagus CAD (coronary artery disease) History of transfusion Mixed hyperlipidemia Hyperlipidemia Unspecified essential hypertension Essential hypertension PAST SURGICAL HISTORY: PAST SURGICAL HISTORY Procedure Laterality Date ABDOMINAL SURGERY HX CHOLECYSTECTOMY 2005 Cholecystectomy COLONOSCOPY FLX DX W/COLLJ SPEC WHEN PFRMD 11/24/2016 Colonoscopy COLONOSCOPY FLX DX W/COLLJ SPEC WHEN PFRMD 06/25/2021 ESOPHAGOGASTRODUODENOSCO PY TRANSORAL DIAGNOSTIC 11/24/2016 EGD ESOPHAGOGASTRODUODENOSCO PY TRANSORAL DIAGNOSTIC 06/25/2021 EYE SURGERY HX HERNIA REPAIR HX PAST SURGICAL HISTORY OF eye muscle surgery age 4 and 2000 PAST SURGICAL HISTORY OF lumps removed left arm PROSTATE BIOPSY HX 03/09/2018 SKIN BIOPSY HX FAMILY HISTORY: FAMILY HISTORY Problem Relation Age of Onset Lipids Father Lipids Brother Heart Maternal Grandmother CAD Heart Maternal Grandfather CAD Heart Maternal Uncle CAD Colon Cancer Maternal Uncle Colon Cancer Paternal Uncle SOCIAL HISTORY: Social Connections: Not on file REVIEW OF SYSTEMS: GENERAL: No fever, chills, weight loss, or fatigue. ENMT: Negative CARDIOVASCULAR:NO CHEST PAIN, PALPITATIONS, ANKLE EDEMA RESPIRATORY: No chronic cough, wheezing, dyspnea, hemoptysis. GENITOURINARY: SEE HPI MUSCULOSKELETAL:NO CHRONIC BACK PAIN, ARTHRITIS, CHRONIC NECK PAIN SKIN: NO VARICOSE VEINS, RASH, ABNORMAL ITCHING HEME/LYMPH/IMMUNE:Negati ve for prolonged bleeding, bruising easily or swollen nodes NEUROLOGICAL: NO HEADACHES, NUMBNESS, SEIZURES, STROKE DIABETES: no All other systems reviewed and are negative PHYSICAL EXAMINATION: Blood pressure 108/62, weight 98.9 kg (218 lb). GENERAL: WNL nutrition, no deformities, healthy appearing NEURO: Awake, alert and oriented x 3 and Normal gait PSYCH: No signs of depression, anxiety, or agitation ENMT (Ear, Nose, Mouth, Throat): No masses, adenopathy, icterus. Thyroid nonpalpable RESP: NL effort, no retractions or purse-lip breathing. CV: No extremity swelling, varices, edema, pallor, erythema GASTROINTESTINAL: Soft, nontender, nondistended, no masses. HERNIAS: None SKIN: No rash, lesions No palpable lymphadenopathy MUSCULOSKELETAL: Extremities normal. No deformities, edema, clubbing or skin discoloration. PROBLEM LIST REVIEW: Yes LABS: IMPRESSION/PLAN: 63 year old male with 1. Elevated prostate specific antigen (PSA) - ICD9: 790.93, ICD10: R97.20 > Family Hx of CaP Father , Brothers > Recommend IsoPSA tod (more content not included)... Normal [facility] ISOPSA ASSAY FOR UROLOGY USE ONLYon 01-23-2024 INTERPRETATION Normal [facility] Comment on above: Order Comment: Speci men Type: BLOOD SPECIMEN Ordering Facility: [facility] Address: [address] [place] [address] Result Comment: IsoP SA test was not performed, as the test has not been validated in patients with tPSA <4.0ng/mL. Test Performed by [employer], [employer], [id number] [place] [address] Performed By: #### I SOPSA #### [employer] CLIA [id number] [address] [place] [address] [place] [id number] ISOPSA INDEX [address] [facility] Comment on above: Order Comment: Speci men Type: BLOOD SPECIMEN Ordering Facility: [facility] Address: [address] [place] [address] Performed By: #### I SOPSA #### [employer] CLIA [id number] [address] [place], [place] [address] [address] [place] [id number] TPSA RESULTS 3.[address] [facility] Comment on above: Order Comment: Speci men Type: BLOOD SPECIMEN Ordering Facility: [facility] Address: [address] [place] [address] Performed By: #### I SOPSA #### [employer] CLIA [id number] [address] [place] [id number] Absolute lymphocyte countOrd ered By: Jennifer Cobb on 06-27-2023 Lymphocytes Auto (Unsp spec) [#/Vol] 2.87 10*3/uL 0.83-4.51 [facility] Basophil percentageOrdered B y: Jennifer Jordyn on 06-27-2023 Basophils/100 WBC (Bld) 0.8 % 0-1 [facility] Bilirubin [Mass/Vol] 0.30 mg/dL 0.20-1.00 [facility] Comment on above: For patients on eltr ombopag therapy, use of Dimension [place] TBIL is not recommended. Chloride [Moles/Vol] 111 mmol/L 98-107 [facility] Eosinophils/100 WBC (Bld) 4.2 % 0-5 [facility] Glucose [Mass/Vol] 114 mg/dL 74-106 [facility] Comment on above: Fasting Glucose resu lt from 100 to 125 mg/dL suggests IMPAIRED HOMEOSTASIS per A.D.A. criteria. Neutrophils (Bld) [#/Vol] 3.5 10*3/uL 2.0-7.7 [facility] Neutrophils/100 WBC (Bld) 48.7 % 47-70 [facility] Potassium [Moles/Vol] 3.6 mmol/L 3.5-5.1 [facility] Protein [Mass/Vol] 7.1 g/dL 6.4-8.2 [facility] Sodium [Moles/Vol] 140 mmol/L 136-145 [facility] WBC (Bld) [#/Vol] 7.2 10*3/uL 4.4-11.0 [facility] Blood erythrocytes count (nu mber/volume)Ordered By: Jennifer Cobb on 06-27-2023 RBC (Bld) [#/Vol] 5.39 10*6/uL 4.6-6.2 [facility] Blood hemoglobin measurement (mass/volume)Ordered By: Jennifer Cobb on 06-27-2023 Hemoglobin (Bld) [Mass/Vol] 15.7 g/dL 13.0-16.5 [facility] Blood lymphocytes/100 leukoc ytesOrdered By: Jennifer Cobb on 06-27-2023 Lymphocytes/100 WBC (Bld) 39.8 % 19-41 [facility] Blood monocytes/100 leukocyt esOrdered By: Jenniferisaias Cobb on 06-27-2023 Monocytes/100 WBC (Bld) 6.4 % 0-10 [facility] Blood platelet mean volumeOr dered By: Jenniferisaias Cobb on 06-27-2023 Platelet mean volume (Bld) [Entitic vol] 10.7 fL 6.2-12.0 [facility] Determination of erythrocyte mean corpuscular volume (MCV)Ordered By: Angola Jordyn on 06-27-2023 MCV (RBC) [Entitic vol] 86.8 fL 80-94 [facility] Hematocrit Auto (Bld) [Volum e fraction]Ordered By: [facility] on 06-27-2023 Hematocrit (Bld) [Volume fraction] 46.8 % 40-54 [facility] Iron measurement (mass/mass) Or[facility] on 06-27-2023 Iron (Unsp spec) [Mass/Mass] 97 ug/dL 65-175 [facility] Laboratory - Chemistry and C hemistry - challengeOrdered By: [facility] on 06-27-2023 ALP [Catalytic activity/Vol] 82 U/L 45-117 [facility] ALT [Catalytic activity/Vol] 37 U/L 16-61 [facility] CO2 [Moles/Vol] 22.0 mmol/L 21.0-32.0 [facility] Cobalamin (Vitamin B12) [Mass/Vol] 435 pg/mL 211-911 [facility] Globulin (S) [Mass/Vol] 3.3 g/dL 2.2-4.2 [facility] Urea nitrogen/Creatinine [Mass ratio] 13.2 mg/mg 10-20 [facility] Laboratory - Hematology and Cell countsOrdered By: [facility] on 06-27-2023 Erythrocyte distribution width (RBC) [Entitic vol] 39.5 fL 35.1-43.9 [facility] Erythrocyte distribution width (RBC) [Ratio] 12.5 % 11.6-14.6 [facility] Immature granulocytes/100 WBC (Bld) 0.100 % 0.0-0.9 [facility] Comment on above: IG% - Immature Granu locytes (promyelocytes, myelocytes and metamyelocytes) > 1% indicates that a LEFT SHIFT is Present. MCH (RBC) [Entitic mass] 29.1 pg 27.0-32.0 [facility] Nucleated RBC/100 WBC (Bld) [Ratio] 0 % 0-5 [facility] MCHC Auto (RBC) [Mass/Vol]Or dered By: Jennifer Cobb on 06-27-2023 MCHC (RBC) [Mass/Vol] 33.5 g/dL 32-36 [facility] No Panel InformationOrdered By: Jennifer Cobb on 06-27-2023 Estimated GFR (MDRD) Amer 100 mL/min >60 [facility] Comment on above: GFR Calc Estimated GFR (MDRD) Non-Af Amer 83 mL/min >60 [facility] Comment on above: Non- GFR Calc Prostate Specific Antigen Screen 4.49 ng/mL 0.00-4.00 [facility] Comment on above: This test was perfor med using the TPSA assay method for the[employer] chemistry system. Values obtained with differentassay methods cannot be used interchangably.When changing PSA assays in the course of monitoring apatient, additional sequential testing should be carriedout to confirm baseline values. Thyroid Stimulating Hormone (TSH) 2.60 uIU/mL 0.358-3.74 [facility] Vitamin D 25-Hydroxy 32.6 ng/mL [facility] Comment on above: Vitamin D 25(OH) Sta tus Range Deficiency <20 ng/mL (50nmol/L) Insufficiency 20 - 30 ng/mL (50 - 75 nmol/L) Sufficiency 30 - 100 ng/mL (75 - 250 nmol/L) Toxicity >100 ng/mL (>250 nmol/L) Platelets bldOrdered By: Amina Cobb on 06-27-2023 Platelets (Bld) [#/Vol] 226 10*3/uL 150-450 [facility] Serum or plasma albumin umesh urement (mass/volume)Ordered By: Jennifer Cobb on 06-27-2023 Albumin [Mass/Vol] 3.8 g/dL 3.2-5.0 [facility] Serum or plasma albumin/glob ulin mass ratioOrdered By: Jennifer Cobb on 06-27-2023 Albumin/Globulin [Mass ratio] 1.2 {ratio} 0.9-2.4 [facility] Serum or plasma calcium umesh urement (mass/volume)Ordered By: Jennifer Cobb on 06-27-2023 Calcium [Mass/Vol] 8.8 mg/dL 8.5-10.1 [facility] Serum or plasma creatinine m easurement (mass/volume)Ordered By: Jenniferisaias Cobb on 06-27-2023 Creatinine [Mass/Vol] 0.98 mg/dL 0.70-1.30 [facility] Comment on above: The validity of the calculated GFR & GFRAA in patients over 70 years has not been determined. Clinical correlation is essential. Serum or plasma ferritin domenic surement (mass/volume)Ordered By: Jenniferisaias Cobb on 06-27-2023 Ferritin [Mass/Vol] 203 ng/mL 26-388 [facility] Serum or plasma urea nitroge n measurement (mass/volume)Ordered By: Angola Jordyn on 06-27-2023 Urea nitrogen [Mass/Vol] 13 mg/dL 7-18 [facility] Thin prep Papanicolaou smear with manual screeningOrdered By: Jenniferisaias Cobb on 06-27-2023 Thin prep Papanicolaou smear with manual screening 22 U/L 15-37 [facility] Thin prep Papanicolaou smear with manual screening 7 5-15 [facility] Basophil percentageOrdered B y: Aletha Noble on 06-07-2023 Bilirubin [Mass/Vol] 0.50 mg/dL 0.20-1.00 [facility] Comment on above: For patients on eltr ombopag therapy, use of Dimension [place] TBIL is not recommended. Cholesterol [Mass/Vol] 109 mg/dL <200 [facility] Comment on above: <200 mg/dL Desirable 200-240 mg/dL Borderline >240 mg/dL High Risk Protein [Mass/Vol] 7.3 g/dL 6.4-8.2 [facility] Triglyceride [Mass/Vol] 160 mg/dL <199 [facility] Comment on above: The drugs N-Acetylcy steine and Metamizole may falsely depress this assay.Serum Triglycerides Reference Interval Normal <150 mg/dL Borderline high 150 - 199 mg/dL High 200 - 499 mg/dL Very High > or = 500 mg/dL Direct bilirubinOrdered By: Aletha Noble on 06-07-2023 Bilirubin.direct [Mass/Vol] 0.15 mg/dL 0.00-0.30 [facility] Laboratory - Chemistry and C hemistry - challengeOrdered By: Aletha Noble on 06-07-2023 ALP [Catalytic activity/Vol] 83 U/L 45-117 [facility] ALT [Catalytic activity/Vol] 35 U/L 16-61 [facility] Globulin (S) [Mass/Vol] 3.4 g/dL 2.2-4.2 [facility] Serum or plasma albumin umesh urement (mass/volume)Ordered By: Aletha Noble on 06-07-2023 Albumin [Mass/Vol] 3.9 g/dL 3.2-5.0 [facility] Serum or plasma cholesterol in HDL measurement (mass/volume)Ordered By: Aletha Noble on 06-07-2023 Cholesterol in HDL [Mass/Vol] 33 mg/dL >40 [facility] Comment on above: The drugs N-Acetylcy steine and Metamizole may falsely depress this assay. Reference Range HDL <40 mg/dL Low HDL Cholesterol HDL >or= 60 mg/dL High HDL Cholesterol Serum or plasma cholesterol in VLDL measurement (mass/volume)Ordered By: Aletha Noble on 06-07-2023 Cholesterol in VLDL [Mass/Vol] 32 mg/dL 5-40 [facility] Serum or plasma low density lipoprotein (LDL) cholesterol measurement (mass/volume)Ordered By: Aletha Noble on 06-07-2023 Cholesterol in LDL [Mass/Vol] 44 mg/dL 0-130 [facility] Thin prep Papanicolaou smear with manual screeningOrdered By: Aletha Noble on 06-07-2023 Thin prep Papanicolaou smear with manual screening 19 U/L 15-37 [facility] CNOVon 05-30-2023 CNOV Office Visit ([facility] ) -------- KRISHAN LENO ([id number]) 1960 M Date Time Provider Department 05/30/23 4:30 PM OLDER, SWETHA [facility] During your visit today, we recorded the following information about you: Temperature Pulse Respiration Blood pressure 97.6 degrees 76/minute 16/minute 132/82 Weight 98 kg Amrita, Swetha, KEY CUTTER.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 Patient denies specific injury however had he had been going up and down a ladder all day prior to the onset of pain. Located: medial aspect of the knee. Described as constant ache with intermittent sharp pains Aggravated by: walking, going up stairs, going down stairs, flexing and extending the knee Treatment: occasional Tylenol and ice with no relief of symptoms Swelling, redness or bruising: swelling Popping or clicking with movement: No Locking or feel like is giving-out: sometimes feels like it might give out Interfering with sleep:No Previous injury: No Previous surgery: Yes- Arthroscopy years ago right knee REVIEW OF SYSTEMS See HPI PAST MEDICAL HISTORY Diagnosis Date Arthritis Judge's esophagus CAD (coronary artery disease) History of transfusion Mixed hyperlipidemia Hyperlipidemia Unspecified essential hypertension Essential hypertension PAST SURGICAL HISTORY Procedure Laterality Date ABDOMINAL SURGERY HX CHOLECYSTECTOMY 2005 Cholecystectomy COLONOSCOPY FLX DX W/COLLJ SPEC WHEN PFRMD 11/24/2016 Colonoscopy COLONOSCOPY FLX DX W/COLLJ SPEC WHEN PFRMD 06/25/2021 ESOPHAGOGASTRODUODENOSCO PY TRANSORAL DIAGNOSTIC 11/24/2016 EGD ESOPHAGOGASTRODUODENOSCO PY TRANSORAL DIAGNOSTIC 06/25/2021 EYE SURGERY HX HERNIA REPAIR HX PAST SURGICAL HISTORY OF eye muscle surgery age 4 and 2000 PAST SURGICAL HISTORY OF lumps removed left arm PROSTATE BIOPSY HX 03/09/2018 SKIN BIOPSY HX ALLERGIES Morphine and Phenobarbital MEDICATIONS diphenoxylate-atropine (LOMOTIL) 2.5-0.025 mg per tablet Take 1 tablet by mouth four times daily as needed for up to 5 days. aspirin 81 mg chewable tablet Take 1 tablet by mouth once daily. atorvastatin (LIPITOR) 40 mg tablet Take 40 mg by mouth once daily. losartan (COZAAR) 25 mg tablet Take 25 mg by mouth once daily. clopidogrel (PLAVIX) 75 mg tablet Take 75 mg by mouth once daily. Cholecalciferol, Vitamin D3, 50 mcg (2,000 unit) cap Take 6,000 Units by mouth once daily. VITAMIN B COMPLEX ORAL Take 1 tablet by mouth once daily. RABEprazole (ACIPHEX) 20 mg tablet Take 1 tablet by mouth once daily. sodium sulfate-potassium sulfate-magnesium sulfate (SUPREP BOWEL PREP KIT) 17.5-3.13-1.6 gram oral liquid Refer to instructions given by your provider. (Patient not taking: Reported on 05/30/2023) FAMILY HISTORY Problem Relation Age of Onset Lipids Father Lipids Brother Heart Maternal Grandmother CAD Heart Maternal Grandfather CAD Heart Maternal Uncle CAD Colon Cancer Maternal Uncle Colon Cancer Paternal Uncle Social History Tobacco Use Smoking status: Former Packs/day: .5 Types: Cigarettes Quit date: 01/09/2018 Years since quittin.3 Smokeless tobacco: Never Tobacco comments: Trying to quit - down to half a pack from 3-4 packs Vaping Use Vaping Use: current everyday user Substances: Nicotine, 3mg Devices: [employer] Substance Use Topics Alcohol use: No Drug use: No PHYSICAL EXAM BP 132/82 Pulse 76 Temp 36.4 ?C (97.6 ?F) Resp 16 Wt 98 kg (216 lb) SpO2 97% BMI 30.13 kg/m? General Appearance: well appearing, in no acute distress, alert Musculoskeletal: Right knee- swelling present. Tenderness:medial joint line. Flexion:Limitation: No, Pain:Yes; Extension:Limitation:No, Pain:Yes. Laxity: No Lower extremities: no edema in LE bilaterally, good distal pulses. Muscle strength- 4/5 RLE, 5/5 LLE. No pain with valgus or varus stress ASSESSMENT/PLAN: 1. Acute pain of right knee - ICD9: 719.46, ICD10: M25.561 Possible meniscal tear. Recommend ice, elevation, compression sleeve. Patient on Plavix, unable to take NSAID's. Offered prednisone prescription but he declined. He can try topical Voltaren OTC and Tylenol as needed. - XR KNEE GENERAL 4V AP BOTH/PA BOTH/LAT/MERC RIGHT negative other than small to moderate effusion Follow-up with PCP in 2 weeks if no improvement or sooner if worsening Prescription instructions reviewed with patient as applicable. Potential red flag symptoms discussed with the patient. Reviewed appropriate action plan to take if red flag symptoms occur. Patient agreeable to treatment plan. Swetha Crowe APRN.TAMY OlderSwetha, KEY CUTTER.TAMY 05/30/2023 5:41 PM Addendum Topical NSAID: Voltaren gel Allergies As of Date: 05/30/2023 Noted Allergy Reaction MORPHINE 01/27/2010 Comme (more content not included)... Normal [facility] XR KNEE 4V AP/PA BOTH+LAT/ME R RTon 05-30-2023 XR KNEE 4V AP/PA BOTH+LAT/CALLIE RT * * *Final Report* * * DATE OF EXAM: May 30 2023 5:21PM WOX [id number] - XR KNEE 4V AP/PA BOTH+LAT/CALLIE RT / PROCEDURE REASON: Acute pain of right knee * * * * Physician Interpretation * * * * EXAMINATION: XR KNEE 4V AP/PA BOTH+LAT/CALLIE RT PATIENT/TECHNOLOGIST PROVIDED HISTORY: Medial right knee pain after going up and down a ladder x 2 weeks ago. CLINICAL INFORMATION: 62 years old Male with Acute pain of right knee TECHNIQUE: XR KNEE 4V AP/PA BOTH+LAT/CALLIE RT Laterality: RIGHT Number of different views (projections): 4 COMPARISON: None. RESULT: No fracture. Joint spaces are maintained. Small-moderate joint effusion. Small patellofemoral compartment osteophytes. Images of the LEFT knee demonstrate medial and lateral compartment chondrocalcinosis and small patellofemoral compartment osteophytes. IMPRESSION: No acute osseous abnormality. Small-moderate RIGHT knee joint effusion. Teacher Assistant: APPLE Transcribe Date/Time: May 30 2023 5:35P Dictated by : TERESA LUIS DO This examination was interpreted and the report reviewed and electronically signed by: TERESA LUIS DO on May 30 2023 5:37PM EST [id number] Normal [facility] XR Knee - right 4 Viewson IMPRESSION: No acute osseous abnormality. Small-moderate RIGHT knee joint effusion. Teacher Assistant: APPLE Transcribe Date/Time: May 30 2023 5:35P Dictated by : TERESA LUIS DO This examination was interpreted and the report reviewed and electronically signed by: TERESA LUIS DO on May 30 2023 5:37PM [facility] DIVISION OF RADIOLOGY * * *Final Report* * * DATE OF EXAM: May 30 2023 5:21PM WOX [id number] - XR KNEE 4V AP/PA BOTH+LAT/CALLIE RT / PROCEDURE REASON: Acute pain of right knee * * * * Physician Interpretation * * * * EXAMINATION: XR KNEE 4V AP/PA BOTH+LAT/CALLIE RT PATIENT/TECHNOLOGIST PROVIDED HISTORY: Medial right knee pain after going up and down a ladder x 2 weeks ago. CLINICAL INFORMATION: 62 years old Male with Acute pain of right knee TECHNIQUE: XR KNEE 4V AP/PA BOTH+LAT/CALLIE RT Laterality: RIGHT Number of different views (projections): 4 COMPARISON: None. RESULT: No fracture. Joint spaces are maintained. Small-moderate joint effusion. Small patellofemoral compartment osteophytes. Images of the LEFT knee demonstrate medial and lateral compartment chondrocalcinosis and small patellofemoral compartment osteophytes. DIVISION OF RADIOLOGY Provider, [facility]30/[facility]23 * * *Final Report* * * DATE OF EXAM: May 30 2023 5:21PM WOX [id number] - XR KNEE 4V AP/PA BOTH+LAT/CALLIE RT / PROCEDURE REASON: Acute pain of right knee * * * * Physician Interpretation * * * * EXAMINATION: XR KNEE 4V AP/PA BOTH+LAT/CALLIE RT PATIENT/TECHNOLOGIST PROVIDED HISTORY: Medial right knee pain after going up and down a ladder x 2 weeks ago. CLINICAL INFORMATION: 62 years old Male with Acute pain of right knee TECHNIQUE: XR KNEE 4V AP/PA BOTH+LAT/CALLIE RT Laterality: RIGHT Number of different views (projections): 4 COMPARISON: None. RESULT: No fracture. Joint spaces are maintained. Small-moderate joint effusion. Small patellofemoral compartment osteophytes. Images of the LEFT knee demonstrate medial and lateral compartment chondrocalcinosis and small patellofemoral compartment osteophytes. IMPRESSION IMPRESSION: No acute osseous abnormality. Small-moderate RIGHT knee joint effusion. Teacher Assistant: APPLE Transcribe Date/Time: May 30 2023 5:35P Dictated by : TERESA LUIS DO This examination was interpreted and the report reviewed and electronically signed by: TERESA LUIS DO on May 30 2023 5:37PM EST [facility] Radiology Study observation (narrative) [facility] XR Knee - right 4 ViewsOrder ed By: Ccf Provider on 05-30-2023 [facility] Basophil percentageon 2021 Bilirubin [Mass/Vol] 0.60 mg/dL 0.20-1.00 [facility] Work Phone: Comment on above: For patients on eltr ombopag therapy, use of Dimension [place] TBIL is not recommended. Chloride [Moles/Vol] 111 mmol/L 98-107 [facility] Work Phone: Cholesterol [Mass/Vol] 149 mg/dL <200 [facility] Work Phone: Comment on above: <200 mg/dL Desirable 200-240 mg/dL Borderline >240 mg/dL High Risk Glucose [Mass/Vol] 98 mg/dL 74-106 [facility] Work Phone: Potassium [Moles/Vol] 4.1 mmol/L 3.5-5.1 [facility] Work Phone: Protein [Mass/Vol] 6.9 g/dL 6.4-8.2 [facility] Work Phone: Sodium [Moles/Vol] 141 mmol/L 136-145 [facility] Work Phone: Triglyceride [Mass/Vol] 159 mg/dL <199 [facility] Work Phone: Comment on above: The drugs N-Acetylcy steine and Metamizole may falsely depress this assay.Serum Triglycerides Reference Interval Normal <150 mg/dL Borderline high 150 - 199 mg/dL High 200 - 499 mg/dL Very High > or = 500 mg/dL Laboratory - Chemistry and C hemistry - challengeon 05-11-2022 ALP [Catalytic activity/Vol] 76 U/L 45-117 [facility] Work Phone: ALT [Catalytic activity/Vol] 25 U/L 16-61 [facility] Work Phone: CO2 [Moles/Vol] 26.0 mmol/L 21.0-32.0 [facility] Work Phone: Globulin (S) [Mass/Vol] 3.0 g/dL 2.2-4.2 [facility] Work Phone: [phone] Urea nitrogen/Creatinine [Mass ratio] 12.6 mg/mg 10-20 [facility] Work Phone: No Panel Informationon 05-11 Estimated GFR (MDRD) Amer 87 mL/min >60 [facility] Work Phone: Comment on above: GFR Calc Estimated GFR (MDRD) Non-Af Amer 72 mL/min >60 [facility] Work Phone: Comment on above: Non- GFR Calc Prostate Specific Antigen Screen 4.29 ng/mL 0.00-4.00 [facility] Work Phone: Comment on above: This test was perfor med using the TPSA assay method for [employer] chemistry system. Values obtained with differentassay methods cannot be used interchangably.When changing PSA assays in the course of monitoring apatient, additional sequential testing should be carriedout to confirm baseline values. Vitamin D 25-Hydroxy 25.8 ng/mL [facility] Work Phone: Comment on above: Vitamin D 25(OH) Sta tus Range Deficiency <20 ng/mL (50nmol/L) Insufficiency 20 - 30 ng/mL (50 - 75 nmol/L) Sufficiency 30 - 100 ng/mL (75 - 250 nmol/L) Toxicity >100 ng/mL (>250 nmol/L) Serum or plasma albumin umesh urement (mass/volume)on 05-11-2022 Albumin [Mass/Vol] 3.9 g/dL 3.2-5.0 [facility] Work Phone: [phone] Serum or plasma albumin/glob ulin mass ratioon 05-11-2022 Albumin/Globulin [Mass ratio] 1.3 {ratio} 0.9-2.4 [facility] Work Phone: [phone] Serum or plasma calcium umesh urement (mass/volume)on 05-11-2022 Calcium [Mass/Vol] 9.2 mg/dL 8.5-10.1 [facility] Work Phone: Serum or plasma cholesterol in HDL measurement (mass/volume)on 05-11-2022 Cholesterol in HDL [Mass/Vol] 33 mg/dL >40 [facility] Work Phone: Comment on above: The drugs N-Acetylcy steine and Metamizole may falsely depress this assay. Reference Range HDL <40 mg/dL Low HDL Cholesterol HDL >or= 60 mg/dL High HDL Cholesterol Serum or plasma cholesterol in VLDL measurement (mass/volume)on 05-11-2022 Cholesterol in VLDL [Mass/Vol] 32 mg/dL 5-40 [facility] Work Phone: Serum or plasma creatinine m easurement (mass/volume)on 05-11-2022 Creatinine [Mass/Vol] 1.11 mg/dL 0.70-1.30 [facility] Work Phone: Comment on above: The validity of the calculated GFR & GFRAA in patients over 70 years has not been determined. Clinical correlation is essential. Serum or plasma low density lipoprotein (LDL) cholesterol measurement (mass/volume)on 05-11-2022 Cholesterol in LDL [Mass/Vol] 84 mg/dL 0-130 [facility] Work Phone: Serum or plasma urea nitroge n measurement (mass/volume)on 05-11-2022 Urea nitrogen [Mass/Vol] 14 mg/dL 7-18 [facility] Work Phone: Thin prep Papanicolaou smear with manual screeningon 05-11-2022 Thin prep Papanicolaou smear with manual screening 18 U/L 15-37 [facility] Work Phone: Thin prep Papanicolaou smear with manual screening 4 5-15 [facility] Work Phone: Vital Signs Date Time Vital Sign Value Performing Clinician Liliana chavez 03-25-2025 14:56-0400 Body height 180.34 cm Jennifer WILSONC Work Phone: [facility] [facility] 03-25-2025 14:56-0400 Body mass index (BMI) [Ratio] 31.5 kg/m2 Jennifer Jordyn MANUGRAPHER-C Work Phone: [facility] 03-25-2025 14:56-0400 Body weight 102.51 kg Jennifer Jordyn MANUGRAPHER-C Work Phone: [facility] 03-25-2025 14:56-0400 Diastolic blood pressure 67 mm[Hg] Jennifer Jordyn MANUGRAPHER-C Work Phone: [facility] 03-25-2025 14:56-0400 Heart rate 65 /min Jennifer Jordyn MANUGRAPHER-C Work Phone: [facility] 03-25-2025 14:56-0400 Respiratory rate 17 /min Jennifer Jordyn MANUGRAPHER-C Work Phone: [facility] 03-25-2025 14:56-0400 SaO2% (BldA) [Mass fraction] 95 % Jennifer Jordyn MANUGRAPHER-C Work Phone: [facility] 03-25-2025 14:56-0400 Systolic blood pressure 118 mm[Hg] Jennifer Jordyn MANUGRAPHER-C Work Phone: [facility] 01-23-2024 15:15-0400 Body mass index (BMI) [Ratio] 30.4 kg/m2 Greg Chavez PA-C Work Phone: [facility] 01-23-2024 15:15-0400 Body weight 98.88 kg Greg Chavez PA-C Work Phone: [facility] 01-23-2024 15:15-0400 Diastolic blood pressure 62 mm[Hg] Greg Chavez PA-C Work Phone: [facility] 01-23-2024 15:15-0400 Systolic blood pressure 108 mm[Hg] Greg Chavez PA-C Work Phone: [facility] 07-06-2023 14:58-0400 Body height 180.[address] [facility] [facility] 07-06-2023 14:58-0400 Body mass index (BMI) [Ratio] 30.4 kg/m2 Dr. Orozco [facility] 07-06-2023 14:58-0400 Body weight 99.[address] Ernesto Faust [facility] 07-06-2023 14:58-0400 Diastolic blood pressure 74 mm[Hg] Dr. Ernesto Faust [facility] 07-06-2023 14:58-0400 Heart rate 64 /min Dr. Orozco Govind [facility] 07-06-2023 14:58-0400 Respiratory rate 14 /min Dr. Orozco [facility] 07-06-2023 14:58-0400 Systolic blood pressure 115 mm[Hg] Dr. Ernesto Faust [facility] 06-27-2023 05:28-0400 Body height 180.[address] [facility] [facility] 06-27-2023 05:28-0400 Body mass index (BMI) [Ratio] 30.1 kg/m2 Dr. Orozco [facility] 06-27-2023 05:28-0400 Body temperature 96.3 [facility]degF[facility]-27-[facility]23 05:28-0400 Body weight 97.[address] Ernesto Faust [facility] 06-27-2023 05:28-0400 Diastolic blood pressure 73 mm[Hg] Dr. Ernesto Faust [facility] 06-27-2023 05:28-0400 Heart rate 60 /min Dr. Orozco [facility] 06-27-2023 05:28-0400 Respiratory rate 20 /min Dr. Orozco [facility] 06-27-2023 05:28-0400 SaO2% (BldA) [Mass fraction] 96 % Dr. Orozco [facility] 06-27-2023 05:28-0400 Systolic blood pressure 118 mm[Hg] Dr. Orozco [facility] 12-23-2022 11:00-0400 Body temperature 98.1 [degF] Dr. Ernesto Faust Work Phone: [facility] 12-23-2022 11:00-0400 Diastolic blood pressure 83 mm[Hg] Dr. Ernesto Faust Work Phone: [facility] 12-23-2022 11:00-0400 Heart rate 60 /min Dr. Ernesto Faust Work Phone: [facility] 12-23-2022 11:00-0400 Respiratory rate 16 /min Dr. Ernesto Faust Work Phone: [facility] 12-23-2022 11:00-0400 SaO2% (BldA) [Mass fraction] 95 % Dr. Ernesto Faust Work Phone: [facility] 12-23-2022 11:00-0400 Systolic blood pressure 127 mm[Hg] Dr. Ernesto Faust Work Phone: [facility] 12-23-2022 10:50-0400 Inhaled oxygen flow rate 4 L/min Dr. Ernesto Faust Work Phone: [facility] 12-23-2022 08:59-0400 Body height 180.[address] Ernesto Faust Work Phone: [facility] 12-23-2022 08:59-0400 Body mass index (BMI) [Ratio] 30.2 kg/m2 Dr. Ernesto Faust Work Phone: [facility] 12-23-2022 08:59-0400 Body weight 98.[address] Ernesto Faust Work Phone: [facility] 12-06-2022 16:15-0400 Body mass index (BMI) [Ratio] 31.1 kg/m2 Dr. Ernesto Faust Work Phone: [facility] 12-06-2022 16:15-0400 Body temperature 97.9 [degF] Dr. Ernesto Faust Work Phone: [facility] 12-06-2022 16:15-0400 Body weight 101.[address] Ernesto Faust Work Phone: [facility] 12-06-2022 16:15-0400 Diastolic blood pressure 80 mm[Hg] Dr. Ernesto Faust Work Phone: [facility] 12-06-2022 16:15-0400 Heart rate 66 /min Dr. Ernesto Faust Work Phone: [facility] 12-06-2022 16:15-0400 Respiratory rate 16 /min Dr. Ernesto Faust Work Phone: [facility] 12-06-2022 16:15-0400 SaO2% (BldA) [Mass fraction] 96 % Dr. Ernesto Faust Work Phone: [facility] 12-06-2022 16:15-0400 Systolic blood pressure 110 mm[Hg] Dr. Ernesto Faust Work Phone: [facility] 11-15-2022 15:01-0500 Body mass index (BMI) [Ratio] 31.1 kg/m2 Dr. Ernesto Faust Work Phone: [facility] 11-15-2022 15:01-0500 Body temperature 97.6 [degF] Dr. Ernesto Faust Work Phone: [facility] 11-15-2022 15:01-0500 Body weight 101.[address] Ernesto Faust Work Phone: [facility] 11-15-2022 15:01-0500 Diastolic blood pressure 64 mm[Hg] Dr. Ernesto Faust Work Phone: [facility] 11-15-2022 15:01-0500 Heart rate 61 /min Dr. Ernesto Faust Work Phone: [facility] 11-15-2022 15:01-0500 Respiratory rate 17 /min Dr. Ernesto Faust Work Phone: [facility] 11-15-2022 15:01-0500 SaO2% (BldA) [Mass fraction] 94 % Dr. Ernesto Faust Work Phone: [facility] 11-15-2022 15:01-0500 Systolic blood pressure 117 mm[Hg] Dr. Ernesto Faust Work Phone: [facility] 10-31-2022 14:52-0500 Body height 180.[address] Ernesto Faust Work Phone: [facility] 10-31-2022 14:52-0500 Body mass index (BMI) [Ratio] 30.9 kg/m2 Dr. Ernesto Faust Work Phone: [facility] 10-31-2022 14:52-0500 Body temperature 98.1 [degF] Dr. Ernesto Faust Work Phone: [facility] 10-31-2022 14:52-0500 Body weight 100.[address] Ernesto Faust Work Phone: [facility] 10-31-2022 14:52-0500 Diastolic blood pressure 78 mm[Hg] Dr. Ernesto Faust Work Phone: [facility] 10-31-2022 14:52-0500 Heart rate 76 /min Dr. Ernesto Faust Work Phone: [facility] 10-31-2022 14:52-0500 Respiratory rate 16 /min Dr. Ernesto Faust Work Phone: [facility] 10-31-2022 14:52-0500 SaO2% (BldA) [Mass fraction] 98 % Dr. Ernesto Faust Work Phone: [facility] 10-31-2022 14:52-0500 Systolic blood pressure 112 mm[Hg] Dr. Ernesto Faust Work Phone: [facility] Encounters Encounter Date Encounter Type Care Provider Facility Start: 04-18-2025 ambulatory Cholo Ford lity:[facility] Start: 04-11-2025 ambulatory JENNIFER COBB Facility:[facility] Start: 04-11-2025 End: 04-11-2025 Subsequent hospital visit by physician [facility] Comment on above: Lumbago with sciatic a, unspecified side [M54.40] Start: 03-25-2025 End: 03-25-[address] Cholo Neumann MD -[facility] Work Phone: Start: 03-25-2025 End: 03-25-2025 ambulatory Jennifer Cobb MANUGRAPHER-C Work Phone: -[facility] Start: 07-05-2024 End: 07-05-2024 ambulatory Jennifer Cobb Facility:[facility] Start: 06-28-2024 ambulatory Jennifer Jordyn Facility:[facility] Start: 06-25-2024 End: 06-25-2024 ambulatory Jennifer Jordyn Facility:[facility] Start: 06-25-2024 End: 06-25-2024 ambulatory Sangeetha Galo MANUGRAPHER Facility:[facility] Start: 05-15-2024 End: 05-15-2024 [facility] Start: 01-23-2024 End: 01-24-2024 ambulatory ERNESTO FAUST Facility:[facility] Start: 01-23-2024 End: 01-23-2024 Patient encounter procedure Greg Chavez PA-C Work Phone: Urology Comment on above: Elevated prostate sp ecific antigen (PSA) (Primary Dx) Start: 07-21-2023 End: 07-21-[address] Orozco [facility] Work Phone: Start: 07-21-2023 End: 07-21-[address] Ernesto Faust [facility] Work Phone: Start: 07-06-2023 End: 07-06-[address] Ernesto Faust [facility] Work Phone: Start: 06-27-2023 End: 06-27-[address] Ernesto Faust [facility] Work Phone: Start: 06-27-2023 End: 06-27-[address] Ernesto Faust [facility]-Laboratory, [facility]af[facility] Start: 06-27-2023 End: 06-27-[address] Ernesto Faust [facility] Work Phone: Start: 06-07-2023 End: 06-07-2023 ambulatory [facility] Work Phone: Start: 06-07-2023 End: 06-07-2023 Patient encounter procedure [facility] Work Phone: Start: 05-30-2023 End: 05-30-2023 ambulatory ERNESTO FAUST Facility:[facility] Start: 05-30-2023 End: 05-30-2023 Subsequent hospital visit by physician [facility] Work Phone: Radiology Comment on above: Acute pain of right knee [M25.561] Start: 12-23-2022 Non-patient / Non-visit Dr. Brigido Faust Work Phone: [facility] Start: 12-23-2022 End: 12-23-2022 Admission to same day surgery center Dr. Ernesto Faust Work Phone: [facility]-Endoscopy Start: 12-23-2022 End: 12-23-[address] Ernesto Faust Work Phone: [facility] Work Phone: Start: 12-06-2022 End: 12-06-[address] Ernesto Faust Work Phone: [facility] Start: 11-15-2022 End: 11-15-[address] Ernesto Faust Work Phone: [facility] Start: 11-01-2022 End: 11-01-[address] Ernesto Faust Work Phone: [facility] Work Phone: Start: 11-01-2022 End: 11-01-[address] Ernesto Faust [facility] Start: 10-31-2022 End: 10-31-[address] Ernesto Faust Work Phone: [facility] Start: 05-13-2022 End: 05-13-[address] Ernesto Faust Work Phone: [facility] Work Phone: Start: 05-13-2022 End: 05-13-[address] [facility] Start: 05-11-2022 End: 05-11-[address] Ernesto Faust Work Phone: [facility] Work Phone: Start: 05-11-2022 End: 05-11-[address] Ernesto Faust [facility] Start: 03-28-2022 Non-patient / Non-visit Dr. Brigido Faust Work Phone: [facility] Start: 03-28-2022 End: 03-28-[address] Ernesto Faust Work Phone: [facility]Cardiov[facility]cula [facility] Services Start: 03-15-2022 End: 03-15-2022 [facility] Procedures Date Procedure Procedure Detail Performing Clinician Start: 06-07-2023 CT of chest Start: 05-30-2023 Radiologic exam knee complete 4/more views Swetha Ward APRN.CNP Work Phone: Start: 12-23-[address] Ernesto mccabe Work Phone: Start: 11-01-2022 End: 11-01-2022 Radiologic examination of knee Dr. Ernesto Faust Work Phone: Start: 05-13-[address] Ernesto Faust Work Phone: Start: 05-11-[address] Ernesto mccabe Work Phone: Start: 03-28-2022 Radionuclide imaging of perfusion of myocardium under exercise stress Dr. Ernesto Faust Work Phone: Start: 03-15-2022 X-ray of lumbosacral spine Start: 03-15-2022 Plain x-ray of pelvis and lower extremity Start: 06-25-2021 Colonoscopy Greg Chavez PA-C Work Phone: Start: 01-29-2019 History of placement of stent for coronary artery disease History of coronary artery stent placement Comment on above: QGA-SQI-Enpz LAD w/ 2.5 x 32 mm Promus S ynergy Stent and Mid-Lad w/ 2.5 x 32 mm Promus Synergy Stent 01/29/19 Start: 02-05-2010 Lipid 1996 panel - Serum or Plasma Brand on Alexus GARRETT Work Phone: Plan of Treatment Date Care Activity Detail Author Start: 2037 RSV Vaccine (1 - 1-d ose 75+ series) RSV Vaccine (1 - 1-dose 75+ series) [facility] Start: 06-25-2031 Screening for malign ant neoplasm of colon [facility] Start: 05-12-2025 Influenza vaccination Influenza Vacc ine (#1) [facility] Start: 04-28-2025 Diabetes Screening Diabetes Screenin g [facility] Start: 05-12-2024 Covid-19 Vaccine ( season) Covid-19 Vaccine ( season) [facility] Start: 05-12-2024 Influenza vaccination [facility] Start: 01-23-2024 End: 04-23-2024 ISOPSA ASSAY FOR UROLOGY USE ONLY [facility] Work Phone: Comment on above: Expected: 01/23/2024 (Approximate), Expires: 04/23/2024 Start: 09-11-2023 Behavioral Health Screening Behavioral Health Screening [facility] Start: 05-12-2023 Covid-19 Vaccine ( season) Covid-19 Vaccine ( season) [facility] Start: 12-23-2022 Patient discharge [facility] Start: 10-31-2022 Patient referral [facility] Work Phone: Start: 2022 RSV Vaccine (1 - 1-d ose 60+ series) RSV Vaccine (1 - 1-dose 60+ series) [facility] Start: 2017 Prostate specific an tigen measurement Prostate Cancer Screening Discussion [facility] Start: 02-05-2015 Lipid panel Lipid Screening [facility] Start: 2012 Pneumococcal Vaccine : 50+ (1 of 1 - PCV) Pneumococcal Vaccine: 50+ (1 of 1 - PCV) [facility] Start: 2012 Shingrix Vaccine (1 of 2) Logan grix Vaccine (1 of 2) [facility] Start: 02-05-2011 Hepatitis B surface antibody level LDL Cholesterol [facility] Start: 2007 Prostate specific an tigen measurement Prostate Cancer Screening Discussion [facility] Start: 2007 Screening for malign ant neoplasm of colon [facility] Start: 1981 Urine microalbumin profile DTaP,Tdap,Td Vaccine (1 - Tdap) [facility] Start: 1980 Annual PCP Team Event Representative adamaris Disease Visit Annual PCP Team Chronic Disease Visit [facility] Start: 1980 Depression Screening Depression Scre ening [facility] Start: 1980 Hepatitis C screening Hepatitis C Sc reening [facility] Start: 1980 HIV screening HIV Screening [facility] Blood chemistry [facility] Lipid 1996 panel - S alpesh or Plasma [facility] Patient referral [facility] Work Phone: Polysomnography [facility] Tobacco use cessatio n education [facility] End: 04-11-2025 XR Lumbar spine AP and Lateral and oblique [facility] Comment on above: ONCE for 1 Occurrenc es starting 04/11/2025 until 04/11/2025 [facility] Immunizations Immunization Date Immunization Notes Care Provider Fa gracie 06-28-2017 influenza, injectabl e, quadrivalent, preservative free [facility] 06-28-2017 influenza, seasonal, injectable Dr. Ernesto Faust Work Phone: [facility] 06-28-2017 influenza virus vaccine, unspecified formulation Greg Chavez PA-C Work Phone: [facility] Payers Date Payer Category Payer Self-pay [id number] 2020 [employer] BLUE CARD PPO OOS [id number] 2020 Unknown [id number] 2020 Unknown [id number] Private Health Insurance [id number] Private Health Insurance [id number] Unknown [id number] Unknown [facility] PACKAGE PLAN [id number] Unknown [id number] Unknown [id number] Unknown [id number] Unknown [id number] Unknown [id number] Unknown [id number] Unknown [id number] Social History Date Type Detail Facility Start: 07-02-2021 End: 07-06-2023 Tobacco smoking status CAIS Unknown if ever smoked [facility] Start: 01-29-2019 None [facility] Start: 01-29-2019 Spouse/ Signif icant Other [facility] Start: 10-20-2020 Vapor [facility] Start: 1960 Sex Assigned At Male W [facility] Start: 05-30-2023 End: 06-25-2024 Tobacco smoking status NHIS Ex-smoker [facility] End: 01-09-2018 History of tobacco use Current smoker [facility] End: 01-09-2018 History of tobacco use Cigarette Smoker [facility] Start: 05-30-2023 End: 01-23-2024 Cigarettes smoked current (pack per day) - Reported 0.5 [facility] Start: 05-30-2023 Tobacco use and exposure Smokeless tobacco non-user [facility] Start: 05-30-2023 End: 01-23-2024 Alcohol intake Current non-drinker of alcohol (finding) [facility] Start: 2022 End: 01-23-2024 Tobacco use panel [facility] National Score (1-10 0), lower number is lower risk 73 [facility] Start: 05-30-2023 Tobacco Comment Trying to quit - down to half a pack from 3-4 packs [facility] Start: 1960 Sex Assigned At Not on file [facility] Goals Date Patient Goal Desired Activity /State Functional Status Date Assessment Result Facility 04-07-2014 Are you deaf, or do you have serious difficulty hearing No 04/07/2014 8:12 AM EDT Jennifer Braun MA No [facility] 04-07-2014 Are you blind, or do you have serious difficulty seeing, even when wearing glasses No 04/07/2014 8:12 AM EDT Jennifer Braun MA No [facility] 04-07-2014 Do you have serious difficulty walking or climbing stairs No 04/07/2014 8:12 AM EDT Jennifer Braun MA No [facility] 04-07-2014 Do you have difficul ty dressing or bathing No 04/07/2014 8:12 AM EDT Jennifer Braun MA No [facility] 04-07-2014 Because of a physica l, mental, or emotional condition, do you have difficulty doing errands alone such as visiting a physician's office or shopping No 04/07/2014 8:12 AM EDT Jennifer Braun MA [facility] Mental Status Date Assessment Result Facility 12-23-2022 Cognitive function Voice/Name [facility] Work Phone: 04-07-2014 Because of a physica l, mental, or emotional condition, do you have serious difficulty concentrating, remembering, or making decisions No 04/07/2014 8:12 AM EDT Jennifer Braun MA [facility] Clinical Notes 12-23-2022 to 04-11-[address] - 04/11/2025 2:00 PM EDT Note Date & Type Note Facility 04-11-2025 History of Present illness Narrative Radiology Service Progress Note PATIENT NAME: Krishan Leon DATE OF SERVICE: April 11, 2025 TIME: 2:47 PM PATIENT IDENTITY VERIFICATION COMPLETED USING TWO (2) IDENTIFIERS: Name and Date of confirmed by patient verbally. FALL SCREENING: Has the patient had 2 falls in the last year or 1 fall with injury or currently using an Ambulatory Assistive Device (Walker, Cane, Wheelchair, Crutches, etc.)? No PATIENT GENDER DATA: Assigned male at PATIENT RELEVANT IMPLANT DATA REVIEWED: Not Applicable PATIENT PRESENTS WITH AN IMPLANTABLE OR ATTACHED ALL SOURCE ANALYST: No RADIOLOGY DEPARTMENT: General X-ray: Exam(s) Completed: Spine X-Ray(s): Lumbar AP / LAT / L5-S1 / OBL PERIPHERAL IV DATA: Not applicable SIGNED BY: JESSICA Lopes April 11, 2025 2:47 PM documented in this encounter [facility] 04-11-2025 Note HNO ID: [id number] Author: MARISABEL MCCORD CT Service: ? Author Type: Technologist Type: Progress Notes Filed: 04/11/2025 14:47 Note Text: Radiology Service Progress Note PATIENT NAME: Krishan Leon DATE OF SERVICE: April 11, 2025 TIME: 2:47 PM PATIENT IDENTITY VERIFICATION COMPLETED USING TWO (2) IDENTIFIERS: Name and Date of confirmed by patient verbally. FALL SCREENING: Has the patient had 2 falls in the last year or 1 fall with injury or currently using an Ambulatory Assistive Device (Walker, Cane, Wheelchair, Crutches, etc.)? No PATIENT GENDER DATA: Assigned male at PATIENT RELEVANT IMPLANT DATA REVIEWED: Not Applicable PATIENT PRESENTS WITH AN IMPLANTABLE OR ATTACHED ALL SOURCE ANALYST: No RADIOLOGY DEPARTMENT: General X-ray: Exam(s) Completed: Spine X-Ray(s): Lumbar AP / LAT / L5-S1 / OBL PERIPHERAL IV DATA: Not applicable SIGNED BY: JESSICA Lopes April 11, 2025 2:47 PM [facility] 03-25-2025 Progress note [facility] 03-25-2025 Progress note Note Date/Time March 25, 2025 3:05pm [facility] [address] [place] [address]. [address] [place] [address] OFFICE VISIT Date of Service: 03/25/25 MR#: [id number] Acct: [id number] Name: KRISHAN LEON MARS . Rep # : [id number] : 1960 Provider: Dr. Amy Neumann MD Age/Sex: 64/M Location: [facility] Status: Signed Intake Vital Signs 07/05/24 14:28 03/25/25 14:56 Height 5 ft 11 in 5 ft 11 in Weight: 215 lb 226 lb BMI 29.9 31.5 BP 120/73 118/67 Blood Pressure Location Lt brachial Rt brachial Position Sitting Sitting Respiration 16 17 Pulse 59 L 65 Pulse Source NIBP Monitor Pulse Oximetry (%) 95 Oxygen Delivery Method room air Intake Visit Reasons: BARRETTS/GERD Chief Complaint: barretts/gerd Is patient in pain?: No Allergies metoprolol Adverse Reaction (Verified 03/25/25 14:58) dyspnea morphine Adverse Reaction (Verified 03/25/25 14:58) I flat lined because they pushed it too fast nitroglycerin Adverse Reaction (Verified 03/25/25 14:58) severe hypotension phenobarbital Adverse Reaction (Verified 03/25/25 14:58) made me go crazy Medications 3 ?Medication ?Instructions ?Recorded ?Confirmed ?Type cholecalciferol (vitamin D3) 50 4,000 unit PO QHS supp lement 08/24/17 03/25/25 History mcg (2,000 unit) capsule aspirin 81 mg chewable tablet 81 mg PO DAILY@0800 [facility] 01/28/19 03/25/25 History cyanocobalamin (vitamin B-12) 2,500 mcg PO DAILY 10/2003/25/25 History 2,500 mcg tablet vitamin B complex 1 ea PO DAILY 10/20/2003/25 History rabeprazole 20 mg tablet,delayed 20 mg PO QHS gerd #30 tabs 11/24/23 03/25/25 Rx release clopidogrel 75 mg tablet 75 mg PO DAILY #90 TABLETS 0 05/17/24 03/25/25 Rx losartan 25 mg tablet 25 mg PO DAILY #90 TABLETS 0 05/29/24 03/25/25 Rx ascorbic acid (vitamin C) 500 mg 1 g PO QDAY 07/05/24 03/25/25 History tablet atorvastatin 40 mg tablet 40 mg PO .EVERY OTHER DAY #4 5 tabs 11/25/24 03/25/25 Rx PFSH Medical History (Updated 03/25/25 @ 15:[address] 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 GERD with esophagitis Gastritis Atherosclerosis of coronary artery of [place] heart without angina pectoris Surgical History History of cardiac catheterization Hx of arthroscopy of right knee Hx of arthroscopy of left knee History of coronary artery stent placement (01/29/19) S/P laparoscopic cholecystectomy Family History Mother Heart disease PPM Father Cancer Prostate Social History household members: spouse current occupational status: employed 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 His last EGD was 3 years ago and he is here for surveillance EGD. He reports that he is also having some difficulty swallowing. ROS General General: Yes weight change; No appetite, fatigue, colon cancer, breast cancer or weakness HEENT HEENT: Yes difficulty swallowing and swollen glands; No eye injury, eye surgery or hoarseness Endo Endocrine: No thyroid disease, diabetes mellitus, thyroid cancer, Hair loss, heat intolerance or cold intolerance Musc Musculoskeletal: Yes arthritis and rheumatoid arthritis; No back problems, gout or joint pain Cardio Cardiovascular: Yes heart disease, heart attack and heart stent; No murmur, pacemaker, atrial fibrillation, high blood pressure, palpitations, shortness of breath with exertion or chest pain Psych Psychiatric: No depression, anxiety or hearing voices Resp Respiratory: No shortness of breath, No sleep apnea, No cough, No COPD, No asthma, No emphysema and No wheezing Gastro Gastrointestinal: No abdominal pain, No nausea or vomiting, Yes diarrhea, No constipation, No blood in stool, Yes acid reflux, No hemorrhoids, No ulcers, No gallbladder problem and No black,tarry stools Patricio Hematologic: Yes blood thinners, No blood disorders, No bleeding, No anemia and No blood clots Neuro Neurologic: No system reviewed and no additional complaints, except as documented, No as per HPI, No abnormal gait, No abnormal hearing, No abnormal movements, No abnormal speech, No behavioral changes, No burning sensations, No confusion, No convulsions, No disequilibrium, No dizziness, No localized weakness, No frequent falls, No headache(s), No lack of coordination, No loss ofvision, No memory loss, No numbness, No other visual disturbances, No radicular pain, No restless legs, No sensory deficit, No syncope, No tingling, No tremor(s), No weakness and No other Exam Const General: cooperative Orientation: alert and oriented x3 HENMT Head: normal to inspection Neck Neck: normal visual inspection and full ROM Chest Chest palpation & inspection: normal inspection of the chest Resp Effort & Inspection: normal respiratory effort Auscultation: clear to auscultation bilaterally Cardio Rate: regular rate Rhythm: regular rhythm GI Inspection: non-distended Palpation: soft and nontender Skin General: no rashes or lesions noted Neuro General: patient alert and patient oriented x3 Extrem General: full ROM Psych Appearance: grossly normal Mental Status: mental status grossly normal Assessment and Plan Assessment and Plan (1) Barretts esophagus: Status: Acute Qualifiers: 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 I also discussed possible dilation with him as he is having some dysphagia. I explained endoscopy in detail to the patient. I explained the risks includingbut not limited to stroke or heart attack with anesthesia, perforation of the GItract, bleeding, infection. I explained that any of these could necessitate further emergency surgery. The patient understands and all questions were answeredsufficiently. The patient wishes to proceed with procedure. Cholo Neumann MD Pager: [facility] [address] [place] [address], [address] [place] [address] Office: Orders: Orders EGD Today Coding Level of Care Code Off vis,est,level 3 Diagnoses Judge's esophagus with low grade dysplasia K22.710 Judge's esophagus type: with low grade dysplasia 03/25/25 1505 <Electronically signed by Cholo ernandez MD> Date _ Cholo Neumann MD Cosigner Signature: Date (if applicable) CC: ABEL Cobb ~ [employer] [employer] Work Phone: [phone]) 754-199005-14-2024 NoteHNO ID: [id number] Author: GREG CHAVEZ PA-C Service: ? Author Type: Physician Executive Producer Type: Progress Notes Filed: 01/23/2024 18:00 Note Text: [facility] NEW PATIENT CLINIC NOTE SERVICE DATE: 01/23/2024 SERVICE TIME: 3:23 PM NAME: Krishan Leon CHIEF COMPLAINT: Elevated PSA HISTORY OF PRESENT ILLNESS: Krishan Leon is a 63 year old male presenting as an New Patient for Elevated PSA The patient reports he has a strong family history of CaP Father and Brothers Reviewed his PSA done a [facility] Lab below, discussed getting IsoPSA to see if prostate biopsy is indicated. LUTS: None LABS: No results found for: TESTOST No results found for: TESTFREE No results found for: PSA Hematocrit (%) Date Value 04/28/2022 53.4 03/18/2018 43.6 02/05/2010 51.0 No results found for: PSA Creatinine Date Value Ref Range Status 04/28/2022 1.12 0.73 - 1.22 mg/dL Final 03/18/2018 1.14 0.67 - 1.17 mg/dL Final 02/05/2010 0.88 0.70 - 1.40 mg/dL Final MEDICATIONS: losartan (COZAAR) 25 mg tablet Take 1 tablet by mouth once daily. clopidogrel (PLAVIX) 75 mg tablet Take 1 tablet by mouth once daily. aspirin 81 mg chewable tablet Take 1 tablet by mouth once daily. atorvastatin (LIPITOR) 40 mg tablet Take 40 mg by mouth once daily. losartan (COZAAR) 25 mg tablet Take 25 mg by mouth once daily. clopidogrel (PLAVIX) 75 mg tablet Take 75 mg by mouth once daily. Cholecalciferol, Vitamin D3, 50 mcg (2,000 unit) cap Take 6,000 Units by mouth once daily. VITAMIN B COMPLEX ORAL Take 1 tablet by mouth once daily. RABEprazole (ACIPHEX) 20 mg tablet Take 1 tablet by mouth once daily. diphenoxylate-atropine (LOMOTIL) 2.5-0.025 mg per tablet Take 1 tablet by mouth four times daily as needed for up to 5 days. sodium sulfate-potassium sulfate-magnesium sulfate (SUPREP BOWEL PREP KIT) 17.5-3.13-1.6 gram oral liquid Refer to instructions given by your provider. (Patient not taking: Reported on 05/30/2023) PAST MEDICAL HISTORY: PAST MEDICAL HISTORY Diagnosis Date Arthritis Judge's esophagus CAD (coronary artery disease) History of transfusion Mixed hyperlipidemia Hyperlipidemia Unspecified essential hypertension Essential hypertension PAST SURGICAL HISTORY: PAST SURGICAL HISTORY Procedure Laterality Date ABDOMINAL SURGERY HX CHOLECYSTECTOMY 2005 Cholecystectomy COLONOSCOPY FLX DX W/COLLJ SPEC WHEN PFRMD 11/24/2016 Colonoscopy COLONOSCOPY FLX DX W/COLLJ SPEC WHEN PFRMD 06/25/2021 ESOPHAGOGASTRODUODENOSCOPY TRANSORAL DIAGNOSTIC 11/24/2016 EGD ESOPHAGOGASTRODUODENOSCOPY TRANSORAL DIAGNOSTIC 06/25/2021 EYE SURGERY HX HERNIA REPAIR HX PAST SURGICAL HISTORY OF eye muscle surgery age 4 and 2001 PAST SURGICAL HISTORY OF lumps removed left arm PROSTATE BIOPSY HX 03/09/2018 SKIN BIOPSY HX FAMILY HISTORY: FAMILY HISTORY Problem Relation Age of Onset Lipids Father Lipids Brother Heart Maternal Grandmother CAD Heart Maternal Grandfather CAD Heart Maternal Uncle CAD Colon Cancer Maternal Uncle Colon Cancer Paternal Uncle SOCIAL HISTORY: Social Connections: Not on file REVIEW OF SYSTEMS: GENERAL: No fever, chills, weight loss, or fatigue. ENMT: Negative CARDIOVASCULAR:NO CHEST PAIN, PALPITATIONS, ANKLE EDEMA RESPIRATORY: No chronic cough, wheezing, dyspnea, hemoptysis. GENITOURINARY: SEE HPI MUSCULOSKELETAL:NO CHRONIC BACK PAIN, ARTHRITIS, CHRONIC NECK PAIN SKIN: NO VARICOSE VEINS, RASH, ABNORMAL ITCHING HEME/LYMPH/IMMUNE:Negative for prolonged bleeding, bruising easily or swollen nodes NEUROLOGICAL: NO HEADACHES, NUMBNESS, SEIZURES, STROKE DIABETES: no All other systems reviewed and are negative PHYSICAL EXAMINATION: Blood pressure 108/62, weight 98.9 kg (218 lb). GENERAL: WNL nutrition, no deformities, healthy appearing NEURO: Awake, alert and oriented x 3 and Normal gait PSYCH: No signs of depression, anxiety, or agitation ENMT (Ear, Nose, Mouth, Throat): No masses, adenopathy, icterus. Thyroid nonpalpable RESP: NL effort, no retractions or purse-lip breathing. CV: No extremity swelling, varices, edema, pallor, erythema GASTROINTESTINAL: Soft, nontender, nondistended, no masses. HERNIAS: None SKIN: No rash, lesions No palpable lymphadenopathy MUSCULOSKELETAL: Extremities normal. No deformities, edema, clubbing or skin discoloration. PROBLEM LIST REVIEW: Yes LABS: IMPRESSION/PLAN: 63 year old male with 1. Elevated prostate specific antigen (PSA) - ICD9: 790.93, ICD10: R97.20 > Family Hx of CaP Father , Brothers > Recommend IsoPSA today > Follow-up after testing final I spent a total of 30 minutes on the date of the service which included preparing to see the patient, face to face patient care, completing clinical documentation, obtaining and/or reviewing separately obtained history, performing a medically appropriate (more content not included)...[facility]05-14-2024 NoteHNO ID: [id number] Author: GURPREET BRITTON MA Service: ? Author Type: Computer Technology Teacher Type: Progress Notes Filed: 01/23/2024 18:00 Note Text: [facility] History of Present illness Narrative* Greg Chavez PA-C - 01/23/2024 3:22 PM EDT Images from the original note were not included. [facility] NEW PATIENT CLINIC NOTE SERVICE DATE: 01/23/2024 SERVICE TIME: 3:23 PM NAME: Krishan Leon CHIEF COMPLAINT: Elevated PSA HISTORY OF PRESENT ILLNESS: Krishan Leon is a 63 year old male presenting as an New Patient for Elevated PSA The patient reports he has a strong family history of CaP Father and Brothers Reviewed his PSA done a [facility] Lab below, discussed getting IsoPSA to see if prostate biopsy is indicated. LUTS: None LABS: No results found for: TESTOST No results found for: TESTFREE No results found for: PSA Hematocrit (%) Date Value 04/28/2022 53.4 03/18/2018 43.6 02/05/2010 51.0 No results found for: PSA Creatinine Date Value Ref Range Status 04/28/2022 1.12 0.73 - 1.22 mg/dL Final 03/18/2018 1.14 0.67 - 1.17 mg/dL Final 02/05/2010 0.88 0.70 - 1.40 mg/dL Final MEDICATIONS: losartan (COZAAR) 25 mg tablet Take 1 tablet by mouth once daily. clopidogrel (PLAVIX) 75 mg tablet Take 1 tablet by mouth once daily. aspirin 81 mg chewable tablet Take 1 tablet by mouth once daily. atorvastatin (LIPITOR) 40 mg tablet Take 40 mg by mouth once daily. losartan (COZAAR) 25 mg tablet Take 25 mg by mouth once daily. clopidogrel (PLAVIX) 75 mg tablet Take 75 mg by mouth once daily. Cholecalciferol, Vitamin D3, 50 mcg (2,000 unit) cap Take 6,000 Units by mouth once daily. VITAMIN B COMPLEX ORAL Take 1 tablet by mouth once daily. RABEprazole (ACIPHEX) 20 mg tablet Take 1 tablet by mouth once daily. diphenoxylate-atropine (LOMOTIL) 2.5-0.025 mg per tablet Take 1 tablet by mouth four times daily asneeded for up to 5 days. sodium sulfate-potassium sulfate-magnesium sulfate (SUPREP BOWEL PREP KIT) 17.5-3.13-1.6 gram oral liquid Refer to instructions given by your provider. (Patient not taking: Reported on 05/30/2023) PAST MEDICAL HISTORY: PAST MEDICAL HISTORY Diagnosis Date Arthritis Judge's esophagus CAD (coronary artery disease) History of transfusion Mixed hyperlipidemia Hyperlipidemia Unspecified essential hypertension Essential hypertension PAST SURGICAL HISTORY: PAST SURGICAL HISTORY Procedure Laterality Date ABDOMINAL SURGERY HX CHOLECYSTECTOMY 2005 Cholecystectomy COLONOSCOPY FLX DX W/COLLJ SPEC WHEN PFRMD 11/24/2016 Colonoscopy COLONOSCOPY FLX DX W/COLLJ SPEC WHEN PFRMD 06/25/2021 ESOPHAGOGASTRODUODENOSCOPY TRANSORAL DIAGNOSTIC 11/24/2016 EGD ESOPHAGOGASTRODUODENOSCOPY TRANSORAL DIAGNOSTIC 06/25/2021 EYE SURGERY HX HERNIA REPAIR HX PAST SURGICAL HISTORY OF eye muscle surgery age 4 and 2001 PAST SURGICAL HISTORY OF lumps removed left arm PROSTATE BIOPSY HX 03/09/2018 SKIN BIOPSY HX FAMILY HISTORY: FAMILY HISTORY Problem Relation Age of Onset Lipids Father Lipids Brother Heart Maternal Grandmother CAD Heart Maternal Grandfather CAD Heart Maternal Uncle CAD Colon Cancer Maternal Uncle Colon Cancer Paternal Uncle SOCIAL HISTORY: Social Connections: Not on file REVIEW OF SYSTEMS: GENERAL: No fever, chills, weight loss, or fatigue. ENMT: Negative CARDIOVASCULAR:NO CHEST PAIN, PALPITATIONS, ANKLE EDEMA RESPIRATORY: No chronic cough, wheezing, dyspnea, hemoptysis. GENITOURINARY: SEE HPI MUSCULOSKELETAL:NO CHRONIC BACK PAIN, ARTHRITIS, CHRONIC NECK PAIN SKIN: NO VARICOSE VEINS, RASH, ABNORMAL ITCHING HEME/LYMPH/IMMUNE:Negative for prolonged bleeding, bruising easily or swollen nodes NEUROLOGICAL: NO HEADACHES, NUMBNESS, SEIZURES, STROKE DIABETES: no All other systems reviewed and are negative PHYSICAL EXAMINATION: Blood pressure 108/62, weight 98.9 kg (218 lb). GENERAL: WNL nutrition, no deformities, healthy appearing NEURO: Awake, alert and oriented x 3 and Normal gait PSYCH: No signs of depression, anxiety, or agitation ENMT (Ear, Nose, Mouth, Throat): No masses, adenopathy, icterus. Thyroid nonpalpable RESP: NL effort, no retractions or purse-lip breathing. CV: No extremity swelling, varices, edema, pallor, erythema GASTROINTESTINAL: Soft, nontender, nondistended, no masses. HERNIAS: None SKIN: No rash, lesions No palpable lymphadenopathy MUSCULOSKELETAL: Extremities normal. No deformities, edema, clubbing or skin discoloration. PROBLEM LIST REVIEW: Yes LABS: IMPRESSION/PLAN: 63 year old male with 1. Elevated prostate specific antigen (PSA) - ICD9: 790.93, ICD10: R97.20 > Family Hx of CaP Father , Brothers > Recommend IsoPSA today > Follow-up after testing final I spent a total of 30 minutes on the date of the service which included preparing to see the patient, face to face patient care, completing clinical documentation, obtaining and/or reviewing separately obtained history, performing a medically appropriate examination, counseling and educating the pat ient/family/caregiver, ordering medications, tests, or procedures, and care coordination. HUONG Kimble, ANSELMO, TAMI * Gurpreet Britton MA - 01/23/2024 3:00 PM EDT Images from the original note were not included. [facility] PSA [facility] NoteHNO ID: [id number] Author: Ailyn Granados RT(R) Service: Radiology Author Type: Technologist Type: Progress Notes Filed: 05/30/2023 5:21 PM Note Text: Radiology Service Progress Note PATIENT NAME: Krishan Leon DATE OF SERVICE: May 30, 2023 TIME: 5:08 PM PATIENT IDENTITY VERIFICATION COMPLETED USING TWO (2) IDENTIFIERS: Name and Date of confirmed by patient verbally. FALL SCREENING: Has the patient had 2 falls in the last year or 1 fall with injury or currently using an Ambulatory Assistive Device (Walker, Cane, Wheelchair, Crutches, etc.)? No PATIENT GENDER DATA: Male PATIENT RELEVANT IMPLANT DATA REVIEWED: Yes RADIOLOGY DEPARTMENT: General X-ray: Exam(s) Completed: Lower Extremity X-Ray(s): Knee, AP / Lat / Tunne / Merchant Right and Wt. Bearing PERIPHERAL IV DATA: Not applicable SIGNED BY: RT Lico(R) May 30, 2023 5:08 [facility]09-19-2023 NoteHNO ID: [id number] Author: Swetha Crowe APRN.FURNITURE MAKER Service: ? Author Type: Nurse Practitioner Type: Progress Notes Filed: 05/30/2023 6:10 PM Note Text: CC: Patient presents with: Knee Pain: right x 2 weeks, swelling HPI Krishan Leon is a 62 year old male who presents today for right knee pain. Patient denies specific injury however had he had been going up and down a ladder all day prior to the onset of pain. Located: medial aspect of the knee. Described as constant ache with intermittent sharp pains Aggravated by: walking, going up stairs, going down stairs, flexing and extending the knee Treatment: occasional Tylenol and ice with no relief of symptoms Swelling, redness or bruising: swelling Popping or clicking with movement: No Locking or feel like is giving-out: sometimes feels like it might give out Interfering with sleep:No Previous injury: No Previous surgery: Yes- Arthroscopy years ago right knee REVIEW OF SYSTEMS See HPI PAST MEDICAL HISTORY Diagnosis Date Arthritis Judge's esophagus CAD (coronary artery disease) History of transfusion Mixed hyperlipidemia Hyperlipidemia Unspecified essential hypertension Essential hypertension PAST SURGICAL HISTORY Procedure Laterality Date ABDOMINAL SURGERY HX CHOLECYSTECTOMY 2005 Cholecystectomy COLONOSCOPY FLX DX W/COLLJ SPEC WHEN PFRMD 11/24/2016 Colonoscopy COLONOSCOPY FLX DX W/COLLJ SPEC WHEN PFRMD 06/25/2021 ESOPHAGOGASTRODUODENOSCOPY TRANSORAL DIAGNOSTIC 11/24/2016 EGD ESOPHAGOGASTRODUODENOSCOPY TRANSORAL DIAGNOSTIC 06/25/2021 EYE SURGERY HX HERNIA REPAIR HX PAST SURGICAL HISTORY OF eye muscle surgery age 4 and 2001 PAST SURGICAL HISTORY OF lumps removed left arm PROSTATE BIOPSY HX 03/09/2018 SKIN BIOPSY HX ALLERGIES Morphine and Phenobarbital MEDICATIONS diphenoxylate-atropine (LOMOTIL) 2.5-0.025 mg per tablet Take 1 tablet by mouth four times daily as needed for up to 5 days. aspirin 81 mg chewable tablet Take 1 tablet by mouth once daily. atorvastatin (LIPITOR) 40 mg tablet Take 40 mg by mouth once daily. losartan (COZAAR) 25 mg tablet Take 25 mg by mouth once daily. clopidogrel (PLAVIX) 75 mg tablet Take 75 mg by mouth once daily. Cholecalciferol, Vitamin D3, 50 mcg (2,000 unit) cap Take 6,000 Units by mouth once daily. VITAMIN B COMPLEX ORAL Take 1 tablet by mouth once daily. RABEprazole (ACIPHEX) 20 mg tablet Take 1 tablet by mouth once daily. sodium sulfate-potassium sulfate-magnesium sulfate (SUPREP BOWEL PREP KIT) 17.5-3.13-1.6 gram oral liquid Refer to instructions given by your provider. (Patient not taking: Reported on 05/30/2023) FAMILY HISTORY Problem Relation Age of Onset Lipids Father Lipids Brother Heart Maternal Grandmother CAD Heart Maternal Grandfather CAD Heart Maternal Uncle CAD Colon Cancer Maternal Uncle Colon Cancer Paternal Uncle Social History Tobacco Use Smoking status: Former Packs/day: .5 Types: Cigarettes Quit date: 01/09/2018 Years since quittin.3 Smokeless tobacco: Never Tobacco comments: Trying to quit - down to half a pack from 3-4 packs Vaping Use Vaping Use: current everyday user Substances: Nicotine, 3mg Devices: RefVindiciable tank Substance Use Topics Alcohol use: No Drug use: No PHYSICAL EXAM BP 132/82 Pulse 76 Temp 36.4 ?C (97.6 ?F) Resp 16 Wt 98 kg (216 lb) SpO2 97% BMI 30.13 kg/m? General Appearance: well appearing, in no acute distress, alert Musculoskeletal: Right knee- swelling present. Tenderness:medial joint line. Flexion:Limitation: No, Pain:Yes; Extension:Limitation:No, Pain:Yes. Laxity: No Lower extremities: no edema in LE bilaterally, good distal pulses. Muscle strength- 4/5 RLE, 5/5 LLE. No pain with valgus or varus stress ASSESSMENT/PLAN: 1. Acute pain of right knee - ICD9: 719.46, ICD10: M25.561 Possible meniscal tear. Recommend ice, elevation, compression sleeve. Patient on Plavix, unable to take NSAID's. Offered prednisone prescription but he declined. He can try topical Voltaren OTC and Tylenol as needed. - XR KNEE GENERAL 4V AP BOTH/PA BOTH/LAT/MERC RIGHT negative other than small to moderate effusion Follow-up with PCP in 2 weeks if no improvement or sooner if worsening Prescription instructions reviewed with patient as applicable. Potential red flag symptoms discussed with the patient. Reviewed appropriate action plan to take if red flag symptoms occur. Patient agreeable to treatment plan. Swetha Crowe APRN.[facility]09-19-2023 History of Present illness Narrative* Ailyn Granados, RT(R) - 05/30/2023 4:50 PM EDT Radiology Service Progress Note PATIENT NAME: Krishan Leon DATE OF SERVICE: May 30, 2023 TIME: 5:08 PM PATIENT IDENTITY VERIFICATION COMPLETED USING TWO (2) IDENTIFIERS: Name and Date of confirmedby patient verbally. FALL SCREENING: Has the patient had 2 falls in the last year or 1 fall with injury or currently using an Ambulatory Assistive Device (Walker, Cane, Wheelchair, Crutches, etc.)? No PATIENT GENDER DATA: Male PATIENT RELEVANT IMPLANT DATA REVIEWED: Yes RADIOLOGY DEPARTMENT: General X-ray: Exam(s) Completed: Lower Extremity X- Ray(s): Knee, AP / Lat / Tunne / Merchant Right and Wt. Bearing PERIPHERAL IV DATA: Not applicable SIGNED BY: RT Lico(R) May 30, 2023 5:08 PM documented in this encounterSum[facility]04-14-2023 History and physical note Author Dr. Austin [facility] December 23, 2022 8:54am Note Date/Time December 23, 2022 8:5 4am [facility] Medical Records Department [address] [place] [address] History & Physical Exam 12/23/22 0854 MR#: [id number] Acct: [id number] Name: KRISHAN LEON . Rep #:[id number] : 1960 62 From: Mitchell Austin MD PCP: Dr. Della Velazquez MD [place] [facility] [place] [address] History and Physical Date of Admission: 12/23/22 Visit Reasons:?Herina Chief Complaint: hernia Is patient in pain?: No Allergies metoprolol Adverse Reaction (Verified 11/15/22 15:03) dyspneamorphine Adverse Reaction (Verified 11/15/22 15:03) I flat lined because they pushed it too fastnitroglycerin Adverse Reaction (Verified 11/15/22 15:03) severe hypotensionphenobarbital Adverse Reaction (Verified 11/15/22 15:03) made me go crazy Medications cholecalciferol (vitamin D3) 50 mcg (2,000 unit) capsule 4,000 unit PO QHS supplement 08/24/17 [History Confirmed 11/15/22] aspirin 81 mg chewable tablet 81 mg PO DAILY@0800 heart health 01/28/19 [History Confirmed 11/15/22] cyanocobalamin (vitamin B-12) 2,500 mcg tablet 2,500 mcg PO DAILY 10/20/20 [History Confirmed 11/15/22] vitamin B complex 1 ea PO DAILY 10/20/20 [History Confirmed 11/15/22] clopidogrel 75 mg tablet 75 mg PO DAILY #90 tabs 03/03/22 [Rx Confirmed 11/15/22] losartan 25 mg tablet 25 mg PO DAILY #90 tabs 03/03/22 [Rx Confirmed 11/15/22] atorvastatin 40 mg tablet 40 mg PO .EVERY OTHER DAY 10/31/22 [History Confirmed 11/15/22] rabeprazole 20 mg tablet,delayed release 20 mg PO QHS gerd #90 tabs 10/31/22 [Rx Confirmed 11/15/22] PFSH Medical History?(Updated 10/31/22 @ 15:[address] Della Velazquez MD) 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 Atherosclerosis of coronary artery of [place] heart without angina pectoris Back pain Barretts esophagus Difficulty chewing Difficulty swallowing Easy bruising Gastritis GERD with esophagitis Gout High cholesterol History of echocardiogram History of heart attack History of hiatal hernia History of pain when walking History of stress test Laceration without foreign body of scalp, initial encounter Shortness of breath on exertion Smoker Unspecified injury of head, initial encounter Wears dentures Wears glasses Surgical History? History of cardiac catheterization History of coronary artery stent placement (01/29/19) Hx of arthroscopy of left knee Hx of arthroscopy of right knee S/P laparoscopic cholecystectomy Family History? Mother Heart disease ?? ? PPMFather Cancer ?? ? Prostate Social History?(Updated 10/31/22 @ 15:[address] Della Velazquez MD) household members:? spouse current occupational status:? 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 Current every day smoker tobacco type: e-cigarettes Smokeless tobacco user:? other Electronic Cigarette Use:? with nicotine second hand exposure:? No alcohol intake:? current alcohol intake frequency: holidays/special occasions only substance use type:? does not use do you feel safe at home:? Yes HPI HPI HPI: 62-year-old gentleman is referred by Dr. Kiley Velazquez for surgical consultation regarding gastroesophageal reflux disease and a previous history ofBarrett's esophagus.? Written compromise surgical consult recommendations will return to her.? Her recent notes reflect the following The patient has a long history of GERD, gastritis, Judge's esophagus and a hiatal hernia.? He reports he has had problems with it for around 20 years.? He has been on the rabeprazole for at least 15 years.? He states it does help his symptoms and will notice if he doesn't take it.? He last had an EGD in [address] Fletcher.? He has never seen a shank turner.? He did see Dr. Austin previously who recommended a hiatal hernia repair.? He reports he never had it done, but is still interested.? He would like to get re-established with him to discuss it further. Looking back through his medical records on March 08, 2021 patient had an office visit.? This recanted that Dr. Abdiaziz Casillas November 2016 and performed upper endoscopy demonstrating Judge's esophagus without dysplasia.? I had previouslyassisted him November 2018 with an upper endoscopy suggesting intestinal metaplasiawith focal area of indefinite for low-grade dysplasia.? H. pylori was negative.?His history is notable that he has had a previous cholecystectomy. He does have a history of tobacco use.? He has had a history of coronary artery stenting and is on clopidogrel therapy. In addition to his other medications he is on low-dose aspirin therapy and clopidogrel and atorvastatin and losartan and rabeprazole (aciphex). There are records suggesting that on May 14, 2021 the patient had a combined upper and lower endoscopy by Dr. Rochelle Fletcher at the [facility] suggest May 11, 2022 he had a right upper quadrant ultrasound showingfatty infiltration of the liver and a 1.9 x 2.4 x 1.4 cm cyst in the left lobe of the liver On today's visit the patient is complaining mostly that he thinks his reflux symptoms are worsening.? He describes in particular that food is intermittently becoming stuck and he has to try to cough it out.? He states that there is no particular food per se that causes increased trouble.? The patient interestinglyhas not had a weight loss perhaps some weight gain.? He remains only on the Aciphex.? He complains of some pain in the epigastric area and a burning sensation.? No bright red blood per rectum or melena.? Although he has stopped cigarettes he now is vaping using nicotine. States his most recent upper and lower scope exam was done by Dr. Rochelle Fletcher on June 2021.? He states that he got COVID soon thereafter and did not seek follow-up.? He is unsure as to what was seen at that time. He does have coronary stents.? He is on anticoagulant in the form of clopidogrel.? 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 States he was told that he clearedthat.? 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 He can go up a flight of stairs but gets mildly short of breath. When he walks straight line he sometimes complains that he has left posterior thigh tightness.? He states that he has absolutely no calf tightness. ROS General General: Yes fatigue; No weight change, appetite, colon cancer, breast cancer or weakness HEENT HEENT: Yes difficulty swallowing; No eye injury, eye surgery, swollen glands or hoarseness Endo Endocrine: No thyroid disease, diabetes mellitus, thyroid cancer, Hair loss, heat intolerance or cold intolerance Musc Musculoskeletal: Yes arthritis and rheumatoid arthritis; No back problems, gout or joint pain Cardio Cardiovascular: Yes heart disease, heart attack and heart stent; No murmur, pacemaker, atrial fibrillation, high blood pressure, palpitations, shortness of breat with exertion or chest pain Psych Psychiatric: No depression, anxiety or hearing voices Resp Respiratory: No shortness of breath, No sleep apnea, No cough, No COPD, No asthma, No emphysema and No wheezing Gastro Gastrointestinal: Yes abdominal pain, Yes nausea or vomiting, Yes diarrhea, No constipation, No blood in stool, Yes acid reflux, No hemorrhoids, No ulcers, No gallbladder problem and No black,tarry stools Patricio Hematologic: Yes blood thinners, No blood disorders, No bleeding, No anemia and No blood clots Neuro Neurologic: No system reviewed and no additional complaints, except as documented, No as per HPI, No abnormal gait, No abnormal hearing, No abnormal movements, No abnormal speech, No behavioral changes, No burning sensations, No confusion, No convulsions, No disequilibrium, No dizziness, No localized weakness, No frequent falls, No headache(s), No lack of coordination, No loss ofvision, No memory loss, No numbness, No other visual disturbances, No radicular pain, No restless legs, No sensory deficit, No syncope, No tingling, No tremor(s), No weakness and No other Exam Const General: cooperative, comfortable and no acute distress Nutritional Appearance: obese [facility] Head: normal to inspection Eyes General: appearance normal, both eyes and all related structures Neck Neck: normal visual inspection Other: Carotids are 3+, no bruits Chest Other: Increased anterior posterior diameter Resp Effort & Inspection: normal respiratory effort Auscultation: clear to auscultation bilaterally Cardio Rate: regular rate Rhythm: regular rhythm GI Other: Soft, nontender, overweight, cannot detect any internal organs, bowel sounds present unremarkable Musc Cervical Spine: normal cervical lordosis Skin General: no rashes or lesions noted Neuro General: patient alert and patient awake Extrem General: no calf tenderness Psych Appearance: grossly normal Assessment and Plan Assessment and Plan (1) Hiatal hernia with GERD and esophagitis: ?Status:?Acute ?Plan: I do recommend to the patient a esophagogastroduodenoscopy with possible biopsy and if esophageal stricturing or Schatzki ring countered then I did describe to the patient hydrostatic dilatation.? We will have him hold his clopidogrel 2 days preprocedure.? He is aware of technique, benefit, risk, alternatives. Pending the outcomes of this investigation then can decide whether we want to pursue esophageal manometry ostensibly to see if the patient would be a candidate for surgical reflux procedure.? The patient is very much aware that wehave discussed this in the past with him and he then did not pursue additional follow-up. He has had an opportunity to ask and have questions answered.? We will schedule procedure at his discretion.? I appreciate the opportunity of assisting with thesurgical care. Copy: Dr. Kiley Austin M.D., F.A.C.S I have examined the patient and the H&P has been reviewed. There are no clinicalchanges since date of exam. Mitchell Austin M.D., F.A.C.S. 12/23/22 0854 <Electronically signed by Mitchell Austin MD> Cosigner Signature (if applicable): CC: Dr. Della Velazquez MD; Dr. Mitchell Austin MD~ Signed [facility] Work Phone: [phone]) 159-855204-14-2023 [facility] HospitalEvaluation noteNo assessment information availableWThe [facility] Work Phone: Evaluation note* Diagnosis Onset Date Resolution Status Hiatal hernia with GERD and esophagitis acute Atherosclerosis of coronary artery of [place] heart without angina pectoris chronic Elevated PSA noneactive Immunization declined noneac tive Establishing care with new doctor, encounter for noneactive Electronic cigarette use non eactive Bilateral knee pain noneacti ve Vitamin D deficiency noneact negrito [facility] Work Phone: evaluation note* Diagnosis Onset Date Resolution Status Hiatal hernia with GERD and esophagitis acute Atherosclerosis of coronary artery of [place] heart without angina pectoris chronic Elevated PSA noneactive Immunization declined noneac tive Establishing care with new doctor, encounter for noneactive Electronic cigarette use non eactive Bilateral knee pain noneacti ve Vitamin D deficiency noneact negrito Hiatal hernia with GERD and esophagitis acute Hiatal hernia with GERD and esophagitis acute Atherosclerosis of coronary artery of [place] heart without angina pectoris chronic Chronic left hip pain noneac tive Electronic cigarette use non eactive Bilateral knee pain noneacti ve [facility] Work Phone: Evaluation note* Diagnosis Onset Date Resolution Status Hypersomnia acute Mediastinal lymphadenopathy chronic [facility] Work Phone: Evaluation note* Diagnosis Onset Date Resolution Status Hypersomnia acute Mediastinal lymphadenopathy chronic Combined hyperlipidemia acut e Atherosclerosis of coronary artery of [place] heart without angina pectoris chronic History of coronary artery stent placement January 29 019 resolved [facility] Work Phone: Evaluation note* Diagnosis Elevated prostate specific antigen (PSA)- Primary [facility] Acute pain of right knee documented in this [facility]* Diagnosis Onset Date Resolution Status Admit Date Barretts esophagus acute March 112024 2:46pm [facility] Work Phone: Reason for referral (narrative)* Diagnostic Procedure Only (Urgent) - Closed Specialty Diagnoses / Procedures Referred By Contac t Referred To Contact XR IMAGING Diagnoses Acute pain of right knee Procedures XR KNEE GENERAL 4V AP BOTH/PA BOTH/LAT/MERC RIGHT RADIOLOGIC EXAM KNEE COMPLETE 4/MORE VIEWS Swetha Ward, KEY CUTTER.FURNITURE MAK[employer] [address] [place] [address] [place] [address] Referral ID Status Reason Start Date Expiration Date V isits Requested Visits Authorized [id number] Closed Auto-Generate d Referral 05/30/2023 06/28/2024 1 1 [facility] (narrative)No reason for referral information availableBedford [facility] Work Phone: Redreg for visit Narrative* Diagnostic Procedure Only (Urgent) - Closed Specialty Diagnoses / Procedures Referred By Contac t Referred To Contact XR IMAGING Diagnoses Acute pain of right knee Procedures XR KNEE GENERAL 4V AP BOTH/PA BOTH/LAT/MERC RIGHT RADIOLOGIC EXAM KNEE COMPLETE 4/MORE VIEWS Swetha Ward, KEY 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.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 MAK[employer] [address] [place] [address] [place] [address] Referral ID Status Reason Start Date Expiration Date V isits Requested Visits Authorized [id number] Closed Auto-Generate d Referral 05/30/2023 06/28/2024 1 1 [facility] Chief Complaint and Reason for Visit Chief Complaint BACK PAIN, HIP PAIN Chief Complaint BACK PAIN, HIP PAIN Presence of coronary angioplasty implant and graft Presence of coronary angioplasty implant and graft Chief Complaint BACK PAIN, HIP PAIN Presence of coronary angioplasty implant and graft Presence of coronary angioplasty implant and graft LIVER LESION TOBACCO DEPENDENCY Chief Complaint MANUGRAPHER, EST. CARE, PT NE EDS NPP EORDER- chronic knee pain Reason for Visit Hiatal hernia with G ERD and esophagitis Atherosclerosis of coronary artery of [place] heart without angina pectoris Elevated PSA Immunization declined Establishing care with new doctor, encounter for Electronic cigarette use Bilateral knee pain Vitamin D deficiency Chief Complaint MANUGRAPHER, EST. 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, PT NE EDS NPP EORDER- chronic knee pain Herina discuss hip concerns Reason for Visit Hiatal hernia with G ERD and esophagitis Atherosclerosis of coronary artery of [place] heart without angina pectoris Elevated PSA Immunization declined Establishing care with new doctor, encounter for Electronic cigarette use Bilateral knee pain Vitamin D deficiency Hiatal hernia with GERD and esophagitis Hiatal hernia with GERD and esophagitis Atherosclerosis of coronary artery of [place] heart without angina pectoris Chronic left hip pain Electronic cigarette use Bilateral knee pain Chief Complaint NICOTINE DEPENDENCE Chief Complaint NICOTINE DEPENDENCE 1 Y FU Reason for Visit Hypersomnia Mediastinal lymphadenopathy Chief Complaint NICOTINE DEPENDENCE 1 Y FU 1 Y FU G47.10 Reason for Visit Hypersomnia Mediastinal lymphadenopathy Combined hyperlipidemia Atherosclerosis of coronary artery of [place] heart without angina pectoris History of coronary artery stent placement Chief Complaint Admit Date BARRETTS/GERD March 25, 2025 2:46 pm Reason for Visit Admit Date Barretts esophagus March 25, 2025 2:46 pm Family History No Family History Records Found Relationship Condition Age at Onset Recorded Date/T jassi mother Cardiac disease Unknown father Malignant neoplasm Unknown Advance Directives No Advanced Directives Records Found Advance Directive Response Recorded Date/ Time Advance Directives No October 20, 2020 11:55am Living Will No March 29, 2021 1:01pm Power of Community Development Technician No March 29 1:01pm Advance Directive Response Recorded Date/ Time Advance Directives No October 20, 2020 10:55am Living Will No March 29, 2021 12:01pm Power of Community Development Technician No March 29 12:01pm Advance Directive Response Recorded Date/ Time Advance Directives No October 20, 2020 11:55am Living Will No December 21, 2022 9:31am Power of Community Development Technician No December 21 9:31am Advance Directive Response Recorded Date/ Time Advance Directives No October 20, 2020 10:55am Living Will No December 21, 2022 8:31am Power of Community Development Technician No December 21 8:31am Advance Directive Response Recorded Date/ Time Advance Directives No October 20, 2020 11:55am Summary Purpose Additional Source Comments Goals (unrecognized section and content) Goals may be documented in a n alternate sectionGoals may be documented in an alternate sectionGoals may be documented in an alternate sectionGoals may be documented in an alternate sectionGoals may be documented in an alternate sectionGoals may be documented in an alternate sectionGoals may be documented in an alternate sectionGoals may be documented in an alternate sectionGoals may be documented in an alternate section Care Teams (unrecognized sec tion and content) Team Status: Active Member Role Status Dates Dr. Ernesto Faust MD Family Provider Active Dr. Della Velazquez MD Primary Care Provider Active Team Status: Inactive Member Role Status Dates Dr. Ernesto Faust MD Primary Care Provider, Referring Provider Active Dr. Della Velazquez MD Attending Provider Active Team Status: Inactive Member Role Status Dates Dr. Della Velazquez MD Primary Care Pro vider, Attending Provider, Referring Provider Active Team Status: Inactive Member Role Status Dates Dr. Della Velazquez MD Primary Care Provider, Referri ng Provider Active Dr. Mitchell Austin MD Attending Provider Active Team Status: Active Member Role Status Dates Dr. Della Velazquez MD Primary Care Provider, Referri ng Provider Active Dr. Mitchell Austin MD Attending Provider, Other Prov ider Active Team Status: Inactive Member Role Status Dates Tania Carrillo MANUGRAPHER, MANUGRAPHER-C Attending Provider, Referrin g Provider Active Dr. Della Velazquez MD Primary Care Provider Active Team Status: Active Member Role Status Dates Dr. Ernesto Faust MD Family Provider Active Jennifer Cobb NP-Samantha Primary Care Provider Active Team Status: Inactive Member Role Status Dates Dr. Ernesto Faust MD Referring Provider Active Dr. Conrado Fuller MD Attending Provider Active Dr. Della Velazquez MD Primary Care Provider Active Team Status: Inactive Member Role Status Dates Jennifer Cobb NP-C Primary Care Provider, Attending Adam stein Active Team Status: Inactive Member Role Status Dates Dr. Ernesto Faust MD Referring Provider Active Dr. Duane Jiang MD Attending Provider Active Jennifer Cobb NP-C Primary Care Provider Active Team Status: Inactive Member Role Status Dates Jennifer Cobb NP-Samantha Primary Care Provider Active Dr. Conrado Fuller MD Attending Provider, Referring Pr ovider Active Well Puller Head Relationship Specialty Start Date End Date Ernesto Faust MD PCP - General Family Medicine 10/18/16 Well Puller Head Relationship Specialty Start Date End Date Ernesto Faust MD PCP - General Family Medicine 10/18/16 Team Status: Active Member Role/Relationship Status Dates Dr. Ernesto Faust MD Family Provider Active ABEL Rodríguez Primary Care Provider Active Team Status: Inactive Member Role/Relationship Status Dates ABEL Rodríguez Primary Care Provider Active Start: March 25, 2025 End: March 25, 2025 ABEL Rodríguez Referring Provider Active St art: March 25, 2025 End: March 25, 2025 Dr. Cholo Neumann MD Attending Provider Active Start: March 25, 2025 End: March 25, 2025 Well Puller Head Relationship Specialty Start Date End Date Ernesto Faust MD PCP - General Family Medicine 10/18/16 Source Comments (unrecognize d section and content) In the event this informatio n is protected by the Federal Confidentiality of Alcohol and Drug Abuse Patient Records regulations: The Federal rules restrict any use of the information to criminally investigate or prosecute any alcohol or drug abuse patient.[facility] the event this information is protected by the Federal Confidentiality of Alcohol and Drug Abuse Patient Records regulations: The Federal rules restrict any use of the information to criminally investigate or prosecute any alcohol or drug abuse patient.[facility] the event this information is protected by the Federal Confidentiality of Alcohol and Drug Abuse Patient Records regulations: The Federal rules restrict any use of the information to criminally investigate or prosecute any alcohol or drug abuse patient.[facility] Reason for Visit (unrecogniz ed section and content) Reason Comments Elevated PSA New Patient (unrecognized sect ion and content) No Status Records FoundNo Status Records FoundNo Status Records Found INFORMATION SOURCE (unrecogn ized section and content) DATE CREATED AUTHOR 01/25/[address] [facility] DATE CREATED AUTHOR AUTHOR'S ORGANIZ ATION 04/11/2025 [facility] DATE CREATED AUTHOR AUTHOR'S ORGANIZ ATION 04/14/2025 [facility] FOR RECORDS PERTAINING TO PATIENTS WHO ARE OR HAVE BEEN ENROLLED IN A CHEMICAL DEPENDENCY/SUBSTANCEABUSE PROGRAM, SOME INFORMATION MAY BE OMITTED. This clinical summary was aggregated from multiple sources. Caution should be exercised in using it in the provision of clinical care. This summary normalizes information from multiple sources, and as a consequence, information in this document may materially change the coding, format and clinical context of patient data. In addition, data may be omitted in some cases. CLINICAL DECISIONS SHOULD BE BASED ON THE PRIMARY CLINICAL RECORDS. [facility] [employer] [facility]. provides no warranty or guarantee of the accuracy or completeness of information in this document.
--- NOTE | 2025-04-18 07:16 | PCM.HP.BLA ---
History and Physical Date of Admission: 04/18/25 Intake Vital Signs 07/05/2414:28 03/25/2514:56 Height 5 ft 11 in 5 ft 11 in Weight: 215 lb 226 lb BMI 29.9 31.5 BP 120/73 118/67 Blood Pressure Location Lt brachial Rt brachial Position Sitting Sitting Respiration 16 17 Pulse 59 L 65 Pulse Source NIBP Monitor Pulse Oximetry (%) 95 Oxygen Delivery Method room air Intake Visit Reasons: BARRETTS/GERD Chief Complaint: barretts/gerd Is patient in pain?: No Allergies metoprolol Adverse Reaction (Verified 03/25/25 14:58) dyspneamorphine Adverse Reaction (Verified 03/25/25 14:58) I flat lined because they pushed it too fastnitroglycerin Adverse Reaction (Verified 03/25/25 14:58) severe hypotensionphenobarbital Adverse Reaction (Verified 03/25/25 14:58) made me go crazy Medications ?Medication ?Instructions ?Recorded ?Confirmed ?Type cholecalciferol (vitamin D3) 50 4,000 unit PO QHS supplement 08/24/17 03/25/25 History mcg (2,000 unit) capsule aspirin 81 mg chewable tablet 81 mg PO DAILY@0800 heart health 01/28/19 03/25/25 History cyanocobalamin (vitamin B-12) 2,500 mcg PO DAILY 10/20/20 03/25/25 History 2,500 mcg tablet vitamin B complex 1 ea PO DAILY 10/20/20 03/25/25 History rabeprazole 20 mg tablet,delayed 20 mg PO QHS gerd #30 tabs 11/24/23 03/25/25 Rx release clopidogrel 75 mg tablet 75 mg PO DAILY #90 TABLETS 05/17/24 03/25/25 Rx losartan 25 mg tablet 25 mg PO DAILY #90 TABLETS 05/29/24 03/25/25 Rx ascorbic acid (vitamin C) 500 mg 1 g PO QDAY 07/05/24 03/25/25 History tablet atorvastatin 40 mg tablet 40 mg PO .EVERY OTHER DAY #45 tabs 11/25/24 03/25/25 Rx PFSH Medical History (Updated 03/25/25 @ 15:[address] 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 GERD with esophagitis Gastritis Atherosclerosis of coronary artery of [place] heart without angina pectoris Surgical History History of cardiac catheterization Hx of arthroscopy of right knee Hx of arthroscopy of left knee History of coronary artery stent placement (01/29/19) S/P laparoscopic cholecystectomy Family History Mother Heart disease PPMFather Cancer Prostate Social History household members: spouse current occupational status: employed 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 His last EGD was 3 years ago and he is here for surveillance EGD. He reports that he is also having some difficulty swallowing. ROS General General: Yes weight change; No appetite, fatigue, colon cancer, breast cancer or weakness HEENT HEENT: Yes difficulty swallowing and swollen glands; No eye injury, eye surgery or hoarseness Endo Endocrine: No thyroid disease, diabetes mellitus, thyroid cancer, Hair loss, heat intolerance or cold intolerance Musc Musculoskeletal: Yes arthritis and rheumatoid arthritis; No back problems, gout or joint pain Cardio Cardiovascular: Yes heart disease, heart attack and heart stent; No murmur, pacemaker, atrial fibrillation, high blood pressure, palpitations, shortness of breath with exertion or chest pain Psych Psychiatric: No depression, anxiety or hearing voices Resp Respiratory: No shortness of breath, No sleep apnea, No cough, No COPD, No asthma, No emphysema and No wheezing Gastro Gastrointestinal: No abdominal pain, No nausea or vomiting, Yes diarrhea, No constipation, No blood in stool, Yes acid reflux, No hemorrhoids, No ulcers, No gallbladder problem and No black,tarry stools Patricio Hematologic: Yes blood thinners, No blood disorders, No bleeding, No anemia and No blood clots Neuro Neurologic: No system reviewed and no additional complaints, except as documented, No as per HPI, No abnormal gait, No abnormal hearing, No abnormal movements, No abnormal speech, No behavioral changes, No burning sensations, No confusion, No convulsions, No disequilibrium, No dizziness, No localized weakness, No frequent falls, No headache(s), No lack of coordination, No loss of vision, No memory loss, No numbness, No other visual disturbances, No radicular pain, No restless legs, No sensory deficit, No syncope, No tingling, No tremor(s), No weakness and No other Exam Const General: cooperative Orientation: alert and oriented x3 HENMT Head: normal to inspection Neck Neck: normal visual inspection and full ROM Chest Chest palpation & inspection: normal inspection of the chest Resp Effort & Inspection: normal respiratory effort Auscultation: clear to auscultation bilaterally Cardio Rate: regular rate Rhythm: regular rhythm GI Inspection: non-distended Palpation: soft and nontender Skin General: no rashes or lesions noted Neuro General: patient alert and patient oriented x3 Extrem General: full ROM Psych Appearance: grossly normal Mental Status: mental status grossly normal Assessment and Plan Assessment and Plan (1) Barretts esophagus: Status: Acute Qualifiers: 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 I also discussed possible dilation with him as he is having some dysphagia. I explained endoscopy in detail to the patient. I explained the risks including but not limited to stroke or heart attack with anesthesia, perforation of the GI tract, bleeding, infection. I explained that any of these could necessitate further emergency surgery. The patient understands and all questions were answered sufficiently. The patient wishes to proceed with procedure. Cholo Neumann MD Pager: [facility] [address] [place] [address], [address] [place] [address] Office: I have examined the patient and the H&P has been reviewed. There are no clinical changes since date of exam.
[2025-04-18] MEDS: Lactated Ringers 1,000 ML 15 ML IV (07:22)
--- NOTE | 2025-04-18 07:27 | PRE.ANES_ITS ---
ASA Classification* ASA Classification ASA Classification: 3 Assessment & Plan Anesthesia* Anesthesia Assessment Anesthesia Assessment: Discussed sedation and/or anesthesia options, risks, benefits, and alternatives with patient/parents/legal guardian/POA. Questions invited. The patient/parents/legal guardian/POA seems to understand and agrees to proceed with anesthesia plan. Reviewed the physical assessment, medical history, allergy history and patient home medications list prior to surgery/procedure/anesthetic and documented any changes. Performed airway and anesthesia risk assessments. Anesthesia Type Anesthesia Type: MAC History Source History Obtained from:: Patient and Chart Anesthesia Focused Assessment* Temperature: 97.4 F Pulse Rate: 63 Blood Pressure: 127/73 Respiratory Rate: 16 Pulse Ox: 97 Oxygen Delivery Method: Room Air Airway Assessment Mouth opens: >3 cm Mallampati Score: III Teeth Condition: Chipped/Broken (Multiple lower teeth are chipped and broken.) and Dentures (Upper dentures are out.) Neck Range of motion (ROM): Full ROM Labs Anesthesia Preop lab: CBC WBC 7.2 K/mm3 (4.4-11.0) 06/27/23 15:22 06/27/23 RBC 5.39 M/mm3 (4.6-6.2) 06/27/23 15:22 06/27/23 Hgb 15.7 g/dL (13.0-16.5) 06/27/23 15:22 06/27/23 Hct 46.8 % (40-54) 06/27/23 15:22 06/27/23 Plt Count 226 K/mm3 (150-450) 06/27/23 15:22 06/27/23 CHEMISTRY Potassium 4.4 mmol/L (3.5-5.1) 05/15/24 06:12 05/15/24 Sodium 139 mmol/L (136-145) 05/15/24 06:12 05/15/24 Magnesium 2.4 mg/dL (1.6-2.6) 01/28/19 19:30 01/28/19 BUN 13 mg/dL (7-18) 05/15/24 06:12 05/15/24 Creatinine 1.09 mg/dL (0.70-1.30) 05/15/24 06:12 05/15/24 Glucose 104 mg/dL (74-106) 05/15/24 06:12 05/15/24 TSH 4.690 uIU/mL (0.358-3.740) H 05/15/24 06:12 COAG PT 13.5 SECONDS (11.7-14.9) 01/29/19 05:00 Pre-Assessment Diagnosis/Proposed Procedure Planned Operative Procedure(s): EGD Anesthesia History Anesthesia History - kiln transfer operator: Anesthesia History - kiln transfer operator Hx Hospitalization No 04/15/25 15:36 Any Problems With Anesthesia No 04/15/25 15:36 Cholinesterase deficiency No 04/15/25 15:36 You/Your Family Experience No 04/15/25 15:36 fever (hyperthermia) with Relationship Recent Exposure to Contagious No 04/18/25 07:15 Disease Does patient have nerve No 04/15/25 15:36 stimulator Patient instructed to have device shut off --Does patient have Pacemaker No 04/18/25 07:15 or ICD? When Was Last Pacemaker Check QUESTION #4 FULL TEXT: You/Your Family Experience fever (hyperthermia) with Anesthesia Last Oral Intake Last Oral intake: Last Oral Intake NPO since 06:15 04/18/25 07:15 Meds taken in AM with sips of Yes 04/18/25 07:15 water? Meds patient instructed to take am of surgery Any additional information?: Yes NPO since: 06:15 (Patient took his meds with sip water at 6:15 AM.) Meds taken in AM with sips of water?: Yes PONV PONV - kiln transfer operator: PONV - kiln transfer operator Female No 04/15/25 15:36 HX of Motion Sickness No 04/15/25 15:36 HX of N/V After Surgery No 04/15/25 15:36 Non-Smoker No 04/15/25 15:36 Duration of Surgery greater No 04/15/25 15:36 than 60 minutes Number of Risk Factors PONV Score Height & Weight Height & Weight: Anesthesia: Height & Weight Height 5 ft 11 in 04/18/25 07:15 Weight: 99 kg 04/18/25 07:15 Body Mass Index (BMI) 30.4 04/18/25 07:15 Respiratory Assessment Respiratory Assessment - kiln transfer operator: Respiratory Tract Infection Hx - kiln transfer operator Hx Respiratory Tract Infection No 04/15/25 15:36 STOP Sleep Apnea STOP Sleep Apnea - kiln transfer operator: STOP Sleep Apnea - kiln transfer operator Hx Hypertension Yes: CONTROLLED WITH MED 04/15/25 15:36 Hx Sleep Apnea No 04/15/25 15:36 CPAP No 04/15/25 15:36 BIPAP Do you snore loudly (louder No 04/15/25 15:36 than talking or can be heard Do you often feel tired/ No 04/15/25 15:36 fatigued/ sleepy during daytime? Has anyone observed you stop No 04/15/25 15:36 breathing during sleep? STOP Results Negative 04/15/25 15:36 QUESTION #5 FULL TEXT : Do you snore loudly (louder than talking or can be heard through closed doors)? 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 Specify any problems Hx of Preganancy in last 3 N/A 04/15/25 15:36 Months Nurse Filling Out Transfusion VCHRISTIN 04/15/25 15:36 & Questions: Date: 04/15/25 04/15/25 15:36 Time: 15:37 04/15/25 15:36 Patient unable to answer at this time (ie. confused, unrespo /Reproduction History /Reproductive History - kiln transfer operator: /Reproductive Hx- kiln transfer operator Hx Now No 04/15/25 15:36 Gestational Age (in weeks): EDC: Hx Hx Para Hx Section SAB No 04/15/25 15:36 Active Medications Active Medications: Current Medications Generic Name Dose Route Start Last Admin Trade Name Freq PRN Reason Stop Dose Admin Lactated Ringer's 1,000 mls @ 15 mls/hr 04/18/25 07:15 04/18/25 07:22 IV 15 mls/hr .Q48H FLOYD Administration PFSH Medical History Anxiety Excessive bleeding Gastric reflux Vapes nicotine containing substance Former smoker History of edema Cardiology follow-up encounter History of tobacco use Encounter for screening for malignant neoplasm of lung Wears hearing aid History of steroid therapy Arthritis Hypertension Wears dentures Wears glasses Gout High cholesterol Easy bruising Back pain Difficulty swallowing Difficulty chewing History of hiatal hernia Smoker Shortness of breath on exertion History of pain when walking History of echocardiogram History of stress test History of heart attack Unspecified injury of head, initial encounter Laceration without foreign body of scalp, initial encounter 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 GERD with esophagitis Gastritis Barretts esophagus Atherosclerosis of coronary artery of [place] heart without angina pectoris Home Medications ?Medication ?Instructions ?Recorded ?Last Taken ?Type cholecalciferol (vitamin D3) 50 4,000 unit PO QHS supp lement 08/24/17 Unknown History mcg (2,000 unit) capsule aspirin 81 mg chewable tablet 81 mg PO DAILY@0800 hear health 01/28/19 04/12/25 History cyanocobalamin (vitamin B-12) 2,500 mcg PO DAILY 10/20 Unknown History 2,500 mcg tablet vitamin B complex 1 ea PO DAILY 10/20/20 Unkno wn History rabeprazole 20 mg tablet,delayed 20 mg PO QHS gerd #30 tabs 11/24/23 Unknown Rx release clopidogrel 75 mg tablet 75 mg PO DAILY #90 TABLETS 0 05/17/24 04/12/25 Rx losartan 25 mg tablet 25 mg PO DAILY #90 TABLETS 0 05/29/24 04/18/25 06:15 Rx ascorbic acid (vitamin C) 500 mg 1 g PO QDAY 07/05/24 Unknown History tablet atorvastatin 40 mg tablet 40 mg PO .EVERY OTHER DAY #4 5 tabs 11/25/24 Unknown Rx Allergy/AdvReac Type Severity Reaction Status Date / Time metoprolol AdvReac dyspnea Verified 04/15/25 15:26 morphine AdvReac I flat Verified 04/15/25 15:26 lined because they pushed it too fast nitroglycerin AdvReac severe Verified 04/15/25 15:26 hypotension phenobarbital AdvReac made me Verified 04/15/25 15:26 go crazy Family History Mother Heart disease PPM Father Cancer Prostate Surgical History History of esophagogastroduodenoscopy (EGD) History of cardiac catheterization Hx of arthroscopy of right knee Hx of arthroscopy of left knee History of coronary artery stent placement (01/29/19) S/P laparoscopic cholecystectomy Social History household members: spouse current occupational status: employed 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
--- NOTE | 2025-04-18 08:00 | EGD_PTH ---
PATIENT: KRISHAN JOHNSON . LOC: EN U#:[id number] AGE/SX: 64/M ROOM: RE04/18/[address]: Dr. Cholo Neumann MD : 1960 BED: DIS: 04/18/2025 SPEC #: [id number] RECD: 04/18/25 10:06 STATUS: KRISTY REHubert #: [id number] OLIVIER: 04/18/25 08:[address]: Cholo Neumann DEPT: SURGICAL PATHOLOGY RECD BY: Drew Calero ENTERED: 04/18/25 11:16 SP TYPE: EGD BIOPSY OT DR: Ana Paula Hackett, CLOUD SOLUTIONS ARCHITECT-Samantha Tissues: A - Esophagus, NOS Procedures: Surgery Specimen Level IV HEADER OPERATION: EGD, biopsy PRE-OP DIAGNOSIS: Judge's esophagus TISSUE SUBMITTED: A- GE junction biopsy MICROSCOPIC DIAGNOSIS A. Esophagus, GE junction, biopsy: * Columnar mucosa negative for goblet cell metaplasia. * Scant benign squamous mucosa. * Negative for dysplasia. MICROSCOPIC DESCRIPTION Slides are reviewed. GROSS DESCRIPTION A. Received in fixative is one container labeled with the patient's name and designated GE junction biopsy. The specimen consists of two irregular fragments of light shelley soft tissue that measure 0.3 and 0.4 cm. The specimen is totally submitted in one cassette. [place] 04/18/2025 CPT:33557
--- NOTE | 2025-04-18 08:16 | PCM.POST.ANE ---
Anesthesia: Postop Eval I Current Vital Signs Temperature: 98 F Pulse Rate: 72 Blood Pressure: 138/77 Respiratory Rate: 16 Pulse Ox: 98 Oxygen Delivery Method: Room Air Assessment Airway patent: Yes Spontaneous unlabored respirations: Yes Mental status: Awake and Calm nausea: No Vomiting: No Anesthesia Complication: No Fluid Hydration Crystalloid volume administer (ml): 600 Total IV fluid infused: 600 Progress Note Anesthesia document: Postop Eval 1 completed: Yes
--- NOTE | 2025-04-18 08:17 | OP.PROVAT_ITS ---
04/18/2025 Donaldo Rodríguez Re : Upper GI endoscopy procedure for Bernard Chiangr Lew This procedure was performed on Friday, April 18, 2025. My impressions and recommendations are as follows: Impressions : - Normal esophagus. - Normal stomach. - Normal examined duodenum. - Mucosa was biopsied at the gastroesophageal junction for evaluation of Judge's esophagus. Recommendations : - Discharge patient to home. - Resume previous diet. - Continue present medications. - Await pathology results. - Repeat upper endoscopy in 3 years for surveillance. My findings are described in the full procedure note, which is enclosed. If I can be of further assistance, please feel free to contact me at Doctor phone number(s): , Work: . Sincerely, Cholo Neumann MD 04/18/2025 8:17:05 AM This report has been signed electronically.
--- NOTE | 2025-04-18 08:17 | OP.EGD_ITS ---
Patient Name: Bernard Leon Procedure Date: 04/18/2025 7:59 AM Date of : 1960 Age: 64 Procedure: Upper GI endoscopy Indications: Dysphagia, Surveillance for malignancy due to personal history of Judge's esophagus Providers: Cholo Neumann MD Referring MD: Donaldo Rodríguez Medicines: Propofol per Anesthesia Patient Profile: This is a 64 year old male. Refer to note in patient chart for documentation of history and physical. Complications: No immediate complications. Estimated blood loss: Minimal. Procedure: Pre-Anesthesia Assessment: - Prior to the procedure, a History and Physical was performed, and patient medications and allergies were reviewed. The patient's tolerance of previous anesthesia was also reviewed. The risks and benefits of the procedure and the sedation options and risks were discussed with the patient. All questions were answered, and informed consent was obtained. Prior Anticoagulants: The patient has taken no anticoagulant or antiplatelet agents. After reviewing the risks and benefits, the patient was deemed in satisfactory condition to undergo the procedure. After obtaining informed consent, the endoscope was passed under direct vision. Throughout the procedure, the patient's blood pressure, pulse, and oxygen saturations were monitored continuously. The gastroscope was introduced through the mouth, and advanced to the fourth part of duodenum. The upper GI endoscopy was accomplished without difficulty. The patient tolerated the procedure well. Scope In: 8:09:39 AM Scope Out: 8:13:26 AM Total Procedure Duration Time 0 hours 3 minutes 47 seconds Findings: The esophagus was normal. The stomach was normal. The examined duodenum was normal. Mucosa was biopsied with a cold forceps for histology in 4 quadrants at the gastroesophageal junction. Impression: - Normal esophagus. - Normal stomach. - Normal examined duodenum. - Mucosa was biopsied at the gastroesophageal junction for evaluation of Judge's esophagus. Recommendation: - Discharge patient to home. - Resume previous diet. - Continue present medications. - Await pathology results. - Repeat upper endoscopy in 3 years for surveillance. Procedure Code(s): --- Professional --- 00239, Esophagogastroduodenoscopy, flexible, transoral; with biopsy, single or multiple Diagnosis Code(s): --- Professional --- K22.70, Judge's esophagus without dysplasia R13.10, Dysphagia, unspecified CPT copyright 2021 [employer]. All rights reserved. The codes documented in this report are preliminary and upon instructional interventionist review may be revised to meet current compliance requirements. Cholo Neumann MD 04/18/2025 8:17:05 AM This report has been signed electronically. Number of Addenda: 0 Note Initiated On: 04/18/2025 7:59 AM
--- NOTE | 2025-04-18 08:22 | POSTOPAN2_ITS ---
Anesthesia Postop Eval I Sum Postop Eval Completion status Anesthesia document: Postop Eval 1 completed: Yes Anesthesia Postop Eval I Summary Anesthesia Postop Eval I Summary: Anesthesia Postop Eval I: Assessment Summary Airway patent Yes 04/18/25 08:16 RISK CONTROL OFFICER.MDVIVIAN Spontaneous unlabored Yes 04/18/25 08:16 RISK CONTROL OFFICER.OT respirations Mental status Awake,Calm 04/18/25 08:16 RISK CONTROL OFFICER.MDOT nausea No 04/18/25 08:16 RISK CONTROL OFFICER.MDOT Vomiting No 04/18/25 08:16 RISK CONTROL OFFICER.MDOT Anesthesia Postop Eval I: Fluid Summary Crystalloid volume administer 600 04/18/25 08:16 RISK CONTROL OFFICER.MDOT (ml) Colloids volume administered ( ml) Blood Product volume administered (ml) Total IV fluid infused 600 04/18/25 08:16 RISK CONTROL OFFICER.FRANCY Anesthesia Postop Eval I: Summary Notes Anesthesia Complication No 04/18/25 08:16 RISK CONTROL OFFICER.OT Anesthesia Complication Comment: Post-operative progress note Anesthesia: Postop Eval II Evaluation Mental status: Awake and Calm Pain Level: 0 nausea: No Vomiting: No Complications Anesthesia Complication: No
--- NOTE | 2025-04-18 08:22 | PCM.POSTANE2 ---
Anesthesia Postop Eval I Sum Postop Eval Completion status Anesthesia document: Postop Eval 1 completed: Yes Anesthesia Postop Eval I Summary Anesthesia Postop Eval I Summary: Anesthesia Postop Eval I: Assessment Summary Airway patent Yes 04/18/25 08:16 KEY WORKER.MDVIVIAN Spontaneous unlabored Yes 04/18/25 08:16 KEY WORKER.OT respirations Mental status Awake,Calm 04/18/25 08:16 KEY WORKER.MDOT nausea No 04/18/25 08:16 KEY WORKER.MDOT Vomiting No 04/18/25 08:16 KEY WORKER.MDOT Anesthesia Postop Eval I: Fluid Summary Crystalloid volume administer 600 04/18/25 08:16 KEY WORKER.MDOT (ml) Colloids volume administered ( ml) Blood Product volume administered (ml) Total IV fluid infused 600 04/18/25 08:16 KEY WORKER.FRANCY Anesthesia Postop Eval I: Summary Notes Anesthesia Complication No 04/18/25 08:16 KEY WORKER.OT Anesthesia Complication Comment: Post-operative progress note Anesthesia: Postop Eval II Evaluation Mental status: Awake and Calm Pain Level: 0 nausea: No Vomiting: No Complications Anesthesia Complication: No
--- NOTE | 2025-04-18 10:32 | POSTOPAN2_ITS ---
Anesthesia Postop Eval I Sum Postop Eval Completion status Anesthesia document: Postop Eval 1 completed: Yes Anesthesia Postop Eval I Summary Anesthesia Postop Eval I Summary: Anesthesia Postop Eval I: Assessment Summary Airway patent Yes 04/18/25 08:16 AUTOMOTIVE DISMANTLER.MDVIVIAN Spontaneous unlabored Yes 04/18/25 08:16 AUTOMOTIVE DISMANTLER.OT respirations Mental status Awake,Calm 04/18/25 08:23 AUTOMOTIVE DISMANTLER.MDOT nausea No 04/18/25 08:23 AUTOMOTIVE DISMANTLER.MDOT Vomiting No 04/18/25 08:23 AUTOMOTIVE DISMANTLER.MDOT Anesthesia Postop Eval I: Fluid Summary Crystalloid volume administer 600 04/18/25 08:16 AUTOMOTIVE DISMANTLER.MDOT (ml) Colloids volume administered ( ml) Blood Product volume administered (ml) Total IV fluid infused 600 04/18/25 08:16 AUTOMOTIVE DISMANTLER.FRANCY Anesthesia Postop Eval I: Summary Notes Anesthesia Complication No 04/18/25 08:23 AUTOMOTIVE DISMANTLER.OT Anesthesia Complication Comment: Post-operative progress note Anesthesia: Postop Eval II Evaluation Mental status: Awake Pain Level: 0 nausea: No Vomiting: No
--- NOTE | 2025-04-18 10:32 | PCM.POSTANE2 ---
Anesthesia Postop Eval I Sum Postop Eval Completion status Anesthesia document: Postop Eval 1 completed: Yes Anesthesia Postop Eval I Summary Anesthesia Postop Eval I Summary: Anesthesia Postop Eval I: Assessment Summary Airway patent Yes 04/18/25 08:16 PIN MACHINE [email or web address] Spontaneous unlabored Yes 04/18/25 08:16 PIN MACHINE [email or web address].OT respirations Mental status Awake,Calm 04/18/25 08:23 PIN [email or web address] [email or web address] nausea No 04/18/25 08:23 PIN [email or web address] Vomiting No 04/18/25 08:23 PIN [email or web address] Anesthesia Postop Eval I: Fluid Summary Crystalloid volume administer 600 04/18/25 08:16 PIN MACHINE [email or web address].MDOT (ml) Colloids volume administered ( ml) Blood Product volume administered (ml) Total IV fluid infused 600 04/18/25 08:16 PIN [email or web address] Anesthesia Postop Eval I: Summary Notes Anesthesia Complication No 04/18/25 08:23 PIN [email or web address].OT Anesthesia Complication Comment: Post-operative progress note Anesthesia: Postop Eval II Evaluation Mental status: Awake Pain Level: 0 nausea: No Vomiting: No
== END 2025-04-18 09:16 | disposition home or self-care (01) ==
LOC: EN 07:00 → AC 07:02
PROVIDERS: PCP Nurse Practitioner Family; Referring Provider Nurse Practitioner Family; Visit Provider Surgery
PROC: 0DJ08ZZ Inspection of Upper Intestinal Tract, Via Natural or Artificial Opening Endoscopic (ICD-10-PCS; CPT 43235; principal; 2025-04-18 07:55)
DX: Z13.810 Encounter for screening for upper gastrointestinal disorder (principal); K22.70 Barrett's esophagus without dysplasia; R13.10 Dysphagia, unspecified; I25.10 Atherosclerotic heart disease of native coronary artery without angina pectoris; K21.9 Gastro-esophageal reflux disease without esophagitis; E78.00 Pure hypercholesterolemia, unspecified; Z79.82 Long term (current) use of aspirin; Z79.02 Long term (current) use of antithrombotics/antiplatelets; Z79.899 Other long term (current) drug therapy; Z87.891 Personal history of nicotine dependence; Z95.5 Presence of coronary angioplasty implant and graft; I25.2 Old myocardial infarction
CPT/HCPCS: 43239; 88305

== ENCOUNTER → 2025-07-29 | Outpatient (CLI) | payer BC, SELFPAY ==
--- NOTE | 2025-07-29 14:42 | CT_ITS ---
PROCEDURE: LOW DOSE CT LUNG SCREENING 07/29/2025 REASON FOR EXAM: LUNG CANCER SCREENING Former smoker. Patient has smoked 2-1/2 packs per day for 30 years. TECHNIQUE: Procedure Code: [id number] Modality: CT Procedure: LOW DOSE CT LUNG SCREENING Coronal and Sagittal reconstruction series were provided. One or more dose reduction techniques were used (e.g., Automated exposure control, adjustment of the mA and/or kV according to patient size, use of iterative reconstruction technique). REFERENCE LINK: [facility] Lung-RADS RADIATION DOSE SUMMARY: CTDlvol: 4.02 mGy DLP: 135.92 mGycm COMPARISON: June 25, 2024. FINDINGS: PULMONARY NODULES: (Only nodules >3mm are reported) Nodules described below are on series 1 unless otherwise specified. Pulmonary Nodules: Stable calcified granuloma in the anterior aspect of the left lower lobe abutting the left major fissure. This is unchanged. Hardware:None Lymph Nodes:Stable small benign-appearing mediastinal lymph nodes. Calcified left hilar lymph nodes. Heart and Vasculature:The heart is nonenlarged. Coronary Artery Calcifications: Present Lungs and Airways: Unremarkable Pleura:Unremarkable Upper Abdomen:Unremarkable Bones:Degenerative changes of the thoracic spine. CT/Low Dose CT Lung Screening IMPRESSION: Stable calcified granuloma in the anterior aspect of the left lower lobe adjace nt to the left major fissure. Coronary artery calcification (CAC) is is present Lung-RADS Category: 2 BENIGN (BASED ON IMAGING FEATURES OR INDOLENT BEHAVIOR). RECOMMEND 12-MONTH SCREENING LDCT. Other Significant Findings: Reading Location: [facility]
--- OUTSIDE RECORDS SUMMARY | 2025-07-29 19:00 | XMS RPT_ITS | CCD ---
Author Organization [facility] Care Team Providers Care Wraparound Facilitator Name Role Phone Dr. Ernesto Faust Primary Care Provider Dr. Duane Jiang Attending Provider [phone] Duane Jiang Referring Provider [phone] Duane Jiang Other Provider Dr. Ernesto Faust Primary Care Provider 1([facility])[phone] Dr. Ernesto Faust Referring Provider 1([facility])[phone] Della Velazquez Attending Provider Dr. Ernesto Faust Primary Care Provider 1([facility])[phone] Dr. Ernesto Faust Referring Provider 1([facility])[phone] Della Velazquez Attending Provider Dr. Della Velazquez Primary Care Provider Dr. Della Velazquez Referring Provider 1([facility])[phone] Dr. Mitchell Austin Attending Provider [phone] Mitchell Austin Other Provider 1([facility])[phone] Ernesto Faust Referring Provider Unavailable Dr. Conrado Fuller Attending Provider Dr. Della Velazquez Primary Care Provider Dr. Ernesto Faust Referring Provider Unavailable Dr. Conrado Fuller Attending Provider Dr. Della Velazquez Primary Care Provider Dr. Duane Jiang Attending Provider 1([facility])[phone] ABEL Cobb Primary Care Provider [phone] Govind DOUGLAS, Ernesto Schultz Primary Care Provider [phone] GOVINDERNESTO Primary Care Unavailable GREG CHAVEZ Referring Unavailable GREG CHAVEZ Attending Unavailable GOVIND, ERNESTO SCHULTZ Primary Care Unavailable OLDER, SWETHA Referring Unavailable GOVIND, ERNESTO SCHULTZ Primary Care Unavailable GOVIND, ERNESTO SCHULTZ Primary Care Unavailable Jordyn MARKETING PRODUCER-C, Jennifer Primary Care Provider [phone] Jordyn MARKETING PRODUCER-C, Jennifer Referring Provider Nel DOUGLAS, Dr. Emmanuel Attending Provider [phone] Nel DOUGLAS, Dr. Emmanuel Other Provider [phone] Dina Beck Attending Provider Apolinar DOUGLAS, Dr. Zepeda Attending Provider JORDYN, JENNIFER Referring Unavailable GOVIND, ERNESTO MARION Primary Care Unavailable ERIN, DINA Referring Unavailable GOVIND, ERNESTO MARION Primary Care Unavailable Jorydn, Jennifer Primary Care Unavailable Cholo Neumann Attending Unavailable Jordyn, Jennifer Referring Unavailable Jordyn, Jennifer Primary Care Unavailable Cholo Neumann Consulting Unavailable CalabrCholo guzman Attending Unavailable Jordyn, Jennifer Referring Unavailable Jordyn, Jennifer Primary Care Unavailable Cholo Neumann Attending Unavailable Jordyn, Jennifer Referring Unavailable Jordyn, Jennifer Primary Care Unavailable Kelly Khanyn Attending Unavailable Erin, Dina Referring Unavailable Jordyn, Jennifer Primary Care Unavailable Iraj MARKETING PRODUCER, Sangeetha Attending Unavailable Iraj MARKETING PRODUCER, Sangeetha Referring Unavailable Duane Jiang Attending Unavailable Jordyn, Jennifer Primary Care Unavailable Jordyn, Jennifer Referring Unavailable Jordyn, Jennifer Primary Care Unavailable Kelly Khanyn Attending Unavailable Allergies Allergy Classification Reported Allergen(s) Allergy Type Date of Onset Reaction(s) Facility (13 sources) Metoprolol Drug Allergy 1 dyspnea [facility] (19 sources) Morphine; Translations: [MORPHINE] Drug Allergy 0 I flat lined because they pushed it too fast [facility] (13 sources) Nitroglycerin Drug Allergy 1 severe hypotension [facility] (19 sources) PHENobarbital; Translations: [PHENOBARBITAL] Drug Allergy 0 Mental Status Change [facility] Comment on above: made me go crazy (1 source) Metoprolol Drug Allergy 5 [facility] (1 source) Morphine Drug Allergy 5 [facility] (1 source) Nitroglycerin Drug Allergy 5 [facility] (1 source) PHENobarbital Drug Allergy 5 [facility] Medications Current Medications Medication Drug Class(es) Dates Sig (Normalized) Sig (Original) ascorbic acid 500 mg oral tablet (4 sources) Vitamin C Start: 07-05-2024 take 1 g by mouth once daily Ascorbic Acid (Vitamin C) 500 mg tablet Active 1 g PO daily July 05, 2024 12:00am aspirin 81 mg chewable tablet (17 sources) Platelet Aggregation Inhibitor, Nonsteroidal Anti-inflammatory Drug Start: 01-28-2019 take 1 tablet by mouth once daily aspirin 81 mg chewable tablet Take 1 tablet by mouth once daily. 01/28/2019 Active atropine sulfate 0.025 mg / diphenoxylate hydrochloride 2.5 mg oral tablet (4 sources) Anticholinergic, Cholinergic Muscarinic Antagonist, Antidiarrheal Start: 04-28-2022 take 1 tablet by mouth every six hours as needed for diarrhea and diarrhea diphenoxylate-at ropine (LOMOTIL) 2.5-0.025 mg per tablet Indications: Diarrhea, unspecified type Take 1 tablet by mouth four times daily as needed for up to 5 days. 20 tablet 04/28/2022 Active cholecalciferol 0.05 mg oral capsule (17 sources) Vitamin D Start: 08-24-2017 take 1 [...] tablet Discontinued 25 mg PO DAILY 30 0 January 30, 2019 12:00am February 05, 2019 3:22pm magnesium sulfate 0.0277 meq/ml / potassium sulfate 0.0374 meq/ml / sodium sulfate 0.257 meq/ml oral solution (4 sources) Start: 05-14-2021 sodium sulfate-potassium sulfate-magnesium sulfate (SUPREP BOWEL PREP KIT) 17.5-3.13-1.6 gram oral liquid Refer to instructions given by your provider. 1 Kit 05/14/2021 Active methocarbamol 500 mg oral tablet (1 source) Muscle Relaxant Start: 04-23-2025 take 1 tablet by mouth three times daily as needed for pain Methocarbamol 500 mg tablet Active 500 mg PO THREE TIMES A DAY as needed for pain/spasms 30 0 April 23, 2025 12:00am Vitamin B Complex (9 sources) Start: 10-20-2020 Vitamin B Complex Active 1 EACH PO DAILY October 20, 2020 12:00am Start: 10-20-2020 Vitamin B Comp shanice Active 1 EACH PO DAILY October 20, 2020 1:00am Vitamin B Complex 1 EACH capsule (4 sources) Start: 10-20-2020 Vitamin B Comp shanice 1 EACH capsule Active 1 NMA PO DAILY October 20, 2020 1:00am VITAMIN B COMPLEX ORAL (4 sources) Start: 08-24-2017 take 1 tablet by mouth once daily VITAMIN B COMPLEX ORAL Take 1 tablet by mouth once daily. 08/24/2017 Active Start: 08-24-2017 take 1 tablet by carolina th once daily VITAMIN B COMPLEX ORAL Take 1 tablet by mouth once daily. 0 08/24/2017 Active vitamin b12 2.5 mg oral tablet (13 sources) Vitamin B12 Start: 10-20-2020 take 1 tablet by mouth once daily Cyanocobalamin (Vitamin B-12) 2,500 MCG tablet Active 2500 ug PO DAILY October 20, 2020 1:00am Completed/Discontinued Medications Medication Drug Class(es) Dates Sig (Normalized) Sig (Original) atorvastatin 40 mg oral tablet (20 sources) HMG-CoA Reductase Inhibitor Start: 10-31-2022 End: 11-25-2024 take 1 tablet by mouth every other day Atorvastatin 40 mg tablet Discontinued 40 mg PO .EVERY OTHER DAY 45 3 November 24, 2023 2:30pm November 25, 2024 2:06pm Start: 03-19-2020 End: [...] 20, 2019 4:49pm March 04, 2019 1:30pm metoprolol tartrate 25 mg oral tablet (20 sources) beta-Adrenergic Arnav Start: 01-30-2019 End: 02-20-2019 take 1 tablet by mouth twice daily Metoprolol Tartrate 25 mg tablet Discontinued 25 mg PO TWICE A DAY 180 3 February 05, 2019 3:22pm February 20, 2019 4:49pm 24 hr nicotine 0.875 mg/hr transdermal system (13 sources) Cholinergic Nicotinic Agonist Start: 01-30-2019 End: 02-05-2019 apply 21 mg transdermal route once daily Nicotine 21 MG patch Discontinued 21 mg TRANSDERM. DAILY 14 0 January 30, 2019 12:00am February 05, 2019 3:10pm Transition to 14 mg following. ondansetron 8 mg oral tablet (13 sources) Serotonin-3 Receptor Antagonist Start: 10-03-2018 End: 10-15-2018 take 1 tablet by mouth three times daily as needed for nausea Ondansetron Hcl 8 MG tablet Discontinued 8 mg PO THREE TIMES A DAY as needed for Nausea 20 0 October 03, 2018 12:24pm October 15, 2018 3:12pm RABEprazole sodium 20 mg delayed release oral tablet (20 sources) Proton Pump Inhibitor Start: 10-03-2018 End: 11-24-2023 Rabeprazole 20 mg tablet,delayed release (DR/EC) Discontinued 20 mg PO AT BEDTIME 90 0 June 07, 2023 3:42pm November 24, 2023 1:39pm gerd twice daily for 2 weeks, then daily. Start: 12-05-2016 End: 10-03-2018 take 1 tablet by mouth once daily RABEprazole (ACIPHEX) 20 mg tablet Take 1 tablet by mouth once daily. 30 tablet 4 12/05/2016 Active Problems Active Problems Problem Classification Problem Date Documented Date Episodic/Chronic Abdominal hernia (13 sources) Gastroesophageal reflux disease with hiatal hernia; Translations: [Diaphragmatic hernia without obstruction or gangrene] 10-31-2022 Episodic Administrative/social admission (15 sources) Administrative reason for encounter; Translations: [Encounter for examination for driving license] 10-31-2022 Episodic Anxiety disorders (4 sources) Anxiety; Translations: [Anxiety disorder, unspecified] Onset: 04-07-2014 04-07-2014 Chronic Coma; stupor; and brain damage (13 sources) Daytime somnolence; Translations: [Somnolence] 07-02-2021 Episodic Coronary atherosclerosis and other heart disease (20 sources) Coronary atherosclerosis; Translations: [Atherosclerotic heart disease of [place] coronary artery without angina pectoris] Onset: 04-07-2014 10-31-2022 Chronic Disorders of lipid metabolism (14 sources) Mixed hyperlipidemia; Translations: [Mixed hyperlipidemia] Onset: 04-07-2014 Resolved: 10-18-2016 07-06-2023 Chronic Esophageal disorders (20 sources) Gastro-esophageal reflux disease with esophagitis; Translations: [Gastroesophageal reflux disease with esophagitis] Onset: 03-25-2025 06-21-2021 Chronic Gastritis and duodenitis (13 sources) Gastritis; Translations: [Gastritis, unspecified, without bleeding] 10-31-2022 Episodic Lymphadenitis (15 sources) Mediastinal lymphadenopathy; Translations: [Localized enlarged lymph nodes] 06-21-2021 Episodic Nutritional deficiencies (2 sources) Vitamin D deficiency, unspecified; Translations: [Unspecified vitamin D deficiency] 10-31-2022 Chronic Open wounds of head; neck; and trunk (13 sources) Scalp laceration; Translations: [Laceration without foreign body of scalp, initial encounter] 06-21-2021 Episodic Other connective tissue disease (2 sources) Abnormal posture; Translations: [Abnormal posture] Onset: 05-07-2025 05-07-2025 Episodic Other connective tissue disease (1 source) Abnormal posture; Translations: [Abnormal posture] Onset: 05-07-2025 Episodic Other injuries and conditions due to external causes (13 sources) Injury of head; Translations: [Unspecified injury of head, initial encounter] 06-21-2021 Episodic Other lower respiratory disease (13 sources) Dyspnea on exertion; Translations: [Other forms of dyspnea] 06-21-2021 Episodic Other nervous system disorders (2 sources) Abnormal gait; Translations: [Unspecified abnormalities of gait and mobility] Onset: 05-07-2025 05-07-2025 Episodic Other nervous system disorders (1 source) Unspecified abnormalities of gait and mobility; Translations: [Abnormality of gait] Onset: 05-07-2025 Episodic Other non-traumatic joint disorders (5 sources) Pain in right knee; Translations: [Pain in joint, lower leg] Onset: 05-30-2023 10-31-2022 Episodic Other non-traumatic joint disorders (1 source) Pain in left hip; Translations: [Pain in joint, pelvic region and thigh] 12-06-2022 Episodic Other nutritional; endocrine; and metabolic disorders (13 sources) High density lipoprotein deficiency ; Translations: [Lipoprotein deficiency] 02-04-2019 Chronic Other screening for suspected conditions (not mental disorders or infectious disease) (13 sources) Elevated prostate specific antigen [PSA]; Translations: [Elevated prostate specific antigen [PSA]] Onset: 11-24-2016 10-31-2022 Episodic Kimberly-; endo-; and myocarditis; cardiomyopathy (except that caused by tuberculosis or sexually transmitted disease) (4 sources) Secondary aortitis; 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] 10-06-2023 Episodic Peripheral and visceral atherosclerosis (4 sources) Peripheral vascular disease, unspecified; Translations: [Peripheral vascular disease, unspecified] Onset: 04-07-2014 04-07-2014 Chronic Residual codes; unclassified (6 sources) Hypersomnia; Translations: [Hypersomnia, unspecified] 06-27-2023 Chronic Residual codes; unclassified (2 sources) Hypersomnia, unspecified; Translations: [Hypersomnia, unspecified] 06-27-2023 Chronic Residual codes; unclassified (2 sources) Immunization not carried out because of patient refusal; Translations: [Vaccination not carried out because of patient refusal] 10-31-2022 Episodic Residual codes; unclassified (3 sources) Other specified health status; Translations: [Tobacco use disorder] 10-31-2022 Episodic Rheumatoid arthritis and related disease (4 sources) Rheumatoid arthritis; Translations: [Rheumatoid arthritis, unspecified] 10-09-2023 Chronic Screening and history of mental health and substance abuse codes (5 sources) Tobacco use and exposure - finding; Translations: [Personal history of nicotine dependence] Onset: 07-16-2025 06-25-2024 Episodic Spondylosis; intervertebral disc disorders; other back problems (7 sources) Lumbar radiculopathy; Translations: [Radiculopathy, lumbar region] Onset: 04-11-2025 Episodic Substance-related disorders (20 sources) Nicotine dependence; Translations: [Nicotine dependence, unspecified, uncomplicated] 07-02-2021 Chronic Unclassified (2 sources) M54.16 - Radiculopathy, lumbar region Unclassified (1 source) Low back pain, unspecified; Translations: [Low back pain, unspecified] Onset: 04-23-2025 Past or Other Problems Problem Classification Problem Date Documented Da te Episodic/Chronic Coronary atherosclerosis and other heart disease (1 source) Presence of coronary angioplasty implant and graft; Translations: [Percutaneous transluminal coronary angioplasty status] Onset: 01-29-2019 07-06-2023 Episodic Malaise and fatigue (17 sources) Fatigue; Translations: [Other fatigue] Onset: 10-18-2016 06-21-2021 Episodic Nonspecific chest pain (17 sources) Chest pain; Translations: [Chest pain, unspecified] Onset: 04-07-2014 02-04-2019 Episodic Other non-traumatic joint disorders (4 sources) Joint pain; Translations: [Pain in joint, other specified sites] Onset: 07-20-2005 07-20-2005 Episodic Residual codes; unclassified (4 sources) Tobacco user; Translations: [Tobacco use] Onset: 10-18-2016 10-18-2016 Episodic Residual codes; unclassified (4 sources) Noncompliance with medication regimen; Translations: [Noncompliance with medication regimen] Onset: 10-18-2016 10-18-2016 Episodic Results Test Name Value Interpretation Reference Range [facility] OT/PT/Speech Visit ( LDPT) KRISHAN JOHNSON ([id number]) 1960 M Date Time Provider Department 05/07/25 2:15 PM LIZ [facility] LDPT Date Time Provider Department Center 05/07/2025 2:15 PM [id number], GABRIEL*LDPT [facility] Reason for Visit: PT Eval [747] Primary Visit Diagnosis:Radiculopathy, lumbar region [M54.16] Other Visit Diagnoses:Abnormal posture [R29.3] Abnormality of gait [R26.9] Allergies As of Date: 05/07/2025 Noted Allergy Reaction MORPHINE 01/27/2010 Comments: drops my heart rate PHENOBARBITAL 01/27/2010 1 - Mental Status Change Date Reviewed: 01/23/2024 Reviewed by: Gurpreet Britton MA - Fully Assessed Prescriptions as of 05/07/2025 - losartan (COZAAR) 25 mg tablet Take 1 tablet by mouth once daily. - clopidogrel (PLAVIX) 75 mg tablet Take 1 tablet by mouth once daily. - diphenoxylate-atropine (LOMOTIL) 2.5-0.025 mg per tablet Take 1 tablet by mouth four times daily as needed for up to 5 days. - aspirin 81 mg chewable tablet Take 1 tablet by mouth once daily. - atorvastatin (LIPITOR) 40 mg tablet Take 40 mg by mouth once daily. - losartan (COZAAR) 25 mg tablet Take 25 mg by mouth once daily. - clopidogrel (PLAVIX) 75 mg tablet Take 75 mg by mouth once daily. - Cholecalciferol, Vitamin D3, 50 mcg (2,000 unit) cap Take 6,000 Units by mouth once daily. - VITAMIN B COMPLEX ORAL Take 1 tablet by mouth once daily. - sodium sulfate-potassium sulfate-magnesium sulfate (SUPREP BOWEL PREP KIT) 17.5-3.13-1.6 gram oral liquid Refer to instructions given by your provider. - RABEprazole (ACIPHEX) 20 mg tablet Take 1 tablet by mouth once daily. Normal [facility] L/S Spine Bending Flex/[place] 04-23-2025 L/S Spine Bending Flex/Ext [facility] Imaging Services [address] [place] [id number] L/S Spine Bending Flex/Ext MR#: [id number] Acct: [id number] Name: KRISHAN JOHNSON . Rep #: [id number] : 1960 M 64 From: Francesco ramsey MD PCP: ABEL Rodríguez Status: DEP AMB Study: L/S Spine Bending Flex/Ext Date of Exam: 04/23 Exam# [id number] Ordering Dr: Dina Khan PROCEDURE: L/S SPINE BENDING FLEX/EXT 04/23/2025 REASON FOR EXAM: ONGOING BACK PAIN TECHNIQUE: L/S SPINE BENDING FLEX/EXT COMPARISON: None FINDINGS: Straightening of the normal lumbar lordosis. No movement between the segments on the flexion- extension views. Multilevel spondylosis and disc space narrowing. RAD/L/S Spine Bending Flex/Ext IMPRESSION: Multilevel disc space narrowing and spondylosis. Loss of the normal lumbar lordosis. Reading Location: [facility] CC: ABEL Cobb; MILES Voss Pbx Wire Chief: Signed Normal [facility] Orthopedic Visit Reporton Orthopedic Visit Report [facility] [address] [place] [address] [id number] OFFICE VISIT Date of Service: 04/23/25 MR#: [id number] Acct: [id number] Name: KRISHAN JOHNSON Sr. Rep #: [id number] : 1960 Provider: MILES Voss Age/Sex: 64/M Location: [facility] Status: Signed Intake Vital Signs 03/25/25 14:56 04/18/25 07:15 04/23/25 14:04 Height 5 ft 11 in 5 ft 11 in 5 ft 11 in Weight: 223 lb 6 oz BMI 31.1 Intake Visit Reasons: LUMBAR SPINE Chief Complaint: Lumbar spine pain Accompanied by: Self Is patient in pain?: Yes Pain scale (1-10): 7 Allergies metoprolol Adverse Reaction (Verified 04/23/25 14:07) dyspnea morphine Adverse Reaction (Verified 04/23/25 14:07) I flat lined because they pushed it too fast nitroglycerin Adverse Reaction (Verified 04/23/25 14:07) severe hypotension phenobarbital Adverse Reaction (Verified 04/23/25 14:07) made me go crazy Medications ???Medication ???Instructions ???Recorded ???Confirmed ???Type cholecalciferol (vitamin D3) 50 4,000 unit PO QHS supplement 08/2404/23/25 History mcg (2,000 unit) capsule aspirin 81 mg chewable tablet 81 mg PO DAILY@0800 heart health 0 01/28/19 04/23/25 History cyanocobalamin (vitamin B-12) 2,500 mcg PO DAILY 10/20/20 History 2,500 mcg tablet vitamin B complex 1 ea PO DAILY 10/20/20 04/23/25 Hi story rabeprazole 20 mg tablet,delayed 20 mg PO QHS gerd #30 tabs 4 04/23/25 Rx release clopidogrel 75 mg tablet 75 mg PO DAILY #90 TABLETS 4 04/23/25 Rx losartan 25 mg tablet 25 mg PO DAILY #90 TABLETS 4 04/23/25 Rx ascorbic acid (vitamin C) 500 mg 1 g PO QDAY 07/05/24 04/23/25 Hist ory tablet atorvastatin 40 mg tablet 40 mg PO .EVERY OTHER DAY #45 tabs 11/25/24 04/23/25 Rx methocarbamol 500 mg tablet 500 mg PO TID PRN pain/spasms #30 04/23/25 04/23/25 Rx tabs Have you fallen in the past year?: No PFSH Medical History Anxiety Excessive bleeding Gastric reflux Vapes nicotine containing substance Former smoker History of edema Cardiology follow-up encounter History of tobacco use Encounter for screening [...] cholesterol with hypertriglyceridemia GERD with esophagitis Gastritis Barretts esophagus Atherosclerosis of coronary artery of [place] heart without angina pectoris Surgical History History of esophagogastroduodenoscopy (EGD) History of cardiac catheterization Hx of arthroscopy of right knee Hx of arthroscopy of left knee History of coronary artery stent placement (01/29/19) S/P laparoscopic cholecystectomy Family History Mother Heart disease PPM Father Cancer Prostate Social History household members: spouse current occupational status: employed 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 Part of today???s visit was documented by Ana Sweeney MA, acting as scribe. KRISHAN JOHNSON is a 64 year old M here today for lumbar spine. Patient states that his pain in the lower back is a 7 today. The pain is in the middle of the lower back, and then shoots down the left leg. The pain goes in the middle of the back towards the left side and then down the back of the left leg. It primarily stops at the knee however on occasion he can get some pain into the left calf. The pain is sharp, and stabbing. He states that when he walks the pain is so bad that it goes down the left leg, and his left leg becomes weak. Says that he can only walk about a quarter of a mile before he has to sit down and stop due to the pain. S (more content not included)... Normal [facility] EGD Reporton 04-18-2025 EGD Report [facility] Medical Records Department [address] [place] [address] EGD Report MR#: [id number] Acct: [id number] Name: KRISHAN JOHNSON . Rep #: [id number] : 1960 64 From: Cholo Neumann MD PCP: ABEL Rodríguez Status:[facility] [place] Patient Name: Krishan Johnson Procedure Date: 04/18/2025 7:59 AM Date of : 1960 Age: 64 Procedure: Upper GI endoscopy Indications: Dysphagia, Surveillance for malignancy due to personal history of Judge's esophagus Providers: Cholo Neumann MD Referring MD: Abel Rodríguez Medicines: Propofol per Anesthesia Patient Profile: This is a 64 year old male. Refer to note in patient chart for documentation of history and physical. Complications: No immediate complications. Estimated blood loss: Minimal. Procedure: Pre-Anesthesia Assessment: - Prior to the procedure, a History and Physical was performed, and patient medications and allergies were reviewed. The patient's tolerance of previous anesthesia was also reviewed. The risks and benefits of the procedure and the sedation options and risks were discussed with the patient. All questions were answered, and informed consent was obtained. Prior Anticoagulants: The patient has taken no anticoagulant or antiplatelet agents. After reviewing the risks and benefits, the patient was deemed in satisfactory condition to undergo the procedure. After obtaining informed consent, the endoscope was passed under direct vision. Throughout the procedure, the patient's blood pressure, pulse, and oxygen saturations were monitored continuously. The gastroscope was introduced through the mouth, and advanced to the fourth part of duodenum. The upper GI endoscopy was accomplished without difficulty. The patient tolerated the procedure well. Scope In: 8:09:39 AM Scope Out: 8:13:26 AM Total Procedure Duration Time 0 hours 3 minutes 47 seconds Findings: The esophagus was normal. The stomach was normal. The examined duodenum was normal. Mucosa was biopsied with a cold forceps for histology in 4 quadrants at the gastroesophageal junction. Impression: - Normal esophagus. - Normal stomach. - Normal examined duodenum. - Mucosa was biopsied at the gastroesophageal junction for evaluation of Judge's esophagus. Recommendation: - Discharge patient to home. - Resume previous diet. - Continue present medications. - Await pathology results. - Repeat upper endoscopy in 3 years for surveillance. Procedure Code(s): --- Professional --- 90154, Esophagogastroduodenoscopy, flexible, transoral; with biopsy, single or multiple Diagnosis Code(s): --- Professional --- K22.70, Judge's esophagus without dysplasia R13.10, Dysphagia, unspecified CPT copyright 2021 [employer]. All rights reserved. The codes documented in this report are preliminary and upon supervisor weaving review may be revised to meet current compliance requirements. Cholo Neumann MD 04/18/2025 8:17:05 AM This report has been signed electronically. Number of Addenda: 0 Note Initiated On: 04/18/2025 7:59 AM 04/18/25 0817 Date Cholo Neumann MD Cosigner Signature: Date (if indicated) CC: ABEL Cobb; Dr. Cholo Neumann MD Date Dictated: 04/18/25 0759 Date Transcribed: Pbx Wire Chief: KEVIN Signed [facility] MR/OPFranc 04-18-2025 MR/OP.[facility] Medical Records Department [address] [address] Provation Physician Letter MR#: [id number] Acct: [id number] Name: KRISHAN JOHNSON Sr. Rep #: [id number] : 1960 64 From: Cholo Neumann MD PCP: ABEL Rodríguez Status:REG [facility] 04/18/2025 Abel Rodríguez Re : Upper GI endoscopy procedure for Krishan Johnson Dear Jordyn This procedure was performed on Friday, April 18, 2025. My impressions and recommendations are as follows: Impressions : - Normal esophagus. - Normal stomach. - Normal examined duodenum. - Mucosa was biopsied at the gastroesophageal junction for evaluation of Judge's esophagus. Recommendations : - Discharge patient to home. - Resume previous diet. - Continue present medications. - Await pathology results. - Repeat upper endoscopy in 3 years for surveillance. My findings are described in the full procedure note, which is enclosed. If I can be of further assistance, please feel free to contact me at Doctor phone number(s): , Work: . Sincerely, Cholo Neumann MD 04/18/2025 8:17:05 AM This report has been signed electronically. 04/18/25816 Date Cholo Neumann MD Cosigner Signature: Date (if indicated) CC: ABEL Cobb; Dr. Cholo Neumann MD Date Dictated: 04/18/25 0759 Date Transcribed: Pbx Wire Chief: KEVIN Signed [facility] MR/POSTOP.Erica 04-18-2025 MR/POSTOP.[facility] Medical Records Department [address] [place] [address] Anesthesia Postop Eval I 04/18/25 0816 MR#: [id number] Acct: [id number] Name: KRISHAN JOHNSON Sr. Rep #: [id number] : 1960 64 From: René Santacruz CRNA PCP: ABEL Rodríguez Status:REG [facility] Y Race: C Location: [place] [address] Anesthesia: Postop Eval I Current Vital Signs Temperature: 98 F Pulse Rate: 72 Blood Pressure: 138/77 Respiratory Rate: 16 Pulse Ox: 98 Oxygen Delivery Method: Room Air Assessment Airway patent: Yes Spontaneous unlabored respirations: Yes Mental status: Awake and Calm nausea: No Vomiting: No Anesthesia Complication: No Fluid Hydration Crystalloid volume administer (ml): 600 Total IV fluid infused: 600 Progress Note Anesthesia document: Postop Eval 1 completed: Yes 04/18/25 0816 Date René Santacruz CRNA Cosigner Signature: Date CC: Signed [facility] MR/HDAINYZY2xo 04-18-2025 /[facility] Medical Records Department [address] [place] [address] Anesthesia Postop Eval II 04/18/25 1032 MR#: [id number] Acct: [id number] Name: KRISHAN JOHNSON Sr. Rep #: [id number] : 1960 64 From: Kimmy Ortiz CRNA PCP: ABEL Rodríguez Status:DEP [facility] Y Race: C Location: [place] Anesthesia Postop Eval I Sum Postop Eval Completion status Anesthesia document: Postop Eval 1 completed: Yes Anesthesia Postop Eval I Summary Anesthesia Postop Eval I Summary: Anesthesia Postop Eval I: Assessment Summary Airway patent Yes 04/18/25 08:16 [employer]MDOT Spontaneous unlabored Yes 04/18/25 08:16 [employer].MDOT respirations Mental status Awake,Calm 04/18/25 08:23 [employer].MDOT nausea No 04/18/25 08:23 [employer].MDOT Vomiting No 04/18/25 08:23 [employer].MDOT Anesthesia Postop Eval I: Fluid Summary Crystalloid volume administer 600 04/18/25 08:16 [employer].MDOT (ml) Colloids volume administered ( ml) Blood Product volume administered (ml) Total IV fluid infused 600 04/18/25 08:16 [employer].MDOT Anesthesia Postop Eval I: Summary Notes Anesthesia Complication No 04/18/25 08:23 [employer].MDOT Anesthesia Complication Comment: Post-operative progress note Anesthesia: Postop Eval II Evaluation Mental status: Awake Pain Level: 0 nausea: No Vomiting: No 04/18/25 1032 Date Kimmy Ortiz [employer] Cosigner Signature: Date CC: Signed Normal [facility] MR/POSTOPAN2 [facility] Medical Records Department [address] [place] [address] Anesthesia Postop Eval II 04/18/25 08 MR#: [id number] Acct: [id number] Name: KRISHAN JOHNSON Sr. Rep #: [id number] : 1960 64 From: René Santacruz CRNA PCP: ABEL Rodríguez Status:REG [facility] Y Race: C Location: [address] Anesthesia Postop Eval I Sum Postop Eval Completion status Anesthesia document: Postop Eval 1 completed: Yes Anesthesia Postop Eval I Summary Anesthesia Postop Eval I Summary: Anesthesia Postop Eval I: Assessment Summary Airway patent Yes 04/18/25 08:16 [employer].MDOT Spontaneous unlabored Yes 04/18/25 08:16 [employer].FRANCY respirations Mental status Awake,Calm 04/18/25 08:16 [employer].OT nausea No 04/18/25 08:16 [employer].MDOT Vomiting No 04/18/25 08:16 [employer].MDOT Anesthesia Postop Eval I: Fluid Summary Crystalloid volume administer 600 04/18/25 08:16 [employer].FRANCY (ml) Colloids volume administered ( ml) Blood Product volume administered (ml) Total IV fluid infused 600 04/18/25 08:16 [employer].FRANCY Anesthesia Postop Eval I: Summary Notes Anesthesia Complication No 04/18/25 08:16 [employer].MDOT Anesthesia Complication Comment: Post-operative progress note Anesthesia: Postop Eval II Evaluation Mental status: Awake and Calm Pain Level: 0 nausea: No Vomiting: No Complications Anesthesia Complication: No 04/18/25822 Date René Burrowsignyusuf Signature: Date CC: Signed Normal [facility] Surgery Specimen Level Keysha 04-18-2025 Surgery Specimen Level IV -------- Patient Age/Sex Location Account Attending Physician -------- KRISHAN JOHNSON Sr. 64/M EN [id number] Dr. Cholo Neumann MD -------- Specimen: [id number] Received: 04/18/25 Status: KRISTY Ibarra Num: [id number] Spec Type: EGD BIOPSY Subm Dr: Dr. Cholo Neumann MD HEADER OPERATION: EGD, biopsy PRE-OP DIAGNOSIS: Judge's esophagus TISSUE SUBMITTED: A- GE junction biopsy -------- MICROSCOPIC DIAGNOSIS A. Esophagus, GE junction, biopsy: * Columnar mucosa negative for goblet cell metaplasia. * Scant benign squamous mucosa. * Negative for dysplasia. MICROSCOPIC DESCRIPTION Slides are reviewed. GROSS DESCRIPTION A. Received in fixative is one container labeled with the patient's name and designated GE junction biopsy. The specimen consists of two irregular fragments of light shelley soft tissue that measure 0.3 and 0.4 cm. The specimen is totally submitted in one cassette. [place] 04/18/2025 [facility]:[id number] -------- Patient Age/Sex Location Account Attending Physician -------- ALEXKRISHAN MARS Sr. 64/M EN [id number] Dr. Cholo Neumann MD -------- Signed (signature on file) Dr. Veronica Ward MD 04/22/25 1325 -------- Normal [facility] Comment on above: Performed By: #### P SUIV #### [facility] [address] [place], [place], [id number] MR/PAT.ANEon 04-15-2025 MR/PAT.[facility] Medical Records Department [address] [place] [address] PAT - Anesthesia 04/15/25 1639 MR#: [id number] Acct: [id number] Name: KRISHAN JOHNSON Sr. 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 When Was Last Pacemaker Check QUESTION #4 FULL TEXT: You/Your Family Experience fever (hyperthermia) with Anesthesia Last Oral Intake Last Oral intake: Last Oral Intake NPO since Meds taken in AM with sips of water? Meds patient instructed to take am of surgery PONV PONV - ceramic designer: PONV - ceramic designer Female No 04/15/25 15:36 HX of Motion Sickness No 04/15/25 15:36 HX of N/V After Surgery No 04/15/25 15:36 Non-Smoker No 04/15/25 15:36 Duration of Surgery greater No 04/15/25 15:36 than 60 minutes Number of Risk Factors PONV Score Height Weight Height Weight: Anesthesia: Height Weight Height 5 ft 11 in 03/25/25 14:56 Respiratory Assessment Respiratory Assessment - ceramic designer: Respiratory Tract Infection Hx - ceramic designer Hx Respiratory Tract Infection No 04/15/25 15:36 STOP Sleep Apnea STOP Sleep Apnea - ceramic designer: STOP Sleep Apnea - ceramic designer Hx Hypertension Yes: CONTROLLED WITH MED 04/15/25 15:36 Hx Sleep Apnea No 04/15/25 15:36 CPAP No 04/15/25 15:36 BIPAP Do you snore loudly (louder No 04/15/25 15:36 than talking or can be heard Do you often feel tired/ No 04/15/25 15:36 fatigued/ sleepy during daytime? Has anyone observed you stop No 04/15/25 15:36 breathing during sleep? STOP Results Negative 04/15/25 15:36 QUESTION #5 FULL TEXT : Do you snore loudly (louder than talking or can be heard through closed doors)? 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 Specify any problems Hx of Preganancy in last 3 N/A 04/15/25 15:36 Months Nurse Filling Out Transfusion VCHRISTIN 04/15/25 15:36 Questions: Date: 04/15/25 04/15/25 15:36 Time: 15:37 04/15/25 15:36 Patient unable to answer at this time (ie. confused, unrespo /Reproduction History /Reproductive History - ceramic designer: /Reproductive Hx- ceramic designer Hx Now No 04/15/25 15:36 Gestational Age (in weeks): EDC: Hx Hx Para Hx Section SAB No 04/15/25 15:36 [facility] Medical History (Updated 04/15/25 @ 15:36 by Freda Hoffman) Anxiety Excessive bleeding Gastric reflux Vapes nicotine containing substance Former smoker History of edema Cardiology follow-up encounter History of tobacco use Encounter for screening [...] cholesterol with hypertriglyceridemia GERD with esophagitis Gastritis Barretts esophagus Atherosclerosis of coronary artery of [place] heart without angina pec (more content not included)... Normal [facility] XR LUMBAR PARS 4V AP/LAT/OBL X2on 04-11-2025 XR LUMBAR PARS 4V AP/LAT/OBL X2 * * *Final Report* * * DATE OF EXAM: Apr 11 2025 2:45PM LDX 5233 - XR LUMBAR PARS 4V AP/LAT/OBL X2 / PROCEDURE REASON: access vertebral alignment and disc spaces * * * * Physician Interpretation * * * * XR LUMBAR PARS 4V AP/LAT/OBL X2 HISTORY: 64 years old Clinical information: access vertebral alignment and disc spaces Patient states low back pain without known injury. TECHNIQUE: Images: XR LUMBAR PARS 4V AP/LAT/OBL X2 Comparison: None. RESULT: Normal AP and lateral alignment Multilevel endplate degenerative changes, disc space narrowing and marginal spurs most prominent L2-3 level. Bilateral facet arthropathy L5-S1 level with coexisting disc space narrowing No fractures, bone destruction or dislocations are seen. No evidence of pars defect IMPRESSION: No acute osseous abnormality. See discussion above Pbx Wire Chief: PSCB Transcribe Date/Time: Apr 15 2025 3:14P Dictated by : SEFERINO AZAR MD This examination was interpreted and the report reviewed and electronically signed by: SEFERINO AZAR MD on Apr 15 2025 3:15PM EST [id number] Normal [facility] Surgery Visit Reporton 03-25 Surgery Visit Report [facility] [address] [place] [address] OFFICE VISIT Date of Service: 03/25/25 MR#: [id number] Acct: [id number] Name: KRISHAN JOHNSON Sr. Rep #: [id number] : 1960 Provider: Dr. 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 Normal [facility] CNOVon 01-23-2024 CNOV Office Visit (UROLWS ) KRISHAN JOHNSON ([id number]) 1960 M Date Time Provider Department 01/23/24 3:00 PM CHAVEZ, GREG UROLWS During your visit today, we recorded the following information about you: Blood pressure Weight 108/62 98.9 kg Gurpreet Britton MA 01/23/2024 6:00 PM Signed [facility] PSA results Greg Chavez PA-C 01/23/2024 6:00 PM Signed [facility] NEW PATIENT CLINIC NOTE SERVICE DATE: 01/23/2024 SERVICE TIME: 3:23 PM NAME: Krisahn Johnson CHIEF COMPLAINT: Elevated PSA HISTORY OF PRESENT ILLNESS: Krishan Johnson is a 63 year old male presenting as an New Patient for Elevated PSA The patient reports he has a strong family history of CaP Father and Brothers Reviewed his PSA done a [facility] below, discussed getting IsoPSA to [...] IsoPSA tod (more content not included)... Normal [facility] ISOPSA ASSAY FOR UROLOGY USE ONLYon 01-23-2024 INTERPRETATION Normal [facility] Comment on above: Order Comment: Speci men Type: BLOOD SPECIMEN Ordering Facility: [facility] Address: [address] [place] [address] Result Comment: IsoP SA test was not performed, as the test has not been validated in patients with tPSA <4.0ng/mL. Test Performed by [employer] [employer], [address] [place] [address] Performed By: #### I SOPSA #### [employer] CLIA [id number] [address] [place], [place] [address] [place] [id number] ISOPSA INDEX 0 Normal [facility] Comment on above: Order Comment: Speci men Type: BLOOD SPECIMEN Ordering Facility: [facility] Address: [address] [place] [address] Performed By: #### I SOPSA #### [employer] [facility] [employer] CLIA [id number] [address] [place], [place] [address] [address] [address] TPSA RESULTS 3.740 Normal [facility] Comment on above: Order Comment: Speci men Type: BLOOD SPECIMEN Ordering Facility: [facility] Address: [address] [place] [address] Performed By: #### I SOPSA #### [employer] [facility] CLIA [id number] [address] [place] [address] Absolute lymphocyte countOrd ered By: Jennifer Cobb on 06-27-2023 Lymphocytes Auto (Unsp spec) [#/Vol] 2.87 10*3/uL 0.83-4.51 [facility] Basophil percentageOrdered B y: Jennifer Cobb on 06-27-2023 Basophils/100 WBC (Bld) 0.8 % 0-1 [facility] Bilirubin [Mass/Vol] 0.30 mg/dL 0.20-1.00 [facility] Comment on above: For patients on eltr ombopag therapy, use of Dimension Hessel TBIL is not recommended. Chloride [Moles/Vol] 111 mmol/L 98-107 [facility] Eosinophils/100 WBC (Bld) 4.2 % 0-5 [facility] Glucose [Mass/Vol] 114 mg/dL 74-106 [facility] Comment on above: Fasting Glucose resu lt from 100 to 125 mg/dL suggests IMPAIRED HOMEOSTASIS per A.D.A. criteria. Neutrophils (Bld) [#/Vol] 3.5 10*3/uL 2.0-7.7 [facility] Neutrophils/100 WBC (Bld) 48.7 % 47-70 [facility] Potassium [Moles/Vol] 3.6 mmol/L 3.5-5.1 [facility] Protein [Mass/Vol] 7.1 g/dL 6.4-8.2 [facility] Sodium [Moles/Vol] 140 mmol/L 136-145 [facility] WBC (Bld) [#/Vol] 7.2 10*3/uL 4.4-11.0 [facility] Blood erythrocytes count (nu mber/volume)Ordered By: Jennifer Cobb on 06-27-2023 RBC (Bld) [#/Vol] 5.39 10*6/uL 4.6-6.2 [facility] Blood hemoglobin measurement (mass/volume)Ordered By: Jennifer Cobb on 06-27-2023 Hemoglobin (Bld) [Mass/Vol] 15.7 g/dL 13.0-16.5 [facility] Blood lymphocytes/100 leukoc ytesOrdered By: Jennifer Cobb on 06-27-2023 Lymphocytes/100 WBC (Bld) 39.8 % 19-41 [facility] Blood monocytes/100 leukocyt esOrdered By: Jennifer Cobb on 06-27-2023 Monocytes/100 WBC (Bld) 6.4 % 0-10 [facility] Blood platelet mean volumeOr dered By: Jennifer Cobb on 06-27-2023 Platelet mean volume (Bld) [Entitic vol] 10.7 fL 6.2-12.0 [facility] Determination of erythrocyte mean corpuscular volume (MCV)Ordered By: Jenniferisaias Cobb on 06-27-2023 MCV (RBC) [Entitic vol] 86.8 fL 80-94 [facility] Hematocrit Auto (Bld) [Volum e fraction]Ordered By: [facility] on 06-27-2023 Hematocrit (Bld) [Volume fraction] 46.8 % 40-54 [facility] Iron measurement (mass/mass) Ordered By: [facility] on 06-27-2023 Iron (Unsp spec) [Mass/Mass] 97 ug/dL 65-175 [facility] - Chemistry and C hemistry - challengeOrdered By: [facility] on 06-27-2023 ALP [Catalytic activity/Vol] 82 U/L 45-117 [facility] ALT [Catalytic activity/Vol] 37 U/L 16-61 [facility] CO2 [Moles/Vol] 22.0 mmol/L 21.0-32.0 [facility] Cobalamin (Vitamin B12) [Mass/Vol] 435 pg/mL 211-911 [facility] Globulin (S) [Mass/Vol] 3.3 g/dL 2.2-4.2 [facility] Urea nitrogen/Creatinine [Mass ratio] 13.2 mg/mg 10-20 [facility] - Hematology and Cell countsOrdered By: [facility] on 06-27-2023 Erythrocyte distribution width (RBC) [Entitic vol] 39.5 fL 35.1-43.9 [facility] Erythrocyte distribution width (RBC) [Ratio] 12.5 % 11.6-14.6 [facility] Immature granulocytes/100 WBC (Bld) 0.100 % 0.0-0.9 [facility] Comment on above: IG% - Immature Granu locytes (promyelocytes, myelocytes and metamyelocytes) > 1% indicates that a LEFT SHIFT is Present. MCH (RBC) [Entitic mass] 29.1 pg 27.0-32.0 [facility] Nucleated RBC/100 WBC (Bld) [Ratio] 0 % 0-5 [facility] MCHC Auto (RBC) [Mass/Vol]Or dered By: Jennifer Cobb on 06-27-2023 MCHC (RBC) [Mass/Vol] 33.5 g/dL 32-36 [facility] No Panel InformationOrdered By: Jennifer Cobb on 06-27-2023 Estimated GFR (MDRD) Amer 100 mL/min >60 [facility] Comment on above: GFR Calc Estimated GFR (MDRD) Non-Af Amer 83 mL/min >60 [facility] Comment on above: Non- GFR Calc Prostate Specific Antigen Screen 4.49 ng/mL 0.00-4.00 [facility] Comment on above: This test was perfor med using the TPSA assay method for [employer] chemistry system. Values obtained with differentassay methods cannot be used interchangably.When changing PSA assays in the course of monitoring apatient, additional sequential testing should be carriedout to confirm baseline values. Thyroid Stimulating Hormone (TSH) 2.60 uIU/mL 0.358-3.74 [facility] Vitamin D 25-Hydroxy 32.6 ng/mL [facility] Comment on above: Vitamin D 25(OH) Sta tus Range Deficiency <20 ng/mL (50nmol/L) Insufficiency 20 - 30 ng/mL (50 - 75 nmol/L) Sufficiency 30 - 100 ng/mL (75 - 250 nmol/L) Toxicity >100 ng/mL (>250 nmol/L) Platelets bldOrdered By: Amina Cobb on 06-27-2023 Platelets (Bld) [#/Vol] 226 10*3/uL 150-450 [facility] Serum or plasma albumin umesh urement (mass/volume)Ordered By: Jennifer Cobb on 06-27-2023 Albumin [Mass/Vol] 3.8 g/dL 3.2-5.0 [facility] Serum or plasma albumin/glob ulin mass ratioOrdered By: Jennifer Cobb on 06-27-2023 Albumin/Globulin [Mass ratio] 1.2 {ratio} 0.9-2.4 [facility] Serum or plasma calcium umesh urement (mass/volume)Ordered By: Jennifer Cobb on 06-27-2023 Calcium [Mass/Vol] 8.8 mg/dL 8.5-10.1 [facility] Serum or plasma creatinine m easurement (mass/volume)Ordered By: Jenniferisaias Cobb on 06-27-2023 Creatinine [Mass/Vol] 0.98 mg/dL 0.70-1.30 [facility] Comment on above: The validity of the calculated GFR & GFRAA in patients over 70 years has not been determined. Clinical correlation is essential. Serum or plasma ferritin domenic surement (mass/volume)Ordered By: Jennifer Cobb on 06-27-2023 Ferritin [Mass/Vol] 203 ng/mL 26-388 [facility] Serum or plasma urea nitroge n measurement (mass/volume)Ordered By: [facility] 06-27-[facility]23 Urea nitrogen [Mass/Vol] 13 mg/dL 7-18 [facility] Thin prep Papanicolaou smear with manual screeningOrdered By: Jenniferisaias Cobb on 06-27-2023 Thin prep Papanicolaou smear with manual screening 22 U/L 15-37 [facility] Thin prep Papanicolaou smear with manual screening 7 5-15 [facility] Basophil percentageOrdered B y: Aletha Raya on 06-07-2023 Bilirubin [Mass/Vol] 0.50 mg/dL 0.20-1.00 [facility] Comment on above: For patients on eltr ombopag therapy, use of Dimension Hessel TBIL is not recommended. Cholesterol [Mass/Vol] 109 mg/dL <200 [facility] Comment on above: <200 mg/dL Desirable 200-240 mg/dL Borderline >240 mg/dL High Risk Protein [Mass/Vol] 7.3 g/dL 6.4-8.2 [facility] Triglyceride [Mass/Vol] 160 mg/dL <199 [facility] Comment on above: The drugs N-Acetylcy steine and Metamizole may falsely depress this assay.Serum Triglycerides Reference Interval Normal <150 mg/dL Borderline high 150 - 199 mg/dL High 200 - 499 mg/dL Very High > or = 500 mg/dL Direct bilirubinOrdered By: Aletha Raya on 06-07-2023 Bilirubin.direct [Mass/Vol] 0.15 mg/dL 0.00-0.30 [facility] - Chemistry and C hemistry - challengeOrdered By: Aletha Raya on 06-07-2023 ALP [Catalytic activity/Vol] 83 U/L 45-117 [facility] ALT [Catalytic activity/Vol] 35 U/L 16-61 [facility] Globulin (S) [Mass/Vol] 3.4 g/dL 2.2-4.2 [facility] Serum or plasma albumin umesh urement (mass/volume)Ordered By: Aletha Raya on 06-07-2023 Albumin [Mass/Vol] 3.9 g/dL 3.2-5.0 [facility] Serum or plasma cholesterol in HDL measurement (mass/volume)Ordered By: Aletha Raya on 06-07-2023 Cholesterol in HDL [Mass/Vol] 33 mg/dL >40 [facility] Comment on above: The drugs N-Acetylcy steine and Metamizole may falsely depress this assay. Reference Range HDL <40 mg/dL Low HDL Cholesterol HDL >or= 60 mg/dL High HDL Cholesterol Serum or plasma cholesterol in VLDL measurement (mass/volume)Ordered By: Aletha Raya on 06-07-2023 Cholesterol in VLDL [Mass/Vol] 32 mg/dL 5-40 [facility] Serum or plasma low density lipoprotein (LDL) cholesterol measurement (mass/volume)Ordered By: Aletha Raya on 06-07-2023 Cholesterol in LDL [Mass/Vol] 44 mg/dL 0-130 [facility] Thin prep Papanicolaou smear with manual screeningOrdered By: Aletha Raya on 06-07-2023 Thin prep Papanicolaou smear with manual screening 19 U/L 15-37 [facility] CNOVon 05-30-2023 CNOV Office Visit ([facility] ) KRISHAN JOHNSON ([id number]) 1960 M Date Time Provider Department 05/30/23 4:30 PM SWETHA CROWE [facility] During your visit today, we recorded the following information about you: Temperature Pulse Respiration Blood pressure 97.6 degrees 76/minute 16/minute 132/82 Weight 98 kg Swetha Crowe APRN.TAMY 05/30/2023 6:10 PM Signed CC: Patient presents with: Knee Pain: right x 2 weeks, swelling HPI Krishan Johnson is a 62 year old male who [...] current everyday user Substances: Nicotine, 3mg Devices: Payment plugin Substance Use Topics Alcohol use: No Drug [...] symptoms occur. Patient agreeable to treatment plan. ADVID Posey Naz, APRN.CNP 05/30/2023 5:41 PM Addendum Topical NSAID: Voltaren gel Allergies As of Date: 05/30/2023 Noted Allergy Reaction MORPHINE 01/27/2010 Comme (more content not included)... Normal [facility] XR KNEE 4V AP/PA BOTH+LAT/ME R [...] osseous abnormality. Small-moderate RIGHT knee joint effusion. Pbx Wire Chief: APPLE Transcribe Date/Time: May 30 2023 5:35P Dictated by : TERESA LUIS DO This examination was interpreted and the report reviewed and electronically signed by: TERESA LUIS DO on May 30 2023 5:37PM EST [id number] Normal [facility] XR Knee - right 4 Viewson IMPRESSION: No acute osseous abnormality. Small-moderate RIGHT knee joint effusion. Pbx Wire Chief: APPLE Transcribe Date/Time: May 30 2023 5:35P Dictated by : TERESA LUIS DO This examination was interpreted and the report reviewed and electronically signed by: TERESA LUIS DO on May 30 2023 5:37PM EST DIVISION OF RADIOLOGY * * *Final Report* [...] patellofemoral compartment osteophytes. DIVISION OF RADIOLOGY Provider, Kelly Anat [facility] - 05/30/2023 * * *Final Report* * [...] osseous abnormality. Small-moderate RIGHT knee joint effusion. Pbx Wire Chief: PSCB Transcribe Date/Time: May 30 2023 5:35P Dictated by : TERESA LUIS DO This examination was interpreted and the report reviewed and electronically signed by: TERESA LUIS DO on May 30 2023 5:37PM EST [facility] Radiology Study observation (narrative) [facility] XR Knee - right 4 ViewsOrder ed By: Ccf Provider on 05-30-2023 [facility] Basophil percentageon 2021 Bilirubin [Mass/Vol] 0.60 mg/dL 0.20-1.00 [facility] Work Phone: Comment on above: For patients on eltr ombopag therapy, use of Dimension Hessel TBIL is not recommended. Chloride [Moles/Vol] 111 mmol/L 98-107 [facility] Work Phone: Cholesterol [Mass/Vol] 149 mg/dL <200 [facility] Work Phone: Comment on above: <200 mg/dL Desirable 200-240 mg/dL Borderline >240 mg/dL High Risk Glucose [Mass/Vol] 98 mg/dL 74-106 [facility] Work Phone: Potassium [Moles/Vol] 4.1 mmol/L 3.5-5.1 [facility] Work Phone: Protein [Mass/Vol] 6.9 g/dL 6.4-8.2 [facility] Work Phone: Sodium [Moles/Vol] 141 mmol/L 136-145 [facility] Work Phone: Triglyceride [Mass/Vol] 159 mg/dL <199 [facility] Work Phone: Comment on above: The drugs N-Acetylcy steine and Metamizole may falsely depress this assay.Serum Triglycerides Reference Interval Normal <150 mg/dL Borderline high 150 - 199 mg/dL High 200 - 499 mg/dL Very High > or = 500 mg/dL Laboratory - Chemistry and C hemistry - challengeon 05-11-2022 ALP [Catalytic activity/Vol] 76 U/L 45-117 [facility] Work Phone: ALT [Catalytic activity/Vol] 25 U/L 16-61 [facility] Work Phone: CO2 [Moles/Vol] 26.0 mmol/L 21.0-32.0 [facility] Work Phone: [phone] Globulin (S) [Mass/Vol] 3.0 g/dL 2.2-4.2 [facility] Work Phone: Urea nitrogen/Creatinine [Mass ratio] 12.6 mg/mg 10-20 [facility] Work Phone: No Panel Informationon 05-11 Estimated GFR (MDRD) Amer 87 mL/min >60 [facility] Work Phone: Comment on above: GFR Calc Estimated GFR (MDRD) Non-Af Amer 72 mL/min >60 [facility] Work Phone: Comment on above: Non- GFR Calc Prostate Specific Antigen Screen 4.29 ng/mL 0.00-4.00 [facility] Work Phone: Comment on above: This test was perfor med using the TPSA assay method for [employer] chemistry system. Values obtained with differentassay methods cannot be used interchangably.When changing PSA assays in the course of monitoring apatient, additional sequential testing should be carriedout to confirm baseline values. Vitamin D 25-Hydroxy 25.8 ng/mL [facility] Work Phone: Comment on above: Vitamin D 25(OH) Sta tus Range Deficiency <20 ng/mL (50nmol/L) Insufficiency 20 - 30 ng/mL (50 - 75 nmol/L) Sufficiency 30 - 100 ng/mL (75 - 250 nmol/L) Toxicity >100 ng/mL (>250 nmol/L) Serum or plasma albumin umesh urement (mass/volume)on 05-11-2022 Albumin [Mass/Vol] 3.9 g/dL 3.2-5.0 [facility] Work Phone: Serum or plasma albumin/glob ulin mass ratioon 05-11-2022 Albumin/Globulin [Mass ratio] 1.3 {ratio} 0.9-2.4 [facility] Work Phone: Serum or plasma calcium umesh urement (mass/volume)on 05-11-2022 Calcium [Mass/Vol] 9.2 mg/dL 8.5-10.1 [facility] Work Phone: Serum or plasma cholesterol in HDL measurement (mass/volume)on 05-11-2022 Cholesterol in HDL [Mass/Vol] 33 mg/dL >40 [facility] Work Phone: Comment on above: The drugs N-Acetylcy steine and Metamizole may falsely depress this assay. Reference Range HDL <40 mg/dL Low HDL Cholesterol HDL >or= 60 mg/dL High HDL Cholesterol Serum or plasma cholesterol in VLDL measurement (mass/volume)on 05-11-2022 Cholesterol in VLDL [Mass/Vol] 32 mg/dL 5-40 [facility] Work Phone: Serum or plasma creatinine m easurement (mass/volume)on 05-11-2022 Creatinine [Mass/Vol] 1.11 mg/dL 0.70-1.30 [facility] Work Phone: Comment on above: The validity of the calculated GFR & GFRAA in patients over 70 years has not been determined. Clinical correlation is essential. Serum or plasma low density lipoprotein (LDL) cholesterol measurement (mass/volume)on 05-11-2022 Cholesterol in LDL [Mass/Vol] 84 mg/dL 0-130 [facility] Work Phone: Serum or plasma urea nitroge n measurement (mass/volume)on 05-11-2022 Urea nitrogen [Mass/Vol] 14 mg/dL 7-18 [facility] Work Phone: Thin prep Papanicolaou smear with manual screeningon 05-11-2022 Thin prep Papanicolaou smear with manual screening 18 U/L 15-37 [facility] Work Phone: Thin prep Papanicolaou smear with manual screening 4 5-15 [facility] Work Phone: Vital Signs Date Time Vital Sign Value Performing Clinician Alfonsoi kathy 04-23-2025 14:04-0400 Body height 180.34 cm Jennifer Cobb NP-C Work Phone: [facility] 04-23-2025 14:04-0400 Body mass index (BMI) [Ratio] 31.1 kg/m2 Jennifer Cobb NP-C Work Phone: [facility] 04-23-2025 14:04-0400 Body weight 101.32 kg Jennifer Jordyn MARKETING PRODUCER-C Work Phone: [facility] 04-18-2025 08:45-0400 Body temperature 97.6 [degF] Jennifer Jordyn MARKETING PRODUCER-C Work Phone: [facility] 04-18-2025 08:45-0400 Diastolic blood pressure 81 mm[Hg] Jennifer Jordyn MARKETING PRODUCER-C Work Phone: [facility] 04-18-2025 08:45-0400 Heart rate 56 /min Jennifer Jordyn MARKETING PRODUCER-C Work Phone: [facility] 04-18-2025 08:45-0400 Respiratory rate 18 /min Jennifer Jordyn MARKETING PRODUCER-C Work Phone: [facility] 04-18-2025 08:45-0400 SaO2% (BldA) [Mass fraction] 94 % Jennifer Jordyn MARKETING PRODUCER-C Work Phone: [facility] 04-18-2025 08:45-0400 Systolic blood pressure 109 mm[Hg] Jennifer Jordyn MARKETING PRODUCER-C Work Phone: [facility] 04-18-2025 07:15-0400 Body height 180.34 cm Jennifer Jordyn MARKETING PRODUCER-C Work Phone: [facility] 04-18-2025 07:15-0400 Body mass index (BMI) [Ratio] 30.4 kg/m2 Jennifer Jordyn MARKETING PRODUCER-C Work Phone: [facility] 04-18-2025 07:15-0400 Body weight 99 kg Jennifer Jordyn MARKETING PRODUCER-C Work Phone: [facility] 03-25-2025 14:56-0400 Body height 180.34 cm Jennifer Jordyn MARKETING PRODUCER-C Work Phone: [facility] 03-25-2025 14:56-0400 Body mass index (BMI) [Ratio] 31.5 kg/m2 Jennifer Jordyn MARKETING PRODUCER-C Work Phone: [facility] 03-25-2025 14:56-0400 Body weight 102.51 kg Jennifer Jordyn MARKETING PRODUCER-C Work Phone: [facility] 03-25-2025 14:56-0400 Diastolic blood pressure 67 mm[Hg] Jennifer Jordyn MARKETING PRODUCER-C Work Phone: [facility] 03-25-2025 14:56-0400 Heart rate 65 /min Jennifer Jordyn MARKETING PRODUCER-C Work Phone: [facility] 03-25-2025 14:56-0400 Respiratory rate 17 /min Jennifer Jordyn MARKETING PRODUCER-C Work Phone: [facility] 03-25-2025 14:56-0400 SaO2% (BldA) [Mass fraction] 95 % Jennifer Jordyn MARKETING PRODUCER-C Work Phone: [facility] 03-25-2025 14:56-0400 Systolic blood pressure 118 mm[Hg] Jennifer Jordyn MARKETING PRODUCER-C Work Phone: [facility] 01-23-2024 15:15-0400 Body mass index (BMI) [Ratio] 30.4 kg/m2 Greg Chavez PA-C Work Phone: [facility] 01-23-2024 15:15-0400 Body weight 98.88 kg Greg Chavez PA-C Work Phone: [facility] 01-23-2024 15:15-0400 Diastolic blood pressure 62 mm[Hg] Greg Chavez PA-C Work Phone: [facility] 01-23-2024 15:15-0400 Systolic blood pressure 108 mm[Hg] Greg Chavez PA-C Work Phone: [facility] 07-06-2023 14:58-0400 Body height 180.[address] Ernesto Faust [facility] 07-06-2023 14:58-0400 Body mass index (BMI) [Ratio] 30.4 kg/m2 Dr. Ernesto Faust [facility] 07-06-2023 14:58-0400 Body weight 99.[address] Ernesto Faust [facility] 07-06-2023 14:58-0400 Diastolic blood [facility] 74 [facility] 14:58-0400 Heart rate 64 /min Dr. Ernesto Faust [facility] 07-06-2023 14:58-0400 Respiratory rate 14 /[facility] 14:58-0400 Systolic blood pressure 115 mm[facility]Hg[facility]-27-2023 05:28-0400 Body height 180.[address] Orozco Govind [facility] 06-27-2023 05:28-0400 Body mass index (BMI) [Ratio] 30.1 kg/m2 Dr. Orozco [facility] 06-27-2023 05:28-0400 Body temperature 96.3 [degF] Dr. Ernesto Faust [facility] 06-27-2023 05:28-0400 Body weight 97.[address] Ernesto Faust [facility] 06-27-2023 05:28-0400 Diastolic blood pressure 73 mm[Hg] Dr. Ernesto Faust [facility] 06-27-2023 05:28-0400 Heart rate 60 /min Dr. Orozco [facility] 06-27-2023 05:28-0400 Respiratory rate 20 /[facility] 06-27-2023 05:28-0400 SaO2% (BldA) [Mass fraction] 96 % Dr. Orozco [facility] 06-27-2023 05:28-0400 Systolic blood pressure 118 mm[Hg] Dr. Orozco [facility] 12-23-2022 11:00-0400 Body temperature 98.1 [degF] Dr. Ernesto Faust Work Phone: [facility] 12-23-2022 11:00-0400 Diastolic blood pressure 83 mm[Hg] Dr. Ernesto Faust Work Phone: [facility] 12-23-2022 11:00-0400 Heart rate 60 /min Dr. Ernesto Faust Work Phone: [facility] 12-23-2022 11:00-0400 Respiratory rate 16 /min Dr. Ernesto Faust Work Phone: [facility] 12-23-2022 11:00-0400 SaO2% (BldA) [Mass fraction] 95 % Dr. Ernesto Faust Work Phone: [facility] 12-23-2022 11:00-0400 Systolic blood pressure 127 mm[Hg] Dr. Ernesto Faust Work Phone: [facility] 12-23-2022 10:50-0400 Inhaled oxygen flow rate 4 L/min Dr. Ernesto Faust Work Phone: [facility] 12-23-2022 08:59-0400 Body height 180.[address] Ernesto Faust Work Phone: [facility] 12-23-2022 08:59-0400 Body mass index (BMI) [Ratio] 30.2 kg/m2 Dr. Ernesto Faust Work Phone: [facility] 12-23-2022 08:59-0400 Body weight 98.[address] Ernesto Faust Work Phone: [facility] 12-06-2022 16:15-0400 Body mass index (BMI) [Ratio] 31.1 kg/m2 Dr. Ernesto Faust Work Phone: [facility] 12-06-2022 16:15-0400 Body temperature 97.9 [degF] Dr. Ernesto Faust Work Phone: [facility] 12-06-2022 16:15-0400 Body weight 101.[address] Ernesto Faust Work Phone: [facility] 12-06-2022 16:15-0400 Diastolic blood pressure 80 mm[Hg] Dr. Ernesto Faust Work Phone: [facility] 12-06-2022 16:15-0400 Heart rate 66 /min Dr. Ernesto Faust Work Phone: [facility] 12-06-2022 16:15-0400 Respiratory rate 16 /min Dr. Ernesto Faust Work Phone: [facility] 12-06-2022 16:15-0400 SaO2% (BldA) [Mass fraction] 96 % Dr. Ernesto Faust Work Phone: [facility] 12-06-2022 16:15-0400 Systolic blood pressure 110 mm[Hg] Dr. Ernesto Faust Work Phone: [facility] 11-15-2022 15:01-0500 Body mass index (BMI) [Ratio] 31.1 kg/m2 Dr. Ernesto Faust Work Phone: [facility] 11-15-2022 15:01-0500 Body temperature 97.6 [degF] Dr. Ernesto Faust Work Phone: [facility] 11-15-2022 15:01-0500 Body weight 101.[address] Ernesto Faust Work Phone: [facility] 11-15-2022 15:01-0500 Diastolic blood pressure 64 mm[Hg] Dr. Ernesto Faust Work Phone: [facility] 11-15-2022 15:01-0500 Heart rate 61 /min Dr. Ernesto Faust Work Phone: [facility] 11-15-2022 15:01-0500 Respiratory rate 17 /min Dr. Ernesto Faust Work Phone: [facility] 11-15-2022 15:01-0500 SaO2% (BldA) [Mass fraction] 94 % Dr. Ernesto Faust Work Phone: [facility] 11-15-2022 15:01-0500 Systolic blood pressure 117 mm[Hg] Dr. Ernesto Faust Work Phone: [facility] 10-31-2022 14:52-0500 Body height 180.[address] Ernesto Faust Work Phone: [facility] 10-31-2022 14:52-0500 Body mass index (BMI) [Ratio] 30.9 kg/m2 Dr. Ernesto Faust Work Phone: [facility] 10-31-2022 14:52-0500 Body temperature 98.1 [degF] Dr. Ernesto Faust Work Phone: [facility] 10-31-2022 14:52-0500 Body weight 100.[address] Ernesto Faust Work Phone: [facility] 10-31-2022 14:52-0500 Diastolic blood pressure 78 mm[Hg] Dr. Ernesto Faust Work Phone: [facility] 10-31-2022 14:52-0500 Heart rate 76 /min Dr. Ernesto Faust Work Phone: [facility] 10-31-2022 14:52-0500 Respiratory rate 16 /min Dr. Ernesto Faust Work Phone: [facility] 10-31-2022 14:52-0500 SaO2% (BldA) [Mass fraction] 98 % Dr. Ernesto Faust Work Phone: [facility] 10-31-2022 14:52-0500 Systolic blood pressure 112 mm[Hg] Dr. Ernesto Faust Work Phone: [facility] Encounters Encounter Date Encounter Type Care Provider Facility Start: 07-29-2025 ambulatory [facility] Facility:[facility] Start: 06-02-2025 ambulatory [facility] Facility:[facility] Start: 05-07-2025 End: 05-07-2025 ambulatory Liz Canada [facility] Comment on above: Radiculopathy, lumba r region (Primary Dx); Abnormal posture; Abnormality of gait Start: 04-23-2025 End: 04-23-[address] Duane Jiang MD -[facility] Start: 04-23-2025 End: 04-23-2025 ambulatory Jennifer Cobb MARKETING PRODUCER-C Work Phone: -[facility] Start: 04-18-2025 Non-patient / Non-visit Dr. Ann Neumann MD -[facility] Start: 04-18-2025 End: 04-18-2025 Admission to same day surgery center Dr. Cholo Neumann MD -Endoscopy Work Phone: Start: 04-18-2025 End: 04-18-2025 ambulatory Jennifer Cobb MARKETING PRODUCER-C Work Phone: -Endoscopy Start: 04-11-2025 ambulatory JENNIFER COBB Facility:[facility] Start: 04-11-2025 End: 04-11-2025 Subsequent hospital visit by physician [facility] Comment on above: Lumbago with sciatic a, unspecified side [M54.40] Start: 03-25-2025 End: 03-25-[address] Cholo Neumann MD -[facility] Work Phone: Start: 03-25-2025 End: 03-25-2025 ambulatory Jennifer Cobb MARKETING PRODUCER-C Work Phone: -[facility] Start: 01-23-2024 End: 01-24-2024 ambulatory ERNESTO FAUST Facility:[facility] Start: 01-23-2024 End: 01-23-2024 Patient encounter procedure Greg Chavez PA-C Work Phone: Urology Comment on above: Elevated prostate sp ecific antigen (PSA) (Primary Dx) Start: 07-21-2023 End: 07-21-[address] Ernesto Faust [facility] Work Phone: Start: 07-21-2023 End: 07-21-[address] Ernesto Faust [facility]-Sleep Lab Work Phone: Start: 07-06-2023 End: 07-06-[address] Ernesto Faust [facility] Work Phone: Start: 06-27-2023 End: 06-27-[address] Ernesto Faust [facility] Work Phone: Start: 06-27-2023 End: 06-27-[address] Ernesto Faust [facility]-Laboratory, [facility] Start: 06-27-2023 End: 06-27-[address] Ernesto Faust [facility]-Pulmonary Medicine [facility] Work Phone: Start: 06-07-2023 End: 06-07-2023 ambulatory [facility] Work Phone: Start: 06-07-2023 End: 06-07-2023 Patient encounter procedure [facility]-Cat Scan, [facility] Work Phone: Start: 05-30-2023 End: 05-30-2023 ambulatory ERNESTO FAUST Facility:[facility] Start: 05-30-2023 End: 05-30-2023 Subsequent hospital visit by physician [facility] Work Phone: Radiology Comment on above: Acute pain of right knee [M25.561] Start: 12-23-2022 Non-patient / Non-visit Dr. Brigido Faust Work Phone: [facility] Start: 12-23-2022 End: 12-23-2022 Admission to same day surgery center Dr. Ernesto Faust Work Phone: [facility]-Endoscopy Start: 12-23-2022 End: 12-23-[address] Ernesto Faust Work Phone: [facility] Work Phone: Start: 12-06-2022 End: 12-06-[address] Ernesto Faust Work Phone: [facility] Internal Medicine Start: 11-15-2022 End: 11-15-[address] Ernesto Faust Work Phone: [facility] Start: 11-01-2022 End: 11-01-[address] Ernesto Faust Work Phone: [facility] Work Phone: Start: 11-01-2022 End: 11-01-[address] Ernesto Faust Work Phone: [facility] Start: 10-31-2022 End: 10-31-[address] Ernesto Faust Work Phone: [facility] Start: 05-13-2022 End: 05-13-[address] Ernesto Faust Work Phone: [facility] Work Phone: Start: 05-13-2022 End: 05-13-[address] Ernesto Faust Work Phone: [facility] Start: 05-11-2022 End: 05-11-[address] Ernesto Faust Work Phone: [facility] Work Phone: Start: 05-11-2022 End: 05-11-[address] Ernesto Faust Work Phone: [facility] Start: 03-28-2022 Non-patient / Non-visit Dr. Brigido Faust Work Phone: [facility] Start: 03-28-2022 End: 03-28-[address] Ernesto Faust Work Phone: [facility]Cardiov[facility]cul[facility] Services Start: 03-15-2022 End: 03-15-2022 Patient encounter procedure [facility] Procedures Date Procedure Procedure Detail Performing Clinician Start: 04-18-2025 Esophagogastroduodenoscopy Jennifer WILSONC Work Phone: Start: 06-07-2023 CT of chest Start: 05-30-2023 [...] coronary artery stent placement Comment on above: SHT-UVH-Giox LAD w/ 2.5 x 32 mm Promus S ynergy Stent and Mid-Lad w/ 2.5 x 32 mm Promus Synergy Stent 01/29/19 Start: 02-05-2010 Lipid 1996 panel - Serum or Plasma Todd Chavez PA-C Work Phone: Plan of Treatment Date Care Activity Detail Author Start: 2037 RSV Vaccine (1 - 1-d ose 75+ series) RSV Vaccine (1 - 1-dose 75+ series) [facility] Start: 06-25-2031 Screening for malign ant neoplasm of colon [facility] Start: 05-12-2025 Influenza vaccination Influenza Vacc ine (#1) [facility] Start: 04-28-2025 Diabetes Screening Diabetes Screenin g [facility] Start: 04-23-2025 X-ray of lumbosacral spine L/S Spine Bending Flex/Ext [facility] Start: 04-23-2025 XR Spine Lumbar and Sacrum Views [facility] Start: 04-18-2025 Egd transoral biopsy single/multiple EGD BIOPSY SINGLE/MULTIPLE [facility] Start: 04-18-2025 Patient discharge [facility] Start: 05-12-2024 Covid-19 Vaccine ( season) Covid-19 Vaccine ( season) [facility] Start: 05-12-2024 Influenza vaccination [facility] Start: 01-23-2024 End: 04-23-2024 ISOPSA ASSAY FOR UROLOGY USE ONLY [facility] Work Phone: Comment on above: Expected: 01/23/2024 (Approximate), Expires: 04/23/2024 Start: 09-11-2023 Behavioral Health Screening Behavioral Health Screening [facility] Start: 05-12-2023 Covid-19 Vaccine ( season) Covid-19 Vaccine () [facility] Start: 12-23-2022 Patient discharge [facility] Start: 10-31-2022 Patient referral [facility] Work Phone: Start: 2022 RSV Vaccine (1 - 1-d ose 60+ series) RSV Vaccine (1 - 1-dose 60+ series) [facility] Start: 2017 Prostate specific an tigen measurement Prostate Cancer Screening Discussion [facility] Start: 02-05-2015 Lipid panel Lipid Screening [facility] Start: 2012 Pneumococcal Vaccine : 50+ (1 of 1 - PCV) Pneumococcal Vaccine: 50+ (1 of 1 - PCV) [facility] Start: 2012 Shingrix Vaccine (1 of 2) Logan grix Vaccine (1 of 2) [facility] Start: 02-05-2011 Hepatitis B surface antibody level LDL Cholesterol [facility] Start: 2007 Prostate specific an tigen measurement Prostate Cancer Screening Discussion [facility] Start: 2007 Screening for malign ant neoplasm of colon [facility] Start: 1981 Urine microalbumin profile DTaP,Tdap,Td Vaccine (1 - Tdap) [facility] Start: 1980 Annual PCP Team Tailor Fitter adamaris Disease Visit Annual PCP Team Chronic Disease Visit [facility] Start: 1980 Depression Screening Depression Scre ening [facility] Start: 1980 Hepatitis C screening Hepatitis C Sc lupillo [facility] Start: 1980 HIV screening HIV Screening [facility] Blood chemistry [facility] Lipid 1996 panel - S alpesh or Plasma [facility] Patient referral [facility] Work Phone: Polysomnography [facility] Tobacco use cessatio n education [facility] End: 04-11-2025 XR Lumbar spine AP and Lateral and oblique [facility] Comment on above: ONCE for 1 Occurrenc es starting 04/11/2025 until 04/11/2025 [facility] Immunizations Immunization Date Immunization Notes Care Provider Bella bowman 06-28-2017 influenza, injectabl e, quadrivalent, preservative free [facility] 06-28-2017 influenza, seasonal, injectable Dr. Ernesto Faust Work Phone: [facility] 06-28-2017 influenza virus vaccine, unspecified formulation Greg Chavez PA-C Work Phone: [facility] Payers Date Payer Category Payer Self-pay [id number] 2020 [employer] BLUE CARD PPO OOS [id number] 2020 Unknown [id number] 2020 Unknown [id number] Private Health Insurance [id number] Private Health Insurance [id number] Unknown [id number] Unknown [facility] PACKAGE PLAN [id number] Unknown [id number] Unknown [id number] Unknown [id number] Unknown [id number] Unknown [id number] Unknown [id number] Unknown [id number] Social History Date Type Detail Facility Start: 07-02-2021 End: 07-06-2023 Tobacco smoking status COIS Unknown if ever smoked [facility] Start: 01-29-2019 None [facility] Start: 01-29-2019 Spouse/ Signif icant Other [facility] Start: 10-20-2020 Vapor [facility] Start: 1960 Sex Assigned At Male W [facility] Start: 05-30-2023 End: 06-25-2024 Tobacco smoking status NHIS Ex-smoker [facility] End: 01-09-2018 History of tobacco use Current smoker [facility] End: 01-09-2018 History of tobacco use Cigarette Smoker [facility] Start: 05-30-2023 End: 01-23-2024 Cigarettes smoked current (pack per day) - Reported 0.5 [facility] Start: 05-30-2023 Tobacco use and exposure Smokeless tobacco non-user [facility] Start: 05-30-2023 End: 01-23-2024 Alcohol intake Current non-drinker of alcohol (finding) [facility] Start: 2022 End: 01-23-2024 Tobacco use panel [facility] Start: 08-12-2012 National Score (1-10 0), lower number is lower risk 73 [facility] Start: 05-30-2023 Tobacco Comment Trying to quit - down to half a pack from 3-4 packs [facility] Start: 1960 Sex Assigned At Not on file [facility] Start: 04-15-2025 [facility] Goals Date Patient Goal Desired Activity /State Functional Status Date Assessment Result Facility 04-07-2014 Are you deaf, or do you have serious difficulty hearing No 04/07/2014 8:12 AM Jennifer Kiran MA No [facility] 04-07-2014 Are you blind, or do you have serious difficulty seeing, even when wearing glasses No 04/07/2014 8:12 AM Jennifer Kiran MA No [facility] 04-07-2014 Do you have serious difficulty walking or climbing stairs No 04/07/2014 8:12 AM Jennifer Kiran MA No [facility] 04-07-2014 Do you have difficul ty dressing or bathing No 04/07/2014 8:12 AM Jennifer Kiran MA No [facility] 04-07-2014 Because of a physica l, mental, or emotional condition, do you have difficulty doing errands alone such as visiting a physician's office or shopping No 04/07/2014 8:12 AM Jennifer Kiran MA No [facility] Mental Status Date Assessment Result Facility 04-18-2025 Cognitive function Level Of Cons ciousness Awake;Alert;Appropriate;Fol lows Commands [facility] Work Phone: 04-18-2025 Cognitive function Voice/Name [facility] Work Phone: 12-23-2022 Cognitive function Voice/Name [facility] Work Phone: 04-07-2014 Because of a physica l, mental, or emotional condition, do you have serious difficulty concentrating, remembering, or making decisions No 04/07/2014 8:12 AM EDT Jennifer Braun MA No [facility] Clinical Notes 12-23-2022 to 05-07-2025 Liz Canada PT - 05/07/2025 9:17 PM EDT Note Date & Type Note Facility 05-07-2025 Note HNO ID: [id number] Author: LIZ CANADA PT Service: ? Author Type: Physical Therapist Type: Progress Notes Filed: 05/07/2025 21:25 Note Text: Episode Visit Count: 1 Therapist That Will Accept/Oversee The Plan Of Care: Cate Canada Start of Care Date: 05/07/25 Onset Date: 04/07/25 (approximate) Patient Identified by Name and Date of : Yes REHABILITATION AND SPORTS THERAPY PHYSICAL THERAPY EVALUATION PLAN OF CARE: Assessment: Krishan Johnson presents with diagnosis of radiculopathy Lumbar region with low back pain, that suddenly happened when sitting down one evening at home, that interferes with sitting, rising from a chair, standing, walking in the house, walking in the community, lifting, heavy exertion (walking made pain in B hips / bilaterally, LLE it went down a little bit , just past knee) . The patient presents with impairments in flexibility, independence in exercise, joint mobility, overall function, patient reported outcome measures, posture, strength, and symptom management. PROMIS? (Patient-Reported Outcomes Measurement Information System) scores were reviewed and identified as within normal limits.Prognosis for therapy is Excellent due to: current objective clinical presentation, good overall health status, acuteness of condition . The patient will benefit from skilled therapy services to meet the goals established for this plan of care as noted below. Classification Pain Mechanism Classification: Nociceptive Low Back Pain Classification: Symptom Modulation MDT Spine Classification: Derangement Syndrome Derangement Syndrome Subclassification: Pain is Central or Symmetrical Goals for Episode of Care: established 05/07/25 [place] in home exercise program. Patient will decrease pain rating by 2 points to meet minimal clinical important difference for numeric pain rating scale. Patient will increase active ROM of lumbar spine to WNL to allow pt to to improve postural alignment, to improve gait mechanics / gait pattern , and dec pain. Patient will demonstrate increase in spine and core , lower extremity's strength to 4+ to 5/5 during manual muscle testing in order to improve function for home management tasks, prior functional tasks, and work tasks. Patient will increase flexibility of Bilat hams and LE's to WNL to improve ability to maintain proper posture, improve mechanics, and decrease pain. Patient will improve 10MWT to 1.3 or >m/s with no assistive device to demonstrate improvement in functional community ambulation. Improve postural awareness. Normal gait. Patient Goals: to decrease pain , ( much is gone, but still there ), to learn some ther exercises. Time Frame for Goals and Treatment : 07/06/25 Planned Interventions, Frequency, and Duration: Current Frequency: 1x/week Duration: 8 weeks (4-8 weeks) Total Number of Visits Planned: 8 Planned Treatment Interventions: Therapeutic exercise (66275), Neuromuscular re-education (55886), Manual therapy (78400), Therapeutic activities (71426), Self-prison management (22863), Gait Training (55970), Body Mechanics Training PLAN FOR NEXT VISIT: rev HEP, progress ROM , flexibility , spine strength as tolerated , extension principles Patient demonstrates good understanding of plan of care and treatment. The above goals and plan of care were discussed and agreed upon by patient/family. SUBJECTIVE: Pt reports he went to sit down and had sudden LBP, ; went to sit on couch ; Patient Goals: to decrease pain , ( much is gone, but still there ), to learn some ther exercises. 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 Infection Clinical Reasoning: No identified risk factors. Cauda Equina Syndrome Clinical Reasoning: No identified risk factors. Red Flags - Cervical Cancer Clinical Reasoni (more content not included)... [facility] 05-07-2025 History of Present illness Narrative Episode Visit Count: 1 Therapist That Will Accept/Oversee The Plan Of Care: Cate Canada Start of Care Date: 05/07/25 Onset Date: 04/07/25 (approximate) Patient Identified by Name and Date of : Yes REHABILITATION AND SPORTS THERAPY PHYSICAL THERAPY EVALUATION PLAN OF CARE: Assessment: Krishan Johnson presents with diagnosis of radiculopathy Lumbar region with low back pain, that suddenly happened when sitting down one evening at home, that interferes with sitting, rising from a chair, standing, walking in the house, walking in the community, lifting, heavy exertion (walking made pain in B hips / bilaterally, LLE it went down a little bit , just past knee) . The patient presents with impairments in flexibility, independence in exercise, joint mobility, overall function, patient reported outcome measures, posture, strength, and symptom management. PROMIS (Patient-Reported Outcomes Measurement Information System) scores were reviewed and identified as within normal limits. Prognosis for therapy is Excellent due to: current objective clinical presentation, good overall health status, acuteness of condition . The patient will benefit from skilled therapy services to meet the goals established for this plan of care as noted below. Classification Pain Mechanism Classification: Nociceptive Low Back Pain Classification: Symptom Modulation MDT Spine Classification: Derangement Syndrome Derangement Syndrome Subclassification: Pain is Central or Symmetrical Goals for Episode of Care: established 05/07/25 [place] in home exercise program. Patient will decrease pain rating by 2 points to meet minimal clinical important difference for numeric pain rating scale. Patient will increase active ROM of lumbar spine to WNL to allow pt to to improve postural alignment, to improve gait mechanics / gait pattern , and dec pain. Patient will demonstrate increase in spine and core , lower extremity's strength to 4+ to 5/5 during manual muscle testing in order to improve function for home management tasks, prior functional tasks, and work tasks. Patient will increase flexibility of Bilat hams and LE's to WNL to improve ability to maintain proper posture, improve mechanics, and decrease pain. Patient will improve 10MWT to 1.3 or >m/s with no assistive device to demonstrate improvement in functional community ambulation. Improve postural awareness. Normal gait. Patient Goals: to decrease pain , ( much is gone, but still there ), to learn some ther exercises. Time Frame for Goals and Treatment : 07/06/25 Planned Interventions, Frequency, and Duration: Current Frequency: 1x/week Duration: 8 weeks (4-8 weeks) Total Number of Visits Planned: 8 Planned Treatment Interventions: Therapeutic exercise (35136), Neuromuscular re-education (49431), Manual therapy (46815), Therapeutic activities (91949), Self-prison management (16976), Gait Training (48557), Body Mechanics Training PLAN FOR NEXT VISIT: rev HEP, progress ROM , flexibility , spine strength as tolerated , extension principles Patient demonstrates good understanding of plan of care and treatment. The above goals and plan of care were discussed and agreed upon by patient/family. SUBJECTIVE: Pt reports he went to sit down and had sudden LBP, ; went to sit on couch ; Patient Goals: to decrease pain , ( much is gone, but still there ), to learn some ther exercises. 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 Infection Clinical Reasoning: No identified risk factors. Cauda Equina Syndrome Clinical Reasoning: No identified risk factors. Red Flags - Cervical Cancer Clinical Reasoning: No identified risk factors. Infection Clinical Reasoning: No identified risk factors. Spine History Symptoms Location at Onset: Back Symptoms Since Onset: Improving Pain: Pain Pain Level: 3 Pain Location: Low Back/Lumbar Spine - Left, Low Back/Lumbar Spine - Right, Low Back/Lumbar Spine- Midline Description: Dull Post Treatment Pain Post Treatment Pain Level: 2 Post Treatment Pain Location: Low Back/Lumbar Spine- Midline Post Treatment Pain Description: Aching PROMIS Scales 05/06/2025 Higher is Better Phys Func - T Score 50 (within normal limits) Phys Func - Percentile 50 Self-Eff Symptom - T Score 50 (Average) Self-Eff Symptom - Percentile 50 T-Score and Percentile Interpretation T-scores: mean of general population = 50. 5 points is clinically meaningfully difference Percentiles provide an indication of how the patient's score ranks in relation to the general population. Higher percentile rankings indicate better function/quality of life. 50th percentile is the average of the general population and indicates half of respondents had a worse score. OBJECTIVE MEASURES WITH LEVEL OF FUNCTION: Posture / Alignment Posture: Forward head, Rounded shoulders, Decreased lumbar lordosis Lumbo - Pelvic Alignment: level Spine Observations Spine Observations: stiffness , Spine Presents with: Muscle Tone Muscle Tone: (paraspinals) R Lumbar Spine Palpation Tenderness: Paraspinals L Lumbar Spine Palpation Tenderness: Paraspinals Sensation - Lumbar Sensation: Grossly Intact Lumbar Spine AROM Lumbar Flexion: Moderate limitation Lumbar Extension: Moderate limitation Lumbar R Side-Bend: Moderate limitation Lumbar L Side-Bend: Moderate limitation Lumbar R Rotation: Moderate limitation Lumbar L Rotation: Moderate limitation Repeated Test Movements - Lumbar RFIS - Symptoms During: increases RFIS - Symptoms After: no better, worse ALIYAH - Symptoms During: produces ALIYAH - Symptoms After: better LE Flexibility Flexibility: Hamstring Flexibility R Hamstring Flexibility: mod tight L Hamstring Flexibility: mod tight Spine Joint Mobility Spine Joint Mobility : (tight through out lumbar) LE Strength Trunk Strength: grossly 4-/ 5 core , trunk ext 4- to 4/5 R LE Strength: grossly 5/5 exc as noted R Hip Flexion (L2): 4/5 R Knee Extension (L3): 4+/5 Special Tests - Hip and Spine Hip and Spine Special Tests: SLR Test, AGGIE Test, Active SLR SLR Test: Right Negative, Left Negative AGGIE Test: Left Negative, Right Negative Active SLR: Left Negative, Right Negative Gait Weight Bearing Status: FWB Gait: Independent Gait Distance (feet): >200' Gait Device: None Gait Observation: grossly wfl, mild Bilat LF sway Stairs: Modified Independent Functional Performance Test Results 10 Meter Walk Test Trial 1 (seconds): 5.8 10 Meter Walk Test Trial 2 (seconds): 4.9 10 Meter Walk Test Average (m/sec): 1.12 Education: Education Learning Preferences: Demonstration, Performance Barriers: Acuity of Illness Learning/educational needs: Health promotion, Safety, Home exercise program, Plan of Care, Changes in Plan of Care, Posture Education Provided: Yes, see treatment interventions for education provided Education Provided To: Patient Education Mode/Type: Demonstration, Explanation/Discussion, Performance, Teach Back Response to Education/Teach Back: Return Demonstration, Requires Review/Additional Education TREATMENT: PT Treatment Interventions: Therapeutic Activity, Therapeutic Exercise Evaluation Evaluation Therapeutic Exercise: 1: *HS Bilat 2: * Trunk ext stand x 10 x 1-2 x 2x day 3: * instruct on sciatic N glide if post leg pain returns . Skilled Intervention: Patient was educated in proper exercise technique and purpose for exercises. Reviewed and educated patient on additions/changes for home exercise program as above (*). Skilled judgment was used in selection of appropriate interventions. Therapeutic Activity: 1: PTE and POC education 2: pain control with alt CP/ HP 5 min ea x 20 total Skilled Intervention: Educated on proper/safe technique for activities performed today. Activity progression based on professional judgment. Billing * Evaluation Moderate Complexity: 1 Unit Therapeutic Exercise Treatment Minutes: 15 Therapeutic Activity Treatment Minutes: 8 Skilled Treatment Time Minutes (timed and untimed codes): 54 Total Session Time (minutes): 54 Session Start Time : 1431 Session Stop Time : 1525 Liz Canada PT documented in this encounter [facility] 04-18-2025 History and physical note Note Date/Time April 18, 2025 7:18am [facility] Medical Records Department [address] [place] [address] History & Physical Exam 04/18/25715 MR#: [id number] Acct: [id number] Name: KRISHAN JOHNSON Sr. Rep #:[id number] : 1960 64 From: Cholo bansal MD PCP: ABEL Rodríguez Status:REG [facility] Location: [address] History and Physical Date of Admission: 04/18/25 Intake Vital Signs 07/05/2414:28 03/25/2514:56 Height 5 ft 11 in 5 ft [...] Allergies metoprolol Adverse Reaction (Verified 03/25/25 14:58) dyspneamorphine Adverse Reaction (Verified 03/25/25 14:58) I flat lined because they pushed it too fastnitroglycerin Adverse Reaction (Verified 03/25/25 14:58) severe hypotensionphenobarbital Adverse Reaction (Verified 03/25/25 14:58) made me go crazy Medications ?Medication ?Instructions ?Recorded ?Confirmed ?Type cholecalciferol (vitamin D3) 50 4,000 unit PO QHS supplement 08/24/17 History mcg (2,000 unit) capsule aspirin 81 mg chewable tablet 81 mg PO DAILY@0800 heart health 9 03/25/25 History cyanocobalamin (vitamin B-12) 2,500 mcg PO DAILY 10/20/20 03/25/25 His tory 2,500 mcg tablet vitamin B complex 1 ea PO DAILY 10/20/20 03/25/25 History rabeprazole 20 mg tablet,delayed 20 mg PO QHS gerd #30 tabs 11/24/2303/11 Rx release clopidogrel 75 mg tablet 75 mg PO DAILY #90 TABLETS 05/17/2403/11 Rx losartan 25 mg tablet 25 mg PO DAILY #90 TABLETS 05/29/2403/11 Rx ascorbic acid (vitamin C) 500 mg 1 g PO QDAY 07/05/24 03/25/25 History tablet atorvastatin 40 mg tablet 40 mg PO .EVERY OTHER DAY #45 tabs 11/2503/25/25 Rx PFSH Medical History (Updated 03/25/25 @ [...] esophagitis Gastritis Atherosclerosis of coronary artery of [place] heart without angina pectoris Surgical History History of cardiac catheterization Hx of arthroscopy of right knee Hx of arthroscopy of left knee History of coronary artery stent placement (01/29/19) S/P laparoscopic cholecystectomy Family History Mother Heart disease PPMFather Cancer Prostate Social History household members: spouse current occupational status: employed 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 The patient wishes to proceed with procedure. Cholo Neumann MD Pager: [facility] [address] [place] [address], [address] [place] [phone] Office: I have examined the patient and the H&P has been reviewed. There are no clinicalchanges since date of exam. 04/18/25717 <Electronically signed by Cholo Neumann MD> Cosigner Signature (if applicable): CC: ABEL Cobb; Dr. Cholo Neumann MD~ Signed [facility] Work Phone: 1(143) 388-421508-08-2025 Consult note [facility] Medical Records Department [address] [place] [address] Anesthesia Postop Eval II 04/18/25821 MR#: [id number] Acct: [id number] Name: KRISHAN JOHNSON Sr. Rep #:[id number] : 1960 64 From: René Singh RNA PCP: ABEL Rodríguez Status:REG SDC Y Race: C Location: [place] [address] Anesthesia Postop Eval I Sum Postop Eval Completion status Anesthesia document: Postop Eval 1 completed: Yes Anesthesia Postop Eval I Summary Anesthesia Postop Eval I Summary: Anesthesia Postop Eval I: Assessment Summary Airway patent Yes 04/18/25 08:16 LAILA Spontaneous unlabored Yes 04/18/25 08:16 LAILA respirations Mental status Awake,Calm 04/18/25 08:16 LAILA nausea No 04/18/25 08:16 LAILA Vomiting No 04/18/25 08:16 LAILA Anesthesia Postop Eval I: Fluid Summary Crystalloid volume administer 600 04/18/25 08:16 LAILA (ml) Colloids volume administered ( ml) Blood Product volume administered (ml) Total IV fluid infused 600 04/18/25 08:16 LAILA Anesthesia Postop Eval I: Summary Notes Anesthesia Complication No 04/18/25 08:16 LAILA Anesthesia Complication Comment: Post-operative progress note Anesthesia: Postop Eval II Evaluation Mental status: Awake and Calm Pain Level: 0 nausea: No Vomiting: No Complications Anesthesia Complication: No 04/18/25822 [employer]> Date _ René Santacruz [employer] Cosigner Signature: Date CC: ~ Signed [facility]08-08-2025 Procedure note [facility] Medical Records Department [address] [place] [address] EGD Report MR#: [id number] Acct: [id number] Name: KRISHAN JOHNSON . Rep #:[id number] : 1960 64 From: Cholo bansal MD PCP: ABEL Rodríguez Status:[facility] Patient Name: Krishan Johnson Procedure Date: 04/18/2025 7:59 AM Date of : 1960 Age: 64 Procedure: Upper GI endoscopy Indications: Dysphagia, Surveillance for malignancy due to personal history of Judge's esophagus Providers: Cholo Neumann MD Referring MD: Abel Rodríguez Medicines: Propofol per Anesthesia Patient Profile: This is a 64 year old male. Refer to note in patient chart for documentation of history and physical. Complications: No immediate complications. Estimated blood loss: Minimal. Procedure: Pre-Anesthesia Assessment: - Prior to the procedure, a History and Physical was performed, and patient medications and allergies were reviewed. The patient's tolerance of previous anesthesia was also reviewed. The risks and benefits of the procedure and the sedation options and risks were discussed with the patient. All questions were answered, and informed consent was obtained. Prior Anticoagulants: The patient has taken no anticoagulant or antiplatelet agents. After reviewing the risks and benefits, the patient was deemed in satisfactory condition to undergo the procedure. After obtaining informed consent, the endoscope was passed under direct vision. Throughout the procedure, the patient's blood pressure, pulse, and oxygen saturations were monitored continuously. The gastroscope was introduced through the mouth, and advanced to the fourth part of duodenum. The upper GI endoscopy was accomplished without difficulty. The patient tolerated the procedure well. Scope In: 8:09:39 AM Scope Out: 8:13:26 AM Total Procedure Duration Time 0 hours 3 minutes 47 seconds Findings: The esophagus was normal. The stomach was normal. The examined duodenum was normal. Mucosa was biopsied with a cold forceps for histology in 4 quadrants at the gastroesophageal junction. Impression: - Normal esophagus. - Normal stomach. - Normal examined duodenum. - Mucosa was biopsied at the gastroesophageal junction for evaluation of Judge's esophagus. Recommendation: - Discharge patient to home. - Resume previous diet. - Continue present medications. - Await pathology results. - Repeat upper endoscopy in 3 years for surveillance. Procedure Code(s): --- Professional --- 96600, Esophagogastroduodenoscopy, flexible, transoral; with biopsy, single or multiple Diagnosis Code(s): --- Professional --- K22.70, Judge's esophagus without dysplasia R13.10, Dysphagia, unspecified CPT copyright 2021 [employer]. All rights reserved. The codes documented in this report are preliminary and upon supervisor weaving review may be revised to meet current compliance requirements. Cholo Neumann MD 04/18/2025 8:17:05 AM This report has been signed electronically. Number of Addenda: 0 Note Initiated On: 04/18/2025 7:59 AM 04/18/25 0817 Date _ Cholo Neumann MD Cosigner Signature: Date (if indicated) CC: ABEL Cobb; Dr. Cholo Neumann MD ~ Date Dictated: 04/18/25 0759 Date Transcribed: Pbx Wire Chief: AC Signed [facility]08-08-2025 Procedure note [facility] Medical Records Department [address] [place] [address] Provation Physician Letter MR#: [id number] Acct: [id number] Name: KRISHAN JOHNSON Sr. Rep #:[id number] : 1960 64 From: Cholo bansal MD PCP: ABEL Rodríguez Status:REG [facility] 04/18/2025 Abel Rodríguez Re : Upper GI endoscopy procedure for Krishan Johnson Dear Jordyn This procedure was performed on Friday, April 18, 2025. My impressions and recommendations are as follows: Impressions : - Normal esophagus. - Normal stomach. - Normal examined duodenum. - Mucosa was biopsied at the gastroesophageal junction for evaluation of Judge's esophagus. Recommendations : - Discharge patient to home. - Resume previous diet. - Continue present medications. - Await pathology results. - Repeat upper endoscopy in 3 years for surveillance. My findings are described in the full procedure note, which is enclosed. If I can be of further assistance, please feel free to contact me at Doctor phone number(s): , Work: . Sincerely, Cholo Neumann MD 04/18/2025 8:17:05 AM This report has been signed electronically. 04/18/25 08 Date _ [facility] Signature: Date (if indicated) CC: MARKETING PRODUCER-C Jennifer Cobb; Dr. Cholo Neumann MD ~ Date Dictated: 04/18/25 075 Date Transcribed: Pbx Wire Chief: AC Signed [facility]08-08-2025 Consult note [facility] Medical Records Department [address] [place] [address] Anesthesia Postop Eval I 04/18/25 08 MR#: [id number] Acct: [id number] Name: KRISHAN JOHNSON Sr. Rep #: : 1960 64 From: René SOLANO PCP: ABEL Rodríguez Status:REG SDC Y Race: C Location: [place] [address] Anesthesia: Postop Eval I Current Vital Signs Temperature: 98 F Pulse Rate: 72 Blood Pressure: 138/77 Respiratory Rate: 16 Pulse Ox: 98 Oxygen Delivery Method: Room Air Assessment Airway patent: Yes Spontaneous unlabored respirations: Yes Mental status: Awake and Calm nausea: No Vomiting: No Anesthesia Complication: No Fluid Hydration Crystalloid volume administer (ml): 600 Total IV fluid infused: 600 Progress Note Anesthesia document: Postop Eval 1 completed: Yes 04/18/25815 [employer]> Date _ René Santacruz [employer] Cosigner Signature: Date CC: ~ Signed [facility]08-08-2025 Consult note [facility] Medical Records Department [address] [place] [address] Pre-Anesthesia Evaluation 04/18/25726 MR#: [id number] Acct: [id number] Name: KRISHAN JHONSON Sr. Rep #:[id number] : 1960 64 From: Niraj Moreno MD PCP: ABEL Rodríguez Status:REG SDC Y Race: C Location: [place] [address] ASA Classification* ASA Classification ASA Classification: 3 Assessment & Plan Anesthesia* Anesthesia Assessment Anesthesia Assessment: Discussed sedation and/or anesthesia options, risks, benefits, and alternatives with patient/parents/legal guardian/POA. Questions invited. The patient/parents/legal guardian/POA seems to understand and agrees to proceedwith anesthesia plan. Reviewed the physical assessment, medical history, allergy history and patient home medications list prior to surgery/procedure/anesthetic and documented any changes. Performed airway and anesthesia risk assessments. Anesthesia Type Anesthesia Type: MAC History Source History Obtained from:: Patient and Chart Anesthesia Focused Assessment* Temperature: 97.4 F Pulse Rate: 63 Blood Pressure: 127/73 Respiratory Rate: 16 Pulse Ox: 97 Oxygen Delivery Method: Room Air Airway Assessment Mouth opens: >3 cm Mallampati Score: III Teeth Condition: Chipped/Broken (Multiple lower teeth are chipped and broken.) and Dentures (Upper dentures are out.) Neck Range of motion (ROM): Full ROM Labs Anesthesia Preop lab: CBC WBC 7.2 K/mm3 (4.4-11.0) 06/27/23 15:22 06/27/23 RBC 5.39 M/mm3 (4.6-6.2) 06/27/23 15:22 06/27/23 Hgb 15.7 g/dL (13.0-16.5) 06/27/23 15:22 06/27/23 Hct 46.8 % (40-54) 06/27/23 15:22 06/27/23 Plt Count 226 K/mm3 (150-450) 06/27/23 15:22 06/27/23 CHEMISTRY Potassium 4.4 mmol/L (3.5-5.1) 05/15/24 06:12 05/15/24 Sodium 139 mmol/L (136-145) 05/15/24 06:12 05/15/24 Magnesium 2.4 mg/dL (1.6-2.6) 01/28/19 19:30 01/28/19 BUN 13 mg/dL (7-18) 05/15/24 06:12 05/15/24 Creatinine 1.09 mg/dL (0.70-1.30) 05/15/24 06:12 05/15/24 Glucose 104 mg/dL (74-106) 05/15/24 06:12 05/15/24 TSH 4.690 uIU/mL (0.358-3.740) H 05/15/24 06:12 COAG PT 13.5 SECONDS (11.7-14.9) 01/29/19 05:00 Pre-Assessment Diagnosis/Proposed Procedure Planned Operative Procedure(s): EGD Anesthesia History 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 When Was Last Pacemaker Check QUESTION #4 FULL TEXT: You/Your Family Experience fever (hyperthermia) with Anesthesia Last Oral Intake Last Oral intake: Last Oral Intake NPO since 06:15 04/18/25 07:15 Meds taken in AM with sips of Yes 04/18/25 07:15 water? Meds patient instructed to take am of surgery Any additional information?: Yes NPO since: 06:15 (Patient took his meds with sip water at 6:15 AM.) Meds taken in AM with sips of water?: Yes PONV PONV - ceramic designer: PONV - ceramic designer Female No 04/15/25 15:36 HX of Motion Sickness No 04/15/25 15:36 HX of N/V After Surgery No 04/15/25 15:36 Non-Smoker No 04/15/25 15:36 Duration of Surgery greater No 04/15/25 15:36 than 60 minutes Number of Risk Factors PONV Score Height & Weight Height & Weight: Anesthesia: Height & Weight Height 5 ft 11 in 04/18/25 07:15 Weight: 99 kg 04/18/25 07:15 Body Mass Index (BMI) 30.4 04/18/25 07:15 Respiratory Assessment Respiratory Assessment - ceramic designer: Respiratory Tract Infection Hx - ceramic designer Hx Respiratory Tract Infection No 04/15/25 15:36 STOP Sleep Apnea STOP Sleep Apnea - ceramic designer: STOP Sleep Apnea - ceramic designer Hx Hypertension Yes: CONTROLLED WITH MED 04/15/25 15:36 Hx Sleep Apnea No 04/15/25 15:36 CPAP No 04/15/25 15:36 BIPAP Do you snore loudly (louder No 04/15/25 15:36 than talking or can be heard Do you often feel tired/ No 04/15/25 15:36 fatigued/ sleepy during daytime? Has anyone observed you stop No 04/15/25 15:36 breathing during sleep? STOP Results Negative 04/15/25 15:36 QUESTION #5 FULL TEXT : Do you snore loudly (louder than talking or can be heard through closeddoors)? Tobacco Use History Tobacco Use History - ceramic designer: Tobacco Use History - ceramic designer Tobacco Use Smoking Status Current every day smoker 04/15/25 15:36 Hx Tobacco Use Yes 04/15/25 15:36 Years Smoking Packs Smoked per Day Smoking Cessation Date was within the last 15 years Hx Smoking Cessation Date Hx Smoking Cessation Counseling Any additional information?: Yes Tobacco Use: Vapor (Patient vaped today.) Hematologic Medial History Hematologic Hx - ceramic designer: Hematologic Medical Hx - child care sitter Hx of Blood Transfusion No 04/15/25 15:36 Hx of Transfusion in last 3 No 04/15/25 15:36 Months Date of Last Transfusion (if within last 3 months) Ever experience any problems No 04/15/25 15:36 with transfusion(s)? Specify any problems Hx of Preganancy in last 3 N/A 04/15/25 15:36 Months Nurse Filling Out Transfusion VCHRISTIN 04/15/25 15:36 & Questions: Date: 04/15/25 04/15/25 15:36 Time: 15:37 04/15/25 15:36 Patient unable to answer at this time (ie. confused, unrespo /Reproduction History /Reproductive History - ceramic designer: /Reproductive Hx- ceramic designer Hx Now No 04/15/25 15:36 Gestational Age (in weeks): EDC: Hx Hx Para Hx Section SAB No 04/15/25 15:36 Active Medications Active Medications: Current Medications Generic Name Dose Route Start Last Admin Trade Name Freq PRN Reason Stop Dose Admin Lactated Ringer's 1,000 mls @ 15 mls/hr 04/18/25 07:15 04/18/25 07:22 IV 15 mls/hr .Q48H FLOYD Administration PFSH Medical History Anxiety Excessive bleeding Gastric reflux Vapes nicotine containing substance Former smoker History of edema Cardiology follow-up encounter History of tobacco use Encounter for screening [...] cholesterol with hypertriglyceridemia GERD with esophagitis Gastritis Barretts esophagus Atherosclerosis of coronary artery of [place] heart without angina pectoris Home Medications ?Medication ?Instructions ?Recorded ?Last Taken ?Type cholecalciferol (vitamin D3) 50 4,000 unit PO QHS supp lement 08/24/17 Unknown History mcg (2,000 unit) capsule aspirin 81 mg chewable tablet 81 mg PO DAILY@0800 hear health 01/28/19 04/12/25 History cyanocobalamin (vitamin B-12) 2,500 mcg PO DAILY 10/20 Unknown History 2,500 mcg tablet vitamin B complex 1 ea PO DAILY 10/20/20 Unkno wn History rabeprazole 20 mg tablet,delayed 20 mg PO QHS gerd #30 tabs 11/24/23 Unknown Rx release clopidogrel 75 mg tablet 75 mg PO DAILY #90 TABLETS 0 05/17/24 04/12/25 Rx losartan 25 mg tablet 25 mg PO DAILY #90 TABLETS 0 05/29/24 04/18/25 06:15 Rx ascorbic acid (vitamin C) 500 mg 1 g PO QDAY 07/05/24 Unknown History tablet atorvastatin 40 mg tablet 40 mg PO .EVERY OTHER DAY #4 5 tabs 11/25/24 Unknown Rx Allergy/AdvReac Type Severity Reaction Status Date / Time metoprolol AdvReac dyspnea Verified 04/15/25 15:26 morphine AdvReac I flat Verified 04/15/25 15:26 lined because they pushed it too fast nitroglycerin AdvReac severe Verified 04/15/25 15:26 hypotension phenobarbital AdvReac made me Verified 04/15/25 15:26 go crazy Family History Mother Heart disease PPM Father Cancer Prostate Surgical History History of esophagogastroduodenoscopy (EGD) History of cardiac catheterization Hx of arthroscopy of right knee Hx of arthroscopy of left knee History of coronary artery stent placement (01/29/19) S/P laparoscopic cholecystectomy Social History household members: spouse current occupational status: employed 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 04/18/25 0738 cody DOUGLAS> Date _ Niraj Moreno MD Cosigner Signature: Date CC: ~ Signed [facility]08-08-2025 History and physical note [facility] Medical Records Department [address] [place] [address] History & Physical Exam 04/18/25715 MR#: [id number] Acct: [id number] Name: KRISHAN JOHNSONDARVIN Sr. Rep #:[id number] : 1960 64 From: Cholo bansal MD PCP: ABEL Rodríguez Status:REG [facility] Location: [address] History and Physical Date of Admission: 04/18/25 Intake Vital Signs 07/05/2414:28 03/25/2514:56 Height 5 ft 11 in 5 ft [...] Allergies metoprolol Adverse Reaction (Verified 03/25/25 14:58) dyspneamorphine Adverse Reaction (Verified 03/25/25 14:58) I flat lined because they pushed it too fastnitroglycerin Adverse Reaction (Verified 03/25/25 14:58) severe hypotensionphenobarbital Adverse Reaction (Verified 03/25/25 14:58) made me go crazy Medications ?Medication ?Instructions ?Recorded ?Confirmed ?Type cholecalciferol (vitamin D3) 50 4,000 unit PO QHS supplement 08/24/17 History mcg (2,000 unit) capsule aspirin 81 mg chewable tablet 81 mg PO DAILY@0800 heart health 9 03/25/25 History cyanocobalamin (vitamin B-12) 2,500 mcg PO DAILY 10/20/20 03/25/25 His tory 2,500 mcg tablet vitamin B complex 1 ea PO DAILY 10/20/20 03/25/25 History rabeprazole 20 mg tablet,delayed 20 mg PO QHS gerd #30 tabs 11/24/2303/11 Rx release clopidogrel 75 mg tablet 75 mg PO DAILY #90 TABLETS 05/17/2403/11 Rx losartan 25 mg tablet 25 mg PO DAILY #90 TABLETS 05/29/2403/11 Rx ascorbic acid (vitamin C) 500 mg 1 g PO QDAY 07/05/24 03/25/25 History tablet atorvastatin 40 mg tablet 40 mg PO .EVERY OTHER DAY #45 tabs 11/2503/25/25 Rx PFSH Medical History (Updated 03/25/25 @ [...] esophagitis Gastritis Atherosclerosis of coronary artery of [place] heart without angina pectoris Surgical History History of cardiac catheterization Hx of arthroscopy of right knee Hx of arthroscopy of left knee History of coronary artery stent placement (01/29/19) S/P laparoscopic cholecystectomy Family History Mother Heart disease PPMFather Cancer Prostate Social History household members: spouse current occupational status: employed 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 The patient wishes to proceed with procedure. Cholo Neumann MD Pager: [facility] [address] [place] [address] [address] [place] [address] Office: I have examined the patient and the H&P has been reviewed. There are no clinicalchanges since date of exam. 04/18/25717 Cosigner Signature (if applicable): CC: ABEL Cobb; Dr. Cholo Neumann MD~ Signed [facility]08-08-2025 [facility] Medical Records Department [address] [place] [address] History Physical Exam 04/18/25715 MR#: [id number] Acct: [id number] Name: KRISHAN JOHNSON Sr. Rep #: [id number] : 1960 64 From: Cholo Neumann MD PCP: ABEL Rodríguez Status:REG [facility] Location: [place] [address] History and Physical Date of Admission: 04/18/25 Intake Vital Signs 07/05/2414:28 03/25/2514:56 Height 5 ft 11 in 5 ft [...] Allergies metoprolol Adverse Reaction (Verified 03/25/25 14:58) dyspneamorphine Adverse Reaction (Verified 03/25/25 14:58) I flat lined because they pushed it too fastnitroglycerin Adverse Reaction (Verified 03/25/25 14:58) severe hypotensionphenobarbital Adverse Reaction (Verified 03/25/25 14:58) made me go crazy Medications ???Medication ???Instructions ???Recorded ???Confirmed ???Type cholecalciferol (vitamin D3) 50 4,000 unit PO QHS supplement 08/24/17 03/25/25 His tory mcg (2,000 unit) capsule aspirin 81 mg chewable tablet 81 mg PO DAILY@0800 heart health 01/28/19 03/25/25 History cyanocobalamin (vitamin B-12) 2,500 mcg PO DAILY 10/20/20 03/25/25 History 2,500 mcg tablet vitamin B complex 1 ea PO DAILY 10/20/20 03/25/25 History rabeprazole 20 mg tablet,delayed 20 mg PO QHS gerd #30 tabs 11/24/23 03/25/25 Rx release clopidogrel 75 mg tablet 75 mg PO DAILY #90 TABLETS 05/17/24 03/25/25 Rx losartan 25 mg tablet 25 mg PO DAILY #90 TABLETS 05/29/24 03/25/25 Rx ascorbic acid (vitamin C) 500 mg 1 g PO QDAY 07/05/24 03/25/25 History tablet atorvastatin 40 mg tablet 40 mg PO .EVERY OTHER DAY #45 tabs 11/25/24 Rx PFSH Medical History (Updated 03/25/25 @ [...] esophagitis Gastritis Atherosclerosis of coronary artery of [place] heart without angina pectoris Surgical History History of cardiac catheterization Hx of arthroscopy of right knee Hx of arthroscopy of left knee History of coronary artery stent placement (01/29/19) S/P laparoscopic cholecystectomy Family History Mother Heart disease PPMFather Cancer Prostate Social History household members: spouse current occupational status: employed 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 Smoking Status: Former smoker (quit 2017) quit [...] Gastrointestinal: No abdominal pain, No nausea or vo (more content not included)...[facility]08-01-2025 History of Present illness Narrative* Marisabel Martínez CT - 04/11/2025 2:00 PM EDT Radiology Service Progress Note PATIENT NAME: Krishan Johnson DATE OF SERVICE: April 11, 2025 TIME: [...] PATIENT PRESENTS WITH AN IMPLANTABLE OR ATTACHED LINING CEMENTER: No RADIOLOGY DEPARTMENT: General X-ray: Exam(s) Completed: Spine X-Ray(s): Lumbar AP / LAT / L5-S1 / OBL PERIPHERAL IV DATA: Not applicable SIGNED BY: JESSICA Lopes April 11, 2025 2:47 PM [facility] NoteHNO ID: [id number] Author: MARISABEL MARTÍNEZ CT Service: ? Author Type: Technologist Type: Progress Notes Filed: 04/11/2025 14:47 Note Text: Radiology Service Progress Note PATIENT NAME: Krishan Johnson DATE OF SERVICE: April 11, 2025 TIME: [...] PATIENT PRESENTS WITH AN IMPLANTABLE OR ATTACHED LINING CEMENTER: No RADIOLOGY DEPARTMENT: General X-ray: Exam(s) Completed: Spine X-Ray(s): Lumbar AP / LAT / L5-S1 / OBL PERIPHERAL IV DATA: Not applicable SIGNED BY: JESSICA Lopes April 11, 2025 2:47 [facility]07-15-2025 Evaluation note* Diagnosis Onset Date Resolution Status Admit Date Barretts esophagus acute March 112024 2:46pm [facility] Work Phone: 1(404) 791-964507-15-2025 Progress [facility] [employer] [facility] [address] [place], [place] [id number] OFFICE VISIT Date of Service: 03/25/25 MR#: [id number] Acct: [id number] Name: KRISHAN JOHNSON . Rep # : [id number] : 1960 Provider: Dr. 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 Cholo Neumann MD Pager: [facility] [address] [place] [address], [address] [place] [address] Office: Orders: Orders EGD Today Coding Level of Care Code Off vis,est,level 3 Diagnoses Judge's esophagus with low grade dysplasia K22.710 Judge's esophagus type: with low grade dysplasia 03/25/25 Chandra5 oma DOUGLAS> Date _ Cholo Neumann MD Cosigner Signature: Date (if applicable) CC: MARKETING PRODUCERArun Cobb ~ [facility]07-15-2025 Progress note Author Cholo Neumann [facility] Services Note Date/Time March 25, 2025 3:05 pm [facility] [employer] [facility] [address] [place] [address] OFFICE VISIT Date of Service: 03/25/25 MR#: [id number] Acct: [id number] Name: KRISHAN JOHNSON Sr. Rep # : [id number] : 1960 Provider: Dr. 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 Cholo Neumann MD Pager: [facility] [address] [place] [address], [address] [place] [address] Office: Orders: Orders EGD Today Coding Level of Care Code Off vis,est,level 3 Diagnoses Judge's esophagus with low grade dysplasia K22.710 Judge's esophagus type: with low grade dysplasia 03/25/25 4846 <Electronically signed by Cholo ernandez MD> Date _ Cholo Neumann MD Cosigner Signature: Date (if applicable) CC: MARKETING PRODUCER-C Jennifer Cobb ~ [employer] [facility] Work Phone: 1(795) 315-653305-14-2024 NoteHNO ID: [id number] Author: GREG CHAVEZ PA-C Service: ? Author Type: Physician Division Road Supervisor Type: Progress Notes Filed: 01/23/2024 18:00 Note Text: [facility] NEW PATIENT CLINIC NOTE SERVICE DATE: 01/23/2024 SERVICE TIME: 3:23 PM NAME: Krishan Johnson CHIEF COMPLAINT: Elevated PSA HISTORY OF PRESENT ILLNESS: Krishan Johnson is a 63 year old male presenting as an New Patient for Elevated PSA The patient reports he has a strong family history of CaP Father and Brothers Reviewed his PSA done a [facility] Lab below, discussed getting IsoPSA to [...] performing a medically appropriate (more content not included)...[facility]05-14-2024 NoteHNO ID: [id number] Author: GURPREET BRITTON MA Service: ? Author Type: Water Reclamation Systems Operator Type: Progress Notes Filed: 01/23/2024 18:00 Note Text: [facility] History of Present illness Narrative* Greg Chavez PA-C - 01/23/2024 3:22 PM EDT Images from the original note were not included. [facility] NEW PATIENT CLINIC NOTE SERVICE DATE: 01/23/2024 SERVICE TIME: 3:23 PM NAME: Krishan Johnson CHIEF COMPLAINT: Elevated PSA HISTORY OF PRESENT ILLNESS: Krishan Johnson is a 63 year old male presenting as an New Patient for Elevated PSA The patient reports he has a strong family history of CaP Father and Brothers Reviewed his PSA done a [facility] Lab below, discussed getting IsoPSA to [...] or procedures, and care coordination. HUONG Kimble, TAMI BRIONES * Gurpreet Britton MA - 01/23/2024 3:00 PM EDT Images from the original note were not included. [facility] PSA results [facility] NoteHNO ID: [id number] Author: Ailyn Granados RT(R) Service: Radiology Author Type: Technologist Type: Progress Notes Filed: 05/30/2023 5:21 PM Note Text: Radiology Service Progress Note PATIENT NAME: Krishan Johnson DATE OF SERVICE: May 30, 2023 TIME: [...] PERIPHERAL IV DATA: Not applicable SIGNED BY: Ailyn Granados RT(R) May 30, 2023 5:08 [facility]09-19-2023 NoteHNO ID: [id number] Author: Swetha Crowe APRN.PATIENT PLACEMENT COORDINATOR Service: ? Author Type: Nurse Practitioner Type: Progress Notes Filed: 05/30/2023 6:10 PM Note Text: CC: Patient presents with: Knee Pain: right x 2 weeks, swelling HPI Krishan Johnson is a 62 year old male who [...] current everyday user Substances: Nicotine, 3mg Devices: Payment plugin Substance Use Topics Alcohol use: No Drug [...] occur. Patient agreeable to treatment plan. Swetha Older, TRANSVERSE ABDOMINAL MUSCLE NURSE.[facility]09-19-2023 History of Present illness Narrative* Ailyn Granados RT(R) - 05/30/2023 4:50 PM EDT Radiology Service Progress Note PATIENT NAME: Krishan Johnson DATE OF SERVICE: May 30, 2023 TIME: [...] 30, 2023 5:08 PM documented in this [facility]-14-2023 History and physical note Author Dr. Austin [facility] December 23, 2022 8:54am Note Date/Time December 23, 2022 8:5 4am [facility] Medical Records Department [address] [place] [address] History & Physical Exam 12/23/22 0854 MR#: [id number] Acct: [id number] Name: KRISHAN JOHNSON . Rep #:[id number] : 1960 62 From: Mitchell Austin MD PCP: Dr. Della Velazquez MD Status:[facility] Location: [place] [address] History and Physical Date of Admission: 12/23/22 [...] with hypertriglyceridemia Atherosclerosis of coronary artery of [place] heart without angina pectoris Back pain Barretts [...] spouse current occupational status:? employed current occupation:? 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 Current every day smoker tobacco [...] Dr. Fletcher.? He has never seen a manager wastewater.? He did see Dr. Austin previously who [...] endoscopy by Dr. Rochelle Fletcher at the [facility] Imaging suggest May 11, 2022 he [...] and no acute distress Nutritional Appearance: obese [facility] Head: normal to inspection Eyes General: [...] Velazquez MD; Dr. Mitchell Austin MD~ Signed [facility] Work Phone: [phone] Procedure [facility] 12-23-2022 [facility] Author Niraj [facility] Note Date/Time April 18, 2025 7:3 8am [facility] Medical Records Department [address] [place] [address] Pre-Anesthesia Evaluation 04/18/25 0727 MR#: [id number] Acct: [id number] Name: KRISHAN JOHNSONDARVIN . Rep #:[id number] : 1960 64 From: Niraj Moreno MD PCP: ABEL Rodríguez Status:REG SDC Y Race: C Location: [place] [address] ASA Classification* ASA Classification ASA Classification: 3 Assessment & Plan Anesthesia* Anesthesia Assessment Anesthesia Assessment: Discussed sedation and/or anesthesia options, risks, benefits, and alternatives with patient/parents/legal guardian/POA. Questions invited. The patient/parents/legal guardian/POA seems to understand and agrees to proceedwith anesthesia plan. Reviewed the physical assessment, medical history, allergy history and patient home medications list prior to surgery/procedure/anesthetic and documented any changes. Performed airway and anesthesia risk assessments. Anesthesia Type Anesthesia Type: MAC History Source History Obtained from:: Patient and Chart Anesthesia Focused Assessment* Temperature: 97.4 F Pulse Rate: 63 Blood Pressure: 127/73 Respiratory Rate: 16 Pulse Ox: 97 Oxygen Delivery Method: Room Air Airway Assessment Mouth opens: >3 cm Mallampati Score: III Teeth Condition: Chipped/Broken (Multiple lower teeth are chipped and broken.) and Dentures (Upper dentures are out.) Neck Range of motion (ROM): Full ROM Labs Anesthesia Preop lab: CBC WBC 7.2 K/mm3 (4.4-11.0) 06/27/23 15:22 06/27/23 RBC 5.39 M/mm3 (4.6-6.2) 06/27/23 15:22 06/27/23 Hgb 15.7 g/dL (13.0-16.5) 06/27/23 15:22 06/27/23 Hct 46.8 % (40-54) 06/27/23 15:22 06/27/23 Plt Count 226 K/mm3 (150-450) 06/27/23 15:22 06/27/23 CHEMISTRY Potassium 4.4 mmol/L (3.5-5.1) 05/15/24 06:12 05/15/24 Sodium 139 mmol/L (136-145) 05/15/24 06:12 05/15/24 Magnesium 2.4 mg/dL (1.6-2.6) 01/28/19 19:30 01/28/19 BUN 13 mg/dL (7-18) 05/15/24 06:12 05/15/24 Creatinine 1.09 mg/dL (0.70-1.30) 05/15/24 06:12 05/15/24 Glucose 104 mg/dL (74-106) 05/15/24 06:12 05/15/24 TSH 4.690 uIU/mL (0.358-3.740) H 05/15/24 06:12 COAG PT 13.5 SECONDS (11.7-14.9) 01/29/19 05:00 Pre-Assessment Diagnosis/Proposed Procedure Planned Operative Procedure(s): EGD Anesthesia History 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 When Was Last Pacemaker Check QUESTION #4 FULL TEXT: You/Your Family Experience fever (hyperthermia) with Anesthesia Last Oral Intake Last Oral intake: Last Oral Intake NPO since 06:15 04/18/25 07:15 Meds taken in AM with sips of Yes 04/18/25 07:15 water? Meds patient instructed to take am of surgery Any additional information?: Yes NPO since: 06:15 (Patient took his meds with sip water at 6:15 AM.) Meds taken in AM with sips of water?: Yes PONV PONV - ceramic designer: PONV - ceramic designer Female No 04/15/25 15:36 HX of Motion Sickness No 04/15/25 15:36 HX of N/V After Surgery No 04/15/25 15:36 Non-Smoker No 04/15/25 15:36 Duration of Surgery greater No 04/15/25 15:36 than 60 minutes Number of Risk Factors PONV Score Height & Weight Height & Weight: Anesthesia: Height & Weight Height 5 ft 11 in 04/18/25 07:15 Weight: 99 kg 04/18/25 07:15 Body Mass Index (BMI) 30.4 04/18/25 07:15 Respiratory Assessment Respiratory Assessment - ceramic designer: Respiratory Tract Infection Hx - ceramic designer Hx Respiratory Tract Infection No 04/15/25 15:36 STOP Sleep Apnea STOP Sleep Apnea - ceramic designer: STOP Sleep Apnea - ceramic designer Hx Hypertension Yes: CONTROLLED WITH MED 04/15/25 15:36 Hx Sleep Apnea No 04/15/25 15:36 CPAP No 04/15/25 15:36 BIPAP Do you snore loudly (louder No 04/15/25 15:36 than talking or can be heard Do you often feel tired/ No 04/15/25 15:36 fatigued/ sleepy during daytime? Has anyone observed you stop No 04/15/25 15:36 breathing during sleep? STOP Results Negative 04/15/25 15:36 QUESTION #5 FULL TEXT : Do you snore loudly (louder than talking or can be heard through closed doors)? Tobacco Use History Tobacco Use History - ceramic designer: Tobacco Use History - ceramic designer Tobacco Use Smoking Status Current every day smoker 04/15/25 15:36 Hx Tobacco Use Yes 04/15/25 15:36 Years Smoking Packs Smoked per Day Smoking Cessation Date was within the last 15 years Hx Smoking Cessation Date Hx Smoking Cessation Counseling Any additional information?: Yes Tobacco Use: Vapor (Patient vaped today.) Hematologic Medial History Hematologic Hx - ceramic designer: Hematologic Medical Hx - child care sitter Hx of Blood Transfusion No 04/15/25 15:36 Hx of Transfusion in last 3 No 04/15/25 15:36 Months Date of Last Transfusion (if within last 3 months) Ever experience any problems No 04/15/25 15:36 with transfusion(s)? Specify any problems Hx of Preganancy in last 3 N/A 04/15/25 15:36 Months Nurse Filling Out Transfusion VCHRISTIN 04/15/25 15:36 & Questions: Date: 04/15/25 04/15/25 15:36 Time: 15:37 04/15/25 15:36 Patient unable to answer at this time (ie. confused, unrespo /Reproduction History /Reproductive History - ceramic designer: /Reproductive Hx- ceramic designer Hx Now No 04/15/25 15:36 Gestational Age (in weeks): EDC: Hx Hx Para Hx Section SAB No 04/15/25 15:36 Active Medications Active Medications: Current Medications Generic Name Dose Route Start Last Admin Trade Name Freq PRN Reason Stop Dose Admin Lactated Ringer's 1,000 mls @ 15 mls/hr 04/18/25 07:15 04/18/25 07:22 IV 15 mls/hr .Q48H FLOYD Administration PFSH Medical History Anxiety Excessive bleeding Gastric reflux Vapes nicotine containing substance Former smoker History of edema Cardiology follow-up encounter History of tobacco use Encounter for screening [...] cholesterol with hypertriglyceridemia GERD with esophagitis Gastritis Barretts esophagus Atherosclerosis of coronary artery of [place] heart without angina pectoris Home Medications ?Medication ?Instructions ?Recorded ?Last Taken ?Type cholecalciferol (vitamin D3) 50 4,000 unit PO QHS supp lement 08/24/17 Unknown History mcg (2,000 unit) capsule aspirin 81 mg chewable tablet 81 mg PO DAILY@0800 [employer] 01/28/19 04/12/25 History cyanocobalamin (vitamin B-12) 2,500 mcg PO DAILY 10/20 Unknown History 2,500 mcg tablet vitamin B complex 1 ea PO DAILY 10/20/20 Unkno wn History rabeprazole 20 mg tablet,delayed 20 mg PO QHS gerd #30 tabs 11/24/23 Unknown Rx release clopidogrel 75 mg tablet 75 mg PO DAILY #90 TABLETS 0 05/17/24 04/12/25 Rx losartan 25 mg tablet 25 mg PO DAILY #90 TABLETS 0 05/29/24 04/18/25 06:15 Rx ascorbic acid (vitamin C) 500 mg 1 g PO QDAY 07/05/24 Unknown History tablet atorvastatin 40 mg tablet 40 mg PO .EVERY OTHER DAY #4 5 tabs 11/25/24 Unknown Rx Allergy/AdvReac Type Severity Reaction Status Date / Time metoprolol AdvReac dyspnea Verified 04/15/25 15:26 morphine AdvReac I flat Verified 04/15/25 15:26 lined because they pushed it too fast nitroglycerin AdvReac severe Verified 04/15/25 15:26 hypotension phenobarbital AdvReac made me Verified 04/15/25 15:26 go crazy Family History Mother Heart disease PPM Father Cancer Prostate Surgical History History of esophagogastroduodenoscopy (EGD) History of cardiac catheterization Hx of arthroscopy of right knee Hx of arthroscopy of left knee History of coronary artery stent placement (01/29/19) S/P laparoscopic cholecystectomy Social History household members: spouse current occupational status: employed 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 04/18/25737 <Electronically signed by Niraj ross MD> Date _ Niraj Moreno MD Cosigner Signature: Date CC: ~ Signed [facility] Work Phone: Consult note Author René Santacruz [facility] Note Date/Time April 18, 2025 8:1 6am [facility] Medical Records Department [address] [place] [address] Anesthesia Postop Eval I 04/18/25815 MR#: [id number] Acct: [id number] Name: KRISHAN JOHNSON Sr. Rep #:[id number] : 1960 64 From: René SOLANO PCP: ABEL Rodríguez Status:REG SDC Y Race: C Location: [place] [address] Anesthesia: Postop Eval I Current Vital Signs Temperature: 98 F Pulse Rate: 72 Blood Pressure: 138/77 Respiratory Rate: 16 Pulse Ox: 98 Oxygen Delivery Method: Room Air Assessment Airway patent: Yes Spontaneous unlabored respirations: Yes Mental status: Awake and Calm nausea: No Vomiting: No Anesthesia Complication: No Fluid Hydration Crystalloid volume administer (ml): 600 Total IV fluid infused: 600 Progress Note Anesthesia document: Postop Eval 1 completed: Yes 04/18/25815 <Electronically signed by René Santacruz CRNA> Date _ René Santacruz CRNA Cosigner Signature: Date CC: ~ Signed [facility] Work Phone: Consult note Author René Shettyst. anthony's hospitaly[facility] Note Date/Time April 18, 2025 8:2 3am [facility] Medical Records Department [address] [place] [address] Anesthesia Postop Eval II 04/18/25821 MR#: [id number] Acct: [id number] Name: KRISHAN JOHNSON Sr. Rep #:[id number] : 1960 64 From: René Singh RNA PCP: ABEL Rodríguez Status:REG SDC Y Race: C Location: [place] [address] Anesthesia Postop Eval I Sum Postop Eval Completion status Anesthesia document: Postop Eval 1 completed: Yes Anesthesia Postop Eval I Summary Anesthesia Postop Eval I Summary: Anesthesia Postop Eval I: Assessment Summary Airway patent Yes 04/18/25 08:16 [employer] TE[employer]ER.FRANCY Spontaneous unlabored Yes 04/18/25 08:16 [employer] PUBLIC SCHO[employer] TEACHERMELANIE respirations Mental status Awake,Calm 04/18/25 08:16 [employer] TE[employer]ER.FRANCY nausea No 04/18/25 08:16 IND[employer] PUBLIC S[employer] TEACHER.OT Vomiting No 04/18/25 08:16 [employer] TEACHER.FRANCY Anesthesia Postop Eval I: Fluid Summary Crystalloid volume administer 600 04/18/25 08:16 [employer] PUBLIC SCHOOL TEACHERMELANIE (ml) Colloids volume administered ( ml) Blood Product volume administered (ml) Total IV fluid infused 600 04/18/25 08:16 LAILA Anesthesia Postop Eval I: Summary Notes Anesthesia Complication No 04/18/25 08:16 LAILA Anesthesia Complication Comment: Post-operative progress note Anesthesia: Postop Eval II Evaluation Mental status: Awake and Calm Pain Level: 0 nausea: No Vomiting: No Complications Anesthesia Complication: No 04/18/25822 <Electronically signed by René Santacruz CRNA> Date _ René Santacruz CRNA Cosigner Signature: Date CC: ~ Signed [facility] Work Phone: evaluation noteNo assessment information available [facility] Work Phone: evaluation note* Diagnosis Onset Date Resolution Status Hiatal hernia with GERD and esophagitis acute Atherosclerosis of coronary artery of [place] heart without angina pectoris chronic Elevated PSA noneactive Immunization declined noneac tive Establishing care with new doctor, encounter for noneactive Electronic cigarette use non eactive Bilateral knee pain noneacti ve Vitamin D deficiency noneact negrito [facility] Work Phone: Evaluation note* Diagnosis Onset Date Resolution Status Hiatal hernia with GERD and esophagitis acute Atherosclerosis of coronary artery of [place] heart without angina pectoris chronic Elevated PSA noneactive Immunization declined noneac tive Establishing care with new doctor, encounter for noneactive Electronic cigarette use non eactive Bilateral knee pain noneacti ve Vitamin D deficiency noneact negrito Hiatal hernia with GERD and esophagitis acute Hiatal hernia with GERD and esophagitis acute Atherosclerosis of coronary artery of [place] heart without angina pectoris chronic Chronic left hip pain noneac tive Electronic cigarette use non eactive Bilateral knee pain noneacti ve [facility] Work Phone: Evaluation note* Diagnosis Onset Date Resolution Status Hypersomnia acute Mediastinal lymphadenopathy chronic [facility] Work Phone: Evaluation note* Diagnosis Onset Date Resolution Status Hypersomnia acute Mediastinal lymphadenopathy chronic Combined hyperlipidemia acut e Atherosclerosis of coronary artery of [place] heart without angina pectoris chronic History of coronary artery stent placement January 29 019 resolved [facility] Work Phone: Evaluation note* Diagnosis Elevated prostate specific antigen (PSA)- Primary [facility] Diagnosis Acute pain of right knee documented in this encounter [facility] note* Diagnosis Onset Date Resolution Status Admit Date Barretts esophagus acute March 112024 2:46pm [facility] Work Phone: Evaluation note* Diagnosis Radiculopathy, lumbar region- Primary Thoracic or lumbosacral neuritis or radiculitis, unspecified Abnormal posture Abnormality of gait documented in this encounter [facility] Discharge instructionsAmbulatory Orders* Physical Therapy Referral Location: None Selected [facility] Work Phone: [employer] for referral (narrative)* Diagnostic Procedure Only (Urgent) - Closed Specialty Diagnoses / Procedures Referred By Contac t Referred To Contact XR IMAGING Diagnoses Acute pain of right knee Procedures XR KNEE GENERAL 4V AP BOTH/PA BOTH/LAT/MERC RIGHT RADIOLOGIC EXAM KNEE COMPLETE 4/MORE VIEWS Swetha Ward APRN.PATIENT PLACEMENT COORDINATOR [address] [place] [address] [place] [id number] Referral ID Status Reason Start Date Expiration Date V isits Requested Visits Authorized [id number] Closed Auto-Generate d Referral 05/30/2023 06/28/2024 1 1 [facility] for referral (narrative)No reason for referral information [facility] Work Phone: Rehsnb for visit Narrative* Diagnostic Procedure Only (Urgent) - Closed Specialty Diagnoses / Procedures Referred By Contac t Referred To Contact XR IMAGING Diagnoses Acute pain of right knee Procedures XR KNEE GENERAL 4V AP BOTH/PA BOTH/LAT/MERC RIGHT RADIOLOGIC EXAM KNEE COMPLETE 4/MORE VIEWS Swetha Ward APRN.CNP [address] [place] [address] [place] [id number] Referral ID Status Reason Start Date Expiration Date V isits Requested Visits Authorized [id number] Closed Auto-Generate d Referral 05/30/2023 06/28/2024 1 1 [facility] Chief Complaint and Reason for Visit Chief Complaint BACK PAIN, HIP PAIN Chief Complaint BACK PAIN, HIP PAIN Presence of coronary angioplasty implant and graft Presence of coronary angioplasty implant and graft Chief Complaint BACK PAIN, HIP PAIN Presence of coronary angioplasty implant and graft Presence of coronary angioplasty implant and graft LIVER LESION TOBACCO DEPENDENCY Chief Complaint MARKETING PRODUCER, EST. CARE, PT NE EDS NPP EORDER- chronic knee pain Reason for Visit Hiatal hernia with G ERD and esophagitis Atherosclerosis of coronary artery of [place] heart without angina pectoris Elevated PSA Immunization declined Establishing care with new doctor, encounter for Electronic cigarette use Bilateral knee pain Vitamin D deficiency Chief Complaint MARKETING PRODUCER, EST. CARE, PT NE EDS NPP EORDER- chronic knee pain Herina discuss hip concerns Reason for Visit Hiatal hernia with G ERD and esophagitis Atherosclerosis of coronary artery of [place] heart without angina pectoris Elevated PSA Immunization declined Establishing care with new doctor, encounter for Electronic cigarette use Bilateral knee pain Vitamin D deficiency Hiatal hernia with GERD and esophagitis Hiatal hernia with GERD and esophagitis Atherosclerosis of coronary artery of [place] heart without angina pectoris Chronic left hip pain Electronic cigarette use Bilateral knee pain Chief Complaint NICOTINE DEPENDENCE Chief Complaint NICOTINE DEPENDENCE 1 Y FU Reason for Visit Hypersomnia Mediastinal lymphadenopathy Chief Complaint NICOTINE DEPENDENCE 1 Y FU 1 Y FU G47.10 Reason for Visit Hypersomnia Mediastinal lymphadenopathy Combined hyperlipidemia Atherosclerosis of coronary artery of [place] heart without angina pectoris History of coronary artery stent placement Chief Complaint Admit Date BARRETTS/GERD March 25, 2025 2:46 pm Reason for Visit Admit Date Barretts esophagus March 25, 2025 2:46 pm Chief Complaint Admit Date BARRETTS/GERD March 25, 2025 2:46 pm LUMBAR SPINE April 23, 2025 1: 50pm Room 3 April 23, 2025 2: 22pm Family History No Family History Records Found Relationship Condition Age at Onset Recorded Date/T jassi mother Cardiac disease Unknown father Malignant neoplasm Unknown Advance Directives No Advanced Directives Records Found Advance Directive Response Recorded Date/ Time Advance Directives No October 20, 2020 11:55am Living Will No March 29, 2021 1:01pm Power of Associate Professor Of Archaeology No March 29 1:01pm Advance Directive Response Recorded Date/ Time Advance Directives No October 20, 2020 10:55am Living Will No March 29, 2021 12:01pm Power of Associate Professor Of Archaeology No March 29 12:01pm Advance Directive Response Recorded Date/ Time Advance Directives No October 20, 2020 11:55am Living Will No December 21, 2022 9:31am Power of Associate Professor Of Archaeology No December 21 9:31am Advance Directive Response Recorded Date/ Time Advance Directives No October 20, 2020 10:55am Living Will No December 21, 2022 8:31am Power of Associate Professor Of Archaeology No December 21 8:31am Advance Directive Response Recorded Date/ Time Advance Directives No October 20, 2020 11:55am Advance Directive Response Recorded Date/ Time Do you have a Healthcare Power of Associate Professor Of Archaeology? No April 15, 2025 3:36pm Advance Directives No October 20, 2020 11:55am [...] Inactive Member Role Status Dates Tania Carrillo MARKETING PRODUCER, MARKETING PRODUCER-C Attending Provider, Referrin g Provider Active Dr. Della Velazquez MD Primary Care Provider Active Team Status: Active Member Role Status Dates Dr. Ernesto Faust MD Family Provider Active Jennifer Cobb MARKETING PRODUCER-C Primary Care Provider Active Team Status: Inactive Member Role Status Dates Dr. Ernesto Faust MD Referring Provider Active Dr. Conrado Fuller MD Attending Provider Active Dr. Della Velazquez MD Primary Care Provider Active Team Status: Inactive Member Role Status Dates Jennifer Cobb MARKETING PRODUCER-C Primary Care Provider, Attending P sarita Active Team Status: Inactive Member Role Status Dates Dr. Ernesto Faust MD Referring Provider Active Dr. Duane Jiang MD Attending Provider Active Jennifer Cobb MARKETING PRODUCER-C Primary Care Provider Active Team Status: Inactive Member Role Status Dates Jennifer Cobb NP-C Primary Care Provider Active Dr. Conrado Fuller MD Attending Provider, Referring Pr ovider Active Wraparound Facilitator Relationship Specialty Start Date End Date Ernesto Faust MD PCP - General Family Medicine 10/18/16 Wraparound Facilitator Relationship Specialty Start Date End Date Ernesto Faust MD PCP - General Family Medicine 10/18/16 Team Status: Active Member Role/Relationship Status Dates Dr. Ernesto Faust MD Family Provider Active Jennifer Cobb MARKETING PRODUCER-C Primary Care Provider Active Team Status: Inactive Member Role/Relationship Status Dates Jennifer Cobb MARKETING PRODUCER-C Primary Care Provider Active Start: March 25, 2025 End: March 25, 2025 Jennifer Cobb NP-C Referring Provider Active St art: March 25, 2025 End: March 25, 2025 Dr. Cholo Neumann MD Attending Provider Active Start: March 25, 2025 End: March 25, 2025 Wraparound Facilitator Relationship Specialty Start Date End Date Ernesto Faust MD PCP - General Family Medicine 10/18/16 Team Status: Active Member Role/Relationship Status Dates Jennifer Jordyn , MARKETING PRODUCER-C Primary Care Provider Active Team Status: Inactive Member Role/Relationship Status Dates Jennifer Jordyn , MARKETING PRODUCER-C Primary Care Provider Active Start: April 18, 2025 End: April 18, 2025 Jennifer Jordyn , MARKETING PRODUCER-C Referring Provider Active St art: April 18, 2025 End: April 18, 2025 Dr. Cholo Neumann MD Attending Provider Active Start: April 18, 2025 End: April 18, 2025 Team Status: Active Member Role/Relationship Status Dates Jennifer Jordyn , MARKETING PRODUCER-C Primary Care Provider Active Start: April 18, 2025 Jennifer Jordyn , MARKETING PRODUCER-C Referring Provider Active St art: April 18, 2025 Dr. Cholo Neumann MD Attending Provider Active Start: April 18, 2025 Dr. Cholo Neumann MD Other Provider Active Start: April 18, 2025 Team Status: Active Member Role/Relationship Status Dates Jennifer Jordyn , MARKETING PRODUCER-C Primary Care Provider Active Start: April 23, 2025 Jennifer Jordyn , MARKETING PRODUCER-C Referring Provider Active St art: April 23, 2025 MILES Voss Attending Provider Active Star t: April 23, 2025 Team Status: Inactive Member Role/Relationship Status Dates Jennifer Jordyn , MARKETING PRODUCER-C Primary Care Provider Active Start: April 23, 2025 End: April 23, 2025 Dr. Duane Jiang MD Attending Provider Active S tart: April 23, 2025 End: April 23, 2025 Team Status: Inactive Member Role/Relationship Status Dates Jennifer Jordyn , MARKETING PRODUCER-C Primary Care Provider Active Start: April 23, 2025 End: April 23, 2025 Jennifer Jordyn , MARKETING PRODUCER-C Referring Provider Active St art: April 23, 2025 End: April 23, 2025 MILES Voss Attending Provider Active Star t: April 23, 2025 End: April 23, 2025 Wraparound Facilitator Relationship Specialty Start Date End Date Ernesto Faust MD PCP - General Family Medicine 10/18/16 Source Comments (unrecognize d section and content) In the event this informatio n is protected by the Federal Confidentiality of Alcohol and Drug Abuse Patient Records regulations: The Federal rules restrict any use of the information to criminally investigate or prosecute any alcohol or drug abuse patient.[facility] the event this information is protected by the Federal Confidentiality of Alcohol and Drug Abuse Patient Records regulations: The Federal rules restrict any use of the information to criminally investigate or prosecute any alcohol or drug abuse patient.[facility] the event this information is protected by the Federal Confidentiality of Alcohol and Drug Abuse Patient Records regulations: The Federal rules restrict any use of the information to criminally investigate or prosecute any alcohol or drug abuse patient.[facility] the event this information is protected by the Federal Confidentiality of Alcohol and Drug Abuse Patient Records regulations: The Federal rules restrict any use of the information to criminally investigate or prosecute any alcohol or drug abuse patient.[facility] Reason for Visit (unrecogniz ed section and content) Reason Comments Elevated PSA New Patient Reason Comments PT Eval Specialty Diagnoses / Procedures Referred By Contac t Referred To Contact Physical Therapy / PHYSICAL THERAPY Diagnoses LUMBAR SPINE PAIN ORDER SCANNED Procedures NEW RS PT ORTH K Dina Khan, MILES [address] [place] [address] Phone: tel: fax: Liz [place] PT Referral ID Status Reason Start Date Expiration Date V isits Requested Visits Authorized [id number] Pending Review 04/24/2025 09/10/2025 1 1 (unrecognized sect ion and content) No Status Records FoundNo Status Records FoundNo Status Records Found INFORMATION SOURCE (unrecogn ized section and content) DATE CREATED AUTHOR 01/25/2024 [facility] DATE CREATED AUTHOR AUTHOR'S ORGANIZ ATION 05/09/2025 [facility] DATE CREATED AUTHOR AUTHOR'S ORGANIZ ATION 07/17/2025 [facility] FOR RECORDS PERTAINING TO PATIENTS WHO [...] BE BASED ON THE PRIMARY CLINICAL RECORDS. [facility]. provides no warranty or guarantee of the accuracy or completeness of information in this document.
== END | disposition home or self-care (01) ==
LOC: CT 14:41
PROVIDERS: PCP Nurse Practitioner Family; Referring Provider Nurse Practitioner Family; Visit Provider Nurse Practitioner Family
DX: Z12.2 Encounter for screening for malignant neoplasm of respiratory organs (principal); Z87.891 Personal history of nicotine dependence
CPT/HCPCS: 71271